=== PATIENT | male | born 1960 | race Caucasian/White ===

== ENCOUNTER → 2016-09-20 | Outpatient (REF) | payer MEDICARE, MEDICAID ==
[~2016-09-20] MED LIST: /AMLO25TA PO; /PANT40TA OR; ACCU40TA PO; AMLO10TA PO; BISA10SU PO; CARA1SUS OR; CIPR500T4 OR; CIPR500T89 PO; FERR325T PO; HCTZ PO; HYDR25TAB PO; INSUDET SC; INSUHUMDS SC; INSULANT SC; INSULIN NPH SC; INSULIN REG SC; INSULIN REG SUBQ; INSUR SC; INSURSD SC; INSURSDRX SC; MAALSUS OR; METO10TA2 OR; MIRA3350 PO; MS CONTIN PO; MS IR PO; Metronidazole PO; NICO14DI20 TD; NICO14PA TOP; NOVOINJ5 SC; NPH INSULIN SC; PEPC1TAB4 PO; PERCOCET PO; PRIL40CA PO; PROM25TA PO; REGL10TA6 PO; REGULAR INSULIN SC; SENN8.6T7 PO; SENO8.6T2 PO; TYLE325T5 PO; ZENP1CAP PO
== END ==
LOC: M SFHCPLAZ 11:47
PROVIDERS: ATTEND Family Medicine
DX: E11.9 Type 2 diabetes mellitus without complications (principal); Z53.8 Procedure and treatment not carried out for other reasons

== ENCOUNTER 2016-09-26 20:49 | Emergency (ER) | payer MEDICARE, MEDICAID ==
[2016-09-26] MEDS ORDERED: NORCO, ANEXSIA 5/325MG TABLET (HYDROcodone/ACETAMINOPHEN) As Ordered ONE (21:09)
[2016-09-26] MEDS ORDERED: NORCO 5/325MG TABLET (BULK) As Ordered ONE (21:27)
--- NOTE | 2016-09-26 21:40 | EDDOCDS ---
Nurse's Notes [facility] Name: Fernando Fernandez Age: 56 yrs Sex: Male : 1960 Arrival Date: 09/26/2016 Time: 20:49 Bed 3 Private MD: Micheal Arreguin Diagnosis: Dislocation of right acromioclavicular joint, 100%-200% displacement Presentation: 09/26 20:53 Presenting complaint: EMS states: pt slipped and fell outside. injured right shoulder. [facility] Adult Sepsis Screening: The patient does not have new or worsening altered mentation. Patient's respiratory rate is less than 22. Systolic blood pressure is greater than 100. Patient has a qSOFA score of 0- Negative Sepsis Screen. Suicide/Homicide risk assessment- the patient denies having any suicidal and/or homicidal ideations and does not present with any other emotional, behavioral or mental health complaints. Status: Patient is not a director of radio services or dependent. Transition of care: patient was not received from another setting of care. 20:53 Acuity: CHITO Level 3 [facility] 20:53 Method Of Arrival: Ambulance [facility] Triage Assessment: 20:54 General: Appears in no apparent distress, comfortable, Behavior is appropriate for age, mlc cooperative, pleasant. Pain: Location: anterior aspect of right shoulder Pain currently is 8 out of 10 on a pain scale. HIV screening NA for this visit Offered previously. The patient is triaged at the bedside. See Assessment in Nurses Notes section of ED record. Neurological: Level of Consciousness is awake, alert, Oriented to person, place, time. Cardiovascular: Capillary refill < 3 seconds Pulses are all present. Respiratory: Airway is patent Respiratory effort is even, unlabored, Respiratory pattern is regular. Derm: Skin is normal. Historical: - Allergies: No known drug Allergies; - Home Meds: 1. Insulin: Regular Sub-Q after meals sliding scale 2. Lantus 100 unit/mL Sub-Q crtg 10 unit every morning - PMHx: Diabetes - IDDM: uncontrolled; Hypertension; Pancreatitis; - PSHx: pancreas removal; left ankle; left wrist; - Social history: Smoking status: Patient uses tobacco products, heavy tobacco smoker. No barriers to communication noted, The patient speaks fluent Georgian. - Family history: Not pertinent. - : The pt / caregiver states he / she is not on anticoagulants. Home medication list is obtained from the patient. - Exposure Risk Screening:: None identified. Screenin:57 Screening information is obtained from the patient. Fall risk: No risks identified. [facility] Assistance ADL's: requires no assistance with activities of daily living. Abuse/DV Screen: The patient / caregiver reports he/she is: not in a situation that causes fear, pain or injury. Nutritional screening: No deficits noted. Advance Directives: Currently, there is a health care proxy, Tova Mcpherson maday . There is no active DNR order. There is an active Power of Control Systems Specialist, maday Marques . home support is adequate. Assessment: 21:16 General: pt given boxed lunch. mlc 21:37 General: Appears in no apparent distress, comfortable, Behavior is cooperative. [facility] Neurological: Level of Consciousness is awake, alert, Oriented to person, place, time. Respiratory: Airway is patent Respiratory effort is even, unlabored, Respiratory pattern is regular. Derm: Skin is pink, warm & dry. Vital Signs: 20:58 BP 180 / 85; Pulse 70; Resp 18; Temp 99.1(TE); Pulse Ox 100% on R/A; Weight 68.04 kg william (R); Height 5 ft. 2 in. (157.48 cm) (R); Pain 7/10; 21:35 BP 160 / 74; Pulse 62; Resp 18; Temp 98.9(TE); Pulse Ox 99% on R/A; Pain 7/10; william 20:58 Body Mass Index 27.44 (68.04 kg, 157.48 cm) william Vitals: 20:54 Log In Time N/A - ambulance arrival. [facility] ED Course: 20:52 Patient visited by Wallace Root, Meter/Relay Craftsman. ml3 20:52 Micheal Arreguin DO is Private Physician. ml3 20:52 Angie Zaman,LETI is Primary Nurse. ml3 20:52 [facility] Ferr[facility] le 20:52 Patient moved to Waiting ml3 20:52 Patient moved to 3 ml3 20:53 Triage Initiated mlc 20:56 Patient moved to Radiology alayna 20:57 Patient visited by Catie Ferraro FNP. le 20:58 Patient visited by Angie Zaman RN. mlc 20:58 Pt greeted and oriented to ED. Patient advised of names of staff involved in care, william location of call jones, wait times and NPO status. Patient has correct armband on for positive identification. Bed in low position. Call light in reach. Side rails up X2. Pulse ox on. NIBP on. 20:59 Patient visited by Neena Chatman PCA. william 21:02 Patient visited by Catie Ferraro FNP. le 21:16 Patient visited by Angie Zaman RN. mlc 21:17 Patient moved to 3 ml3 21:30 [facility] is Referral Physician. le 21:32 [facility] Payment Agreement was scanned into [employer] and attached to record. [email or web address] 21:35 Patient visited by Neena Chatman PCA. william 21:37 The patient / caregiver is instructed regarding the plan of care and ED course. mlc 21:37 No IV's were initiated during this patient's visit. No procedures done that require mlc assistance. Sling applied to right arm. Patient with positive distal sensation and brisk distal capillary refill after application. Administered Medications: 21:16 Drug: HYDROcodone-acetaminophen 1 tabs [hydrocodone 5 mg-acetaminophen 325 mg tablet (1 mlc tabs)] Route: PO; 21:36 Follow up: Response: Pt left department before re-evaluation is appropriate mlc 21:36 Drug: HYDROcodone-acetaminophen 4 pack- 1 packets [hydrocodone 5 mg-acetaminophen 325 mlc mg tablet (1 tabs)] {Co-Signature: ko2 (Marie Ortega RN).} Route: PO; 21:36 Follow up: Response: Med's dispensed home mlc Point of Care Testing: Blood Glucose: 21:16 Blood Glucose: 53 mg/dL; mlc Ranges: Order Results: Lab Order: Fingerstick Blood Sugar; SPEC'M 09/26/16 21:13 Test: BEDSIDE GLUCOSE; Value: 53; Range: 70-105; Abnormal: Below low normal; Units: MG/DL; Status: F Test Note: ; RN Notified Dr Order not to Draw Outcome: 21:30 Discharge ordered by Provider. le 21:37 Discharge Assessment: Patient awake, alert and oriented x 3. No cognitive and/or mlc functional deficits noted. Patient verbalized understanding of disposition instructions. patient administered narcotics - yes. Pt provided with safe discharge. Discharge Assessment: Patient awake, alert and oriented x 3. No cognitive and/or functional deficits noted. Patient verbalized understanding of disposition instructions. The following High Risk Discharge criteria are identified: None. Discharged to home via ambulance. Condition: good Condition: stable. Discharge instructions given to patient, Instructed on discharge instructions, follow up and referral plans. medication usage, no driving heavy equipment, Demonstrated understanding of instructions, medications, Pt was receptive of discharge instructions/ teaching. Prescriptions given X 1. No special radiology studies were completed. Property sent home with patient. 21:38 Patient left the ED. [facility] Signatures: Reji David Mary-Elizabeth, Meter/Relay Craftsman Unit ml3 Catie Ferraro, AIXA CERAMIC MOLD DESIGNERNeena Baig, EXCELLENCE LEADER EXCELLENCE LEADER Angie Moya,LETI RN Kallie Chung, Reg Reg ks16 Marie Ortega RN ko2 LUIZ
--- NOTE | 2016-09-26 21:40 | EDDOCDS ---
Physician Documentation [facility] Name: Fernando Fernandez Age: 56 yrs Sex: Male : 1960 Arrival Date: 09/26/2016 Time: 20:49 Bed 3 Private MD: Micheal Arreguin Disposition: 09/26/16 21:30 Discharged to Home/Self Care. Impression: Dislocation of right acromioclavicular joint, 100%-200% displacement. - Condition is Stable. - Discharge Instructions: Elastic Bandage and RICE, Acromioclavicular Injuries, Arm Sling Use, [id number]. - Prescriptions for [place] 5- 325 mg Oral Tablet - take 1 tablet by ORAL route every 6 hours As needed MDD: 4 tabs; 20 tablet. - Medication Reconciliation, Local Pharmacy [facility], [facility] Followup form. - Follow up: [facility]; When: Call to arrange an appointment; Reason: Recheck today's complaints, Continuance of care. - Problem is new. - Symptoms are unchanged. - Notes: Return to the ED for any further concerns Historical: - Allergies: No known drug Allergies; - Home Meds: 1. Insulin: Regular Sub-Q after meals sliding scale 2. Lantus 100 unit/mL Sub-Q crtg 10 unit every morning - PMHx: Diabetes - IDDM: uncontrolled; Hypertension; Pancreatitis; - PSHx: pancreas removal; left ankle; left wrist; - Social history: Smoking status: Patient uses tobacco products, heavy tobacco smoker. No barriers to communication noted, The patient speaks fluent Tajik. - Family history: Not pertinent. - : The pt / caregiver states he / she is not on anticoagulants. Home medication list is obtained from the patient. - Exposure Risk Screening:: None identified. Vital Signs: 09/26 20:58 BP 180 / 85; Pulse 70; Resp 18; Temp 99.1(TE); Pulse Ox 100% on R/A; Weight 68.04 kg / william 150 lbs (R); Height 5 ft. 2 in. (157.48 cm) (R); Pain 7/10; 21:35 BP 160 / 74; Pulse 62; Resp 18; Temp 98.9(TE); Pulse Ox 99% on R/A; Pain 7/10; william 20:58 Body Mass Index 27.44 (68.04 kg, 157.48 cm) william MDM: 20:54 Shoulder, Complete Ordered. EDMS 21:06 HYDROcodone-acetaminophen 5 mg-325 mg 1 tabs PO once ordered. le 21:08 Sling ordered. le 21:08 Accucheck ordered. le 21:11 HYDROcodone-acetaminophen 4 pack- 5 mg-325 mg 1 packets PO Per package directions; le Dispense with patient. 1 po q4h prn for pain ordered. 21:22 Fingerstick Blood Sugar Ordered. EDMS 21:31 Financial registration complete. [email or web address] 21:32 [facility] Payment Agreement was scanned into [employer] and attached to record. [email or web address] Point of Care Testing: Blood Glucose: 21:16 Blood Glucose: 53 mg/dL; mlc Ranges: Administered Medications: 21:16 Drug: HYDROcodone-acetaminophen 1 tabs [hydrocodone 5 mg-acetaminophen 325 mg tablet (1 mlc tabs)] Route: PO; 21:36 Follow up: Response: Pt left department before re-evaluation is appropriate mlc 21:36 Drug: HYDROcodone-acetaminophen 4 pack- 1 packets [hydrocodone 5 mg-acetaminophen 325 mlc mg tablet (1 tabs)] {Co-Signature: ko2 (Marie Ortega RN).} Route: PO; 21:36 Follow up: Response: Med's dispensed home mlc Signatures: Dispatcher [employer] EDMS Catie Ferraro, WASHING MACHINE REPAIRER WASHING MACHINE REPAIRER Angie Patricia RN RN mlc Kallie Joshi, Reg Reg ks16 Marie Ortega RN ko2 The chart was reviewed and I authenticate all verbal orders and agree with the evaluation and treatment provided.Attachments: :32 [facility] Payment Agreement [email or web address] MTDD
--- NOTE | 2016-09-27 08:32 | REP ---
Right shoulder: Three views. History: Trauma. Findings: There is superior subluxation of the distal clavicle on the right. This is a new finding compared with the chest x-ray from January 14, 2016 and is consistent with an AC separation injury, grade 2. There is widening of the coracoclavicular space. No fracture is seen. There is some diffuse osteopenia. Glenohumeral joint is normally aligned. Impression: AC separation injury. No fracture seen. Signed by Willi Vieira MD 09/27/2016 10:18 A
--- NOTE | 2016-09-28 22:39 | EDDOCDS ---
Physician Documentation [facility] Name: Fernando Fernandez Age: 56 yrs Sex: Male : 1960 Arrival Date: 09/26/2016 Time: 20:49 Bed 3 Private MD: Micheal Arreguin Disposition: 09/26/16 21:30 Discharged to Home/Self Care. Impression: Dislocation of right acromioclavicular joint, 100%-200% displacement. - Condition is Stable. - Discharge Instructions: Elastic Bandage and RICE, Acromioclavicular Injuries, Arm Sling Use, [id number]. - Prescriptions for [place] 5- 325 mg Oral Tablet - take 1 tablet by ORAL route every 6 hours As needed MDD: 4 tabs; 20 tablet. - Medication Reconciliation, Local Pharmacy [facility], [facility] Followup form. - Follow up: [facility]; When: Call to arrange an appointment; Reason: Recheck today's complaints, Continuance of care. - Problem is new. - Symptoms are unchanged. - Notes: Return to the ED for any further concerns Historical: - Allergies: No known drug Allergies; - Home Meds: 1. Insulin: Regular Sub-Q after meals sliding scale 2. Lantus 100 unit/mL Sub-Q crtg 10 unit every morning - PMHx: Diabetes - IDDM: uncontrolled; Hypertension; Pancreatitis; - PSHx: pancreas removal; left ankle; left wrist; - Social history: Smoking status: Patient uses tobacco products, heavy tobacco smoker. No barriers to communication noted, The patient speaks fluent Sami. - Family history: Not pertinent. - : The pt / caregiver states he / she is not on anticoagulants. Home medication list is obtained from the patient. - Exposure Risk Screening:: None identified. Vital Signs: 09/26 20:58 BP 180 / 85; Pulse 70; Resp 18; Temp 99.1(TE); Pulse Ox 100% on R/A; Weight 68.04 kg / william 150 lbs (R); Height 5 ft. 2 in. (157.48 cm) (R); Pain 7/10; 21:35 BP 160 / 74; Pulse 62; Resp 18; Temp 98.9(TE); Pulse Ox 99% on R/A; Pain 7/10; william 20:58 Body Mass Index 27.44 (68.04 kg, 157.48 cm) william MDM: 20:54 Shoulder, Complete Ordered. EDMS 21:06 HYDROcodone-acetaminophen 5 mg-325 mg 1 tabs PO once ordered. le 21:08 Sling ordered. le 21:08 Accucheck ordered. le 21:11 HYDROcodone-acetaminophen 4 pack- 5 mg-325 mg 1 packets PO Per package directions; le Dispense with patient. 1 po q4h prn for pain ordered. 21:22 Fingerstick Blood Sugar Ordered. EDMS 21:31 Financial registration complete. [facility] :32 [facility] Payment Agreement was scanned into [employer] and attached to record. 09/27 11:48 T-Sheet-- Draft Copy was scanned into [employer] and attached to record. gb Point of Care Testing: Blood Glucose: 09/26 21:16 Blood Glucose: 53 mg/dL; mlc Ranges: Administered Medications: 21:16 Drug: HYDROcodone-acetaminophen 1 tabs [hydrocodone 5 mg-acetaminophen 325 mg tablet (1 mlc tabs)] Route: PO; 21:36 Follow up: Response: Pt left department before re-evaluation is appropriate mlc 21:36 Drug: HYDROcodone-acetaminophen 4 pack- 1 packets [hydrocodone 5 mg-acetaminophen 325 mlc mg tablet (1 tabs)] {Co-Signature: ko2 (Marie Ortega RN).} Route: PO; 21:36 Follow up: Response: Med's dispensed home mlc Signatures: Dispatcher [employer] EDMS Chelly Weaver, Reg Reg gb Catie Ferraro, PLANT OPERATOR PLANT OPERATOR Angie Patricia RN RN Kallie Chung, Reg Reg ks16 Marie gibson The chart was reviewed and I authenticate all verbal orders and agree with the evaluation and treatment provided.Attachments: :32 [facility] Payment Agreement 09/27 11:48 T-Sheet-- Draft Copy gb Chart Complete MTDD
--- NOTE | 2016-09-28 22:39 | EDDOCDS ---
Physician Documentation [facility] Name: Fernando Fernandez Age: 56 yrs Sex: Male : 1960 Arrival Date: 09/26/2016 Time: 20:49 Bed 3 Private MD: Micheal Arreguin Disposition: 09/26/16 21:30 Discharged to Home/Self Care. Impression: Dislocation of right acromioclavicular joint, 100%-200% displacement. - Condition is Stable. - Discharge Instructions: Elastic Bandage and RICE, Acromioclavicular Injuries, Arm Sling Use, [facility]. - Prescriptions for [place] 5- 325 mg Oral Tablet - take 1 tablet by ORAL route every 6 hours As needed MDD: 4 tabs; 20 tablet. - Medication Reconciliation, Local Pharmacy [facility], [facility] Followup form. - Follow up: [facility]; When: Call to arrange an appointment; Reason: Recheck today's complaints, Continuance of care. - Problem is new. - Symptoms are unchanged. - Notes: Return to the ED for any further concerns Historical: - Allergies: No known drug Allergies; - Home Meds: 1. Insulin: Regular Sub-Q after meals sliding scale 2. Lantus 100 unit/mL Sub-Q crtg 10 unit every morning - PMHx: Diabetes - IDDM: uncontrolled; Hypertension; Pancreatitis; - PSHx: pancreas removal; left ankle; left wrist; - Social history: Smoking status: Patient uses tobacco products, heavy tobacco smoker. No barriers to communication noted, The patient speaks fluent Portuguese. - Family history: Not pertinent. - : The pt / caregiver states he / she is not on anticoagulants. Home medication list is obtained from the patient. - Exposure Risk Screening:: None identified. Vital Signs: 09/26 20:58 BP 180 / 85; Pulse 70; Resp 18; Temp 99.1(TE); Pulse Ox 100% on R/A; Weight 68.04 kg / william 150 lbs (R); Height 5 ft. 2 in. (157.48 cm) (R); Pain 7/10; 21:35 BP 160 / 74; Pulse 62; Resp 18; Temp 98.9(TE); Pulse Ox 99% on R/A; Pain 7/10; william 20:58 Body Mass Index 27.44 (68.04 kg, 157.48 cm) william MDM: 20:54 Shoulder, Complete Ordered. EDMS 21:06 HYDROcodone-acetaminophen 5 mg-325 mg 1 tabs PO once ordered. le 21:08 Sling ordered. le 21:08 Accucheck ordered. le 21:11 HYDROcodone-acetaminophen 4 pack- 5 mg-325 mg 1 packets PO Per package directions; le Dispense with patient. 1 po q4h prn for pain ordered. 21:22 Fingerstick Blood Sugar Ordered. EDMS 21:31 Financial registration complete. [facility] :32 [facility] Payment Agreement was scanned into [employer] and attached to record. 09/27 11:48 T-Sheet-- Draft Copy was scanned into [employer] and attached to record. gb Point of Care Testing: Blood Glucose: 09/26 21:16 Blood Glucose: 53 mg/dL; mlc Ranges: Administered Medications: 21:16 Drug: HYDROcodone-acetaminophen 1 tabs [hydrocodone 5 mg-acetaminophen 325 mg tablet (1 mlc tabs)] Route: PO; 21:36 Follow up: Response: Pt left department before re-evaluation is appropriate mlc 21:36 Drug: HYDROcodone-acetaminophen 4 pack- 1 packets [hydrocodone 5 mg-acetaminophen 325 mlc mg tablet (1 tabs)] {Co-Signature: ko2 (Marie Ortega RN).} Route: PO; 21:36 Follow up: Response: Med's dispensed home mlc Signatures: Dispatcher [employer] EDMS Chelly Weaver, Reg Reg gb Catie Ferraro, WASH BARREL LEADER WASH BARREL LEADER Angie Patricia RN RN Kallie Chung, Reg Reg ks16 Marie gibson The chart was reviewed and I authenticate all verbal orders and agree with the evaluation and treatment provided.Attachments: :32 [facility] Payment Agreement 09/27 11:48 T-Sheet-- Draft Copy gb Chart Complete MTDD
--- NOTE | 2016-09-28 22:39 | EDDOCDS ---
Nurse's Notes [facility] Name: Fernando Fernandez Age: 56 yrs Sex: Male : 1960 Arrival Date: 09/26/2016 Time: 20:49 Bed 3 Private MD: Micheal Arreguin Diagnosis: Dislocation of right acromioclavicular joint, 100%-200% displacement Presentation: 09/26 20:53 Presenting complaint: EMS states: pt slipped and fell outside. injured right shoulder. [facility] Adult Sepsis Screening: The patient does not have new or worsening altered mentation. Patient's respiratory rate is less than 22. Systolic blood pressure is greater than 100. Patient has a qSOFA score of 0- Negative Sepsis Screen. Suicide/Homicide risk assessment- the patient denies having any suicidal and/or homicidal ideations and does not present with any other emotional, behavioral or mental health complaints. Status: Patient is not a assurance services manager health care or dependent. Transition of care: patient was not received from another setting of care. 20:53 Acuity: CHITO Level 3 [facility] 20:53 Method Of Arrival: Ambulance [facility] Triage Assessment: 20:54 General: Appears in no apparent distress, comfortable, Behavior is appropriate for age, mlc cooperative, pleasant. Pain: Location: anterior aspect of right shoulder Pain currently is 8 out of 10 on a pain scale. HIV screening NA for this visit Offered previously. The patient is triaged at the bedside. See Assessment in Nurses Notes section of ED record. Neurological: Level of Consciousness is awake, alert, Oriented to person, place, time. Cardiovascular: Capillary refill < 3 seconds Pulses are all present. Respiratory: Airway is patent Respiratory effort is even, unlabored, Respiratory pattern is regular. Derm: Skin is normal. Historical: - Allergies: No known drug Allergies; - Home Meds: 1. Insulin: Regular Sub-Q after meals sliding scale 2. Lantus 100 unit/mL Sub-Q crtg 10 unit every morning - PMHx: Diabetes - IDDM: uncontrolled; Hypertension; Pancreatitis; - PSHx: pancreas removal; left ankle; left wrist; - Social history: Smoking status: Patient uses tobacco products, heavy tobacco smoker. No barriers to communication noted, The patient speaks fluent Chinese. - Family history: Not pertinent. - : The pt / caregiver states he / she is not on anticoagulants. Home medication list is obtained from the patient. - Exposure Risk Screening:: None identified. Screenin:57 Screening information is obtained from the patient. Fall risk: No risks identified. [facility] Assistance ADL's: requires no assistance with activities of daily living. Abuse/DV Screen: The patient / caregiver reports he/she is: not in a situation that causes fear, pain or injury. Nutritional screening: No deficits noted. Advance Directives: Currently, there is a health care proxy, Tova Mcpherosn maday . There is no active DNR order. There is an active Power of Legal Service Specialist, maday Marques . home support is adequate. Assessment: 21:16 General: pt given boxed lunch. mlc 21:37 General: Appears in no apparent distress, comfortable, Behavior is cooperative. [facility] Neurological: Level of Consciousness is awake, alert, Oriented to person, place, time. Respiratory: Airway is patent Respiratory effort is even, unlabored, Respiratory pattern is regular. Derm: Skin is pink, warm & dry. Vital Signs: 20:58 BP 180 / 85; Pulse 70; Resp 18; Temp 99.1(TE); Pulse Ox 100% on R/A; Weight 68.04 kg william (R); Height 5 ft. 2 in. (157.48 cm) (R); Pain 7/10; 21:35 BP 160 / 74; Pulse 62; Resp 18; Temp 98.9(TE); Pulse Ox 99% on R/A; Pain 7/10; william 20:58 Body Mass Index 27.44 (68.04 kg, 157.48 cm) william Vitals: 20:54 Log In Time N/A - ambulance arrival. [facility] ED Course: 20:52 Patient visited by Wallace Root, Investment Executive. ml3 20:52 Micheal Arreguin DO is Private Physician. ml3 20:52 Angie Zaman,LETI is Primary Nurse. ml3 20:52 Catie Ferraro FNP is PSYCHIATRICP. le 20:52 Patient moved to Waiting ml3 20:52 Patient moved to 3 ml3 20:53 Triage Initiated mlc 20:56 Patient moved to Radiology alayna 20:57 Patient visited by Catie Ferraro FNP. le 20:58 Patient visited by Angie Zaman RN. mlc 20:58 Pt greeted and oriented to ED. Patient advised of names of staff involved in care, william location of call jones, wait times and NPO status. Patient has correct armband on for positive identification. Bed in low position. Call light in reach. Side rails up X2. Pulse ox on. NIBP on. 20:59 Patient visited by Neena Chatman PCA. william 21:02 Patient visited by Catie Ferraro FNP. le 21:16 Patient visited by Angie Zaman RN. mlc 21:17 Patient moved to 3 ml3 21:30 [facility] is Referral Physician. le 21:32 [facility] Payment Agreement was scanned into [employer] and attached to record. ks16 21:35 Patient visited by Neena Chatman PCA. william 21:37 The patient / caregiver is instructed regarding the plan of care and ED course. mlc 21:37 No IV's were initiated during this patient's visit. No procedures done that require mlc assistance. Sling applied to right arm. Patient with positive distal sensation and brisk distal capillary refill after application. 09/27 08:50 Shoulder, Complete Returned. EDMS 11:48 T-Sheet-- Draft Copy was scanned into [employer] and attached to record. gb Administered Medications: 09/26 21:16 Drug: HYDROcodone-acetaminophen 1 tabs [hydrocodone 5 mg-acetaminophen 325 mg tablet (1 mlc tabs)] Route: PO; 21:36 Follow up: Response: Pt left department before re-evaluation is appropriate mlc 21:36 Drug: HYDROcodone-acetaminophen 4 pack- 1 packets [hydrocodone 5 mg-acetaminophen 325 mlc mg tablet (1 tabs)] {Co-Signature: ko2 (Marie Ortega RN).} Route: PO; 21:36 Follow up: Response: Med's dispensed home mlc Point of Care Testing: Blood Glucose: 21:16 Blood Glucose: 53 mg/dL; mlc Ranges: Order Results: Lab Order: Fingerstick Blood Sugar; SPEC'M 09/26/16 21:13 Test: BEDSIDE GLUCOSE; Value: 53; Range: 70-105; Abnormal: Below low normal; Units: MG/DL; Status: F Test Note: ; RN Notified Dr Order not to Draw Radiology Order: Shoulder, Complete Test: Shoulder, Complete REASON FOR EXAMINATION: Trauma; Right shoulder: Three views.; ; History: Trauma.; ; Findings: There is superior subluxation of the distal clavicle on the right.; This is a new finding compared with the chest x-ray from January 14, 2016 and is; consistent with an AC separation injury, grade 2. There is widening of the; coracoclavicular space. No fracture is seen. There is some diffuse osteopenia.; Glenohumeral joint is normally aligned.; ; Impression:; ; AC separation injury. No fracture seen.; ; ; Signed by; Willi Vieira MD 09/27/2016 10:18 A; Outcome: 21:30 Discharge ordered by Provider. le 21:37 Discharge Assessment: Patient awake, alert and oriented x 3. No cognitive and/or mlc functional deficits noted. Patient verbalized understanding of disposition instructions. patient administered narcotics - yes. Pt provided with safe discharge. Discharge Assessment: Patient awake, alert and oriented x 3. No cognitive and/or functional deficits noted. Patient verbalized understanding of disposition instructions. The following High Risk Discharge criteria are identified: None. Discharged to home via ambulance. Condition: good Condition: stable. Discharge instructions given to patient, Instructed on discharge instructions, follow up and referral plans. medication usage, no driving heavy equipment, Demonstrated understanding of instructions, medications, Pt was receptive of discharge instructions/ teaching. Prescriptions given X 1. No special radiology studies were completed. Property sent home with patient. 21:38 Patient left the ED. mlc Signatures: Dispatcher [employer] EDMS Reji David Gloria, Reg Reg gb Parrish oRotbeth, Investment Executive Unit ml3 Catie Ferraro, COURT ASSISTANT COURT ASSISTANT Neena Granados, CHAIRMAN & CO FOUNDER CHAIRMAN & CO FOUNDER Angie Moya,Kallie Akbar RN, Reg Reg ks16 Marie Ortega RN ko2 Chart Complete MTDD
== END 2016-09-26 21:38 | disposition home or self-care (01) ==
LOC: M ED 20:49
DX: S43.51XA Sprain of right acromioclavicular joint, initial encounter (principal); E10.9 Type 1 diabetes mellitus without complications; I10 Essential (primary) hypertension; F17.210 Nicotine dependence, cigarettes, uncomplicated; Z79.4 Long term (current) use of insulin; W01.198A Fall on same level from slipping, tripping and stumbling with subsequent striking against other object, initial encounter; Y92.410 Unspecified street and highway as the place of occurrence of the external cause; Y93.01 Activity, walking, marching and hiking; Y99.9 Unspecified external cause status

== ENCOUNTER 2016-10-15 17:10 | Emergency (ER) | payer MEDICARE, MEDICAID ==
[2016-10-15] MEDS ORDERED: fentaNYL 100 MCG/2 ML INJECTION (J3010) As Ordered ONE (18:06)
[2016-10-15 18:35] LABS: ANION GAP 5 MEQ/L (8-16); BLOOD UREA NITROGEN 18 MG/DL (7-18); CALCIUM LEVEL 8.4 MG/DL (8.5-10.1); CARBON DIOXIDE LEVEL 30 MEQ/L (21-32); CHLORIDE LEVEL 106 MEQ/L (98-107); GLOMERULAR FILTRATION RATE > 60.0 (>56); GLUCOSE, FASTING 127 MG/DL (70-105); SODIUM LEVEL 141 MEQ/L (136-145)
[2016-10-15 18:39] LABS: POTASSIUM SERUM 5.9 MEQ/L (3.5-5.1)
[2016-10-15] MEDS ORDERED: HYDROmorphone HCL 1 MG/ML SYRINGE (J1170) As Ordered ONE (18:41)
[2016-10-15] MEDS ORDERED: SOD POLYSTYRENE SULFONATE SUSP 15 GM/60 ML UD As Ordered ONE (18:52)
[2016-10-15] MEDS ORDERED: ALBUTEROL SULFATE 2.5 MG/0.5 ML INH NEB SOLN As Ordered ONE (18:54)
--- NOTE | 2016-10-15 20:01 | EDDOCDS ---
Physician Documentation [facility] Name: Fernando Fernandez Age: 56 yrs Sex: Male : 1960 Arrival Date: 10/15/2016 Time: 17:10 Bed 4 Private MD: Duane Espinosa MD Disposition: 10/15/16 19:08 Discharged to Home/Self Care. Impression: Pain in right shoulder. - Condition is Stable. - Discharge Instructions: Hyperkalemia, [id number], Shoulder Pain. - Prescriptions for Percocet 5- 325 mg Oral Tablet - take 1 tablet by ORAL route every 6-8 hours As needed MDD: 4 tabs; 20 tablet. - Medication Reconciliation, Local Pharmacy Hours form. - Follow up: Sachin Sanchez; When: Call to arrange an appointment; Reason: Continuance of care. - Problem is new. - Symptoms have worsened. Historical: - Allergies: no known allergies; - Home Meds: 1. Lantus 100 unit/mL Sub-Q crtg 10 unit every morning (Last dose: 10/15/2016 08:00) 2. Insulin: Regular Sub-Q after meals sliding scale 3. [place] 7.5-325 mg Oral tab 1 tab every 4 hours for Pain (Last dose: 10/11/2016) - PMHx: Pancreatitis; Hypertension; Diabetes - IDDM: uncontrolled; - PSHx: pancreas removal; left ankle; - Social history: Smoking status: Patient uses tobacco products, current every day smoker. Patient/guardian denies using alcohol, street drugs, No barriers to communication noted, The patient speaks fluent Nigerian, Speaks appropriately for age. - Family history: Not pertinent. - : The pt / caregiver states he / she is not on anticoagulants. Home medication list is obtained from the patient. - Exposure Risk Screening:: None identified. Vital Signs: 10/15 17:12 BP 149 / 76; Pulse 70; Resp 16; Temp 96.3(T); Pulse Ox 100% on R/A; Weight 65.77 kg / sew 145 lbs; Height 5 ft. 2 in. (157.48 cm); Pain 9/10; 18:36 BP 160 / 75; Pulse 54; Resp 16; Pulse Ox 97% ; Pain 9/10; cjh 19:57 BP 138 / 66; Pulse 58; Resp 16; Temp 97.4; Pulse Ox 97% ; Pain 7/10; cjh 17:12 Body Mass Index 26.52 (65.77 kg, 157.48 cm) sew MDM: 17:44 IV Saline Lock ordered. fg 17:44 fentaNYL (PF) 50 mcg IVP once ordered. fg 17:45 Shoulder, Complete Ordered. EDMS 17:48 Financial registration complete. gjb 17:48 Undo -Financial registration. gjb 17:51 Basic Metabolic Profile Ordered. EDMS 17:56 Financial registration complete. zo 17:59 [facility] Payment Agreement was scanned into [employer] and attached to record. zo 18:35 Dilaudid - HYDROmorphone 1 mg IVP once ordered. fg 18:45 Polystyrene Suspension 15 grams PO once ordered. fg 18:45 Albuterol 2.5 mg Nebulizer once ordered. fg 18:47 ECG WITH READING ER PHYS+CARDIAG ordered. EDMS Administered Medications: 18:11 Drug: fentaNYL (PF) 50 mcg [fentanyl (PF) 50 mcg/mL injection solution (1 mL)] Route: ld5 IVP; Site: left antecubital; 18:49 Drug: Dilaudid - HYDROmorphone 1 mg [hydromorphone 1 mg/mL injection syringe (1 mL)] [facility] Route: IVP; Site: left antecubital; 18:56 Drug: Polystyrene 15 grams [sodium polystyrene sulfonate 15 gram/60 mL oral suspension [facility] (1200 drps)] Route: PO; 19:00 Drug: Albuterol 2.5 mg [albuterol sulfate 2.5 mg/0.5 mL solution for nebulization (0.5 cs15 mL)] Route: Nebulizer; Signatures: Dispatcher [employer] EDMS Melania Martinez Jane, RN RN [facility] Sofy Moreno RN RN ttb Gill, Frances, MD MD fg Beck, Gabriela gjb Dickerson, Laura RN ld5 Lico Tiwari RT cs15 The chart was reviewed and I authenticate all verbal orders and agree with the evaluation and treatment provided.Attachments: 17:59 [facility] Payment Agreement zo MTDD
--- NOTE | 2016-10-15 20:01 | EDDOCDS ---
Nurse's Notes [facility] Name: Fernando Fernandez Age: 56 yrs Sex: Male : 1960 Arrival Date: 10/15/2016 Time: 17:10 Bed 4 Private MD: Duane Espinosa MD Diagnosis: Pain in right shoulder Presentation: 10/15 17:12 Presenting complaint: Patient states: pt fell 2 nights ago onto right shoulder. ttb Painful. Denies numbness/tingling. Deformed. Adult Sepsis Screening: The patient does not have new or worsening altered mentation. Patient's respiratory rate is less than 22. Systolic blood pressure is greater than 100. Patient has a qSOFA score of 0- Negative Sepsis Screen. Suicide/Homicide risk assessment- the patient denies having any suicidal and/or homicidal ideations and does not present with any other emotional, behavioral or mental health complaints. Status: Patient is not a human resources services specialist or dependent. Transition of care: patient was not received from another setting of care. 17:12 Acuity: CHITO Level 3 ttb 17:12 Method Of Arrival: Walkin/Carried/Asstd ttb Triage Assessment: 17:15 General: Appears in no apparent distress, uncomfortable, well nourished, well groomed, ttb Behavior is appropriate for age, cooperative, pleasant. Pain: Location: right shoulder Pain currently is 9 out of 10 on a pain scale. HIV screening NA for this visit Offered previously. Neurological: Level of Consciousness is awake, alert. Respiratory: No deficits noted. Derm: Skin is normal. Musculoskeletal: Range of motion limited in right shoulder Bony deformity noted of right shoulder. Injury Description: pt fell from standing. Historical: - Allergies: no known allergies; - Home Meds: 1. Lantus 100 unit/mL Sub-Q crtg 10 unit every morning (Last dose: 10/15/2016 08:00) 2. Insulin: Regular Sub-Q after meals sliding scale 3. [place] 7.5-325 mg Oral tab 1 tab every 4 hours for Pain (Last dose: 10/11/2016) - PMHx: Pancreatitis; Hypertension; Diabetes - IDDM: uncontrolled; - PSHx: pancreas removal; left ankle; - Social history: Smoking status: Patient uses tobacco products, current every day smoker. Patient/guardian denies using alcohol, street drugs, No barriers to communication noted, The patient speaks fluent Italian, Speaks appropriately for age. - Family history: Not pertinent. - : The pt / caregiver states he / she is not on anticoagulants. Home medication list is obtained from the patient. - Exposure Risk Screening:: None identified. Screenin:45 Screening information is obtained from the patient. Fall risk: No risks identified. [facility] Assistance ADL's: requires no assistance with activities of daily living. Abuse/DV Screen: The patient / caregiver reports he/she is: not in a situation that causes fear, pain or injury. Nutritional screening: No deficits noted. Advance Directives: There is no active DNR order. home support is adequate. Assessment: 17:45 General: Appears in no apparent distress, comfortable, Behavior is appropriate for age, [facility] cooperative. Pain: Location: right shoulder Pain currently is 10 out of 10 on a pain scale. Neurological: Level of Consciousness is awake, alert, Oriented to person, place, time. Respiratory: Airway is patent Respiratory effort is even, unlabored, Respiratory pattern is regular, symmetrical. Derm: Skin is pink, warm & dry. Musculoskeletal: Range of motion limited in right shoulder. 18:12 General: MD in to speak with pt. Pt then medicated per orders. Will continue to monitor.ld5 19:30 General: Appears in no apparent distress, comfortable, Behavior is appropriate for age, [facility] cooperative, reports pain 7/10 and states 'it feels pretty good right now'. Noted to be moving arm fairly well and dressing self without difficulty or assistance. reviewed discharge instructions, encouraged and answered questions, patient denies further needs and declines offer of additional assistance at this time. Vital Signs: 17:12 BP 149 / 76; Pulse 70; Resp 16; Temp 96.3(T); Pulse Ox 100% on R/A; Weight 65.77 kg; sew Height 5 ft. 2 in. (157.48 cm); Pain 9/10; 18:36 BP 160 / 75; Pulse 54; Resp 16; Pulse Ox 97% ; Pain 9/10; cjh 19:57 BP 138 / 66; Pulse 58; Resp 16; Temp 97.4; Pulse Ox 97% ; Pain 7/10; cjh 17:12 Body Mass Index 26.52 (65.77 kg, 157.48 cm) sew Vitals: 17:12 Log In Time: October 15, 2016 at 17:10. sew ED Course: 17:10 Patient visited by Alondra Mann. sew 17:10 Patient moved to Waiting sew 17:11 Duane Espinosa is Private Physician. sew 17:11 Duane Espinosa is Private Physician. sew 17:12 Patient visited by Alondra Mann. sew 17:12 Patient moved to Pre RCE sew 17:13 Triage Initiated ttb 17:16 Patient moved to 4 ttb 17:40 Muriel Dias MD is Attending Physician. fg 17:40 Patient visited by Muriel Dias MD. fg 17:45 The patient / caregiver is instructed regarding the plan of care and ED course. cjh 17:45 No procedures done that require assistance. [facility] 17:59 [facility] Payment Agreement was scanned into [employer] and attached to record. zo 18:04 Basic Metabolic Profile Sent. ld5 18:04 Inserted saline lock: 22 gauge in left antecubital area and blood collected. The ld5 patient tolerated the procedure well. Labs drawn. (by ED staff). Sent per order to lab. 18:05 Patient visited by Gema Nicole,LETI. ld5 18:12 Patient visited by Gema Nicole,LETI. ld5 18:59 Patient visited by Douglas Santos PCA. jmv 18:59 EKG done. (by ED staff). Reviewed by Muriel Dias MD. jmv 19:08 Sachin Sanchez is Referral Physician. fg 19:57 Discontinued lock intact, bleeding controlled, pressure dressing applied, No cj redness/swelling at site. Administered Medications: 18:11 Drug: fentaNYL (PF) 50 mcg [fentanyl (PF) 50 mcg/mL injection solution (1 mL)] Route: ld5 IVP; Site: left antecubital; 18:49 Drug: Dilaudid - HYDROmorphone 1 mg [hydromorphone 1 mg/mL injection syringe (1 mL)] [facility] Route: IVP; Site: left antecubital; 18:56 Drug: Polystyrene 15 grams [sodium polystyrene sulfonate 15 gram/60 mL oral suspension [facility] (1200 drps)] Route: PO; 19:00 Drug: Albuterol 2.5 mg [albuterol sulfate 2.5 mg/0.5 mL solution for nebulization (0.5 cs15 mL)] Route: Nebulizer; RT: 19:00 Initial Med Neb Given as ordered. Oxygen is room air. Respiratory: Respiratory effort cs15 is unlabored, Respiratory pattern is symmetrical, Breath sounds are diminished bilaterally. Reports that he has smoked for 40 years and never been to a pulmonoligist although he gets short of breath on exertion. 19:08 Respiratory: cs15 Order Results: Lab Order: Basic Metabolic Profile; SPEC'M 10/15/16 18:02 Test: GLUCOSE, FASTING; Value: 127; Range: 70-105; Abnormal: Above high normal; Units: MG/DL; Status: F Test: BLOOD UREA NITROGEN; Value: 18; Range: 7-18; Units: MG/DL; Status: F Test: CREATININE FOR GFR; Value: 1.30; Range: 0.70-1.30; Units: MG/DL; Status: F Test: GLOMERULAR FILTRATION RATE; Value: > 60.0; Range: >56; Status: F Test: SODIUM LEVEL; Value: 141; Range: 136-145; Units: MEQ/L; Status: F Test: POTASSIUM SERUM; Value: 5.9; Range: 3.5-5.1; Abnormal: Above high normal; Units: MEQ/L; Status: F Test: CHLORIDE LEVEL; Value: 106; Range: 98-107; Units: MEQ/L; Status: F Test: CARBON DIOXIDE LEVEL; Value: 30; Range: 21-32; Units: MEQ/L; Status: F Test: ANION GAP; Value: 5; Range: 8-16; Abnormal: Below low normal; Units: MEQ/L; Status: F Test: CALCIUM LEVEL; Value: 8.4; Range: 8.5-10.1; Abnormal: Below low normal; Units: MG/DL; Status: F Test Note: ; Units are mL/min/1.73 m2 Chronic Kidney Disease Staging per NKF: Stage I & II GFR >=60 Normal to Mildly Decreased Stage III GFR 30-59 Moderately Decreased Stage IV GFR 15-29 Severely Decreased Stage V GFR <15 Very Little GFR Left ESRD GFR <15 on PROCEDURES NURSE Outcome: 19:08 Discharge ordered by Provider. fg 19:57 Discharge Assessment: Patient awake, alert and oriented x 3. No cognitive and/or cjh functional deficits noted. Patient verbalized understanding of disposition instructions. patient administered narcotics - yes. Pt provided with safe discharge. The following High Risk Discharge criteria are identified: None. Discharged to home ambulatory. Condition: good Condition: stable Condition: improved. Discharge instructions given to patient, Instructed on discharge instructions, follow up and referral plans. medication usage, no driving heavy equipment, Use of warm compresses to the affected area, no drinking with medication, Demonstrated understanding of Prescriptions given X 1. No special radiology studies were completed. Property :Personal belongings accompany Pt. 20:00 Patient left the ED. [facility] Signatures: Melania Martinez Laura,RN RN ld5 Sveta LangfordRN RN [facility] Johnathan, Sofy Chong RN RN Muriel Rubin MD MD fg Shelton,Lico,RT RT cs15 Douglas Santos, RINKU SECONDS GRADER jmv LUIZ
--- NOTE | 2016-10-15 20:12 | REP ---
RIGHT SHOULDER SERIES, COMPLETE: 10/15/2016. Comparison: 09/26/2016. Clinical history: Right shoulder pain Findings: The grade 3 AC joint separation again seen at the right shoulder are unchanged. There is no visible fracture or resorption of the distal clavicle or acromion. The adjacent ribs, scapula and humerus are without a fracture and no subluxation, dislocation of the humeral head nor abnormal soft tissue calcifications about the shoulder. Impression: 1. Grade 3 AC joint separation again seen without evidence of fracture, resorption of bone at the lateral clavicle or acromion and no change in the extent of the AC separation. No new finding, acute fracture or other significant abnormality. Signed by Bryce Richardson MD 10/16/2016 07:16 P
--- NOTE | 2016-10-15 21:38 | ECGEPIP ---
Stationary ECG Study [facility] - ED Test Date: 2016-10-15 Pat Name: CHRIS CURRIE Department: Room: - Gender: M Heddler Tier: yaw : 1960 Requested By: JEANA Negron Order Number: [id number] Reading MD: Alondra Dill Measurements Intervals [place] Rate: 52 P: 78 IN: 182 QRS: 28 QRSD: 96 T: 54 QT: 430 QTc: 402 Interpretive Statements SINUS BRADYCARDIA DELAYED R PROGRESSION Electronically Signed On 10-15-2016 21:38:06 EST by Alondra Dill
--- NOTE | 2016-10-17 21:01 | EDDOCDS ---
Physician Documentation [facility] Name: Fernando Fernandez Age: 56 yrs Sex: Male : 1960 Arrival Date: 10/15/2016 Time: 17:10 Bed 4 Private MD: Duane Espinosa MD Disposition: 10/15/16 19:08 Discharged to Home/Self Care. Impression: Pain in right shoulder. - Condition is Stable. - Discharge Instructions: Hyperkalemia, [id number], Shoulder Pain. - Prescriptions for Percocet 5- 325 mg Oral Tablet - take 1 tablet by ORAL route every 6-8 hours As needed MDD: 4 tabs; 20 tablet. - Medication Reconciliation, Local Pharmacy Hours form. - Follow up: Sachin Sanchez; When: Call to arrange an appointment; Reason: Continuance of care. - Problem is new. - Symptoms have worsened. Historical: - Allergies: no known allergies; - Home Meds: 1. Lantus 100 unit/mL Sub-Q crtg 10 unit every morning (Last dose: 10/15/2016 08:00) 2. Insulin: Regular Sub-Q after meals sliding scale 3. [place] 7.5-325 mg Oral tab 1 tab every 4 hours for Pain (Last dose: 10/11/2016) - PMHx: Pancreatitis; Hypertension; Diabetes - IDDM: uncontrolled; - PSHx: pancreas removal; left ankle; - Social history: Smoking status: Patient uses tobacco products, current every day smoker. Patient/guardian denies using alcohol, street drugs, No barriers to communication noted, The patient speaks fluent Cymro, Speaks appropriately for age. - Family history: Not pertinent. - : The pt / caregiver states he / she is not on anticoagulants. Home medication list is obtained from the patient. - Exposure Risk Screening:: None identified. Vital Signs: 10/15 17:12 BP 149 / 76; Pulse 70; Resp 16; Temp 96.3(T); Pulse Ox 100% on R/A; Weight 65.77 kg / sew 145 lbs; Height 5 ft. 2 in. (157.48 cm); Pain 9/10; 18:36 BP 160 / 75; Pulse 54; Resp 16; Pulse Ox 97% ; Pain 9/10; cjh 19:57 BP 138 / 66; Pulse 58; Resp 16; Temp 97.4; Pulse Ox 97% ; Pain 7/10; cjh 17:12 Body Mass Index 26.52 (65.77 kg, 157.48 cm) sew MDM: 17:44 IV Saline Lock ordered. fg 17:44 fentaNYL (PF) 50 mcg IVP once ordered. fg 17:45 Shoulder, Complete Ordered. EDMS 17:48 Financial registration complete. gjb 17:48 Undo -Financial registration. gjb 17:51 Basic Metabolic Profile Ordered. EDMS 17:56 Financial registration complete. zo 17:59 [facility] Payment Agreement was scanned into [employer] and attached to record. zo 18:35 Dilaudid - HYDROmorphone 1 mg IVP once ordered. fg 18:45 Polystyrene Suspension 15 grams PO once ordered. fg 18:45 Albuterol 2.5 mg Nebulizer once ordered. fg 18:47 ECG WITH READING ER PHYS+CARDIAG ordered. EDHI 10/16 10:36 T-Sheet-- Draft Copy was scanned into [employer] and attached to record. gb 16:18 ECG/EKG was scanned into [employer] and attached to record. gb Administered Medications: 10/15 18:11 Drug: fentaNYL (PF) 50 mcg [fentanyl (PF) 50 mcg/mL injection solution (1 mL)] Route: ld5 IVP; Site: left antecubital; 18:49 Drug: Dilaudid - HYDROmorphone 1 mg [hydromorphone 1 mg/mL injection syringe (1 mL)] [facility] Route: IVP; Site: left antecubital; 20:00 Follow up: Response: Confirmed pt not driving.; No Adverse Reaction; Pain is decreased [facility] 18:56 Drug: Polystyrene 15 grams [sodium polystyrene sulfonate 15 gram/60 mL oral suspension [facility] (1200 drps)] Route: PO; 19:00 Drug: Albuterol 2.5 mg [albuterol sulfate 2.5 mg/0.5 mL solution for nebulization (0.5 cs15 mL)] Route: Nebulizer; Signatures: Dispatcher [employer] EDHI Chelly Weaver, Reg Reg gb Juan, Sveta Ritchie RN RN cjh Conner, Teresa, RN RN ttMuriel Christensen MD MD fg Beck, Gabriela gjb Dickerson, Gema RN ld5 Lico Tiwari RT cs15 The chart was reviewed and I authenticate all verbal orders and agree with the evaluation and treatment provided.Attachments: 17:59 [facility] Payment Agreement zo 10/16 10:36 T-Sheet-- Draft Copy gb 16:18 ECG/EKG gb Chart Complete MTDD
--- NOTE | 2016-10-17 21:01 | EDDOCDS ---
Physician Documentation [facility] Name: Fernando Fernandez Age: 56 yrs Sex: Male : 1960 Arrival Date: 10/15/2016 Time: 17:10 Bed 4 Private MD: Duane Espinosa MD Disposition: 10/15/16 19:08 Discharged to Home/Self Care. Impression: Pain in right shoulder. - Condition is Stable. - Discharge Instructions: Hyperkalemia, Tfwi-[id number]-Taun, Shoulder Pain. - Prescriptions for Percocet 5- 325 mg Oral Tablet - take 1 tablet by ORAL route every 6-8 hours As needed MDD: 4 tabs; 20 tablet. - Medication Reconciliation, Local Pharmacy Hours form. - Follow up: Sachin Sanchez; When: Call to arrange an appointment; Reason: Continuance of care. - Problem is new. - Symptoms have worsened. Historical: - Allergies: no known allergies; - Home Meds: 1. Lantus 100 unit/mL Sub-Q crtg 10 unit every morning (Last dose: 10/15/2016 08:00) 2. Insulin: Regular Sub-Q after meals sliding scale 3. [place] 7.5-325 mg Oral tab 1 tab every 4 hours for Pain (Last dose: 10/11/2016) - PMHx: Pancreatitis; Hypertension; Diabetes - IDDM: uncontrolled; - PSHx: pancreas removal; left ankle; - Social history: Smoking status: Patient uses tobacco products, current every day smoker. Patient/guardian denies using alcohol, street drugs, No barriers to communication noted, The patient speaks fluent Belgian, Speaks appropriately for age. - Family history: Not pertinent. - : The pt / caregiver states he / she is not on anticoagulants. Home medication list is obtained from the patient. - Exposure Risk Screening:: None identified. Vital Signs: 10/15 17:12 BP 149 / 76; Pulse 70; Resp 16; Temp 96.3(T); Pulse Ox 100% on R/A; Weight 65.77 kg / sew 145 lbs; Height 5 ft. 2 in. (157.48 cm); Pain 9/10; 18:36 BP 160 / 75; Pulse 54; Resp 16; Pulse Ox 97% ; Pain 9/10; cjh 19:57 BP 138 / 66; Pulse 58; Resp 16; Temp 97.4; Pulse Ox 97% ; Pain 7/10; cjh 17:12 Body Mass Index 26.52 (65.77 kg, 157.48 cm) sew MDM: 17:44 IV Saline Lock ordered. fg 17:44 fentaNYL (PF) 50 mcg IVP once ordered. fg 17:45 Shoulder, Complete Ordered. EDMS 17:48 Financial registration complete. gjb 17:48 Undo -Financial registration. gjb 17:51 Basic Metabolic Profile Ordered. EDMS 17:56 Financial registration complete. zo 17:59 [facility] [place] Agreement was scanned into [employer] and attached to record. zo 18:35 Dilaudid - HYDROmorphone 1 mg IVP once ordered. fg 18:45 Polystyrene Suspension 15 grams PO once ordered. fg 18:45 Albuterol 2.5 mg Nebulizer once ordered. fg 18:47 ECG WITH READING ER PHYS+CARDIAG ordered. EDKS 10/16 10:36 T-Sheet-- Draft Copy was scanned into [employer] and attached to record. gb 16:18 ECG/EKG was scanned into [employer] and attached to record. gb Administered Medications: 10/15 18:11 Drug: fentaNYL (PF) 50 mcg [fentanyl (PF) 50 mcg/mL injection solution (1 mL)] Route: ld5 IVP; Site: left antecubital; 18:49 Drug: Dilaudid - HYDROmorphone 1 mg [hydromorphone 1 mg/mL injection syringe (1 mL)] [facility] Route: IVP; Site: left antecubital; 20:00 Follow up: Response: Confirmed pt not driving.; No Adverse Reaction; Pain is decreased [facility] 18:56 Drug: Polystyrene 15 grams [sodium polystyrene sulfonate 15 gram/60 mL oral suspension [facility] (1200 drps)] Route: PO; 19:00 Drug: Albuterol 2.5 mg [albuterol sulfate 2.5 mg/0.5 mL solution for nebulization (0.5 cs15 mL)] Route: Nebulizer; Signatures: Dispatcher [employer] EDKS Chelly Weaver, Reg Reg gb Juan, Sveta Ritchie RN RN cjh Conner, Teresa, RN RN ttMuriel Christensen MD MD fg Beck, Gabriela gjb Dickerson, Gema RN ld5 Lico Tiwari RT cs15 The chart was reviewed and I authenticate all verbal orders and agree with the evaluation and treatment provided.Attachments: 17:59 [facility] Payment Agreement zo 10/16 10:36 T-Sheet-- Draft Copy gb 16:18 ECG/EKG gb Chart Complete MTDD
--- NOTE | 2016-10-17 21:01 | EDDOCDS ---
Nurse's Notes [facility] Name: Chris Currie Age: 56 yrs Sex: Male : 1960 Arrival Date: 10/15/2016 Time: 17:10 Bed 4 Private MD: Duane Espinosa MD Diagnosis: Pain in right shoulder Presentation: 10/15 17:12 Presenting complaint: Patient states: pt fell 2 nights ago onto right shoulder. ttb Painful. Denies numbness/tingling. Deformed. Adult Sepsis Screening: The patient does not have new or worsening altered mentation. Patient's respiratory rate is less than 22. Systolic blood pressure is greater than 100. Patient has a qSOFA score of 0- Negative Sepsis Screen. Suicide/Homicide risk assessment- the patient denies having any suicidal and/or homicidal ideations and does not present with any other emotional, behavioral or mental health complaints. 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 Transition of care: patient was not received from another setting of care. 17:12 Acuity: CHITO Level 3 ttb 17:12 Method Of Arrival: Walkin/Carried/Asstd ttb Triage Assessment: 17:15 General: Appears in no apparent distress, uncomfortable, well nourished, well groomed, ttb Behavior is appropriate for age, cooperative, pleasant. Pain: Location: right shoulder Pain currently is 9 out of 10 on a pain scale. HIV screening NA for this visit Offered previously. Neurological: Level of Consciousness is awake, alert. Respiratory: No deficits noted. Derm: Skin is normal. Musculoskeletal: Range of motion limited in right shoulder Bony deformity noted of right shoulder. Injury Description: pt fell from standing. Historical: - Allergies: no known allergies; - Home Meds: 1. Lantus 100 unit/mL Sub-Q crtg 10 unit every morning (Last dose: 10/15/2016 08:00) 2. Insulin: Regular Sub-Q after meals sliding scale 3. [place] 7.5-325 mg Oral tab 1 tab every 4 hours for Pain (Last dose: 10/11/2016) - PMHx: Pancreatitis; Hypertension; Diabetes - IDDM: uncontrolled; - PSHx: pancreas removal; left ankle; - Social history: Smoking status: Patient uses tobacco products, current every day smoker. Patient/guardian denies using alcohol, street drugs, No barriers to communication noted, The patient speaks fluent Turkmen, Speaks appropriately for age. - Family history: Not pertinent. - : The pt / caregiver states he / she is not on anticoagulants. Home medication list is obtained from the patient. - Exposure Risk Screening:: None identified. Screenin:45 Screening information is obtained from the patient. Fall risk: No risks identified. [facility] Assistance ADL's: requires no assistance with activities of daily living. Abuse/DV Screen: The patient / caregiver reports he/she is: not in a situation that causes fear, pain or injury. Nutritional screening: No deficits noted. Advance Directives: There is no active DNR order. home support is adequate. Assessment: 17:45 General: Appears in no apparent distress, comfortable, Behavior is appropriate for age, [facility] cooperative. Pain: Location: right shoulder Pain currently is 10 out of 10 on a pain scale. Neurological: Level of Consciousness is awake, alert, Oriented to person, place, time. Respiratory: Airway is patent Respiratory effort is even, unlabored, Respiratory pattern is regular, symmetrical. Derm: Skin is pink, warm & dry. Musculoskeletal: Range of motion limited in right shoulder. 18:12 General: MD in to speak with pt. Pt then medicated per orders. Will continue to monitor.ld5 19:30 General: Appears in no apparent distress, comfortable, Behavior is appropriate for age, [facility] cooperative, reports pain 7/10 and states 'it feels pretty good right now'. Noted to be moving arm fairly well and dressing self without difficulty or assistance. reviewed discharge instructions, encouraged and answered questions, patient denies further needs and declines offer of additional assistance at this time. Vital Signs: 17:12 BP 149 / 76; Pulse 70; Resp 16; Temp 96.3(T); Pulse Ox 100% on R/A; Weight 65.77 kg; sew Height 5 ft. 2 in. (157.48 cm); Pain 9/10; 18:36 BP 160 / 75; Pulse 54; Resp 16; Pulse Ox 97% ; Pain 9/10; cjh 19:57 BP 138 / 66; Pulse 58; Resp 16; Temp 97.4; Pulse Ox 97% ; Pain 7/10; cjh 17:12 Body Mass Index 26.52 (65.77 kg, 157.48 cm) sew Vitals: 17:12 Log In Time: October 15, 2016 at 17:10. sew ED Course: 17:10 Patient visited by Alnodra Mann. sew 17:10 Patient moved to Waiting sew 17:11 Duane Espinosa is Private Physician. sew 17:11 Duane Espinosa is Private Physician. sew 17:12 Patient visited by Alondra Mann. sew 17:12 Patient moved to Pre RCE sew 17:13 Triage Initiated ttb 17:16 Patient moved to 4 ttb 17:40 Muriel Dias MD is Attending Physician. fg 17:40 Patient visited by Muriel Dias MD. fg 17:45 The patient / caregiver is instructed regarding the plan of care and ED course. cjh 17:45 No procedures done that require assistance. [facility] 17:59 [facility] Payment Agreement was scanned into [email or web address] and attached to record. zo 18:04 Basic Metabolic Profile Sent. ld5 18:04 Inserted saline lock: 22 gauge in left antecubital area and blood collected. The ld5 patient tolerated the procedure well. Labs drawn. (by ED staff). Sent per order to lab. 18:05 Patient visited by Gema Nicole,LETI. ld5 18:12 Patient visited by Gema Nicole,LETI. ld5 18:59 Patient visited by Douglas Santos PCA. jmv 18:59 EKG done. (by ED staff). Reviewed by Muriel Dias MD. jmv 19:08 Sachin Sanchez is Referral Physician. fg 19:57 Discontinued lock intact, bleeding controlled, pressure dressing applied, No cjh redness/swelling at site. 20:26 Shoulder, Complete Returned. EDMS 22:17 EKG-ADULT Returned. EDMS 10/16 10:36 T-Sheet-- Draft Copy was scanned into [email or web address] and attached to record. gb 16:18 ECG/EKG was scanned into [email or web address] and attached to record. gb Administered Medications: 10/15 18:11 Drug: fentaNYL (PF) 50 mcg [fentanyl (PF) 50 mcg/mL injection solution (1 mL)] Route: ld5 IVP; Site: left antecubital; 18:49 Drug: Dilaudid - HYDROmorphone 1 mg [hydromorphone 1 mg/mL injection syringe (1 mL)] [facility] Route: IVP; Site: left antecubital; 20:00 Follow up: Response: Confirmed pt not driving.; No Adverse Reaction; Pain is decreased [facility] 18:56 Drug: Polystyrene 15 grams [sodium polystyrene sulfonate 15 gram/60 mL oral suspension [facility] (1200 drps)] Route: PO; 19:00 Drug: Albuterol 2.5 mg [albuterol sulfate 2.5 mg/0.5 mL solution for nebulization (0.5 cs15 mL)] Route: Nebulizer; RT: 19:00 Initial Med Neb Given as ordered. Oxygen is room air. Respiratory: Respiratory effort cs15 is unlabored, Respiratory pattern is symmetrical, Breath sounds are diminished bilaterally. Reports that he has smoked for 40 years and never been to a pulmonoligist although he gets short of breath on exertion. 19:08 Respiratory: cs15 Order Results: Lab Order: Basic Metabolic Profile; SPEC'M 10/15/16 18:02 Test: GLUCOSE, FASTING; Value: 127; Range: 70-105; Abnormal: Above high normal; Units: MG/DL; Status: F Test: BLOOD UREA NITROGEN; Value: 18; Range: 7-18; Units: MG/DL; Status: F Test: CREATININE FOR GFR; Value: 1.30; Range: 0.70-1.30; Units: MG/DL; Status: F Test: GLOMERULAR FILTRATION RATE; Value: > 60.0; Range: >56; Status: F Test: SODIUM LEVEL; Value: 141; Range: 136-145; Units: MEQ/L; Status: F Test: POTASSIUM SERUM; Value: 5.9; Range: 3.5-5.1; Abnormal: Above high normal; Units: MEQ/L; Status: F Test: CHLORIDE LEVEL; Value: 106; Range: 98-107; Units: MEQ/L; Status: F Test: CARBON DIOXIDE LEVEL; Value: 30; Range: 21-32; Units: MEQ/L; Status: F Test: ANION GAP; Value: 5; Range: 8-16; Abnormal: Below low normal; Units: MEQ/L; Status: F Test: CALCIUM LEVEL; Value: 8.4; Range: 8.5-10.1; Abnormal: Below low normal; Units: MG/DL; Status: F Test Note: ; Units are mL/min/1.73 m2 Chronic Kidney Disease Staging per NKF: Stage I & II GFR >=60 Normal to Mildly Decreased Stage III GFR 30-59 Moderately Decreased Stage IV GFR 15-29 Severely Decreased Stage V GFR <15 Very Little GFR Left ESRD GFR <15 on CULTURE MANAGER Radiology Order: Shoulder, Complete Test: Shoulder, Complete REASON FOR EXAMINATION: right shoulder pain; RIGHT SHOULDER SERIES, COMPLETE: 10/15/2016.; ; Comparison: 09/26/2016.; ; Clinical history: Right shoulder pain; ; Findings: The grade 3 AC joint separation again seen at the right shoulder are; unchanged. There is no visible fracture or resorption of the distal clavicle or; acromion. The adjacent ribs, scapula and humerus are without a fracture and no; subluxation, dislocation of the humeral head nor abnormal soft tissue; calcifications about the shoulder.; ; Impression:; ; 1. Grade 3 AC joint separation again seen without evidence of fracture,; resorption of bone at the lateral clavicle or acromion and no change in the; extent of the AC separation. 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 fg 19:57 Discharge Assessment: Patient awake, alert and oriented x 3. No cognitive and/or cjh functional deficits noted. Patient verbalized understanding of disposition instructions. patient administered narcotics - yes. Pt provided with safe discharge. The following High Risk Discharge criteria are identified: None. Discharged to home ambulatory. Condition: good Condition: stable Condition: improved. Discharge instructions given to patient, Instructed on discharge instructions, follow up and referral plans. medication usage, no driving heavy equipment, Use of warm compresses to the affected area, no drinking with medication, Demonstrated understanding of Prescriptions given X 1. No special radiology studies were completed. Property :Personal belongings accompany Pt. 20:00 Patient left the ED. [facility] Signatures: Dispatcher [employer] EDMS Chelly Weaver, Reg Reg gb Juan, Gema Burroughs,RN RN ld5 Sveta LangfordRN RN [facility] Alondra Mann Teresa RN RN Muriel Rubin MD MD fg Shelton, Caleb,RT RT cs15 Douglas Santos, RINKU COMPETITIVE INTELLIGENCE ANALYST jmv Chart Complete MTDJuan
== END 2016-10-15 20:00 | disposition home or self-care (01) ==
LOC: M ED 17:10
DX: S43.101A Unspecified dislocation of right acromioclavicular joint, initial encounter (principal); E87.5 Hyperkalemia; E10.9 Type 1 diabetes mellitus without complications; I10 Essential (primary) hypertension; Z72.0 Tobacco use; Z79.4 Long term (current) use of insulin; Z79.891 Long term (current) use of opiate analgesic; W19.XXXA Unspecified fall, initial encounter; Y92.89 Other specified places as the place of occurrence of the external cause; Y93.89 Activity, other specified; Y99.9 Unspecified external cause status
CPT/HCPCS: 36415; 73030; 80048; 93005; 94640; 96374; 96375; 99284; G0463; J1170; J3010

== ENCOUNTER 2016-11-01 05:12 | Emergency (ER) | payer MEDICARE, MEDICAID ==
[2016-11-01] MEDS ORDERED: HumuLIN R (REGULAR) INSULIN (NovoLIN R) **100U/ML** PER UNIT As Ordered ONE ×2 (05:39→06:45)
[2016-11-01 05:53] LABS: BASO # 0.1 K/mm3 (0.0-0.2); BASO % 1.1 % (0.0-1.0); EOS # 0.3 K/mm3 (0.0-0.50); LARGE UNSTAINED CELL # 0.2 K/mm3 (0.0-0.4); LARGE UNSTAINED CELL % 2.1 % (0.0-4.0); LYMPH % 29.7 % (24.0-44.0); MEAN CORPUSCULAR HEMOGLOBIN 21.2 pg (27.0-33.0); MEAN CORPUSCULAR HGB CONC 29.6 g/dl (32.0-36.5); MEAN CORPUSCULAR VOLUME 71.5 fl (80.0-96.0); MONO # 0.6 K/mm3 (0.0-0.8); MONO % 5.5 % (0.0-5.0); NEUTROPHILS # 5.9 K/mm3 (1.8-7.7); NEUTROPHILS % 58.6 % (36.0-66.0); PLATELET COUNT, AUTOMATED 305 k/mm3 (150-450); RED CELL DISTRIBUTION WIDTH 16.5 % (11.5-14.5)
[2016-11-01 06:15] LABS: CALCIUM LEVEL 8.7 MG/DL (8.5-10.1); CREATININE FOR GFR 1.73 MG/DL (0.70-1.30); GLOMERULAR FILTRATION RATE 43.9 (>56)
[2016-11-01 06:27] LABS: POTASSIUM SERUM 6.2 MEQ/L (3.5-5.1)
--- NOTE | 2016-11-01 07:58 | ECGEPIP ---
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
--- NOTE | 2016-11-01 08:46 | EDDOCDS ---
Physician Documentation [facility] Name: Fernando Fernandez Age: 56 yrs Sex: Male : 1960 Arrival Date: 11/01/2016 Time: 05:12 Bed 12 Private MD: Disposition: 11/01/16 08:27 Patient has left against medical advice. Impression: Hyperglycemia, unspecified, Hyperkalemia - Acute Kidney Injury. - Patients states they are going to Home/Self Care. - Condition is Stable. - Discharge Instructions: Hyperglycemia, Hyperkalemia. Medication Reconciliation, Local Pharmacy Hours form. [facility] up: [facility]; When: As soon as possible; Reason: Recheck today's complaints. - Problem is new. - Symptoms are unchanged. - Notes: You were seen in the ED for high blood sugar which has improved with insulin. Bloodwork showed high potassium and worsening kidney function. Although recommended admission at this time, you have elected to leave against our medical advice, stating you will return for further care later today. Return tothe ED at any time if your symptoms worsen or you change your mind. Historical: - Allergies: no known allergies; - Home Meds: 1. Insulin: Regular Sub-Q after meals sliding scale 2. Lantus 100 unit/mL Sub-Q crtg 10 unit every morning - PMHx: Diabetes - IDDM: uncontrolled; Hypertension; Pancreatitis; - PSHx: pancreas removal; left ankle; left wrist; - Social history: Smoking status: Patient uses tobacco products, heavy tobacco smoker. No barriers to communication noted, The patient speaks fluent French, Speaks appropriately for age. - Family history: No immediate family members are acutely ill. - : The pt / caregiver states he / she is not on anticoagulants. Home medication list is obtained from the patient. - Exposure Risk Screening:: None identified. Vital Signs: 11/01 05:19 BP 184 / 94; Pulse 55; Resp 18; Temp 97.4(O); Pulse Ox 97% on R/A; Weight 63.5 kg / kc3 139.99 lbs; Height 5 ft. 3 in. (160.02 cm); Pain 0/10; 07:54 BP 165 / 76; Pulse 65; Resp 20; Temp 96.9(O); Pulse Ox 96% on R/A; Pain 0/10; ja5 08:41 BP 141 / 70; Pulse 69; Resp 20; Temp 96.6(T); Pulse Ox 96% on R/A; Pain 0/10; ja5 05:19 Body Mass Index 24.80 (63.50 kg, 160.02 cm) kc3 MDM: 05:29 IV Saline Lock ordered. cs11 05:29 NS 0.9% 1000 ml IV at bolus once ordered. cs11 05:29 Insulin Regular Human 16 units IVP once ordered. cs11 05:29 Accucheck ordered. cs11 05:31 CBC with Diff Ordered. EDMS 05:31 MED Profile Ordered. EDMS 05:31 Acetone Level Ordered. EDMS 06:11 CBC with Diff Reviewed. cs11 06:38 MED Profile Reviewed. cs11 06:38 Fingerstick Blood Sugar Reviewed. cs11 06:38 Acetone Level Reviewed. cs11 06:39 ECG WITH READING ER PHYS+CARDIAG ordered. EDMS 06:40 Insulin Regular Human 16 units IVP once ordered. cs11 06:40 Accucheck ordered. cs11 07:12 Financial registration complete. mm15 07:13 [facility] Payment Agreement was scanned into [employer] and attached to record. mm15 07:14 Fingerstick Blood Sugar Ordered. EDMS 07:22 Fingerstick Blood Sugar Reviewed. br1 07:38 Accucheck ordered. br1 08:34 Fingerstick Blood Sugar Ordered. EDMS Point of Care Testing: Blood Glucose: 05:23 Blood Glucose: High; kc3 06:10 Blood Glucose: 407 mg/dL; mv5 07:07 Blood Glucose: 106 mg/dL; mv5 Ranges: Administered Medications: 05:53 Drug: Insulin Regular Human 16 units [insulin regular human 100 unit/mL injection mv5 solution (0.16 mL)] {Co-Signature: roly (Anabella Culver RN).} Route: IVP; Site: right forearm; 05:54 Drug: NS 0.9% 1000 ml [sodium chloride 0.9 % intravenous solution] Route: IV; Rate: mv5 bolus; Site: right forearm; 08:42 Follow up: IV Status: Infusion discontinued; IV Intake: 500ml ja5 06:59 Drug: Insulin Regular Human 16 units [insulin regular human 100 unit/mL injection mv5 solution (0.16 mL)] {Co-Signature: roly (Anabella Culver RN).} Route: IVP; Site: right forearm; Signatures: Dispatcher [employer] EDPrateek Keene MD MD br1 Jeremias Blank DO DO cs11 Ermelinda Duke mm15 Anabella Culver,LETI RN kc3 Hollie LeonRN RN ja5 Kathleen Morel RN RN mv5 Anabella Culver RN kc3 The chart was reviewed and I authenticate all verbal orders and agree with the evaluation and treatment provided.Attachments: 07:13 [facility] Payment Agreement mm15 MTDD
--- NOTE | 2016-11-01 08:46 | EDDOCDS ---
Nurse's Notes [facility] Name: Chris Currie Age: 56 yrs Sex: Male : 1960 Arrival Date: 11/01/2016 Time: 05:12 Bed 12 Private MD: Diagnosis: Hyperglycemia, unspecified;Hyperkalemia-Acute Kidney Injury Presentation: 11/01 05:20 Presenting complaint: Patient states: high blood sugar with readings of HI at assisted. Pt kc3 reports feelings of thirst. Pt denies any other symptoms. Adult Sepsis Screening: The patient does not have new or worsening altered mentation. Patient's respiratory rate is less than 22. Systolic blood pressure is greater than 100. Patient has a qSOFA score of 0- Negative Sepsis Screen. Suicide/Homicide risk assessment- the patient denies having any suicidal and/or homicidal ideations and does not present with any other emotional, behavioral or mental health complaints. Status: Patient is not a equipment service associate or dependent. Transition of care: patient was not received from another setting of care. 05:20 Acuity: CHITO Level 3 kc3 05:20 Method Of Arrival: Police Car kc3 05:48 Red Flag criteria, patient assessed and taken directly to a bed. kc3 Triage Assessment: 05:23 General: Appears in no apparent distress, comfortable, Behavior is appropriate for age, kc3 cooperative. General: reports feelings of thirst. Pain: Denies pain. HIV screening NA for this visit Offered previously. Respiratory: Respiratory effort is even, unlabored. Historical: - Allergies: no known allergies; - Home Meds: 1. Insulin: Regular Sub-Q after meals sliding scale 2. Lantus 100 unit/mL Sub-Q crtg 10 unit every morning - PMHx: Diabetes - IDDM: uncontrolled; Hypertension; Pancreatitis; - PSHx: pancreas removal; left ankle; left wrist; - Social history: Smoking status: Patient uses tobacco products, heavy tobacco smoker. No barriers to communication noted, The patient speaks fluent Divehi, Speaks appropriately for age. - Family history: No immediate family members are acutely ill. - : The pt / caregiver states he / she is not on anticoagulants. Home medication list is obtained from the patient. - Exposure Risk Screening:: None identified. Screenin:14 Screening information is obtained from the patient. Fall risk: No risks identified. mv5 Assistance ADL's: requires no assistance with activities of daily living. Abuse/DV Screen: The patient / caregiver reports he/she is: not in a situation that causes fear, pain or injury. Nutritional screening: No deficits noted. Advance Directives: There is no active DNR order. home support is adequate. Assessment: 06:14 General: Appears in no apparent distress, comfortable, well nourished, well groomed, mv5 Behavior is cooperative, pleasant. Pain: Denies pain. Neurological: Level of Consciousness is awake, alert, Oriented to person, place, time. Respiratory: Airway is patent Respiratory effort is even, unlabored, Respiratory pattern is regular, symmetrical. Derm: Skin is pink, warm & dry. 06:57 General: Appears in no apparent distress, comfortable. Neurological: No deficits noted. mv5 Respiratory: Airway is patent Respiratory effort is even, unlabored, Respiratory pattern is regular, symmetrical. Derm: Skin is pink, warm & dry. 07:54 General: Appears in no apparent distress, Behavior is appropriate for age, cooperative. ja5 Pain: Denies pain. Neurological: Level of Consciousness is awake, alert, Oriented to person, place, time. Cardiovascular: Capillary refill < 3 seconds Heart tones S1 S2 present. Respiratory: Airway is patent Respiratory effort is even, unlabored, Respiratory pattern is regular, symmetrical. Derm: Skin is pink, warm & dry. 08:20 General: Pt sitting up on stretcher. No distress noted at this time. Color pink, skin jc4 warm and dry. Respirations easy and full. FSBS - 88 mg/dl. Coffee with 6 sugar packets given per patient request. Pt states would like to go and will be back following his arraignment. Dr. García updated on patient condition. 08:43 General: Appears in no apparent distress, comfortable, Behavior is appropriate for age, ja5 cooperative. Pain: Denies pain. Neurological: Level of Consciousness is awake, alert, Oriented to person, place, time. Cardiovascular: Capillary refill < 3 seconds. Respiratory: Airway is patent Respiratory effort is even, unlabored, Respiratory pattern is regular, symmetrical. Derm: Skin is pink, warm & dry. Vital Signs: 05:19 BP 184 / 94; Pulse 55; Resp 18; Temp 97.4(O); Pulse Ox 97% on R/A; Weight 63.5 kg; kc3 Height 5 ft. 3 in. (160.02 cm); Pain 0/10; 07:54 BP 165 / 76; Pulse 65; Resp 20; Temp 96.9(O); Pulse Ox 96% on R/A; Pain 0/10; ja5 08:41 BP 141 / 70; Pulse 69; Resp 20; Temp 96.6(T); Pulse Ox 96% on R/A; Pain 0/10; ja5 05:19 Body Mass Index 24.80 (63.50 kg, 160.02 cm) [facility] Vitals: 05:19 Log In Time: November 01, 2016 at 05:19. 3 ED Course: 05:13 Patient visited by Mercedes De La Torre Reg. hs2 05:13 Patient moved to Waiting hs2 05:21 Triage Initiated kc3 05:24 Kathleen Morel RN is Primary Nurse. kc3 05:24 Patient moved to 12 kc3 05:28 Jeremias Bob DO is Attending Physician. cs11 05:28 Patient visited by Jeremias Bob DO. cs11 05:48 Inserted saline lock: 22 gauge in right and blood collected. The patient tolerated the kc3 procedure well. placed in right wrist. 06:10 Patient visited by Kathleen Morel RN. mv5 06:14 The patient / caregiver is instructed regarding the plan of care and ED course. mv5 06:25 Notified attending ED physician of Critical lab value. GLUCOSE 598. cz 06:26 Notified attending ED physician of Critical lab value. K+ 6.2. cz 06:51 EKG done. (by ED staff). Reviewed by Jeremias Bob DO. rn1 07:00 Patient visited by Kathleen Morel RN. mv5 07:07 Primary Nurse role handed off by Kathleen Morel RN mv5 07:13 [facility] [place] Payment Agreement was scanned into [employer] and attached to record. mm15 07:36 Attending Physician role handed off by Jeremias Bob DO br1 07:36 Prateek García MD is Attending Physician. br1 07:36 Patient visited by Prateek García MD. br1 07:53 Hollie Leon,RN is Primary Nurse. ja5 08:11 EKG-ADULT Returned. EDMS 08:20 Patient visited by Dalila Jay RN. jc4 08:26 [facility] is Referral Physician. br1 08:44 No procedures done that require assistance. ja5 08:45 Discontinued lock intact, bleeding controlled, pressure dressing applied, No ja5 redness/swelling at site. Administered Medications: 05:53 Drug: Insulin Regular Human 16 units [insulin regular human 100 unit/mL injection mv5 solution (0.16 mL)] {Co-Signature: roly (Anabella Culver RN).} Route: IVP; Site: right forearm; 05:54 Drug: NS 0.9% 1000 ml [sodium chloride 0.9 % intravenous solution] Route: IV; Rate: mv5 bolus; Site: right forearm; 08:42 Follow up: IV Status: Infusion discontinued; IV Intake: 500ml ja5 06:59 Drug: Insulin Regular Human 16 units [insulin regular human 100 unit/mL injection mv5 solution (0.16 mL)] {Co-Signature: roly (Anabella Culver RN).} Route: IVP; Site: right forearm; Point of Care Testing: Blood Glucose: 05:23 Blood Glucose: High; kc3 06:10 Blood Glucose: 407 mg/dL; mv5 07:07 Blood Glucose: 106 mg/dL; mv5 Ranges: Intake: 08:42 IV: 500.00ml; Total: 500.00ml. ja5 Output: 07:55 Urine: 750.00ml (Voided); Total: 750.00ml. ja5 Order Results: Lab Order: CBC with Diff; SPEC'M 11/01/16 05:32 Test: WHITE BLOOD COUNT; Value: 10.0; Range: 4.0-10.0; Units: K/mm3; Status: F Test: RED BLOOD COUNT; Value: 5.58; Range: 4.30-6.10; Units: M/mm3; Status: F Test: HEMOGLOBIN; Value: 11.8; Range: 14.0-18.0; Abnormal: Below low normal; Units: g/dl; Status: F Test: HEMATOCRIT; Value: 39.9; Range: 42.0-52.0; Abnormal: Below low normal; Units: %; Status: F Test: MEAN CORPUSCULAR VOLUME; Value: 71.5; Range: 80.0-96.0; Abnormal: Below low normal; Units: fl; Status: F Test: MEAN CORPUSCULAR HEMOGLOBIN; Value: 21.2; Range: 27.0-33.0; Abnormal: Below low normal; Units: pg; Status: F Test: MEAN CORPUSCULAR HGB CONC; Value: 29.6; Range: 32.0-36.5; Abnormal: Below low normal; Units: g/dl; Status: F Test: RED CELL DISTRIBUTION WIDTH; Value: 16.5; Range: 11.5-14.5; Abnormal: Above high normal; Units: %; Status: F Test: PLATELET COUNT, AUTOMATED; Value: 305; Range: 150-450; Units: k/mm3; Status: F Test: NEUTROPHILS %; Value: 58.6; Range: 36.0-66.0; Units: %; Status: F Test: LYMPH %; Value: 29.7; Range: 24.0-44.0; Units: %; Status: F Test: MONO %; Value: 5.5; Range: 0.0-5.0; Abnormal: Above high normal; Units: %; Status: F Test: EOS %; Value: 3.0; Range: 0.0-3.0; Units: %; Status: F Test: BASO %; Value: 1.1; Range: 0.0-1.0; Abnormal: Above high normal; Units: %; Status: F Test: LARGE UNSTAINED CELL %; Value: 2.1; Range: 0.0-4.0; Units: %; Status: F Test: NEUTROPHILS #; Value: 5.9; Range: 1.8-7.7; Units: K/mm3; Status: F Test: LYMPH #; Value: 3.0; Range: 1.5-4.5; Units: K/mm3; Status: F Test: MONO #; Value: 0.6; Range: 0.0-0.8; Units: K/mm3; Status: F Test: EOS #; Value: 0.3; Range: 0.0-0.50; Units: K/mm3; Status: F Test: BASO #; Value: 0.1; Range: 0.0-0.2; Units: K/mm3; Status: F Test: LARGE UNSTAINED CELL #; Value: 0.2; Range: 0.0-0.4; Units: K/mm3; Status: F Lab Order: MED Profile; SPEC'11/01/16 05:32 Test: GLUCOSE, FASTING; Value: 598; Range: 70-105; Abnormal: Above upper panic limits; Units: MG/DL; Status: F Test: BLOOD UREA NITROGEN; Value: 17; Range: 7-18; Units: MG/DL; Status: F Test: CREATININE FOR GFR; Value: 1.73; Range: 0.70-1.30; Abnormal: Above high normal; Units: MG/DL; Status: F Test: GLOMERULAR FILTRATION RATE; Value: 43.9; Range: >56; Abnormal: Below low normal; Status: F Test: SODIUM LEVEL; Value: 132; Range: 136-145; Abnormal: Below low normal; Units: MEQ/L; Status: F Test: POTASSIUM SERUM; Value: 6.2; Range: 3.5-5.1; Abnormal: Above upper panic limits; Units: MEQ/L; Status: F Test: CHLORIDE LEVEL; Value: 97; Range: 98-107; Abnormal: Below low normal; Units: MEQ/L; Status: F Test: CARBON DIOXIDE LEVEL; Value: 28; Range: 21-32; Units: MEQ/L; Status: F Test: ANION GAP; Value: 7; Range: 8-16; Abnormal: Below low normal; Units: MEQ/L; Status: F Test: CALCIUM LEVEL; Value: 8.7; Range: 8.5-10.1; Units: MG/DL; Status: F Test Note: ; Units are mL/min/1.73 m2 Chronic Kidney Disease Staging per NKF: Stage I & II GFR >=60 Normal to Mildly Decreased Stage III GFR 30-59 Moderately Decreased Stage IV GFR 15-29 Severely Decreased Stage V GFR <15 Very Little GFR Left ESRD GFR <15 on TELEGRAPH OPERATOR Lab Order: Acetone Level; SPEC'11/01/16 05:32 Test: ACETONE/KETONE; Value: 1.30; Range: <2.81; Units: MG/DL; Status: F Lab Order: Fingerstick Blood Sugar; SPEC'11/01/16 06:08 Test: BEDSIDE GLUCOSE; Value: 407; Range: 70-105; Abnormal: Above high normal; Units: MG/DL; Status: F Lab Order: Fingerstick Blood Sugar; SPEC'M 11/01/16 07:06 Test: BEDSIDE GLUCOSE; Value: 106; Range: 70-105; Abnormal: Above high normal; Units: MG/DL; Status: F Lab Order: Fingerstick Blood Sugar; SPEC'M 11/01/16 08:14 Test: BEDSIDE GLUCOSE; Value: 88; Range: 70-105; Units: MG/DL; Status: F Radiology Order: EKG-ADULT Test: EKG-ADULT REASON FOR EXAMINATION: potassium; Stationary ECG Study; [facility] - ED; ; Test Date: 2016-11-01; Pat Name: CHRIS CURRIE Department:; Room: -; 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 br1 08:44 Discharge Assessment: Patient awake and alert. Oriented to person, place and time. ja5 patient administered narcotics - no. The following High Risk Discharge criteria are identified: Yes, due to AMA status. KYLIE Gastelum has been consulted.. The patient is leaving AMA: AMA form signed, Notification of AMA status is made to the charge nurse, the social welfare research worker, the ED attending physician. Condition: stable. Discharge instructions given to patient, Instructed on discharge instructions, follow up and referral plans. Demonstrated understanding of instructions, Pt was receptive of discharge instructions/ teaching. No special radiology studies were completed. Property :Personal belongings accompany Pt. 08:46 Patient left the ED. ja5 Signatures: Dispatcher [employer] EDMatheus Carolina RN RN cz Roggie, Brian, MD MD br1 Dalila Jay RN RN jc4 Jeremias Bob, DO DO cs11 Ermelinda Duke mm15 Chris Saucedo rn1 Anabella Culver,RN RN kc3 Mercedes De La Torre, Brandon Reg hs2 Hollie Leon,RN RN ja5 Kathleen Morel,RN RN mv5 Anabella guerra3 Corrections: (The following items were deleted from the chart) 05:48 05:19 Presenting complaint: roly dunham MTDD
--- NOTE | 2016-11-03 09:46 | EDDOCDS ---
Physician Documentation [facility] Name: Fernando Fernandez Age: 56 yrs Sex: Male : 1960 Arrival Date: 11/01/2016 Time: 05:12 Bed 12 Private MD: Disposition: 11/01/16 08:27 Patient has left against medical advice. Impression: Hyperglycemia, unspecified, Hyperkalemia - Acute Kidney Injury. - Patients states they are going to Home/Self Care. - Condition is Stable. - Discharge Instructions: Hyperglycemia, Hyperkalemia. Medication Reconciliation, Local Pharmacy Hours form. Follow up: [facility]; When: As soon as possible; Reason: Recheck today's complaints. - Problem is new. - Symptoms are unchanged. - Notes: You were seen in the ED for high blood sugar which has improved with insulin. Bloodwork showed high potassium and worsening kidney function. Although recommended admission at this time, you have elected to leave against our medical advice, stating you will return for further care later today. Return tothe ED at any time if your symptoms worsen or you change your mind. Historical: - Allergies: no known allergies; - Home Meds: 1. Insulin: Regular Sub-Q after meals sliding scale 2. Lantus 100 unit/mL Sub-Q crtg 10 unit every morning - PMHx: Diabetes - IDDM: uncontrolled; Hypertension; Pancreatitis; - PSHx: pancreas removal; left ankle; left wrist; - Social history: Smoking status: Patient uses tobacco products, heavy tobacco smoker. No barriers to communication noted, The patient speaks fluent Bulgarian, Speaks appropriately for age. - Family history: No immediate family members are acutely ill. - : The pt / caregiver states he / she is not on anticoagulants. Home medication list is obtained from the patient. - Exposure Risk Screening:: None identified. Vital Signs: 11/01 05:19 BP 184 / 94; Pulse 55; Resp 18; Temp 97.4(O); Pulse Ox 97% on R/A; Weight 63.5 kg / kc3 139.99 lbs; Height 5 ft. 3 in. (160.02 cm); Pain 0/10; 07:54 BP 165 / 76; Pulse 65; Resp 20; Temp 96.9(O); Pulse Ox 96% on R/A; Pain 0/10; ja5 08:41 BP 141 / 70; Pulse 69; Resp 20; Temp 96.6(T); Pulse Ox 96% on R/A; Pain 0/10; ja5 05:19 Body Mass Index 24.80 (63.50 kg, 160.02 cm) kc3 MDM: 05:29 IV Saline Lock ordered. cs11 05:29 NS 0.9% 1000 ml IV at bolus once ordered. cs11 05:29 Insulin Regular Human 16 units IVP once ordered. cs11 05:29 Accucheck ordered. cs11 05:31 CBC with Diff Ordered. EDMS 05:31 MED Profile Ordered. EDMS 05:31 Acetone Level Ordered. EDMS 06:11 CBC with Diff Reviewed. cs11 06:38 MED Profile Reviewed. cs11 06:38 Fingerstick Blood Sugar Reviewed. cs11 06:38 Acetone Level Reviewed. cs11 06:39 ECG WITH READING ER PHYS+CARDIAG ordered. EDMS 06:40 Insulin Regular Human 16 units IVP once ordered. cs11 06:40 Accucheck ordered. cs11 07:12 Financial registration complete. mm15 07:13 [facility] Payment Agreement was scanned into [employer] and attached to record. mm15 07:14 Fingerstick Blood Sugar Ordered. EDMS 07:22 Fingerstick Blood Sugar Reviewed. br1 07:38 Accucheck ordered. br1 08:34 Fingerstick Blood Sugar Ordered. EDMS 15:28 Fingerstick Blood Sugar Ordered. EDMS Point of Care Testing: Blood Glucose: 05:23 Blood Glucose: High; kc3 06:10 Blood Glucose: 407 mg/dL; mv5 07:07 Blood Glucose: 106 mg/dL; mv5 Ranges: Administered Medications: 05:53 Drug: Insulin Regular Human 16 units [insulin regular human 100 unit/mL injection mv5 solution (0.16 mL)] {Co-Signature: kc3 (Anabella Culver RN).} Route: IVP; Site: right forearm; 05:54 Drug: NS 0.9% 1000 ml [sodium chloride 0.9 % intravenous solution] Route: IV; Rate: mv5 bolus; Site: right forearm; 08:42 Follow up: IV Status: Infusion discontinued; IV Intake: 500ml ja5 06:59 Drug: Insulin Regular Human 16 units [insulin regular human 100 unit/mL injection mv5 solution (0.16 mL)] {Co-Signature: kc3 (Anabella Culver RN).} Route: IVP; Site: right forearm; Signatures: Dispatcher [employer] Prateek Paul MD MD br1 Jeremias Blank DO DO cs11 Ermelinda Duke mm15 Anabella Culver RN RN kc3 Hollie Leon RN RN ja5 Kathleen Morel RN RN mv5 Anabella Culver RN kc3 The chart was reviewed and I authenticate all verbal orders and agree with the evaluation and treatment provided.Attachments: 07:13 [facility] Payment Agreement mm15 Chart Complete MTDD
--- NOTE | 2016-11-03 09:46 | EDDOCDS ---
Nurse's Notes [facility] Name: Chris Currie Age: 56 yrs Sex: Male : 1960 Arrival Date: 11/01/2016 Time: 05:12 Bed 12 Private MD: Diagnosis: Hyperglycemia, unspecified;Hyperkalemia-Acute Kidney Injury Presentation: 11/01 05:20 Presenting complaint: Patient states: high blood sugar with readings of HI at intermediate. Pt kc3 reports feelings of thirst. Pt denies any other symptoms. Adult Sepsis Screening: The patient does not have new or worsening altered mentation. Patient's respiratory rate is less than 22. Systolic blood pressure is greater than 100. Patient has a qSOFA score of 0- Negative Sepsis Screen. Suicide/Homicide risk assessment- the patient denies having any suicidal and/or homicidal ideations and does not present with any other emotional, behavioral or mental health complaints. 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 Transition of care: patient was not received from another setting of care. 05:20 Acuity: CHITO Level 3 kc3 05:20 Method Of Arrival: Police Car kc3 05:48 Red Flag criteria, patient assessed and taken directly to a bed. kc3 Triage Assessment: 05:23 General: Appears in no apparent distress, comfortable, Behavior is appropriate for age, kc3 cooperative. General: reports feelings of thirst. Pain: Denies pain. HIV screening NA for this visit Offered previously. Respiratory: Respiratory effort is even, unlabored. Historical: - Allergies: no known allergies; - Home Meds: 1. Insulin: Regular Sub-Q after meals sliding scale 2. Lantus 100 unit/mL Sub-Q crtg 10 unit every morning - PMHx: Diabetes - IDDM: uncontrolled; Hypertension; Pancreatitis; - PSHx: pancreas removal; left ankle; left wrist; - Social history: Smoking status: Patient uses tobacco products, heavy tobacco smoker. No barriers to communication noted, The patient speaks fluent Amharic, Speaks appropriately for age. - Family history: No immediate family members are acutely ill. - : The pt / caregiver states he / she is not on anticoagulants. Home medication list is obtained from the patient. - Exposure Risk Screening:: None identified. Screenin:14 Screening information is obtained from the patient. Fall risk: No risks identified. mv5 Assistance ADL's: requires no assistance with activities of daily living. Abuse/DV Screen: The patient / caregiver reports he/she is: not in a situation that causes fear, pain or injury. Nutritional screening: No deficits noted. Advance Directives: There is no active DNR order. home support is adequate. Assessment: 06:14 General: Appears in no apparent distress, comfortable, well nourished, well groomed, mv5 Behavior is cooperative, pleasant. Pain: Denies pain. Neurological: Level of Consciousness is awake, alert, Oriented to person, place, time. Respiratory: Airway is patent Respiratory effort is even, unlabored, Respiratory pattern is regular, symmetrical. Derm: Skin is pink, warm & dry. 06:57 General: Appears in no apparent distress, comfortable. Neurological: No deficits noted. mv5 Respiratory: Airway is patent Respiratory effort is even, unlabored, Respiratory pattern is regular, symmetrical. Derm: Skin is pink, warm & dry. 07:54 General: Appears in no apparent distress, Behavior is appropriate for age, cooperative. ja5 Pain: Denies pain. Neurological: Level of Consciousness is awake, alert, Oriented to person, place, time. Cardiovascular: Capillary refill < 3 seconds Heart tones S1 S2 present. Respiratory: Airway is patent Respiratory effort is even, unlabored, Respiratory pattern is regular, symmetrical. Derm: Skin is pink, warm & dry. 08:20 General: Pt sitting up on stretcher. No distress noted at this time. Color pink, skin jc4 warm and dry. Respirations easy and full. FSBS - 88 mg/dl. Coffee with 6 sugar packets given per patient request. Pt states would like to go and will be back following his arraignment. Dr. García updated on patient condition. 08:43 General: Appears in no apparent distress, comfortable, Behavior is appropriate for age, ja5 cooperative. Pain: Denies pain. Neurological: Level of Consciousness is awake, alert, Oriented to person, place, time. Cardiovascular: Capillary refill < 3 seconds. Respiratory: Airway is patent Respiratory effort is even, unlabored, Respiratory pattern is regular, symmetrical. Derm: Skin is pink, warm & dry. Social Work Consult: 11:45 LWBS/AMA AMA: Patient is refusing further stabilizing treatment at [facility], although rb offered treatment regardless of method of payment or ability to pay. Patient is aware that this action is being undertaken against the advice of the medical staff at [facility]. Pt. has capacity to understand the potential consequences of this choice. pt did notify ED staff. Patient / guardian did sign Refusal of Services form. Pt left before being seen by PSA. Vital Signs: 05:19 BP 184 / 94; Pulse 55; Resp 18; Temp 97.4(O); Pulse Ox 97% on R/A; Weight 63.5 kg; kc3 Height 5 ft. 3 in. (160.02 cm); Pain 0/10; 07:54 BP 165 / 76; Pulse 65; Resp 20; Temp 96.9(O); Pulse Ox 96% on R/A; Pain 0/10; ja5 08:41 BP 141 / 70; Pulse 69; Resp 20; Temp 96.6(T); Pulse Ox 96% on R/A; Pain 0/10; ja5 05:19 Body Mass Index 24.80 (63.50 kg, 160.02 cm) [facility] Vitals: 05:19 Log In Time: November 01, 2016 at 05:19. 3 ED Course: 05:13 Patient visited by Mercedes De La Torre Reg. hs2 05:13 Patient moved to Waiting hs2 05:21 Triage Initiated 3 05:24 Kathleen Morel RN is Primary Nurse. 3 05:24 Patient moved to 12 [facility] 05:28 Judy Bob DO is Attending Physician. cs11 05:28 Patient visited by Judy Bob DO. cs11 05:48 Inserted saline lock: 22 gauge in right and blood collected. The patient tolerated the kc3 procedure well. placed in right wrist. 06:10 Patient visited by Kathleen Morel RN. mv5 06:14 The patient / caregiver is instructed regarding the plan of care and ED course. mv5 06:25 Notified attending ED physician of Critical lab value. GLUCOSE 598. cz 06:26 Notified attending ED physician of Critical lab value. K+ 6.2. cz 06:51 EKG done. (by ED staff). Reviewed by Judy Bob DO. rn1 07:00 Patient visited by Kathleen Morel RN. mv5 07:07 Primary Nurse role handed off by Kathleen Morel RN mv5 07:13 [facility] Payment Agreement was scanned into [employer] and attached to record. mm15 07:36 Attending Physician role handed off by Judy Bob, br1 07:36 Prateek García MD is Attending Physician. br1 07:36 Patient visited by Prateek García MD. br1 07:53 Hollie Leon,RN is Primary Nurse. ja5 08:11 EKG-ADULT Returned. EDMS 08:20 Patient visited by Dalila Jay, LETI. jc4 08:26 [facility] is Referral Physician. br1 08:44 No procedures done that require assistance. ja5 08:45 Discontinued lock intact, bleeding controlled, pressure dressing applied, No ja5 redness/swelling at site. Administered Medications: 05:53 Drug: Insulin Regular Human 16 units [insulin regular human 100 unit/mL injection mv5 solution (0.16 mL)] {Co-Signature: roly (Anabella Culver RN).} Route: IVP; Site: right forearm; 05:54 Drug: NS 0.9% 1000 ml [sodium chloride 0.9 % intravenous solution] Route: IV; Rate: mv5 bolus; Site: right forearm; 08:42 Follow up: IV Status: Infusion discontinued; IV Intake: 500ml ja5 06:59 Drug: Insulin Regular Human 16 units [insulin regular human 100 unit/mL injection mv5 solution (0.16 mL)] {Co-Signature: roly (Anabella Culver RN).} Route: IVP; Site: right forearm; Point of Care Testing: Blood Glucose: 05:23 Blood Glucose: High; kc3 06:10 Blood Glucose: 407 mg/dL; mv5 07:07 Blood Glucose: 106 mg/dL; mv5 Ranges: Intake: 08:42 IV: 500.00ml; Total: 500.00ml. ja5 Output: 07:55 Urine: 750.00ml (Voided); Total: 750.00ml. ja5 Order Results: Lab Order: CBC with Diff; SPEC'M 11/01/16 05:32 Test: WHITE BLOOD COUNT; Value: 10.0; Range: 4.0-10.0; Units: K/mm3; Status: F Test: RED BLOOD COUNT; Value: 5.58; Range: 4.30-6.10; Units: M/mm3; Status: F Test: HEMOGLOBIN; Value: 11.8; Range: 14.0-18.0; Abnormal: Below low normal; Units: g/dl; Status: F Test: HEMATOCRIT; Value: 39.9; Range: 42.0-52.0; Abnormal: Below low normal; Units: %; Status: F Test: MEAN CORPUSCULAR VOLUME; Value: 71.5; Range: 80.0-96.0; Abnormal: Below low normal; Units: fl; Status: F Test: MEAN CORPUSCULAR HEMOGLOBIN; Value: 21.2; Range: 27.0-33.0; Abnormal: Below low normal; Units: pg; Status: F Test: MEAN CORPUSCULAR HGB CONC; Value: 29.6; Range: 32.0-36.5; Abnormal: Below low normal; Units: g/dl; Status: F Test: RED CELL DISTRIBUTION WIDTH; Value: 16.5; Range: 11.5-14.5; Abnormal: Above high normal; Units: %; Status: F Test: PLATELET COUNT, AUTOMATED; Value: 305; Range: 150-450; Units: k/mm3; Status: F Test: NEUTROPHILS %; Value: 58.6; Range: 36.0-66.0; Units: %; Status: F Test: LYMPH %; Value: 29.7; Range: 24.0-44.0; Units: %; Status: F Test: MONO %; Value: 5.5; Range: 0.0-5.0; Abnormal: Above high normal; Units: %; Status: F Test: EOS %; Value: 3.0; Range: 0.0-3.0; Units: %; Status: F Test: BASO %; Value: 1.1; Range: 0.0-1.0; Abnormal: Above high normal; Units: %; Status: F Test: LARGE UNSTAINED CELL %; Value: 2.1; Range: 0.0-4.0; Units: %; Status: F Test: NEUTROPHILS #; Value: 5.9; Range: 1.8-7.7; Units: K/mm3; Status: F Test: LYMPH #; Value: 3.0; Range: 1.5-4.5; Units: K/mm3; Status: F Test: MONO #; Value: 0.6; Range: 0.0-0.8; Units: K/mm3; Status: F Test: EOS #; Value: 0.3; Range: 0.0-0.50; Units: K/mm3; Status: F Test: BASO #; Value: 0.1; Range: 0.0-0.2; Units: K/mm3; Status: F Test: LARGE UNSTAINED CELL #; Value: 0.2; Range: 0.0-0.4; Units: K/mm3; Status: F Lab Order: MED Profile; SPEC'M 11/01/16 05:32 Test: GLUCOSE, FASTING; Value: 598; Range: 70-105; Abnormal: Above upper panic limits; Units: MG/DL; Status: F Test: BLOOD UREA NITROGEN; Value: 17; Range: 7-18; Units: MG/DL; Status: F Test: CREATININE FOR GFR; Value: 1.73; Range: 0.70-1.30; Abnormal: Above high normal; Units: MG/DL; Status: F Test: GLOMERULAR FILTRATION RATE; Value: 43.9; Range: >56; Abnormal: Below low normal; Status: F Test: SODIUM LEVEL; Value: 132; Range: 136-145; Abnormal: Below low normal; Units: MEQ/L; Status: F Test: POTASSIUM SERUM; Value: 6.2; Range: 3.5-5.1; Abnormal: Above upper panic limits; Units: MEQ/L; Status: F Test: CHLORIDE LEVEL; Value: 97; Range: 98-107; Abnormal: Below low normal; Units: MEQ/L; Status: F Test: CARBON DIOXIDE LEVEL; Value: 28; Range: 21-32; Units: MEQ/L; Status: F Test: ANION GAP; Value: 7; Range: 8-16; Abnormal: Below low normal; Units: MEQ/L; Status: F Test: CALCIUM LEVEL; Value: 8.7; Range: 8.5-10.1; Units: MG/DL; Status: F Test Note: ; Units are mL/min/1.73 m2 Chronic Kidney Disease Staging per NKF: Stage I & II GFR >=60 Normal to Mildly Decreased Stage III GFR 30-59 Moderately Decreased Stage IV GFR 15-29 Severely Decreased Stage V GFR <15 Very Little GFR Left ESRD GFR <15 on TRUCKLOAD OWNER OPERATOR Lab Order: Acetone Level; SPEC'11/01/16 05:32 Test: ACETONE/KETONE; Value: 1.30; Range: <2.81; Units: MG/DL; Status: F Lab Order: Fingerstick Blood Sugar; SPEC'11/01/16 06:08 Test: BEDSIDE GLUCOSE; Value: 407; Range: 70-105; Abnormal: Above high normal; Units: MG/DL; Status: F Lab Order: Fingerstick Blood Sugar; SPEC11/01/16 07:06 Test: BEDSIDE GLUCOSE; Value: 106; Range: 70-105; Abnormal: Above high normal; Units: MG/DL; Status: F Lab Order: Fingerstick Blood Sugar; 11/01/16 08:14 Test: BEDSIDE GLUCOSE; Value: 88; Range: 70-105; Units: MG/DL; Status: F Lab Order: Fingerstick Blood Sugar; SPEC11/01/16 05:17 Test: BEDSIDE GLUCOSE; Value: > 600; Range: 70-105; Abnormal: Above upper panic limits; Units: MG/DL; Status: F Radiology Order: EKG-ADULT Test: EKG-ADULT REASON FOR EXAMINATION: potassium; Stationary ECG Study; [facility] - ED; ; Test Date: 2016-11-01; Pat Name: CHRIS CURRIE Department:; Room: -; Gender: M 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 br1 08:44 Discharge Assessment: Patient awake and alert. Oriented to person, place and time. ja5 patient administered narcotics - no. The following High Risk Discharge criteria are identified: Yes, due to AMA status. KYLIE Gastelum has been consulted.. The patient is leaving AMA: AMA form signed, Notification of AMA status is made to the charge nurse, the child welfare social worker, the ED attending physician. Condition: stable. Discharge instructions given to patient, Instructed on discharge instructions, follow up and referral plans. Demonstrated understanding of instructions, Pt was receptive of discharge instructions/ teaching. No special radiology studies were completed. Property :Personal belongings accompany Pt. 08:46 Patient left the ED. ja5 Signatures: Dispatcher [employer] EDMS Matheus Clancy, LETI RN Kia Tapia PSA PSA rb Prateek García MD MD br1 Dalila Jay RN RN jc4 Judy Bob DO DO cs11 Ermelinda Duke mm15 Chris Saucedo rn1 Anabella Culver RN RN kc3 Mercedes De La Torre, Reg Reg hs2 Hollie LeonRN RN yoli5 Kathleen Morel RN RN mv5 Anabella guerra3 Corrections: (The following items were deleted from the chart) 05:48 05:19 Presenting complaint: kc3 kc3 Chart Complete MTDD
--- NOTE | 2016-11-03 09:46 | EDDOCDS ---
Physician Documentation [facility] Name: Fernando Fernandez Age: 56 yrs Sex: Male : 1960 Arrival Date: 11/01/2016 Time: 05:12 Bed 12 Private MD: Disposition: 11/01/16 08:27 Patient has left against medical advice. Impression: Hyperglycemia, unspecified, Hyperkalemia - Acute Kidney Injury. - Patients states they are going to Home/Self Care. - Condition is Stable. - Discharge Instructions: Hyperglycemia, Hyperkalemia. Medication Reconciliation, Local Pharmacy Hours form. Follow up: [facility]; When: As soon as possible; Reason: Recheck today's complaints. - Problem is new. - Symptoms are unchanged. - Notes: You were seen in the ED for high blood sugar which has improved with insulin. Bloodwork showed high potassium and worsening kidney function. Although recommended admission at this time, you have elected to leave against our medical advice, stating you will return for further care later today. Return tothe ED at any time if your symptoms worsen or you change your mind. Historical: - Allergies: no known allergies; - Home Meds: 1. Insulin: Regular Sub-Q after meals sliding scale 2. Lantus 100 unit/mL Sub-Q crtg 10 unit every morning - PMHx: Diabetes - IDDM: uncontrolled; Hypertension; Pancreatitis; - PSHx: pancreas removal; left ankle; left wrist; - Social history: Smoking status: Patient uses tobacco products, heavy tobacco smoker. No barriers to communication noted, The patient speaks fluent Azeri, Speaks appropriately for age. - Family history: No immediate family members are acutely ill. - : The pt / caregiver states he / she is not on anticoagulants. Home medication list is obtained from the patient. - Exposure Risk Screening:: None identified. Vital Signs: 11/01 05:19 BP 184 / 94; Pulse 55; Resp 18; Temp 97.4(O); Pulse Ox 97% on R/A; Weight 63.5 kg / kc3 139.99 lbs; Height 5 ft. 3 in. (160.02 cm); Pain 0/10; 07:54 BP 165 / 76; Pulse 65; Resp 20; Temp 96.9(O); Pulse Ox 96% on R/A; Pain 0/10; ja5 08:41 BP 141 / 70; Pulse 69; Resp 20; Temp 96.6(T); Pulse Ox 96% on R/A; Pain 0/10; ja5 05:19 Body Mass Index 24.80 (63.50 kg, 160.02 cm) kc3 MDM: 05:29 IV Saline Lock ordered. cs11 05:29 NS 0.9% 1000 ml IV at bolus once ordered. cs11 05:29 Insulin Regular Human 16 units IVP once ordered. cs11 05:29 Accucheck ordered. cs11 05:31 CBC with Diff Ordered. EDMS 05:31 MED Profile Ordered. EDMS 05:31 Acetone Level Ordered. EDMS 06:11 CBC with Diff Reviewed. cs11 06:38 MED Profile Reviewed. cs11 06:38 Fingerstick Blood Sugar Reviewed. cs11 06:38 Acetone Level Reviewed. cs11 06:39 ECG WITH READING ER PHYS+CARDIAG ordered. EDMS 06:40 Insulin Regular Human 16 units IVP once ordered. cs11 06:40 Accucheck ordered. cs11 07:12 Financial registration complete. mm15 07:13 [facility] Payment Agreement was scanned into [employer] and attached to record. mm15 07:14 Fingerstick Blood Sugar Ordered. EDMS 07:22 Fingerstick Blood Sugar Reviewed. br1 07:38 Accucheck ordered. br1 08:34 Fingerstick Blood Sugar Ordered. EDMS 15:28 Fingerstick Blood Sugar Ordered. EDMS Point of Care Testing: Blood Glucose: 05:23 Blood Glucose: High; kc3 06:10 Blood Glucose: 407 mg/dL; mv5 07:07 Blood Glucose: 106 mg/dL; mv5 Ranges: Administered Medications: 05:53 Drug: Insulin Regular Human 16 units [insulin regular human 100 unit/mL injection mv5 solution (0.16 mL)] {Co-Signature: kc3 (Anabella Culver RN).} Route: IVP; Site: right forearm; 05:54 Drug: NS 0.9% 1000 ml [sodium chloride 0.9 % intravenous solution] Route: IV; Rate: mv5 bolus; Site: right forearm; 08:42 Follow up: IV Status: Infusion discontinued; IV Intake: 500ml ja5 06:59 Drug: Insulin Regular Human 16 units [insulin regular human 100 unit/mL injection mv5 solution (0.16 mL)] {Co-Signature: kc3 (Anabella Culver RN).} Route: IVP; Site: right forearm; Signatures: Dispatcher [employer] Prateek Paul MD MD br1 Jeremias Blank DO DO cs11 Ermelinda Duke mm15 Anabella Culver RN RN kc3 Hollie Leon RN RN ja5 Kathleen Morel RN RN mv5 Anabella Culver RN kc3 The chart was reviewed and I authenticate all verbal orders and agree with the evaluation and treatment provided.Attachments: 07:13 [facility] Payment Agreement mm15 Chart Complete MTDD
== END 2016-11-01 07:35 | disposition left against medical advice (07) ==
LOC: M ED 05:12
DX: E10.65 Type 1 diabetes mellitus with hyperglycemia (principal); N17.9 Acute kidney failure, unspecified; E87.5 Hyperkalemia; I10 Essential (primary) hypertension; F17.210 Nicotine dependence, cigarettes, uncomplicated; Z79.4 Long term (current) use of insulin

== ENCOUNTER → 2016-11-19 | Outpatient (REF) | payer MEDICARE, MEDICAID ==
[~2016-11-19] MED LIST changes: +CYCL10TA PO; +HYDR-3716 PO; +NAPR500T PO; +NORCOTAB PO; +VICO7.5T11 PO
[2016-11-28 00:06] LABS: BENZODIAZEPINES, URINE SCREEN Negative ng/mL (Cutoff=200); METHADONE, URINE SCREEN Negative ng/mL (Cutoff=300); pH, URINE 5.9 (4.5-8.9)
== END ==
LOC: M SFHCPLAZ 16:50
PROVIDERS: ATTEND Hospitalist
DX: S43.101D Unspecified dislocation of right acromioclavicular joint, subsequent encounter (principal); Z79.899 Other long term (current) drug therapy; Y92.9 Unspecified place or not applicable; Y93.9 Activity, unspecified; Y99.9 Unspecified external cause status; X58.XXXD Exposure to other specified factors, subsequent encounter
CPT/HCPCS: 80307; G0463

== ENCOUNTER 2016-12-08 18:05 | Emergency (ER) | payer MEDICARE, MEDICAID ==
[~2016-12-08] VITALS: Ht 160 cm; Wt 63.5 kg
[~2016-12-08 18:05] MED LIST changes: -CYCL10TA PO; -HYDR-3716 PO; -NAPR500T PO; -NORCOTAB PO; -VICO7.5T11 PO
[2016-12-08 18:06] VITALS: BP 157/80
[2016-12-08] MEDS: NORCO, ANEXSIA 5/325MG TABLET (HYDROcodone/ACETAMINOPHEN) PO ONE (18:42)
[2016-12-08] MEDS ORDERED: HYDR-3716 PO (19:33)
--- NOTE | 2016-12-08 19:35 | REP ---
RIGHT SHOULDER, THREE VIEWS: HISTORY: Trauma. COMPARISON: 10/15/2016 AC joint separation is present. The degree of separation is slightly increased compared to the previous study. There is no fracture. The glenohumeral joint is normal in appearance. IMPRESSION: AC joint separation, increased compared to the previous study. Signed by Luc Peres MD 12/08/2016 07:43 P
== END 2016-12-08 19:46 | disposition home or self-care (01) ==
LOC: M ED 18:33
DX: S43.111A Subluxation of right acromioclavicular joint, initial encounter (principal); W01.10XA Fall on same level from slipping, tripping and stumbling with subsequent striking against unspecified object, initial encounter; Y92.480 Sidewalk as the place of occurrence of the external cause; Y93.01 Activity, walking, marching and hiking; Y99.8 Other external cause status; Z79.4 Long term (current) use of insulin; Z88.8 Allergy status to other drugs, medicaments and biological substances; F17.210 Nicotine dependence, cigarettes, uncomplicated; I10 Essential (primary) hypertension; K57.32 Diverticulitis of large intestine without perforation or abscess without bleeding; E11.9 Type 2 diabetes mellitus without complications

== ENCOUNTER 2016-12-11 18:03 | Emergency (ER) | payer MEDICARE, MEDICAID ==
[~2016-12-11] VITALS: Ht 160 cm; Wt 63.5 kg
[~2016-12-11 18:03] MED LIST changes: +HYDR-3716 PO
[2016-12-11] MEDS ORDERED: DEXTROSE 50% 50 ML SYRINGE As Ordered ONE (18:09)
[2016-12-11] MEDS ORDERED: DEXTROSE 50% 50 ML SYRINGE IV STA (18:39)
[2016-12-11 19:53] VITALS: BP 134/78
== END 2016-12-11 19:56 | disposition home or self-care (01) ==
LOC: M ED 18:19
DX: E10.649 Type 1 diabetes mellitus with hypoglycemia without coma (principal); F17.210 Nicotine dependence, cigarettes, uncomplicated; Z88.8 Allergy status to other drugs, medicaments and biological substances

== ENCOUNTER 2016-12-13 16:32 | Emergency (ER) | payer MEDICARE, MEDICAID ==
[~2016-12-13] VITALS: Ht 160 cm; Wt 65.8 kg
[~2016-12-13 16:32] MED LIST changes: -VICO7.5T11 PO
[2016-12-13 16:33] VITALS: BP 162/90
[2016-12-13] MEDS ORDERED: VICO7.5T11 PO (17:52)
== END 2016-12-13 18:11 | disposition home or self-care (01) ==
LOC: M ED 18:09
DX: Z76.0 Encounter for issue of repeat prescription (principal); E10.9 Type 1 diabetes mellitus without complications; Z88.8 Allergy status to other drugs, medicaments and biological substances; F17.210 Nicotine dependence, cigarettes, uncomplicated

== ENCOUNTER → 2016-12-13 | Outpatient (REF) | payer MEDICARE, MEDICAID ==
[~2016-12-13] MED LIST changes: +VICO7.5T11 PO
== END ==
LOC: M SFHCPLAZ 15:26
PROVIDERS: ATTEND Family Medicine
DX: E10.9 Type 1 diabetes mellitus without complications (principal); Z53.8 Procedure and treatment not carried out for other reasons

== ENCOUNTER 2016-12-17 17:12 | Emergency (ER) | payer MEDICARE, MEDICAID ==
[~2016-12-17] VITALS: Ht 160 cm; Wt 65.8 kg
[2016-12-17 17:12] VITALS: BP 150/75
[~2016-12-17 17:12] MED LIST changes: +VICO7.5T11 PO
--- NOTE | 2016-12-17 18:14 | REP ---
RIGHT SHOULDER: REASON: Pain. Known AC joint separation. COMPARISON: 12/08/2016 There is no change in the AC joint separation allowing for the differences in technical factors between the exams. There is no glenohumeral joint dislocation. There is no evidence of an acute fracture or acute change when compared to the 12/08/2016 exam. Signed by Heriberto Doe DO 12/17/2016 07:11 P
[2016-12-17] MEDS ORDERED: NORCOTAB PO (18:18)
== END 2016-12-17 18:30 | disposition home or self-care (01) ==
LOC: M ED 18:26
DX: S43.51XA Sprain of right acromioclavicular joint, initial encounter (principal); W19.XXXA Unspecified fall, initial encounter; Y92.099 Unspecified place in other non-institutional residence as the place of occurrence of the external cause; Y93.89 Activity, other specified; Y99.9 Unspecified external cause status

== ENCOUNTER 2016-12-25 14:35 | Emergency (ER) | payer MEDICARE, MEDICAID ==
[~2016-12-25] VITALS: Ht 160 cm; Wt 65.8 kg
[~2016-12-25 14:35] MED LIST changes: +NORCOTAB PO
[2016-12-25 14:36] VITALS: BP 134/76
[2016-12-25] MEDS ORDERED: CYCL10TA PO (15:21)
[2016-12-25] MEDS ORDERED: NAPR500T PO (15:21)
== END 2016-12-25 15:47 | disposition home or self-care (01) ==
LOC: M ED 15:13
DX: S43.91XA Sprain of unspecified parts of right shoulder girdle, initial encounter (principal); X50.9XXA Other and unspecified overexertion or strenuous movements or postures, initial encounter; Y92.019 Unspecified place in single-family (private) house as the place of occurrence of the external cause; Y93.89 Activity, other specified; Y99.8 Other external cause status; Z79.4 Long term (current) use of insulin; I10 Essential (primary) hypertension; F17.210 Nicotine dependence, cigarettes, uncomplicated; K57.32 Diverticulitis of large intestine without perforation or abscess without bleeding; E11.9 Type 2 diabetes mellitus without complications

== ENCOUNTER 2017-01-08 18:20 | Inpatient (IN) | payer MEDICARE, MEDICAID ==
[~2017-01-08] VITALS: Ht 160 cm; Wt 58.4 kg
[~2017-01-08 18:20] MED LIST changes: +CYCL10TA PO; +NAPR500T PO
[2017-01-08] MEDS ORDERED: LORazepam 2 MG TAB PO STA (18:31)
[2017-01-08 19:00] LABS: MEAN CORPUSCULAR HEMOGLOBIN 22.2 pg (27.0-33.0); MEAN CORPUSCULAR HGB CONC 29.1 g/dl (32.0-36.5); MEAN CORPUSCULAR VOLUME 76.4 fl (80.0-96.0); PLATELET COUNT, AUTOMATED 326 k/mm3 (150-450); RED CELL DISTRIBUTION WIDTH 17.2 % (11.5-14.5); WHITE BLOOD COUNT 8.1 K/mm3 (4.0-10.0)
[2017-01-08 19:03] LABS: VENOUS BASE EXCESS -8.4 (-2.0-2.0); VENOUS O2 SATURATION 98.4 % (60.0-80.0); VENOUS PARTIAL PRESSURE CO2 31.2 mmHg (38.0-50.0); VENOUS PARTIAL PRESSURE O2 130.7 mmHg (30.0-50.0); VENOUS STANDARD HCO3 17.8 MEQ/L; VENOUS TOTAL CO2 17.2 MEQ/L (24.0-28.0)
[2017-01-08 19:17] LABS: ALBUMIN 3.7 GM/DL (3.2-5.2); ALBUMIN/GLOBULIN RATIO 1.19 (1.00-1.93); ALKALINE PHOSPHATASE 88 U/L (45-117); ALT/SGPT 52 U/L (12-78); ANION GAP 15 MEQ/L (8-16); AST/SGOT 54 U/L (15-37); BILIRUBIN,DIRECT 0.1 MG/DL (0.0-0.2); BILIRUBIN,TOTAL 0.4 MG/DL (0.2-1.0); BLOOD UREA NITROGEN 29 MG/DL (7-18); CALCIUM LEVEL 8.1 MG/DL (8.5-10.1); CARBON DIOXIDE LEVEL 17 MEQ/L (21-32); CHLORIDE LEVEL 97 MEQ/L (98-107); CREATININE FOR GFR 1.68 MG/DL (0.70-1.30); GLOMERULAR FILTRATION RATE 45.4 (>56); SODIUM LEVEL 129 MEQ/L (136-145); TOTAL PROTEIN 6.8 GM/DL (6.4-8.2)
[2017-01-08 19:37] LABS: GLUCOSE, FASTING 790 MG/DL (70-105)
[2017-01-08 19:38] LABS: POTASSIUM SERUM 6.2 MEQ/L (3.5-5.1)
[2017-01-08] MEDS ORDERED: HumuLIN R (REGULAR) INSULIN (NovoLIN R) **100U/ML** PER UNIT IV STA (19:39)
[2017-01-08] MEDS ORDERED: NS 1,000 ML IV ONE ×3 (19:45→22:30)
[2017-01-08 19:51] LABS: ANISOCYTOSIS 1+; BASOPHILS 1 % (0-4); EOSINOPHILS 1 % (0-5); HYPOCHROMASIA 1+; MICROCYTOSIS 1+
[2017-01-08 19:52] LABS: BURR CELLS 2+
[2017-01-08 19:55] LABS: TARGET CELLS 1+
[2017-01-08 19:56] LABS: SCHISTOCYTES 2+
[2017-01-08 20:37] LABS: VENOUS BASE EXCESS -8.6 (-2.0-2.0); VENOUS O2 SATURATION 97.2 % (60.0-80.0); VENOUS PARTIAL PRESSURE CO2 38.3 mmHg (38.0-50.0); VENOUS STANDARD HCO3 17.6 MEQ/L; VENOUS TOTAL CO2 18.7 MEQ/L (24.0-28.0)
[2017-01-08 21:09] LABS: METHADONE URINE NEGATIVE (NEGATIVE)
[2017-01-08] MEDS ORDERED: INSULIN HUMAN REGULAR 100 UNITS in NS 99 ML IV SCH ×2 (21:15→21:23)
[2017-01-08] MEDS ORDERED: INSULIN IV RATE CHANGE DOCUMENTATION ML/HR XX SCH ×2 (21:15→21:30)
[2017-01-08] MEDS ORDERED: NS 1,000 ML IV SCH (21:23)
[2017-01-08] MEDS ORDERED: D5W/0.45% SODIUM CHLORIDE 1,000 ML IV SCH (21:23)
[2017-01-08] MEDS ORDERED: THIAMINE 100 MG TAB PO ONE (21:45)
[2017-01-08] MEDS ORDERED: OXAZEPAM 10 MG CAP PO PRN (21:45)
[2017-01-08 21:53] LABS: MAGNESIUM LEVEL 1.8 MG/DL (1.8-2.4)
[2017-01-08 22:20] LABS: VENOUS BASE EXCESS -6.8 (-2.0-2.0); VENOUS O2 SATURATION 91.1 % (60.0-80.0); VENOUS PARTIAL PRESSURE O2 65.2 mmHg (30.0-50.0); VENOUS STANDARD HCO3 18.8 MEQ/L; VENOUS TOTAL CO2 19.5 MEQ/L (24.0-28.0)
[2017-01-08] MEDS ORDERED: NAPR500T PO (22:25)
[2017-01-08] MEDS ORDERED: CYCL10TA PO (22:26)
[2017-01-08 22:43] LABS: ALBUMIN 3.4 GM/DL (3.2-5.2); ALBUMIN/GLOBULIN RATIO 1.06 (1.00-1.93); BILIRUBIN,TOTAL 0.3 MG/DL (0.2-1.0); CALCIUM LEVEL 7.8 MG/DL (8.5-10.1); CREATININE FOR GFR 1.47 MG/DL (0.70-1.30); GLOMERULAR FILTRATION RATE 52.9 (>56); POTASSIUM SERUM 4.2 MEQ/L (3.5-5.1); TOTAL PROTEIN 6.6 GM/DL (6.4-8.2)
[2017-01-09] MEDS ORDERED: INSULIN IV RATE CHANGE DOCUMENTATION ML/HR XX SCH (00:15)
[2017-01-09] MEDS ORDERED: INSULIN HUMAN REGULAR 100 UNITS in NS 99 ML IV SCH (00:15)
[2017-01-09 02:05] VITALS: BP 117/70
[2017-01-09] MEDS ORDERED: DEXTROSE 50% 50 ML SYRINGE IV PRN (02:45)
[2017-01-09] MEDS ORDERED: GLUCOSE 4 GM CHEW TABLET PO PRN (02:45)
[2017-01-09] MEDS ORDERED: GLUCAGON FOR INJ 1 MG VIAL (J1610) SC PRN (02:45)
[2017-01-09] MEDS ORDERED: traMADol 50 MG TAB PO ONE (03:15)
[2017-01-09 04:00] VITALS: BP 112/70
[2017-01-09 04:55] LABS: ANION GAP 7 MEQ/L (8-16); BLOOD UREA NITROGEN 23 MG/DL (7-18); CARBON DIOXIDE LEVEL 26 MEQ/L (21-32); CHLORIDE LEVEL 110 MEQ/L (98-107); CREATININE FOR GFR 1.08 MG/DL (0.70-1.30); FERRITIN 90 NG/ML (26-388); GLOMERULAR FILTRATION RATE > 60.0 (>56); GLUCOSE, FASTING 83 MG/DL (70-105); PERCENT SATURATION 37.9 % (19.7-37.4); POTASSIUM SERUM 5.5 MEQ/L (3.5-5.1); SODIUM LEVEL 143 MEQ/L (136-145); TOTAL IRON BINDING CAPACITY 290 UG/DL (250-450)
[2017-01-09 05:07] LABS: MEAN CORPUSCULAR HEMOGLOBIN 22.8 pg (27.0-33.0); MEAN CORPUSCULAR HGB CONC 30.3 g/dl (32.0-36.5); MEAN CORPUSCULAR VOLUME 75.3 fl (80.0-96.0); RED CELL DISTRIBUTION WIDTH 16.8 % (11.5-14.5); WHITE BLOOD COUNT 7.3 K/mm3 (4.0-10.0)
[2017-01-09 08:00] VITALS: BP 118/62
[2017-01-09] MEDS: HumaLOG INSULIN (NovoLOG) PER UNIT SC SCH ×3 (08:31→17:30)
[2017-01-09] MEDS: ENOXAPARIN 40 MG/0.4 ML SYRINGE (J1650) SC SCH (08:32)
[2017-01-09] MEDS: THIAMINE 100 MG TAB PO SCH (08:32)
[2017-01-09] MEDS: LEVEMIR (INSULIN DETEMIR) 1 UNITS/0.01ML SC SCH (08:32)
[2017-01-09] MEDS: FOLIC ACID 1 MG TAB PO SCH (08:32)
[2017-01-09 09:30] VITALS: BP 155/83
--- NOTE | 2017-01-09 09:55 | IPN ---
DATE: 01/09/2017 PRIMARY CARE PROVIDER: Dr. Micheal Arreguin - [facility] [address] ATTENDING PHYSICIAN: Dr. Lopez Mr. Fernandez was seen in the intensive care unit (ICU). His history and physical is not back yet, but by sign out, he was admitted with diabetes out of control and concerns about statements he made to his girlfriend during the midst of an argument that were interpreted as showing suicidal thoughts. The patient adamantly denies this. He says he was mad at his girlfriend and was yelling at her and that he "has never had a thought like that in my life." He is asking to sign out against medical advice but is willing to cooperate to the point where he will wait for a psychiatrist to see him before signing out. He has poorly controlled type 2 diabetes. Hemoglobin A1c is over 11. He has a history of noncompliance. He has been admitted repeatedly for hypoglycemia and did not have a primary care provider until last year. I do note that since he has been established at [facility] [address], he has only had one hospitalization, which was just a brief admission for hypoglycemia. He does miss a lot of appointments, but they have kept him out of the hospital. He is now connected with the resident care provider, Leann Fofana RN, through the [facility], and she did an intake on him on 12/13/2016 and has a planned discussion with him for tomorrow. He also has an appointment with Dr. Arreguin scheduled for tomorrow. His home regimen is 10 units of Lantus daily. Looking through his labs, his hemoglobin A1c typically is between 7.5 and 8.7, 11.5 is the highest he has had in the last 5 years. PHYSICAL EXAMINATION: Vital Signs: Per flow sheet, blood pressure 118/62, pulse 56, respiratory rate 18, 95% oxygen saturation. Alert, conversant, in no distress. Oriented times three. Cooperative. Answers are goal directed and appropriate. HEENT: Unremarkable. Lungs: Clear. Heart: Regular without murmur. Abdomen: Soft, nontender, no masses. No peripheral edema. LABORATORY: Sodium 143, potassium 5.5, BUN 23, creatinine 1.0, creatinine is 1.5 on admission; it is down to 1.0 with hydration. Blood sugar is 83. Anion gap is 26. White count 7.3, hemoglobin 11.3, platelets 284. He had some ketones in his urine on admission, but he had not eaten much that day and actually has a history of some malabsorption problems related to extensive gastrointestinal (GI) surgery in the past. There is no evidence he was in diabetic ketoacidosis. He did not had an arterial blood gas (ABG) done. He had venous blood gases for what they are worth. Frankly, I do not know how to apply them to his case. IMPRESSION: 1. Diabetes out of control. Blood sugar was 472 on admission; it is 83 this morning. He has a history of erratic blood sugars with poor control, and this can be addressed as an outpatient. Does not require ICU care. He is not in diabetic ketoacidosis. I am stopping his IV fluids. Continue his 10 units of basal insulin with coverage, which he has required scant amounts. 2. Consider about suicidal statements. The patient denies any suicidal thoughts or plans. I have discussed the case with Dr. Andujar from psychiatry. He will see the patient in consultation today. The patient is requesting to leave against medical advice but is willing to cooperate and stay for psychiatric assessment before signing out against medical advice. I have no question he has capacity to make his own decisions, and he expresses that he understands his blood sugar is high but states, "it's always up and down and it is no different now than it usually is," which is true and appropriate. Dr. Andujar will see him both to establish capacity, which I feel the patient has capacity to make decisions about leaving advanced maternal age (AMA), as well as assess whether he feels the patient is a risk to himself due to whatever expressed statements were made. Copy To: Dr. Micheal Fofana, Therapeutic Recreation Leader, [facility]
[2017-01-09 14:00] VITALS: BP 145/65
--- NOTE | 2017-01-09 14:45 | ECGEPIP ---
Stationary ECG Study [facility] - ED Test Date: 2017-01-08 Pat Name: CHRIS CURRIE Department: Room: [place] [address] Gender: M Roll Operator: : 1960 Requested By: JUSTIN Martinez Order Number: [id number] Reading MD: Alondra Dill Measurements Intervals [place] Rate: 66 P: 68 NE: 186 QRS: 22 QRSD: 93 T: 56 QT: 379 QTc: 398 Interpretive Statements SINUS RHYTHM EARLY REPOLARIZATION VS ISCHEMIA, CLINICAL CORRELATION SIMILAR 11/01/16 Electronically Signed On 01-09-2017 14:45:25 EDT by Alondra Dill
--- NOTE | 2017-01-09 16:38 | HPE ---
DATE OF ADMISSION: 01/08/2017 PRIMARY CARE PROVIDER: Micheal Arreguin DO at the [facility]. CHIEF COMPLAINT: Patient was brought in by the police department for suicidal ideation. PAST MEDICAL HISTORY: 1. 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 2. 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 3. Hypertension. 4. Chronic right shoulder pain and dislocation. HISTORY OF PRESENT ILLNESS: This is a 56-year-old male who said he was having some problems with his girlfriend, arguing and fighting this afternoon, and after that he had like three vodkas and he said that he wanted to end everything, and he was behaving abnormally, so his house mates called the ambulance. Initially they thought his sugars were abnormal. His sugars came back high, however to the emergency medical services (EMS) he expressed suicidal ideation, so the police were called and the patient was brought to the emergency room. In the emergency department (ED), on arrival, he was very emotional, upset and crying and agitated. He said that he never wanted to commit suicide and never had any plans of committing suicide and he wanted to leave. However, because of the statement about suicidal ideation to the house mates and the EMS, he was initially placed in the psychiatric leo. His labs were drawn which showed that his sugars were over 700, potassium was 6.2, creatinine was elevated at 1.6. His blood osmolality was at 374 so the patient was moved to the main emergency room and started on insulin infusion and IV fluids. The hospitalist service was then consulted for admission for hyperglycemia without coma. Subsequently, his blood alcohol came back positive at 0.229 and also his ketone levels were elevated with a beta-hydroxybutyrate level of 5.2 so the patient was diagnosed with diabetic ketoacidosis (DKA), alcohol intoxication, and suicidal ideation, and was admitted to the hospitalist service. PAST SURGICAL HISTORY: 1. Partial pancreatectomy 36 years ago. 2. Surgery on the left foot and left hand in 2009. 3. Splenectomy. 4. Cholecystectomy. ALLERGIES: No known drug allergies. SOCIAL HISTORY: Patient is a regular smoker, about a pack every day. Patient drank vodka today, however he said that this was his first time drinking after 6 years of not drinking anything. He uses marijuana daily. HOME MEDICATIONS: - Levemir insulin 10 units subcutaneously daily - human regular as per sliding scale - naproxen 500 mg by mouth twice a day - cyclobenzaprine 10 mg by mouth three times a day as needed for spasms REVIEW OF SYSTEMS: All ten point review of systems negative except those mentioned in history of present illness (HPI). FAMILY HISTORY: Patient's mother and sister also have history of recurrent pancreatitis and had undergone pancreatic surgery. PHYSICAL EXAMINATION: VITAL SIGNS: Temperature 98.8, pulse 83, respiratory rate 20, blood pressure 156/92, pulse oximetry 95% in room air. GENERAL: Patient awake, alert, oriented times three, laying down in bed, in no acute distress. HEENT: Normocephalic, atraumatic. Dry mucous membranes. Anicteric eyes. CHEST: Clear to auscultation. CARDIOVASCULAR: S1, S2, regular. No rub, murmur, or gallop. ABDOMEN: Soft, nontender. Bowel sounds normal. EXTREMITIES: No edema. LABORATORY DATA: WBC 8.1, hemoglobin 11.9, platelets 326, sodium 129, potassium 6.2, chloride 97, bicarbonate 17, anion gap 15, BUN 29, creatinine 1.68, glucose 790, A1c 11.5, calcium 8.1, magnesium 1.8. Liver function tests are normal. TSH 3.03. Osmolality 374. Alcohol level 0.229. Beta-hydroxybutyrate 5.2. ASSESSMENT: This is a 56-year-old male admitted for diabetic ketoacidosis (DKA), acute kidney injury (ZEESHAN), and suicidal ideation. PLAN: 1. For diabetic ketoacidosis (DKA), we will admit the patient to intensive care unit (ICU). Will continue the patient on insulin infusion and IV fluids, normal saline, and follow the protocol of IV fluids when sugar drops below 200. Will change the patient to sliding scale insulin and long-acting insulin once the gap closes and his bicarbonate improves. 2. Hyperkalemia due to uncontrolled sugar levels. I expect it to improve with improvement in sugar levels. 3. Acute kidney injury due to osmotic diuresis and dehydration. I expect to improve with IV fluids. 4. Hyponatremia, which is actually in the normal range after correction for his sugars. 5. Alcohol intoxication. Patient says has been dry for 6-7 years and this is his first drinking episode after that many years. Will put the patient on Serax as needed for agitation. 6. Suicidal ideation. To me patient absolutely denied suicidal ideation. He said he was upset with his girlfriend and said he wanted to end everything. However, as per medical records, he had expressed suicidal ideation to the emergency medical service (EMS) and to his house mates so the patient will be placed under one-to-one observation once medically cleared. Psychiatry will be called to evaluate the patient to see if he needs further inpatient mental health care or not. 7. Deep venous thrombosis (DVT) prophylaxis has been ordered. 8. Anemia, chronic. Will check iron profile and vitamin B12 levels tomorrow.
--- NOTE | 2017-01-09 20:38 | CR ---
DATE OF CONSULTATION: 01/09/2017 CHIEF COMPLAINT: Says he wants to go home. SUBJECTIVE: He is 56 years old, he has diabetes mellitus, is seen by primary care over at [facility], attends the resident clinic, has an appointment to see Dr. Arreguin tomorrow. I have been asked by Dr. Espinosa to see the patient, make an assessment regarding his capacity to make the decision to go home, as the patient wants to leave against medical advice. The other concern is that he had come in essentially as he had made statements which alluded to suicide, there were concerns about his ability to maintain his safety, which is the other reason for the consult. The patient is interviewed, the chart is reviewed. Has a long history of diabetes, attends some of his appointments, does not the others, and apparently he has come to the emergency room on frequent occasions because of hypoglycemia, adheres to treatment regimens inconsistently. He says he was at his girlfriend's place, they have known each other for the last several months, and they had an argument. He does not remember what the argument was about, acknowledged he had been drinking, and had taken a couple of shots of vodka. He says during the argument, he told his girlfriend that he did not want to be there, and then went home, he lives with a couple. He says he was home when he found out that the ambulance was there, with the police. His girlfriend apparently called the police, stating he had indicated that he was suicidal. He says he was quite upset they were there, as he did not want to kill himself, Was brought here, seen in the emergency room (ER), was found to have elevated sugars, the initial reading was 790, it has come down, high potassium as well. Dr. Espinosa has asked him to stay, he wishes to leave, as he says his sugars are much better. He acknowledges he had an argument with his girlfriend, but denies that he implied he was going to kill himself, says has no desires to do so, and also suggests has not had any desires in the past either. Denies any attempts either, and suggests at the time he was in long-term (he did not go into details), he had not felt suicidal either. It should be noted the patient was thought to have some infestation by bedbugs. Says has been doing well emotionally, feels okay, and acknowledges at times gets frustrated, but denies feeling pervasively depressed. Sleep and appetite are okay. He adamantly denies any thoughts of hurting himself. Says has been living with the couple, Irene Barnes, and her , for the last 3 years. He has known Irene for the past 40 years. I spoke with Ms. Barnes on the phone, the patient dialed the number, she indicated that she is a nursing program coordinator, knows him well, says there are times when she may get concerned when his sugars fluctuate, and particularly when he becomes hypoglycemic, and the ambulance is called, says his demeanor changes during those times, but that she has never known him to be pervasively depressed, or to express thoughts of killing himself. Says she keeps a close eye, has no major concerns about his ability to maintain his safety. PAST PSYCHIATRIC HISTORY: Denies any formally. Says he used to drink, and stopped drinking more than 7 years ago, says since then has taken alcohol, he claims, only 5-6 times, one of those was yesterday. His blood alcohol level was 0.22 when he came here. MEDICAL HISTORY: Has diabetes mellitus, and irregular adherence to treatment recommendations. MEDICATIONS: Please see the list, these include insulin, folic acid, thiamine. SOCIAL HISTORY: Lives with the couple mentioned above, knows Ms. Barnes for the last 40 years. Has no family of his own, says he is the last of his own family, and that his siblings are all gone. MENTAL STATUS EXAMINATION: He is lying in bed, somewhat unkempt, guarded initially, but more cooperative as the interview proceeded. Initially gave short, dick answers, but more relaxed later. No agitation, no psychomotor retardation. Good eye contact. No fluctuation of consciousness. Affect restricted in range, but shows reactivity. Denies any suicidal thoughts or intents, no homicidal ideas or intents, no evidence of psychosis. Does not appear to be internally preoccupied. Cognition is grossly intact. He is alert, oriented to time, place, and person. Can recall two out of three objects after 5 minutes. Intellect average. Judgment is fair to good, it is adequate for his own welfare, insight is fair at best. ASSESSMENT: Adjustment disorder with disturbance of emotions and conduct. Alcohol intoxication. The picture is probably more in keeping with alcohol intoxication, no signs of his being intoxicated at present. Given this evaluation, does not appear to be persistent, or pervasively so. He wishes to go home, understands the benefits of staying, the risks of leaving, has the capacity to make that decision. It should be noted, Dr. Espinosa has felt that the patient has the capacity to go home as well. He denies being suicidal, he is not homicidal, not psychotic, no confusion. I spoke with Irene Barnes, he stays with her and her , she says she keeps an eye on him, and has no concerns for his ability to maintain his safety. Does say that when his glucose fluctuates, his demeanor changes, especially when hypoglycemic. RECOMMENDATIONS: He does not need to go to inpatient psychiatry from my standpoint. He does have the capacity to make the decision to go home. He intends following up with his primary care tomorrow, and the rehab care assistant. He is advised to do so. He should refrain from alcohol use, and I would suggest a referral to see a counselor. Thank you for the consult. If there are any questions, please call. The assessment took 30 minutes.
[2017-01-09] MEDS ORDERED: HumaLOG INSULIN (NovoLOG) PER UNIT SC SCH (21:00)
[2017-01-09 22:00] VITALS: BP 151/92
[2017-01-09] MEDS ORDERED: KETOROLAC 30 MG/ML VIAL (J1885) IV ONE (22:15)
[2017-01-10 06:00] VITALS: BP 117/72
[2017-01-10 06:26] LABS: MEAN CORPUSCULAR HGB CONC 30.1 g/dl (32.0-36.5); MEAN CORPUSCULAR VOLUME 72.9 fl (80.0-96.0); RED CELL DISTRIBUTION WIDTH 16.5 % (11.5-14.5); WHITE BLOOD COUNT 10.4 K/mm3 (4.0-10.0)
[2017-01-10 06:45] LABS: ANION GAP 6 MEQ/L (8-16); BLOOD UREA NITROGEN 25 MG/DL (7-18); CALCIUM LEVEL 7.4 MG/DL (8.5-10.1); CARBON DIOXIDE LEVEL 24 MEQ/L (21-32); CHLORIDE LEVEL 107 MEQ/L (98-107); CREATININE FOR GFR 1.15 MG/DL (0.70-1.30); GLOMERULAR FILTRATION RATE > 60.0 (>56); GLUCOSE, FASTING 227 MG/DL (70-105); SODIUM LEVEL 137 MEQ/L (136-145)
[2017-01-10 06:52] LABS: POTASSIUM SERUM 5.5 MEQ/L (3.5-5.1)
[2017-01-10] MEDS: HumaLOG INSULIN (NovoLOG) PER UNIT SC SCH ×2 (09:22→12:34)
[2017-01-10] MEDS: ENOXAPARIN 40 MG/0.4 ML SYRINGE (J1650) SC SCH (09:22)
[2017-01-10] MEDS: FOLIC ACID 1 MG TAB PO SCH (09:23)
[2017-01-10] MEDS: LEVEMIR (INSULIN DETEMIR) 1 UNITS/0.01ML SC SCH (09:23)
[2017-01-10] MEDS: THIAMINE 100 MG TAB PO SCH (09:23)
[2017-01-10 10:40] LABS: VITAMIN B12 LEVEL 360 PG/ML (247-911)
--- NOTE | 2017-01-10 11:19 | DSES ---
DATE OF ADMISSION: 01/08/2017 DATE OF DISCHARGE: PRINCIPAL DIAGNOSIS: Diabetes out of control secondary to poor compliance. SECONDARY DIAGNOSIS: No evidence of suicidal ideation. HISTORY: Fernando Fernandez was admitted after showing up to the emergency room with out of control diabetes. The girlfriend thought he had made some statements that were interpreted as suggesting suicidal thoughts so he was admitted for evaluation of that as well. For details, see history and physical from admission. HOSPITAL COURSE: The patient admitted initially to an intensive care unit (ICU) bed on the presumption he was in diabetic ketoacidosis (DKA). He was not in DKA. He had no acidosis or significant ketones beyond starvation ketosis from not eating well. On transfer to the floor, he was on his usual basal insulin with coverage. He had no hypoglycemia and his blood sugars were brought under better control than he typically has at home. He saw Dr. Andujar from psychiatry who agreed he was not suicidal and also that he had capacity to make his own decisions. Today, the patient is ready for discharge. He has an appointment with Dr. Arreguin this afternoon which I would like him to keep. PHYSICAL EXAMINATION: Today is unchanged from yesterday. SIGNIFICANT LABS: Today, white count 10.4, hemoglobin 10.4, and platelets 285. Sodium 137, potassium 5.5, BUN 25, creatinine 1.1, glucose 227. Blood sugars have been between 130 and 400 and 227 this morning. Hemoglobin A1c was 11.5. He had a bunch of venous blood gases done, I am not sure what they contributed. Toxicology screen was negative. ' DISPOSITION: Patient is discharged home in improved and stable condition. He is to followup with Dr. Arreguin at his previously scheduled appointment today. Also reestablish with Leann Fofana, nurse eye care professional, who has been working with him. He is to continue a consistent carbohydrate diet. Activity as tolerated. Abstain from alcohol. Encouraged compliance with his office appointments (as noted above since established at [facility] clinic his frequency of hospitalization has significantly improved). MEDICATIONS ON DISCHARGE (will continue to be): - Levemir 10 units daily - regular insulin on a sliding scale - apparently he uses some Flexeril as needed 10 mg three times a day as needed for back spasms - Naprosyn as needed for back pain, which he can continue There was some thought in the emergency room that he might have bed bugs. Someone thought they might have seen one. There was no evidence of this when he got to the floor.
== END 2017-01-10 12:45 | disposition home or self-care (01) | DRG 638 ==
LOC: M ED 18:29 → M ED INP 21:23 → M ICU 01-09 02:05 → M MSPAV 01-09 09:05
PROVIDERS: ADMIT Internal Medicine Nephrology; ATTEND Family Medicine
DX: E11.65 Type 2 diabetes mellitus with hyperglycemia (principal); N17.9 Acute kidney failure, unspecified; E87.1 Hypo-osmolality and hyponatremia; Z91.19 Patient's noncompliance with other medical treatment and regimen; Z79.899 Other long term (current) drug therapy; Z79.4 Long term (current) use of insulin; I10 Essential (primary) hypertension; F17.200 Nicotine dependence, unspecified, uncomplicated; F12.10 Cannabis abuse, uncomplicated; E87.5 Hyperkalemia; D64.9 Anemia, unspecified; F10.129 Alcohol abuse with intoxication, unspecified

== ENCOUNTER 2017-02-08 07:59 | Emergency (ER) | payer MEDICARE, MEDICAID ==
[~2017-02-08] VITALS: Ht 160 cm; Wt 65.8 kg
[2017-02-08 10:12] VITALS: BP 146/76
== END 2017-02-08 10:16 | disposition home or self-care (01) ==
LOC: M ED 08:23
DX: E11.649 Type 2 diabetes mellitus with hypoglycemia without coma (principal); I51.9 Heart disease, unspecified; I10 Essential (primary) hypertension; F17.200 Nicotine dependence, unspecified, uncomplicated; Z79.4 Long term (current) use of insulin; Z79.899 Other long term (current) drug therapy; Z88.8 Allergy status to other drugs, medicaments and biological substances

== ENCOUNTER 2017-02-23 21:12 | Inpatient (IN) | payer MEDICARE, MEDICAID ==
[~2017-02-23] VITALS: Ht 157.5 cm; Wt 60.5 kg
[~2017-02-23 21:12] MED LIST changes: +LEVEMIR (INSULIN DETEMIR) 1 UNITS/0.01ML SC SCH
[2017-02-23] MEDS ORDERED: NS 500 ML IV ONE ×2 (21:30→22:45)
[2017-02-23] MEDS ORDERED: HumuLIN R (REGULAR) INSULIN (NovoLIN R) **100U/ML** PER UNIT IV ONE ×2 (21:45→22:45)
[2017-02-23 21:51] LABS: ADD MORPHOLOGY? YES; BASO # 0.1 K/mm3 (0.0-0.2); EOS # 0.1 K/mm3 (0.0-0.50); EOS % 1.3 % (0.0-3.0); LARGE UNSTAINED CELL # 0.2 K/mm3 (0.0-0.4); LARGE UNSTAINED CELL % 2.5 % (0.0-4.0); LYMPH # 2.3 K/mm3 (1.5-4.5); LYMPH % 24.5 % (24.0-44.0); MEAN CORPUSCULAR HEMOGLOBIN 21.5 pg (27.0-33.0); MEAN CORPUSCULAR HGB CONC 30.4 g/dl (32.0-36.5); MEAN CORPUSCULAR VOLUME 70.8 fl (80.0-96.0); MONO # 0.4 K/mm3 (0.0-0.8); MONO % 4.8 % (0.0-5.0); NEUTROPHILS # 5.5 K/mm3 (1.8-7.7); NEUTROPHILS % 65.9 % (36.0-66.0); PLATELET COUNT, AUTOMATED 321 k/mm3 (150-450); RED CELL DISTRIBUTION WIDTH 16.3 % (11.5-14.5); WHITE BLOOD COUNT 8.4 K/mm3 (4.0-10.0)
[2017-02-23 21:57] LABS: ALBUMIN 3.5 GM/DL (3.2-5.2); ALBUMIN/GLOBULIN RATIO 0.97 (1.00-1.93); ALKALINE PHOSPHATASE 127 U/L (45-117); ALT/SGPT 68 U/L (12-78); AMYLASE 75 U/L (25-115); ANION GAP 10 MEQ/L (8-16); AST/SGOT 50 U/L (15-37); BILIRUBIN,DIRECT 0.2 MG/DL (0.0-0.2); BILIRUBIN,TOTAL 0.4 MG/DL (0.2-1.0); BLOOD UREA NITROGEN 44 MG/DL (7-18); CARBON DIOXIDE LEVEL 24 MEQ/L (21-32); CHLORIDE LEVEL 88 MEQ/L (98-107); CREATININE FOR GFR 1.95 MG/DL (0.70-1.30); GLOMERULAR FILTRATION RATE 38.2 (>56); SODIUM LEVEL 122 MEQ/L (136-145); TOTAL PROTEIN 7.1 GM/DL (6.4-8.2)
[2017-02-23] MEDS ORDERED: ACETAMINOPHEN TAB 650MG DOSE (2X325MG) PO ONE (22:00)
[2017-02-23 22:17] LABS: GLUCOSE, FASTING 744 MG/DL (70-105)
[2017-02-23 22:18] LABS: POTASSIUM SERUM 6.6 MEQ/L (3.5-5.1)
[2017-02-23 22:44] LABS: ACANTHOCYTES 2+; ANISOCYTOSIS 1+; HYPOCHROMASIA 2+; MICROCYTOSIS 2+; OVALOCYTES 2+; POIKILOCYTOSIS 2+
[2017-02-23 22:45] LABS: SPHEROCYTES 1+; TARGET CELLS 2+
[2017-02-23] MEDS ORDERED: LORazepam 2 MG/ML VIAL (J2060) IV STA (23:07)
[2017-02-24] MEDS ORDERED: NS 1,000 ML IV ONE
[2017-02-24] MEDS ORDERED: ONDANSETRON 4MG/2ML VIAL (J2405) IV PRN (00:15)
[2017-02-24] MEDS ORDERED: INSULANT SC (00:29)
[2017-02-24] MEDS ORDERED: MELO7.5T6 PO (00:29)
[2017-02-24] MEDS ORDERED: TIZA2TA PO (00:29)
[2017-02-24 00:32] LABS: CALCIUM LEVEL 9.3 MG/DL (8.5-10.1); CREATININE FOR GFR 1.58 MG/DL (0.70-1.30); GLOMERULAR FILTRATION RATE 48.7 (>56); POTASSIUM SERUM 4.4 MEQ/L (3.5-5.1)
[2017-02-24] MEDS ORDERED: GLUCAGON FOR INJ 1 MG VIAL (J1610) SC PRN (01:15)
[2017-02-24] MEDS ORDERED: DEXTROSE 50% 50 ML SYRINGE IV PRN (01:15)
[2017-02-24] MEDS ORDERED: GLUCOSE 4 GM CHEW TABLET PO PRN (01:15)
[2017-02-24] MEDS: NS 1,000 ML IV SCH ×3 (01:19→20:34)
[2017-02-24 01:58] VITALS: BP 146/75
[2017-02-24] MEDS ORDERED: **NOTE PATIENT COMMENT** MISC XX PRN ×2 (02:45→03:00)
[2017-02-24] MEDS: HEPARIN SOD (PORCINE) 5000 UNITS/ML VIAL SC SCH ×3 (03:03→20:35)
[2017-02-24] MEDS: traMADol 50 MG TAB PO PRN ×3 (03:03→23:57)
[2017-02-24 05:12] LABS: BASO # 0.1 K/mm3 (0.0-0.2); BASO % 0.6 % (0.0-1.0); EOS # 0.2 K/mm3 (0.0-0.50); EOS % 1.5 % (0.0-3.0); LARGE UNSTAINED CELL # 0.2 K/mm3 (0.0-0.4); LARGE UNSTAINED CELL % 1.9 % (0.0-4.0); LYMPH # 2.5 K/mm3 (1.5-4.5); LYMPH % 22.8 % (24.0-44.0); MEAN CORPUSCULAR HEMOGLOBIN 21.8 pg (27.0-33.0); MEAN CORPUSCULAR HGB CONC 31.3 g/dl (32.0-36.5); MEAN CORPUSCULAR VOLUME 69.6 fl (80.0-96.0); MONO # 0.6 K/mm3 (0.0-0.8); MONO % 5.6 % (0.0-5.0); NEUTROPHILS # 6.8 K/mm3 (1.8-7.7); NEUTROPHILS % 67.5 % (36.0-66.0); PLATELET COUNT, AUTOMATED 298 k/mm3 (150-450); RED CELL DISTRIBUTION WIDTH 16.2 % (11.5-14.5); WHITE BLOOD COUNT 10.1 K/mm3 (4.0-10.0)
[2017-02-24 05:26] LABS: CREATININE FOR GFR 1.52 MG/DL (0.70-1.30); GLOMERULAR FILTRATION RATE 50.9 (>56); POTASSIUM SERUM 4.5 MEQ/L (3.5-5.1)
[2017-02-24 05:42] LABS: CALCIUM LEVEL 7.9 MG/DL (8.5-10.1)
--- NOTE | 2017-02-24 05:42 | ECGEPIP ---
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
[2017-02-24 08:00] VITALS: BP 131/72
[2017-02-24] MEDS: HumaLOG INSULIN (NovoLOG) PER UNIT SC SCH ×3 (08:48→17:30)
[2017-02-24] MEDS: LEVEMIR (INSULIN DETEMIR) 1 UNITS/0.01ML SC SCH ×2 (08:50→20:35)
[2017-02-24] MEDS ORDERED: LIDOCAINE 5% (LIDODERM) PATCH TD SCH (09:00)
[2017-02-24] MEDS ORDERED: LIDOCAINE 5% (LIDODERM) PATCH TD PRN (09:00)
--- NOTE | 2017-02-24 12:05 | REP ---
Fernandez there are right shoulder three views: Comparisons 12/17/2016. There is two shaft width elevation of the distal clavicle relation to the acromion. Previously this is an approximate one shaft width of elevation. Findings consistent with acromioclavicular and coracoclavicular ligament injury. There is no fracture or dislocation. Mineralization is normal. There are no calcifications or foreign bodies. Impression: Two shaft width elevation of the distal clavicle in relation to the acromion, compatible with ligamentous injuries as described. Otherwise, negative right shoulder. Signed by Allen Houston MD 02/24/2017 11:56 A
--- NOTE | 2017-02-24 12:10 | HPE ---
DATE OF ADMISSION: 02/23/2017 PRIMARY CARE PROVIDER: [facility]. CHIEF COMPLAINT: Extreme weakness, tiredness and shortness of breath for the past 3 to 4 days, inability to eat anything for the same duration, persistent high blood sugar for more than 24 hours, abdominal and shoulder pain. PAST MEDICAL HISTORY: 1. Insulin-dependent diabetes after partial pancreatectomy 5 to 6 years ago. 2. 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 3. Hypertension. 4. Chronic right shoulder pain from dislocation. 5. Poor compliance. 6. Tobacco dependency. HISTORY OF PRESENT ILLNESS: This is a 56-year-old male with insulin-dependent diabetes mellitus after a partial pancreatectomy for abnormal anatomy from structure of the pancreas as a child, who presented to the emergency room with complaints of a 3 to 4 day history of extreme weakness, tiredness, inability to eat anything, and shortness of breath, along with high blood sugars for the past 1 to 2 days. The patient was recently admitted in January 2017 and known to have issues with noncompliance, as per him because he has not been feeling well and unable to eat anything so he was not taking his usual doses of insulin. He also complained of abdominal pain and chronic right shoulder pain from a shoulder dislocation. In the emergency department, he had laboratory work done, which showed that he was severely hyperglycemic with blood glucose of 744 with acute kidney injury, creatinine of 1.95, potassium of 6.6, sodium of 122, which with correction is almost within normal range, so the patient was admitted to the hospitalist service for hyperglycemia, acute kidney injury, hyperkalemia and dehydration. PAST SURGICAL HISTORY: 1. Splenectomy. 2. Cholecystectomy. 3. Partial pancreatectomy 36 years ago, surgery of the left foot and left hand in 2009. ALLERGIES: No known drug allergies. SOCIAL HISTORY: The patient is a regular smoker and smokes about one pack per day. Uses marijuana daily. Has been drinking some alcohol after being dry for 6 years or so. HOME MEDICATIONS: - Levemir 10 units daily - Humulin regular insulin as per sliding scale - Naproxen 500 mg by mouth twice a day - cyclobenzaprine 10 mg by mouth three times per day as needed for muscle spasms FAMILY HISTORY: The patient's mother and sister with recurrent pancreatitis and had undergone pancreatic surgery. REVIEW OF SYSTEMS: All 10-point review of systems are negative except for those mentioned in the history of present illness. PHYSICAL EXAMINATION: VITAL SIGNS: Temperature 98.6, pulse 60, respiratory rate 20, blood pressure 155/78, pulse oximetry 99% with 2 liters nasal cannula. GENERAL : The patient is awake, alert, oriented times three. Lying down in bed in no acute distress. HEENT: Normocephalic, atraumatic. Dry mucous membranes. Anicteric eyes. CHEST: Clear to auscultation. Vesicular breath sounds. CARDIOVASCULAR: S1, S2 regular. No rub, murmur or gallop. ABDOMEN: Soft, nontender. Bowel sounds present. EXTREMITIES: No edema. LABORATORY DATA: WBC 8.4, hemoglobin 12.9, platelets 321. Sodium 122, potassium 6.6, chloride 88, bicarbonate 24, anion gap 10, BUN 44, creatinine 1.95, glucose 744. Liver function tests are normal. Lipase 44, amylase 75, CPK 247. ASSESSMENT AND PLAN: This is a 56-year-old male admitted for hyperosmolar hyperglycemia without ketosis, acute kidney injury, hyperkalemia, pseudohyponatremia. PLAN: 1. For hyperglycemia without ketosis in a patient with insulin dependent diabetes, we will hydrate the patient with 1 liter normal saline bolus followed by 100 mL per hour of normal saline. The patient received IV insulin in the emergency room. We will start the patient on his home insulin regimen. 2. Hyperkalemia. This is due to hyperglycemia, which I expect to improve with hydration and improvement in blood sugar. We will recheck potassium level. 3. Acute kidney injury. This is due to osmotic diuresis and dehydration. We will continue with IV fluids. 4. Hyponatremia. This is actually pseudohyponatremia due to high blood sugars, which, after correction is in the normal range. 5. Insulin-dependent diabetes with noncompliance. The patient is a diabetic for many years after he had pancreatic surgery as a child for abnormal anatomy of the pancreas and recurrent pancreatitis. The patient is strongly advised to reframe from drinking any alcohol. 6. Tobacco abuse. The patient was counseled of smoking cessation. 7. Hypotension. Blood pressure at present is controlled. We will not give any antihypertensive medications. 8. Deep vein thrombosis (DVT) prophylaxis. Ordered. MTDD
[2017-02-24 14:30] VITALS: BP 148/77
[2017-02-24] MEDS ORDERED: HumaLOG INSULIN (NovoLOG) PER UNIT SC SCH (21:00)
[2017-02-24 22:00] VITALS: BP 144/82
[2017-02-25] MEDS: NS 1,000 ML IV SCH (05:36)
[2017-02-25 05:53] LABS: ANION GAP 6 MEQ/L (8-16); BLOOD UREA NITROGEN 18 MG/DL (7-18); CALCIUM LEVEL 7.8 MG/DL (8.5-10.1); CARBON DIOXIDE LEVEL 27 MEQ/L (21-32); CHLORIDE LEVEL 104 MEQ/L (98-107); CREATININE FOR GFR 0.93 MG/DL (0.70-1.30); GLOMERULAR FILTRATION RATE > 60.0 (>56); GLUCOSE, FASTING 169 MG/DL (70-105); POTASSIUM SERUM 4.7 MEQ/L (3.5-5.1); SODIUM LEVEL 137 MEQ/L (136-145)
[2017-02-25 05:59] LABS: BASO % 0.5 % (0.0-1.0); EOS # 0.4 K/mm3 (0.0-0.50); EOS % 3.4 % (0.0-3.0); LARGE UNSTAINED CELL # 0.2 K/mm3 (0.0-0.4); LARGE UNSTAINED CELL % 1.9 % (0.0-4.0); LYMPH # 3.5 K/mm3 (1.5-4.5); LYMPH % 30.8 % (24.0-44.0); MEAN CORPUSCULAR HEMOGLOBIN 21.8 pg (27.0-33.0); MEAN CORPUSCULAR HGB CONC 31.1 g/dl (32.0-36.5); MONO # 0.4 K/mm3 (0.0-0.8); MONO % 3.9 % (0.0-5.0); NEUTROPHILS # 6.4 K/mm3 (1.8-7.7); NEUTROPHILS % 59.5 % (36.0-66.0); PLATELET COUNT, AUTOMATED 273 k/mm3 (150-450); RED CELL DISTRIBUTION WIDTH 16.4 % (11.5-14.5); WHITE BLOOD COUNT 10.8 K/mm3 (4.0-10.0)
[2017-02-25 06:00] VITALS: BP 145/80
[2017-02-25] MEDS: traMADol 50 MG TAB PO PRN (08:50)
[2017-02-25] MEDS: HEPARIN SOD (PORCINE) 5000 UNITS/ML VIAL SC SCH (08:51)
[2017-02-25] MEDS: HumaLOG INSULIN (NovoLOG) PER UNIT SC SCH ×2 (08:52→12:06)
[2017-02-25] MEDS: LEVEMIR (INSULIN DETEMIR) 1 UNITS/0.01ML SC SCH (08:53)
--- NOTE | 2017-02-25 13:06 | DSES ---
DATE OF ADMISSION: 02/24/2017 DATE OF DISCHARGE: 02/25/2017 ATTENDING PHYSICIAN: Dr. Erika Zavala PRIMARY CARE PHYSICIAN Unknown. REFERRING PHYSICIAN: None. CONSULTING PHYSICIAN: None. CONDITION ON DISCHARGE: Stable. FINAL DIAGNOSES: 1. Hyperglycemia. 2. Acute kidney injury. 3. Electrolyte abnormalities. PROCEDURES: None. 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 He presented to the emergency room complaining of 3-4 day history of extreme weakness, tiredness, and inability to eat anything as well as some shortness of breath. Patient was found to have elevated blood sugars at home. Upon arrival to the emergency room, he was found to have uncontrolled sugars as well as acute kidney injury and electrolyte abnormalities. He was admitted to hospitalist service at that point. HOSPITAL COURSE: 1. Hyperglycemia, likely secondary to noncompliance. Presented with weakness and dehydration. Patient received IV fluid hydration and was restarted on insulin regimen. 2. Status post hyperkalemia. 3. Acute kidney injury, likely secondary to prerenal etiology secondary to osmotic diuresis and dehydration from hyperglycemia. Has corrected with IV fluid hydration. 4. Status post hyponatremia. 5. Insulin-dependent diabetes mellitus with noncompliance. Patient was restarted on his insulin therapy from home. 6. Tobacco abuse. Patient was consulted on smoking cessation. 7. Hypertension. Patient was held on blood pressure medications given his current blood pressure was well controlled without it. 8. Deep venous thrombosis (DVT) prophylaxis. Patient was put on sleeve compression devices. 9. Right shoulder pain secondary to fall. Patient had an x-ray, which revealed no acute fracture or dislocation. It did reveal that he had some ligamentous injury. Case was discussed with orthopedic surgery, Dr. Grande, who has advised patient to followup with him as an outpatient. I have provided necessary followup for the patient. DISCHARGE MEDICATION: Patient was put on the following medications upon discharge: - glargine 10 units subcutaneous daily - regular insulin subcutaneous before food and nightly - tizanidine 2 mg by mouth three times a day Stopped medications include: - meloxicam DISCHARGE INSTRUCTIONS: Patient has been advised to followup with orthopedic surgery and primary care provider. Patient has been advised to remain compliant with treatment plan and medications and return to the emergency room if he experiences any problems. TIME SPENT ON DISCHARGE: 35 minutes. Edited: riki 02/28/2017 [id number]
== END 2017-02-25 13:04 | disposition home or self-care (01) | DRG 638 ==
LOC: EDBD 21:12 → M ED 22:10 → M ED INP 22:11 → M PCU 02-24 01:35 → M MSPAV 02-24 14:26 → OBSVTOIN 02-24 16:52
PROVIDERS: ADMIT Internal Medicine Nephrology; ATTEND Internal Medicine
DX: E11.65 Type 2 diabetes mellitus with hyperglycemia (principal); N17.9 Acute kidney failure, unspecified; E87.0 Hyperosmolality and hypernatremia; E87.6 Hypokalemia; Z91.19 Patient's noncompliance with other medical treatment and regimen; E87.5 Hyperkalemia; F17.200 Nicotine dependence, unspecified, uncomplicated; I10 Essential (primary) hypertension; E86.0 Dehydration; Z79.4 Long term (current) use of insulin; Z79.899 Other long term (current) drug therapy; Z90.81 Acquired absence of spleen; F12.90 Cannabis use, unspecified, uncomplicated

== ENCOUNTER 2017-04-24 12:05 | Emergency (ER) | payer MEDICARE, MEDICAID ==
[~2017-04-24] VITALS: Ht 160 cm; Wt 64.6 kg
[~2017-04-24 12:05] MED LIST changes: +CIPR-249 PO; -CIPR500T89 PO; +FERR1TAB8 PO; -FERR325T PO; -LEVEMIR (INSULIN DETEMIR) 1 UNITS/0.01ML SC SCH; +MELO7.5T7 PO; -SENO8.6T2 PO; +SENO8.6T5 PO; +TIZA2TA PO
[2017-04-24 12:06] VITALS: BP 139/75
== END 2017-04-24 14:23 | disposition left against medical advice (07) ==
LOC: M ED 12:05
DX: E11.65 Type 2 diabetes mellitus with hyperglycemia (principal); I10 Essential (primary) hypertension; K86.1 Other chronic pancreatitis; F17.210 Nicotine dependence, cigarettes, uncomplicated; Z88.8 Allergy status to other drugs, medicaments and biological substances; Z79.4 Long term (current) use of insulin

== ENCOUNTER 2017-08-28 19:03 | Inpatient (IN) | payer MEDICARE, MEDICAID ==
[2017-08-28] MEDS: NS 500 ML IV (19:30)
[2017-08-28] MEDS: METOCLOPRAMIDE INJ 10MG/2ML VIAL (J2765) IV (19:30)
[2017-08-28] MEDS: MORPHINE 2 MG/ML 1ML SYRINGE IV (19:30)
[2017-08-28] MEDS: ASPIRIN 325 MG TAB PO (20:00)
[2017-08-28] MEDS: HEPARIN SOD (PORCINE) 5000 UNITS/ML VIAL SQ (21:00)
[2017-08-28 21:03] LABS: BASO # 0.1 10^3/uL (0.0-0.2); BASO % 0.9 % (0.0-1.0); EOS % 0.2 % (0.0-3.0); HEMATOCRIT 32.4 % (42.0-52.0); HEMOGLOBIN 10.4 g/dl (14.0-18.0); IMMATURE GRANULOCYTE # 0.1 10^3/uL (0-0); IMMATURE GRANULOCYTE % 0.7 % (0-0); LYMPH # 2.2 10^3/uL (1.5-4.5); MEAN CORPUSCULAR HGB CONC 32.1 g/dl (32.0-36.5); MEAN CORPUSCULAR VOLUME 65.5 fl (80.0-96.0); MONO # 0.6 10^3/uL (0.0-0.8); MONO % 7.2 % (0.0-5.0); NEUTROPHILS # 5.9 10^3/uL (1.8-7.7); PLATELET COUNT, AUTOMATED 300 10^3/uL (150-450); RED BLOOD COUNT 4.95 10^6/uL (4.30-6.10); WHITE BLOOD COUNT 8.9 10^3/uL (4.0-10.0)
[2017-08-28] MEDS: MORPHINE 4 MG/ML 1ML SYRINGE IV (21:12)
[2017-08-28 21:25] LABS: ALBUMIN 3.4 GM/DL (3.2-5.2); ALKALINE PHOSPHATASE 126 U/L (45-117); ALT/SGPT 60 U/L (12-78); AMYLASE 46 U/L (25-115); ANION GAP 16 MEQ/L (8-16); AST/SGOT 70 U/L (7-37); BILIRUBIN,DIRECT 0.2 MG/DL (0.0-0.2); BILIRUBIN,TOTAL 0.5 MG/DL (0.2-1.0); BLOOD UREA NITROGEN 59 MG/DL (7-18); CALCIUM LEVEL 8.3 MG/DL (8.5-10.1); CARBON DIOXIDE LEVEL 22 MEQ/L (21-32); CHLORIDE LEVEL 86 MEQ/L (98-107); CPK CREATINE PHOSPHOKINASE 78 U/L (39-308); CREATININE FOR GFR 2.19 MG/DL (0.70-1.30); GLOMERULAR FILTRATION RATE 33.3 (>56); LIPASE 33 U/L (73-393); MB/CK RELATIVE INDEX 5.12 (< OR =4); SODIUM LEVEL 124 MEQ/L (136-145); TOTAL PROTEIN 6.5 GM/DL (6.4-8.2); TROPONIN I 0.03 NG/ML (< 0.10)
[2017-08-28 21:35] LABS: LACTIC ACID SEPSIS PROTOCOL 9.8 MMOL/L (0.4-2.0)
[2017-08-28 21:36] LABS: GLUCOSE, FASTING 701 MG/DL (70-105)
[2017-08-28 21:37] LABS: POTASSIUM SERUM 5.3 MEQ/L (3.5-5.1)
[2017-08-28] MEDS: HumuLIN R (REGULAR) INSULIN (NovoLIN R) **100U/ML** PER UNIT IV ×2 (21:45→22:45)
[2017-08-28] MEDS: NS 1,000 ML IV ×3 (21:45→22:53)
[2017-08-28] MEDS: INSULIN HUMAN REGULAR 100 UNITS in NS 99 ML IV (22:53)
[2017-08-28] MEDS ORDERED: INSULIN IV RATE CHANGE DOCUMENTATION ML/HR XX (23:00)
[2017-08-28 23:01] LABS: VENOUS BASE EXCESS -1.9 (-2.0-2.0); VENOUS HCO3 21.2 MEQ/L (23.0-27.0); VENOUS PARTIAL PRESSURE CO2 30.9 mmHg (38.0-50.0); VENOUS PARTIAL PRESSURE O2 34.5 mmHg (30.0-50.0); VENOUS PH 7.455 UNITS (7.330-7.430); VENOUS STANDARD HCO3 22.4 MEQ/L; VENOUS TOTAL CO2 22.2 MEQ/L (24.0-28.0)
[2017-08-28 23:06] LABS: APPEARANCE, URINE CLEAR (CLEAR); BACTERIA, URINE AUTO NEGATIVE (NEGATIVE); BILIRUBIN, URINE AUTO NEGATIVE (NEGATIVE); BLOOD, URINE BLOOD NEGATIVE (NEGATIVE); COLOR, URINE STRAW (YELLOW); GLUCOSE, URINE (UA) AUTO 3+ mg/dL (NEGATIVE); KETONE, URINE AUTO NEGATIVE (NEGATIVE); LEUKOCYTE ESTERASE, URINE AUTO NEGATIVE (NEGATIVE); NITRITE, URINE AUTO NEGATIVE (NEGATIVE); PROTEIN, URINE AUTO NEGATIVE (NEGATIVE); RBC, URINE AUTO 1 /HPF (0-3); SPECIFIC GRAVITY URINE AUTO 1.017 (1.002-1.035); SQUAMOUS EPITHELIAL CELL UR AU 0 /HPF (0-6); UROBILINOGEN, URINE AUTO 0.2 mg/dL (0.0-2.0); WBC, URINE AUTO 1 /HPF (0-3)
[2017-08-28] MEDS ORDERED: ALBUTEROL SULFATE 2.5 MG/0.5 ML INH NEB SOLN INH (23:15)
[2017-08-28 23:25] LABS: BEDSIDE GLUCOSE 464 MG/DL (70-105)
[2017-08-28 23:25] LABS: BEDSIDE GLUCOSE 342 MG/DL (70-105)
[2017-08-29 00:54] LABS: BEDSIDE GLUCOSE 144 MG/DL (70-105)
[2017-08-29] MEDS ORDERED: DEXTROSE 50% 50 ML SYRINGE IV (01:00)
[2017-08-29] MEDS ORDERED: GLUCOSE 4 GM CHEW TABLET PO (01:00)
[2017-08-29] MEDS ORDERED: GLUCAGON FOR INJ 1 MG VIAL (J1610) SC (01:00)
[2017-08-29 01:35] LABS: LACTIC ACID SEPSIS PROTOCOL 1.6 MMOL/L (0.4-2.0)
[2017-08-29 01:44] LABS: BEDSIDE GLUCOSE 107 MG/DL (70-105)
[2017-08-29 02:43] LABS: BEDSIDE GLUCOSE 154 MG/DL (70-105)
[2017-08-29] MEDS: MAGNESIUM CITRATE 300 ML BTL PO (03:30)
[2017-08-29] MEDS: NICOTINE 21MG/24HR 1 EA TRANSDERMAL TD ×2 (03:57→08:22)
[2017-08-29 06:42] LABS: BEDSIDE GLUCOSE 339 MG/DL (70-105)
[2017-08-29] MEDS ORDERED: LEVEMIR (INSULIN DETEMIR) 1 UNITS/0.01ML As Ordered (07:00)
[2017-08-29] MEDS: LEVEMIR (INSULIN DETEMIR) 1 UNITS/0.01ML SC (07:06)
[2017-08-29 07:14] LABS: ACETONE/KETONE 1.73 MG/DL (<2.81)
[2017-08-29] MEDS: HumaLOG INSULIN (NovoLOG) PER UNIT SC ×4 (07:49→20:59)
[2017-08-29] MEDS: HEPARIN SOD (PORCINE) 5000 UNITS/ML VIAL SQ ×2 (08:22→20:59)
[2017-08-29] MEDS: NS 1,000 ML IV ×2 (08:55→23:00)
[2017-08-29] MEDS: MORPHINE 2 MG/ML 1ML SYRINGE IV ×3 (08:56→21:00)
[2017-08-29] MEDS ORDERED: ENOXAPARIN 40 MG/0.4 ML SYRINGE (J1650) SC (09:00)
[2017-08-29] MEDS ORDERED: SENOKOT S TAB PO (10:00)
[2017-08-29 10:02] LABS: HEMATOCRIT 29.6 % (42.0-52.0); HEMOGLOBIN 9.4 g/dl (14.0-18.0); MEAN CORPUSCULAR HEMOGLOBIN 20.8 pg (27.0-33.0); MEAN CORPUSCULAR HGB CONC 31.8 g/dl (32.0-36.5); MEAN CORPUSCULAR VOLUME 65.5 fl (80.0-96.0); PLATELET COUNT, AUTOMATED 272 10^3/uL (150-450); RED BLOOD COUNT 4.52 10^6/uL (4.30-6.10); RED CELL DISTRIBUTION WIDTH 17.1 % (11.5-14.5); WHITE BLOOD COUNT 9.9 10^3/uL (4.0-10.0)
[2017-08-29 10:28] LABS: ALBUMIN/GLOBULIN RATIO 1.03 (1.00-1.93); ALKALINE PHOSPHATASE 97 U/L (45-117); ALT/SGPT 49 U/L (12-78); ANION GAP 7 MEQ/L (8-16); AST/SGOT 63 U/L (7-37); BILIRUBIN,TOTAL 0.4 MG/DL (0.2-1.0); BLOOD UREA NITROGEN 39 MG/DL (7-18); CALCIUM LEVEL 7.1 MG/DL (8.5-10.1); CARBON DIOXIDE LEVEL 30 MEQ/L (21-32); CHLORIDE LEVEL 97 MEQ/L (98-107); CK-MB VALUE MASS 4.9 NG/ML (0.0-3.6); CPK CREATINE PHOSPHOKINASE 132 U/L (39-308); CREATININE FOR GFR 1.51 MG/DL (0.70-1.30); GLOMERULAR FILTRATION RATE 51.1 (>56); GLUCOSE, FASTING 386 MG/DL (70-105); MAGNESIUM LEVEL 2.5 MG/DL (1.8-2.4); MB/CK RELATIVE INDEX 3.71 (< OR =4); POTASSIUM SERUM 4.6 MEQ/L (3.5-5.1); SODIUM LEVEL 134 MEQ/L (136-145); TOTAL PROTEIN 5.9 GM/DL (6.4-8.2); TROPONIN I 0.05 NG/ML (< 0.10)
[2017-08-29 11:14] LABS: BEDSIDE GLUCOSE > 600 MG/DL (70-105)
[2017-08-29 11:33] LABS: ESTIMATED AVERAGE GLUCOSE 404 MG/DL (60-110); HEMOGLOBIN A1c 15.7 %
[2017-08-29 12:27] LABS: BEDSIDE GLUCOSE 342 MG/DL (70-105)
[2017-08-29] MEDS: SODIUM CHLORIDE 0.9% INJ 10 ML SYR IV ×2 (12:58→21:00)
[2017-08-29 17:07] LABS: BEDSIDE GLUCOSE 288 MG/DL (70-105)
[2017-08-29 21:04] LABS: BEDSIDE GLUCOSE 219 MG/DL (70-105)
[2017-08-30] MEDS: MORPHINE 2 MG/ML 1ML SYRINGE IV ×6 (03:06→21:29)
[2017-08-30 03:19] LABS: BEDSIDE GLUCOSE 218 MG/DL (70-105)
[2017-08-30] MEDS: SODIUM CHLORIDE 0.9% INJ 10 ML SYR IV ×3 (05:26→21:30)
[2017-08-30 05:45] LABS: HEMATOCRIT 27.8 % (42.0-52.0); HEMOGLOBIN 8.7 g/dl (14.0-18.0); MEAN CORPUSCULAR HEMOGLOBIN 20.8 pg (27.0-33.0); MEAN CORPUSCULAR HGB CONC 31.3 g/dl (32.0-36.5); MEAN CORPUSCULAR VOLUME 66.5 fl (80.0-96.0); PLATELET COUNT, AUTOMATED 291 10^3/uL (150-450); RED BLOOD COUNT 4.18 10^6/uL (4.30-6.10); RED CELL DISTRIBUTION WIDTH 17.2 % (11.5-14.5); WHITE BLOOD COUNT 8.4 10^3/uL (4.0-10.0)
[2017-08-30 06:00] LABS: ALBUMIN 2.8 GM/DL (3.2-5.2); ALBUMIN/GLOBULIN RATIO 1.08 (1.00-1.93); ALKALINE PHOSPHATASE 84 U/L (45-117); ALT/SGPT 39 U/L (12-78); ANION GAP 5 MEQ/L (8-16); AST/SGOT 34 U/L (7-37); BILIRUBIN,TOTAL 0.3 MG/DL (0.2-1.0); BLOOD UREA NITROGEN 22 MG/DL (7-18); CALCIUM LEVEL 7.2 MG/DL (8.5-10.1); CARBON DIOXIDE LEVEL 30 MEQ/L (21-32); CHLORIDE LEVEL 104 MEQ/L (98-107); CREATININE FOR GFR 1.05 MG/DL (0.70-1.30); GLOMERULAR FILTRATION RATE > 60.0 (>56); GLUCOSE, FASTING 230 MG/DL (70-105); POTASSIUM SERUM 4.9 MEQ/L (3.5-5.1); SODIUM LEVEL 139 MEQ/L (136-145); TOTAL PROTEIN 5.4 GM/DL (6.4-8.2)
[2017-08-30 07:24] LABS: REASON FOR REVIEW COMPREHENSIVE REVIEW; RETICULOCYTE # 87.8 10^9/L (17-77); RETICULOCYTE % 2.1 % (0.5-1.5); SLIDE REVIEW Report; SOURCE PERIPHERAL SMEAR
[2017-08-30 07:25] LABS: IRON (FE) 94 UG/DL (65-175); PERCENT SATURATION 44.3 % (19.7-50.0); TOTAL IRON BINDING CAPACITY 212 UG/DL (250-450)
[2017-08-30] MEDS: HumaLOG INSULIN (NovoLOG) PER UNIT SC ×4 (08:28→21:00)
[2017-08-30] MEDS: LEVEMIR (INSULIN DETEMIR) 1 UNITS/0.01ML SC (08:28)
[2017-08-30] MEDS: NICOTINE 21MG/24HR 1 EA TRANSDERMAL TD (08:29)
[2017-08-30] MEDS: HEPARIN SOD (PORCINE) 5000 UNITS/ML VIAL SQ ×2 (08:29→21:00)
[2017-08-30] MEDS: LACTULOSE 20 GM/30 ML SYRUP UD PO ×2 (10:30→11:34)
[2017-08-30] MEDS: SENOKOT S TAB PO ×2 (10:30→21:00)
[2017-08-30] MEDS: ONDANSETRON 4 MG TAB (S0181) PO (13:43)
[2017-08-30] MEDS: NORCO, ANEXSIA 5/325MG TABLET (HYDROcodone/ACETAMINOPHEN) PO (13:44)
[2017-08-30 19:46] LABS: AMYLASE 79 U/L (25-115)
[2017-08-30 19:46] LABS: LIPASE 26 U/L (73-393)
[2017-08-31] MEDS: MORPHINE 2 MG/ML 1ML SYRINGE IV (01:30)
[2017-08-31] MEDS: SODIUM CHLORIDE 0.9% INJ 10 ML SYR IV ×4 (05:16→21:46)
[2017-08-31 05:23] LABS: HEMATOCRIT 28.1 % (42.0-52.0); HEMOGLOBIN 8.9 g/dl (14.0-18.0); MEAN CORPUSCULAR HEMOGLOBIN 21.3 pg (27.0-33.0); MEAN CORPUSCULAR HGB CONC 31.7 g/dl (32.0-36.5); MEAN CORPUSCULAR VOLUME 67.2 fl (80.0-96.0); PLATELET COUNT, AUTOMATED 281 10^3/uL (150-450); RED BLOOD COUNT 4.18 10^6/uL (4.30-6.10); RED CELL DISTRIBUTION WIDTH 17.6 % (11.5-14.5); WHITE BLOOD COUNT 10.2 10^3/uL (4.0-10.0)
[2017-08-31 05:56] LABS: ALBUMIN 2.9 GM/DL (3.2-5.2); ALBUMIN/GLOBULIN RATIO 1.12 (1.00-1.93); ALKALINE PHOSPHATASE 86 U/L (45-117); ALT/SGPT 38 U/L (12-78); ANION GAP 3 MEQ/L (8-16); AST/SGOT 39 U/L (7-37); BILIRUBIN,TOTAL 0.2 MG/DL (0.2-1.0); BLOOD UREA NITROGEN 16 MG/DL (7-18); CALCIUM LEVEL 7.4 MG/DL (8.5-10.1); CARBON DIOXIDE LEVEL 31 MEQ/L (21-32); CHLORIDE LEVEL 102 MEQ/L (98-107); CREATININE FOR GFR 1.14 MG/DL (0.70-1.30); GLOMERULAR FILTRATION RATE > 60.0 (>56); GLUCOSE, FASTING 252 MG/DL (70-105); MAGNESIUM LEVEL 1.6 MG/DL (1.8-2.4); SODIUM LEVEL 136 MEQ/L (136-145); TOTAL PROTEIN 5.5 GM/DL (6.4-8.2)
[2017-08-31 06:00] LABS: POTASSIUM SERUM 5.7 MEQ/L (3.5-5.1)
[2017-08-31] MEDS ORDERED: ONDANSETRON 4MG/2ML VIAL (J2405) IV (06:30)
[2017-08-31] MEDS: SOD POLYSTYRENE SULFONATE SUSP 15 GM/60 ML UD PO (06:58)
[2017-08-31] MEDS: MAG SULF 1GM/100ML (MAG RUN) 1 GM in APPROPRIATE DILUENT 1 EA IV (06:58)
[2017-08-31] MEDS: NORCO, ANEXSIA 5/325MG TABLET (HYDROcodone/ACETAMINOPHEN) PO ×3 (06:58→21:46)
[2017-08-31] MEDS: HumaLOG INSULIN (NovoLOG) PER UNIT SC ×5 (07:30→21:00)
[2017-08-31] MEDS: ALBUTEROL SULFATE 2.5 MG/0.5 ML INH NEB SOLN NEB (08:32)
[2017-08-31] MEDS: MOM 30ML SUSPENSION UDC PO ×2 (09:20→21:45)
[2017-08-31] MEDS: SENOKOT S TAB PO ×2 (09:20→21:46)
[2017-08-31] MEDS: CALCIUM GLUCONATE 1,000 MG in D5W MINI-BAG PLUS 100 ML IV (09:20)
[2017-08-31] MEDS: NICOTINE 21MG/24HR 1 EA TRANSDERMAL TD (09:21)
[2017-08-31] MEDS: HEPARIN SOD (PORCINE) 5000 UNITS/ML VIAL SQ ×2 (09:21→21:00)
[2017-08-31] MEDS: LEVEMIR (INSULIN DETEMIR) 1 UNITS/0.01ML SC ×2 (09:22→11:00)
[2017-08-31 11:59] LABS: BEDSIDE GLUCOSE 333 MG/DL (70-105)
[2017-08-31 12:00] LABS: BEDSIDE GLUCOSE 76 MG/DL (70-105)
[2017-08-31 12:00] LABS: BEDSIDE GLUCOSE 52 MG/DL (70-105)
[2017-08-31 12:00] LABS: BEDSIDE GLUCOSE 339 MG/DL (70-105)
[2017-08-31 12:00] LABS: BEDSIDE GLUCOSE 136 MG/DL (70-105)
[2017-08-31 12:00] LABS: BEDSIDE GLUCOSE 180 MG/DL (70-105)
[2017-08-31 12:00] LABS: BEDSIDE GLUCOSE 61 MG/DL (70-105)
[2017-08-31 12:00] LABS: BEDSIDE GLUCOSE 393 MG/DL (70-105)
[2017-08-31 12:00] LABS: BEDSIDE GLUCOSE 328 MG/DL (70-105)
[2017-08-31 16:45] LABS: BEDSIDE GLUCOSE 244 MG/DL (70-105)
[2017-08-31 18:37] LABS: POTASSIUM SERUM 4.3 MEQ/L (3.5-5.1)
[2017-08-31 21:05] LABS: BEDSIDE GLUCOSE 98 MG/DL (70-105)
[2017-09-01] MEDS: SODIUM CHLORIDE 0.9% INJ 10 ML SYR IV ×3 (05:16→20:22)
[2017-09-01] MEDS: NORCO, ANEXSIA 5/325MG TABLET (HYDROcodone/ACETAMINOPHEN) PO ×2 (05:17→12:37)
[2017-09-01 05:28] LABS: HEMATOCRIT 29.1 % (42.0-52.0); HEMOGLOBIN 9.1 g/dl (14.0-18.0); MEAN CORPUSCULAR HEMOGLOBIN 21.1 pg (27.0-33.0); MEAN CORPUSCULAR HGB CONC 31.3 g/dl (32.0-36.5); MEAN CORPUSCULAR VOLUME 67.4 fl (80.0-96.0); PLATELET COUNT, AUTOMATED 271 10^3/uL (150-450); RED BLOOD COUNT 4.32 10^6/uL (4.30-6.10); RED CELL DISTRIBUTION WIDTH 17.6 % (11.5-14.5); WHITE BLOOD COUNT 9.1 10^3/uL (4.0-10.0)
[2017-09-01 05:48] LABS: ALBUMIN 2.8 GM/DL (3.2-5.2); ALBUMIN/GLOBULIN RATIO 0.97 (1.00-1.93); ALKALINE PHOSPHATASE 82 U/L (45-117); ALT/SGPT 41 U/L (12-78); ANION GAP 3 MEQ/L (8-16); AST/SGOT 41 U/L (7-37); BILIRUBIN,TOTAL 0.3 MG/DL (0.2-1.0); BLOOD UREA NITROGEN 13 MG/DL (7-18); CALCIUM LEVEL 7.8 MG/DL (8.5-10.1); CARBON DIOXIDE LEVEL 30 MEQ/L (21-32); CHLORIDE LEVEL 102 MEQ/L (98-107); CREATININE FOR GFR 1.14 MG/DL (0.70-1.30); GLOMERULAR FILTRATION RATE > 60.0 (>56); GLUCOSE, FASTING 263 MG/DL (70-105); MAGNESIUM LEVEL 1.8 MG/DL (1.8-2.4); SODIUM LEVEL 135 MEQ/L (136-145); TOTAL PROTEIN 5.7 GM/DL (6.4-8.2)
[2017-09-01 05:52] LABS: POTASSIUM SERUM 6.1 MEQ/L (3.5-5.1)
[2017-09-01] MEDS: SOD POLYSTYRENE SULFONATE SUSP 15 GM/60 ML UD PO ×2 (06:01→08:37)
[2017-09-01] MEDS: CALCIUM GLUCONATE 1,000 MG in D5W MINI-BAG PLUS 100 ML IV (07:11)
[2017-09-01] MEDS: HumuLIN R (REGULAR) INSULIN (NovoLIN R) **100U/ML** PER UNIT SQ (07:11)
[2017-09-01 07:23] LABS: POTASSIUM SERUM 5.7 MEQ/L (3.5-5.1)
[2017-09-01] MEDS: ALBUTEROL SULFATE 2.5 MG/0.5 ML INH NEB SOLN NEB (07:27)
[2017-09-01] MEDS: SENOKOT S TAB PO ×2 (08:37→20:21)
[2017-09-01] MEDS: NICOTINE 21MG/24HR 1 EA TRANSDERMAL TD (08:37)
[2017-09-01] MEDS: MORPHINE 2 MG/ML 1ML SYRINGE IV ×3 (08:41→20:22)
[2017-09-01] MEDS: MOM 30ML SUSPENSION UDC PO ×2 (08:44→20:21)
[2017-09-01] MEDS: LEVEMIR (INSULIN DETEMIR) 1 UNITS/0.01ML SC (08:45)
[2017-09-01] MEDS: HEPARIN SOD (PORCINE) 5000 UNITS/ML VIAL SQ ×2 (08:49→20:23)
[2017-09-01] MEDS: HumaLOG INSULIN (NovoLOG) PER UNIT SC ×4 (08:57→20:16)
[2017-09-01 12:04] LABS: BEDSIDE GLUCOSE 245 MG/DL (70-105)
[2017-09-01 13:33] LABS: APPEARANCE, URINE CLEAR (CLEAR); BACTERIA, URINE AUTO NEGATIVE (NEGATIVE); BILIRUBIN, URINE AUTO NEGATIVE (NEGATIVE); BLOOD, URINE BLOOD NEGATIVE (NEGATIVE); COLOR, URINE YELLOW (YELLOW); GLUCOSE, URINE (UA) AUTO 3+ mg/dL (NEGATIVE); KETONE, URINE AUTO NEGATIVE (NEGATIVE); LEUKOCYTE ESTERASE, URINE AUTO NEGATIVE (NEGATIVE); NITRITE, URINE AUTO NEGATIVE (NEGATIVE); PROTEIN, URINE AUTO NEGATIVE (NEGATIVE); RBC, URINE AUTO 1 /HPF (0-3); SQUAMOUS EPITHELIAL CELL UR AU 1 /HPF (0-6); UROBILINOGEN, URINE AUTO 0.2 mg/dL (0.0-2.0); WBC, URINE AUTO 1 /HPF (0-3)
[2017-09-01 14:00] LABS: SODIUM,RANDOM URINE 103 MEQ/L
[2017-09-02] MEDS: MORPHINE 2 MG/ML 1ML SYRINGE IV ×6 (00:26→21:34)
[2017-09-02] MEDS: NORCO, ANEXSIA 5/325MG TABLET (HYDROcodone/ACETAMINOPHEN) PO ×2 (01:36→10:54)
[2017-09-02] MEDS: SODIUM CHLORIDE 0.9% INJ 10 ML SYR IV ×3 (04:56→21:34)
[2017-09-02 05:13] LABS: HEMATOCRIT 27.9 % (42.0-52.0); HEMOGLOBIN 8.7 g/dl (14.0-18.0); MEAN CORPUSCULAR HEMOGLOBIN 21.2 pg (27.0-33.0); MEAN CORPUSCULAR HGB CONC 31.2 g/dl (32.0-36.5); PLATELET COUNT, AUTOMATED 336 10^3/uL (150-450); RED CELL DISTRIBUTION WIDTH 18.2 % (11.5-14.5)
[2017-09-02 05:37] LABS: ALBUMIN 2.8 GM/DL (3.2-5.2); ALBUMIN/GLOBULIN RATIO 1.08 (1.00-1.93); ALKALINE PHOSPHATASE 82 U/L (45-117); ALT/SGPT 51 U/L (12-78); ANION GAP 2 MEQ/L (8-16); AST/SGOT 50 U/L (7-37); BILIRUBIN,TOTAL 0.3 MG/DL (0.2-1.0); BLOOD UREA NITROGEN 14 MG/DL (7-18); CALCIUM LEVEL 7.2 MG/DL (8.5-10.1); CARBON DIOXIDE LEVEL 32 MEQ/L (21-32); CHLORIDE LEVEL 101 MEQ/L (98-107); CREATININE FOR GFR 1.21 MG/DL (0.70-1.30); GLOMERULAR FILTRATION RATE > 60.0 (>56); GLUCOSE, FASTING 256 MG/DL (70-105); MAGNESIUM LEVEL 1.9 MG/DL (1.8-2.4); SODIUM LEVEL 135 MEQ/L (136-145); TOTAL PROTEIN 5.4 GM/DL (6.4-8.2)
[2017-09-02 05:41] LABS: POTASSIUM SERUM 6.3 MEQ/L (3.5-5.1)
[2017-09-02] MEDS: SOD POLYSTYRENE SULFONATE SUSP 15 GM/60 ML UD PO ×3 (05:58→21:33)
[2017-09-02] MEDS: CALCIUM GLUCONATE 1,000 MG in D5W MINI-BAG PLUS 100 ML IV (06:15)
[2017-09-02] MEDS: LEVEMIR (INSULIN DETEMIR) 1 UNITS/0.01ML SC (06:16)
[2017-09-02 06:59] LABS: BEDSIDE GLUCOSE 335 MG/DL (70-105)
[2017-09-02 06:59] LABS: BEDSIDE GLUCOSE 172 MG/DL (70-105)
[2017-09-02 06:59] LABS: BEDSIDE GLUCOSE 413 MG/DL (70-105)
[2017-09-02 06:59] LABS: BEDSIDE GLUCOSE 207 MG/DL (70-105)
[2017-09-02] MEDS: MOM 30ML SUSPENSION UDC PO ×2 (08:32→21:33)
[2017-09-02] MEDS: HumaLOG INSULIN (NovoLOG) PER UNIT SC ×4 (08:34→21:00)
[2017-09-02] MEDS: HEPARIN SOD (PORCINE) 5000 UNITS/ML VIAL SQ ×3 (08:34→21:00)
[2017-09-02] MEDS: SENOKOT S TAB PO ×2 (08:35→21:33)
[2017-09-02] MEDS: NICOTINE 21MG/24HR 1 EA TRANSDERMAL TD (08:35)
[2017-09-02] MEDS: ALBUTEROL SULFATE 2.5 MG/0.5 ML INH NEB SOLN NEB (08:38)
[2017-09-02] MEDS: ASPIRIN 81 MG ENTERIC TAB PO (10:54)
[2017-09-02] MEDS: GASTROGRAFIN SOLUTION 30ML PO (11:10)
[2017-09-02] MEDS: GASTROGRAFIN SOLUTION 30ML (Q9963) PO (11:10)
[2017-09-02] MEDS ORDERED: ISOVUE-370 76% 100ML VIAL (Q9967) As Ordered (13:07)
[2017-09-02 14:05] LABS: POTASSIUM SERUM 4.2 MEQ/L (3.5-5.1)
[2017-09-02 16:03] LABS: BEDSIDE GLUCOSE 207 MG/DL (70-105)
[2017-09-02 21:32] LABS: BEDSIDE GLUCOSE 186 MG/DL (70-105)
[2017-09-03] MEDS: SODIUM CHLORIDE 0.9% INJ 10 ML SYR IV ×3 (05:10→21:08)
[2017-09-03] MEDS: MORPHINE 2 MG/ML 1ML SYRINGE IV ×4 (05:11→20:52)
[2017-09-03 05:33] LABS: HEMATOCRIT 28.7 % (42.0-52.0); HEMOGLOBIN 8.9 g/dl (14.0-18.0); MEAN CORPUSCULAR HEMOGLOBIN 21.1 pg (27.0-33.0); PLATELET COUNT, AUTOMATED 354 10^3/uL (150-450); RED BLOOD COUNT 4.22 10^6/uL (4.30-6.10); RED CELL DISTRIBUTION WIDTH 18.7 % (11.5-14.5); WHITE BLOOD COUNT 11.6 10^3/uL (4.0-10.0)
[2017-09-03 06:28] LABS: ALBUMIN 2.9 GM/DL (3.2-5.2); ALBUMIN/GLOBULIN RATIO 1.04 (1.00-1.93); ALKALINE PHOSPHATASE 85 U/L (45-117); ALT/SGPT 54 U/L (12-78); ANION GAP 4 MEQ/L (8-16); AST/SGOT 59 U/L (7-37); BILIRUBIN,TOTAL 0.3 MG/DL (0.2-1.0); BLOOD UREA NITROGEN 14 MG/DL (7-18); CALCIUM LEVEL 7.5 MG/DL (8.5-10.1); CARBON DIOXIDE LEVEL 32 MEQ/L (21-32); CHLORIDE LEVEL 102 MEQ/L (98-107); CREATININE FOR GFR 1.02 MG/DL (0.70-1.30); GLOMERULAR FILTRATION RATE > 60.0 (>56); GLUCOSE, FASTING 220 MG/DL (70-105); SODIUM LEVEL 138 MEQ/L (136-145); TOTAL PROTEIN 5.7 GM/DL (6.4-8.2)
[2017-09-03 06:30] LABS: POTASSIUM SERUM 5.4 MEQ/L (3.5-5.1)
[2017-09-03] MEDS: HumaLOG INSULIN (NovoLOG) PER UNIT SC ×5 (07:30→21:00)
[2017-09-03] MEDS: LEVEMIR (INSULIN DETEMIR) 1 UNITS/0.01ML SC (08:12)
[2017-09-03] MEDS: MOM 30ML SUSPENSION UDC PO ×2 (08:12→20:51)
[2017-09-03] MEDS: SOD POLYSTYRENE SULFONATE SUSP 15 GM/60 ML UD PO ×2 (08:12)
[2017-09-03] MEDS: SENOKOT S TAB PO ×2 (08:13→20:52)
[2017-09-03] MEDS: CALCIUM GLUCONATE 1,000 MG in D5W MINI-BAG PLUS 100 ML IV (08:13)
[2017-09-03] MEDS: HEPARIN SOD (PORCINE) 5000 UNITS/ML VIAL SQ ×3 (08:13→20:52)
[2017-09-03] MEDS: NICOTINE 21MG/24HR 1 EA TRANSDERMAL TD (08:13)
[2017-09-03] MEDS: ASPIRIN 81 MG ENTERIC TAB PO (08:13)
[2017-09-03] MEDS: NORCO, ANEXSIA 5/325MG TABLET (HYDROcodone/ACETAMINOPHEN) PO ×2 (09:03→14:25)
[2017-09-03 11:32] LABS: FREE T4 0.91 NG/DL (0.76-1.46)
[2017-09-03 12:10] LABS: BEDSIDE GLUCOSE 139 MG/DL (70-105)
[2017-09-03] MEDS: CREON-12 CAPSULE PO ×2 (14:24→17:36)
[2017-09-03 15:21] LABS: POTASSIUM SERUM 5.7 MEQ/L (3.5-5.1)
[2017-09-03 19:22] LABS: POTASSIUM SERUM 5.4 MEQ/L (3.5-5.1)
[2017-09-03 20:54] LABS: BEDSIDE GLUCOSE 70 MG/DL (70-105)
[2017-09-03 20:54] LABS: BEDSIDE GLUCOSE 113 MG/DL (70-105)
[2017-09-03 21:15] LABS: BEDSIDE GLUCOSE 179 MG/DL (70-105)
[2017-09-04] MEDS: MORPHINE 2 MG/ML 1ML SYRINGE IV (05:06)
[2017-09-04] MEDS: SODIUM CHLORIDE 0.9% INJ 10 ML SYR IV (05:07)
[2017-09-04 05:34] LABS: HEMATOCRIT 28.9 % (42.0-52.0); HEMOGLOBIN 8.9 g/dl (14.0-18.0); MEAN CORPUSCULAR HEMOGLOBIN 20.9 pg (27.0-33.0); MEAN CORPUSCULAR HGB CONC 30.8 g/dl (32.0-36.5); MEAN CORPUSCULAR VOLUME 67.8 fl (80.0-96.0); PLATELET COUNT, AUTOMATED 386 10^3/uL (150-450); RED BLOOD COUNT 4.26 10^6/uL (4.30-6.10); RED CELL DISTRIBUTION WIDTH 18.9 % (11.5-14.5)
[2017-09-04 05:56] LABS: ALBUMIN 2.9 GM/DL (3.2-5.2); ALKALINE PHOSPHATASE 90 U/L (45-117); ALT/SGPT 50 U/L (12-78); ANION GAP 4 MEQ/L (8-16); AST/SGOT 46 U/L (7-37); BILIRUBIN,TOTAL 0.2 MG/DL (0.2-1.0); BLOOD UREA NITROGEN 20 MG/DL (7-18); CALCIUM LEVEL 8.1 MG/DL (8.5-10.1); CARBON DIOXIDE LEVEL 31 MEQ/L (21-32); CHLORIDE LEVEL 102 MEQ/L (98-107); CREATININE FOR GFR 1.05 MG/DL (0.70-1.30); GLOMERULAR FILTRATION RATE > 60.0 (>56); GLUCOSE, FASTING 235 MG/DL (70-105); MAGNESIUM LEVEL 2.2 MG/DL (1.8-2.4); SODIUM LEVEL 137 MEQ/L (136-145); TOTAL PROTEIN 5.8 GM/DL (6.4-8.2)
[2017-09-04] MEDS: SOD POLYSTYRENE SULFONATE SUSP 15 GM/60 ML UD PO ×4 (06:05→08:23)
[2017-09-04 06:19] LABS: POTASSIUM SERUM 5.7 MEQ/L (3.5-5.1)
[2017-09-04] MEDS: MOM 30ML SUSPENSION UDC PO (08:20)
[2017-09-04] MEDS: ASPIRIN 81 MG ENTERIC TAB PO (08:20)
[2017-09-04] MEDS: SENOKOT S TAB PO (08:21)
[2017-09-04] MEDS: LEVEMIR (INSULIN DETEMIR) 1 UNITS/0.01ML SC (08:21)
[2017-09-04] MEDS: CREON-12 CAPSULE PO ×2 (08:21→12:15)
[2017-09-04] MEDS: HumaLOG INSULIN (NovoLOG) PER UNIT SC ×2 (08:22→12:15)
[2017-09-04] MEDS: NICOTINE 21MG/24HR 1 EA TRANSDERMAL TD (08:23)
[2017-09-04] MEDS: HEPARIN SOD (PORCINE) 5000 UNITS/ML VIAL SQ (08:27)
[2017-09-04] MEDS: NORCO, ANEXSIA 5/325MG TABLET (HYDROcodone/ACETAMINOPHEN) PO (08:34)
[2017-09-04 11:33] LABS: CREATININE,RANDOM URINE 25.6 MG/DL
[2017-09-04 11:33] LABS: POTASSIUM RANDOM URINE 15.6 MEQ/L; SODIUM,RANDOM URINE 89 MEQ/L
[2017-09-04 12:14] LABS: BEDSIDE GLUCOSE 424 MG/DL (70-105)
[2017-09-09 00:07] LABS: ALDOS/RENIN RATIO 8.9 (0.0-30.0); ALDOSTERONE 1.7 ng/dL (0.0-30.0)
== END 2017-09-04 14:54 | disposition home or self-care (01) | DRG 638 ==
LOC: M MSPAV 08-29 02:50 → M ED 19:03 → M ED INP 22:53
PROVIDERS: Internal Medicine
DX: E11.65 Type 2 diabetes mellitus with hyperglycemia (principal); E87.2 Acidosis; N17.9 Acute kidney failure, unspecified; R10.32 Left lower quadrant pain; E87.5 Hyperkalemia; K63.89 Other specified diseases of intestine; F17.200 Nicotine dependence, unspecified, uncomplicated; I10 Essential (primary) hypertension; Z91.19 Patient's noncompliance with other medical treatment and regimen; Z90.49 Acquired absence of other specified parts of digestive tract; Z90.81 Acquired absence of spleen; Z88.8 Allergy status to other drugs, medicaments and biological substances; Z90.411 Acquired partial absence of pancreas; Z79.4 Long term (current) use of insulin; Z79.82 Long term (current) use of aspirin; Z79.899 Other long term (current) drug therapy

== ENCOUNTER → 2017-09-20 | Outpatient (REF) | payer MEDICARE, MEDICAID ==
[2017-09-20 16:46] LABS: CREATININE, URINE 74.3 MG/DL; MALB URINE SIEMENS 49.7 MG/L; MAU/CREAT RATIO 66.8 MCG/MG (0.0-30.0)
== END ==
LOC: M SFHCPLAZ 15:40
DX: E10.65 Type 1 diabetes mellitus with hyperglycemia (principal); F17.210 Nicotine dependence, cigarettes, uncomplicated; Z13.220 Encounter for screening for lipoid disorders; Z86.39 Personal history of other endocrine, nutritional and metabolic disease; I10 Essential (primary) hypertension
CPT/HCPCS: 82043

== ENCOUNTER 2017-11-15 09:51 | Inpatient (IN) | payer MEDICARE, MEDICAID ==
[2017-11-15] MEDS: NS 1,000 ML IV ×4 (10:30→15:49)
[2017-11-15] MEDS: KETOROLAC 30 MG/ML VIAL (J1885) IV (10:30)
[2017-11-15] MEDS: METOCLOPRAMIDE INJ 10MG/2ML VIAL (J2765) IV (10:30)
[2017-11-15] MEDS: GASTROGRAFIN SOLUTION 30ML PO ×2 (11:00→11:30)
[2017-11-15 11:04] LABS: BASO # 0.1 10^3/uL (0.0-0.2); EOS # 0.1 10^3/uL (0.0-0.50); EOS % 0.7 % (0.0-3.0); HEMATOCRIT 40.6 % (42.0-52.0); HEMOGLOBIN 12.9 g/dl (14.0-18.0); IMMATURE GRANULOCYTE % 0.4 % (0-3.0); LYMPH # 2.9 10^3/uL (1.5-4.5); LYMPH % 39.5 % (24.0-44.0); MEAN CORPUSCULAR HEMOGLOBIN 21.8 pg (27.0-33.0); MEAN CORPUSCULAR HGB CONC 31.8 g/dl (32.0-36.5); MEAN CORPUSCULAR VOLUME 68.5 fl (80.0-96.0); MONO # 0.6 10^3/uL (0.0-0.8); MONO % 8.1 % (0.0-5.0); NEUTROPHILS # 3.7 10^3/uL (1.8-7.7); NEUTROPHILS % 50.3 % (36.0-66.0); PLATELET COUNT, AUTOMATED 249 10^3/uL (150-450); RED BLOOD COUNT 5.93 10^6/uL (4.30-6.10); RED CELL DISTRIBUTION WIDTH 16.8 % (11.5-14.5); WHITE BLOOD COUNT 7.3 10^3/uL (4.0-10.0)
[2017-11-15 11:10] LABS: ABG BASE EXCESS 4.4 (-2.0-2.0); ABG HCO3 28.3 MEQ/L (22.0-26.0); ABG PARTIAL PRESSURE CO2 39.5 mmHg (35.0-45.0); ABG PARTIAL PRESSURE O2 62.2 mmHg (75.0-100.0); ABG STANDARD HCO3 28.3 MEQ/L (22.0-26.0); ABG TOTAL CO2 29.5 MEQ/L (22.0-29.0); ABG pH (ARTERIAL) 7.473 UNITS (7.350-7.450)
[2017-11-15 11:29] LABS: ALBUMIN 3.7 GM/DL (3.2-5.2); ALBUMIN/GLOBULIN RATIO 1.12 (1.00-1.93); ALKALINE PHOSPHATASE 120 U/L (45-117); ALT/SGPT 48 U/L (12-78); ANION GAP 12 MEQ/L (8-16); AST/SGOT 41 U/L (7-37); BILIRUBIN,DIRECT 0.1 MG/DL (0.0-0.2); BILIRUBIN,TOTAL 0.4 MG/DL (0.2-1.0); BLOOD UREA NITROGEN 22 MG/DL (7-18); C REACTIVE PROTEIN QUANTITATIV < 0.30 MG/DL (0.00-0.30); CALCIUM LEVEL 9.2 MG/DL (8.5-10.1); CARBON DIOXIDE LEVEL 28 MEQ/L (21-32); CHLORIDE LEVEL 84 MEQ/L (98-107); CPK CREATINE PHOSPHOKINASE 108 U/L (39-308); CREATININE FOR GFR 1.75 MG/DL (0.70-1.30); GLOMERULAR FILTRATION RATE 43.1 (>56); LIPASE 34 U/L (73-393); MB/CK RELATIVE INDEX 5.55 (< OR =4); SODIUM LEVEL 124 MEQ/L (136-145); TROPONIN I 0.06 NG/ML (< 0.10)
[2017-11-15 11:32] LABS: GLUCOSE, FASTING 813 MG/DL (70-100)
[2017-11-15 11:33] LABS: POTASSIUM SERUM 5.4 MEQ/L (3.5-5.1)
[2017-11-15] MEDS: HumuLIN R (REGULAR) INSULIN (NovoLIN R) **100U/ML** PER UNIT IV (11:37)
[2017-11-15] MEDS ORDERED: ISOVUE-370 76% 100ML VIAL (Q9967) As Ordered (11:39)
[2017-11-15 11:41] LABS: LACTIC ACID SEPSIS PROTOCOL 7.4 MMOL/L (0.4-2.0)
[2017-11-15 11:51] LABS: APPEARANCE, URINE CLEAR (CLEAR); BACTERIA, URINE AUTO NEGATIVE (NEGATIVE); BILIRUBIN, URINE AUTO NEGATIVE (NEGATIVE); BLOOD, URINE BLOOD NEGATIVE (NEGATIVE); COLOR, URINE STRAW (YELLOW); GLUCOSE, URINE (UA) AUTO 3+ mg/dL (NEGATIVE); KETONE, URINE AUTO NEGATIVE (NEGATIVE); LEUKOCYTE ESTERASE, URINE AUTO NEGATIVE (NEGATIVE); NITRITE, URINE AUTO NEGATIVE (NEGATIVE); PROTEIN, URINE AUTO NEGATIVE (NEGATIVE); RBC, URINE AUTO 0 /HPF (0-3); SPECIFIC GRAVITY URINE AUTO 1.018 (1.002-1.035); SQUAMOUS EPITHELIAL CELL UR AU 0 /HPF (0-6); UROBILINOGEN, URINE AUTO 0.2 mg/dL (0.0-2.0); WBC, URINE AUTO 0 /HPF (0-3)
[2017-11-15 12:31] LABS: TROPONIN I 0.06 NG/ML (< 0.10)
[2017-11-15] MEDS: MORPHINE 4 MG/ML 1ML VIAL (J2270) IV (12:47)
[2017-11-15 13:21] LABS: BEDSIDE GLUCOSE 406 MG/DL (70-105)
[2017-11-15 14:20] LABS: BEDSIDE GLUCOSE 407 MG/DL (70-105)
[2017-11-15 14:32] LABS: ANION GAP 8 MEQ/L (8-16); BLOOD UREA NITROGEN 21 MG/DL (7-18); CALCIUM LEVEL 7.9 MG/DL (8.5-10.1); CARBON DIOXIDE LEVEL 26 MEQ/L (21-32); CHLORIDE LEVEL 99 MEQ/L (98-107); CPK CREATINE PHOSPHOKINASE 83 U/L (39-308); CREATININE FOR GFR 1.16 MG/DL (0.70-1.30); GLOMERULAR FILTRATION RATE > 60.0 (>56); GLUCOSE, FASTING 379 MG/DL (70-100); POTASSIUM SERUM 4.4 MEQ/L (3.5-5.1); SODIUM LEVEL 133 MEQ/L (136-145); TROPONIN I 0.07 NG/ML (< 0.10)
[2017-11-15 14:33] LABS: CK-MB VALUE MASS 5.3 NG/ML (0.0-3.6); MB/CK RELATIVE INDEX 6.38 (< OR =4)
[2017-11-15 14:54] LABS: OSMOLALITY SERUM 301 MOSM/KG (275-295)
[2017-11-15] MEDS: MAGNESIUM CITRATE 300 ML BTL PO (15:57)
[2017-11-15] MEDS: ACETAMINOPHEN TAB 650MG DOSE (2X325MG) PO ×2 (15:57→22:44)
[2017-11-15 15:58] LABS: BEDSIDE GLUCOSE 444 MG/DL (70-105)
[2017-11-15] MEDS ORDERED: DEXTROSE 50% 50 ML SYRINGE IV (16:00)
[2017-11-15] MEDS: NICOTINE 21MG/24HR 1 EA TRANSDERMAL TD (16:00)
[2017-11-15] MEDS ORDERED: GLUCOSE 4 GM CHEW TABLET PO (16:00)
[2017-11-15] MEDS ORDERED: ONDANSETRON 4MG/2ML VIAL (J2405) IV (16:00)
[2017-11-15] MEDS ORDERED: GLUCAGON FOR INJ 1 MG VIAL (J1610) SC (16:00)
[2017-11-15] MEDS: HumaLOG INSULIN (NovoLOG) PER UNIT SC ×2 (17:30→22:51)
[2017-11-15 17:43] LABS: BEDSIDE GLUCOSE 403 MG/DL (70-105)
[2017-11-15] MEDS: SENOKOT S TAB PO (22:42)
[2017-11-15] MEDS: HEPARIN SOD (PORCINE) 5000 UNITS/ML VIAL SC (22:43)
[2017-11-15 23:03] LABS: BEDSIDE GLUCOSE 249 MG/DL (70-105)
[2017-11-16] MEDS: MORPHINE 4 MG/ML 1ML VIAL (J2270) IV (04:25)
[2017-11-16 06:02] LABS: HEMATOCRIT 32.6 % (42.0-52.0); HEMOGLOBIN 10.5 g/dl (14.0-18.0); MEAN CORPUSCULAR HEMOGLOBIN 21.3 pg (27.0-33.0); MEAN CORPUSCULAR HGB CONC 32.2 g/dl (32.0-36.5); MEAN CORPUSCULAR VOLUME 66.3 fl (80.0-96.0); PLATELET COUNT, AUTOMATED 220 10^3/uL (150-450); RED BLOOD COUNT 4.92 10^6/uL (4.30-6.10); RED CELL DISTRIBUTION WIDTH 15.8 % (11.5-14.5); WHITE BLOOD COUNT 8.4 10^3/uL (4.0-10.0)
[2017-11-16 06:22] LABS: ALBUMIN 2.7 GM/DL (3.2-5.2); ALBUMIN/GLOBULIN RATIO 0.93 (1.00-1.93); ALKALINE PHOSPHATASE 65 U/L (45-117); ALT/SGPT 37 U/L (12-78); ANION GAP 6 MEQ/L (8-16); AST/SGOT 39 U/L (7-37); BILIRUBIN,TOTAL 0.4 MG/DL (0.2-1.0); BLOOD UREA NITROGEN 16 MG/DL (7-18); CARBON DIOXIDE LEVEL 25 MEQ/L (21-32); CHLORIDE LEVEL 100 MEQ/L (98-107); CREATININE FOR GFR 0.99 MG/DL (0.70-1.30); GLOMERULAR FILTRATION RATE > 60.0 (>56); GLUCOSE, FASTING 276 MG/DL (70-100); MAGNESIUM LEVEL 2.4 MG/DL (1.8-2.4); SODIUM LEVEL 131 MEQ/L (136-145); TOTAL PROTEIN 5.6 GM/DL (6.4-8.2)
[2017-11-16] MEDS: traMADol 50 MG TAB PO ×4 (06:49→21:55)
[2017-11-16] MEDS: NS 1,000 ML IV (06:49)
[2017-11-16 08:00] LABS: HEMOGLOBIN A1c > 16.0 %
[2017-11-16] MEDS: ASPIRIN 81 MG ENTERIC TAB PO (08:41)
[2017-11-16] MEDS: MIRALAX *UNIT DOSE* 17GM PACKET PO (08:41)
[2017-11-16] MEDS: HEPARIN SOD (PORCINE) 5000 UNITS/ML VIAL SC ×3 (08:41→20:50)
[2017-11-16] MEDS: LEVEMIR (INSULIN DETEMIR) 1 UNITS/0.01ML SC (08:41)
[2017-11-16] MEDS: HumaLOG INSULIN (NovoLOG) PER UNIT SC ×4 (08:42→20:46)
[2017-11-16] MEDS: SENOKOT S TAB PO ×2 (08:42→20:46)
[2017-11-16 10:02] LABS: CPK CREATINE PHOSPHOKINASE 118 U/L (39-308); MB/CK RELATIVE INDEX 5.93 (< OR =4)
[2017-11-16 11:58] LABS: BEDSIDE GLUCOSE 310 MG/DL (70-105)
[2017-11-16 12:27] LABS: BEDSIDE GLUCOSE > 600 MG/DL (70-105)
[2017-11-16 12:27] LABS: BEDSIDE GLUCOSE > 600 MG/DL (70-105)
[2017-11-16 12:30] LABS: TROPONIN I 0.06 NG/ML (< 0.10)
[2017-11-16] MEDS: SLF 3 ML SYR IV ×2 (14:00→20:48)
[2017-11-16 16:54] LABS: BEDSIDE GLUCOSE 354 MG/DL (70-105)
[2017-11-16] MEDS: ACETAMINOPHEN TAB 650MG DOSE (2X325MG) PO (20:46)
[2017-11-16 20:58] LABS: BEDSIDE GLUCOSE 210 MG/DL (70-105)
[2017-11-17] MEDS: traMADol 50 MG TAB PO ×5 (02:06→20:28)
[2017-11-17] MEDS: SLF 3 ML SYR IV ×3 (05:03→20:29)
[2017-11-17 06:14] LABS: HEMOGLOBIN 10.5 g/dl (14.0-18.0); MEAN CORPUSCULAR HEMOGLOBIN 21.4 pg (27.0-33.0); MEAN CORPUSCULAR HGB CONC 31.8 g/dl (32.0-36.5); MEAN CORPUSCULAR VOLUME 67.3 fl (80.0-96.0); PLATELET COUNT, AUTOMATED 221 10^3/uL (150-450); WHITE BLOOD COUNT 7.7 10^3/uL (4.0-10.0)
[2017-11-17 06:38] LABS: ALBUMIN 2.9 GM/DL (3.2-5.2); ALBUMIN/GLOBULIN RATIO 1.07 (1.00-1.93); ALKALINE PHOSPHATASE 67 U/L (45-117); ALT/SGPT 33 U/L (12-78); ANION GAP 5 MEQ/L (8-16); AST/SGOT 30 U/L (7-37); BILIRUBIN,TOTAL 0.3 MG/DL (0.2-1.0); BLOOD UREA NITROGEN 14 MG/DL (7-18); CALCIUM LEVEL 7.9 MG/DL (8.5-10.1); CARBON DIOXIDE LEVEL 28 MEQ/L (21-32); CHLORIDE LEVEL 99 MEQ/L (98-107); CREATININE FOR GFR 0.94 MG/DL (0.70-1.30); GLOMERULAR FILTRATION RATE > 60.0 (>56); GLUCOSE, FASTING 280 MG/DL (70-100); SODIUM LEVEL 132 MEQ/L (136-145); TOTAL PROTEIN 5.6 GM/DL (6.4-8.2)
[2017-11-17] MEDS: SOD POLYSTYRENE SULFONATE SUSP 15 GM/60 ML UD PO ×2 (06:59→15:25)
[2017-11-17] MEDS: SENOKOT S TAB PO ×2 (08:00→20:28)
[2017-11-17] MEDS: MIRALAX *UNIT DOSE* 17GM PACKET PO (08:00)
[2017-11-17] MEDS: ASPIRIN 81 MG ENTERIC TAB PO (08:00)
[2017-11-17] MEDS: HEPARIN SOD (PORCINE) 5000 UNITS/ML VIAL SC ×2 (08:01→20:29)
[2017-11-17] MEDS: LEVEMIR (INSULIN DETEMIR) 1 UNITS/0.01ML SC (08:02)
[2017-11-17] MEDS: HumaLOG INSULIN (NovoLOG) PER UNIT SC ×4 (08:02→20:29)
[2017-11-17 13:05] LABS: ALBUMIN 3.3 GM/DL (3.2-5.2); ANION GAP 7 MEQ/L (8-16); BLOOD UREA NITROGEN 14 MG/DL (7-18); CALCIUM LEVEL 8.4 MG/DL (8.5-10.1); CARBON DIOXIDE LEVEL 29 MEQ/L (21-32); CHLORIDE LEVEL 100 MEQ/L (98-107); CREATININE FOR GFR 1.23 MG/DL (0.70-1.30); GLOMERULAR FILTRATION RATE > 60.0 (>56); GLUCOSE, FASTING 246 MG/DL (70-100); PHOSPHORUS LEVEL 3.9 MG/DL (2.5-4.9); SODIUM LEVEL 136 MEQ/L (136-145)
[2017-11-17 13:07] LABS: POTASSIUM SERUM 5.5 MEQ/L (3.5-5.1)
[2017-11-17 23:26] LABS: BEDSIDE GLUCOSE 261 MG/DL (70-105)
[2017-11-17 23:26] LABS: BEDSIDE GLUCOSE 262 MG/DL (70-105)
[2017-11-17 23:26] LABS: BEDSIDE GLUCOSE 246 MG/DL (70-105)
[2017-11-18] MEDS: traMADol 50 MG TAB PO ×4 (04:46→23:47)
[2017-11-18] MEDS: SLF 3 ML SYR IV ×3 (04:46→21:09)
[2017-11-18 06:55] LABS: HEMATOCRIT 34.5 % (42.0-52.0); HEMOGLOBIN 10.8 g/dl (14.0-18.0); MEAN CORPUSCULAR HEMOGLOBIN 21.4 pg (27.0-33.0); MEAN CORPUSCULAR HGB CONC 31.3 g/dl (32.0-36.5); MEAN CORPUSCULAR VOLUME 68.3 fl (80.0-96.0); PLATELET COUNT, AUTOMATED 222 10^3/uL (150-450); RED BLOOD COUNT 5.05 10^6/uL (4.30-6.10); RED CELL DISTRIBUTION WIDTH 16.4 % (11.5-14.5)
[2017-11-18 07:23] LABS: ALBUMIN 2.9 GM/DL (3.2-5.2); ALKALINE PHOSPHATASE 70 U/L (45-117); ALT/SGPT 31 U/L (12-78); ANION GAP 5 MEQ/L (8-16); AST/SGOT 28 U/L (7-37); BILIRUBIN,TOTAL 0.3 MG/DL (0.2-1.0); BLOOD UREA NITROGEN 15 MG/DL (7-18); CARBON DIOXIDE LEVEL 29 MEQ/L (21-32); CHLORIDE LEVEL 99 MEQ/L (98-107); CREATININE FOR GFR 1.04 MG/DL (0.70-1.30); GLOMERULAR FILTRATION RATE > 60.0 (>56); GLUCOSE, FASTING 331 MG/DL (70-100); MAGNESIUM LEVEL 1.5 MG/DL (1.8-2.4); SODIUM LEVEL 133 MEQ/L (136-145); TOTAL PROTEIN 5.8 GM/DL (6.4-8.2)
[2017-11-18 07:25] LABS: POTASSIUM SERUM 5.6 MEQ/L (3.5-5.1)
[2017-11-18] MEDS: HEPARIN SOD (PORCINE) 5000 UNITS/ML VIAL SC ×3 (08:16→20:55)
[2017-11-18] MEDS: HumaLOG INSULIN (NovoLOG) PER UNIT SC ×4 (08:17→20:53)
[2017-11-18] MEDS: NICOTINE 14 MG/24 HR TRANSDERMAL TD (08:17)
[2017-11-18] MEDS: SENOKOT S TAB PO ×2 (08:17→20:59)
[2017-11-18] MEDS: ASPIRIN 81 MG ENTERIC TAB PO (08:17)
[2017-11-18] MEDS: LEVEMIR (INSULIN DETEMIR) 1 UNITS/0.01ML SC (08:18)
[2017-11-18] MEDS: MIRALAX *UNIT DOSE* 17GM PACKET PO (08:18)
[2017-11-18 11:59] LABS: BEDSIDE GLUCOSE 376 MG/DL (70-105)
[2017-11-18] MEDS: MAGNESIUM CITRATE 300 ML BTL PO (12:18)
[2017-11-18] MEDS: amLODIPine 10 MG TAB PO (12:19)
[2017-11-18 15:36] LABS: ALBUMIN 3.2 GM/DL (3.2-5.2); ANION GAP 3 MEQ/L (8-16); BLOOD UREA NITROGEN 17 MG/DL (7-18); CALCIUM LEVEL 8.7 MG/DL (8.5-10.1); CARBON DIOXIDE LEVEL 33 MEQ/L (21-32); CHLORIDE LEVEL 99 MEQ/L (98-107); CREATININE FOR GFR 1.08 MG/DL (0.70-1.30); GLOMERULAR FILTRATION RATE > 60.0 (>56); GLUCOSE, FASTING 93 MG/DL (70-100); MAGNESIUM LEVEL 1.6 MG/DL (1.8-2.4); PHOSPHORUS LEVEL 4.6 MG/DL (2.5-4.9); SODIUM LEVEL 135 MEQ/L (136-145)
[2017-11-18 15:40] LABS: POTASSIUM SERUM 5.5 MEQ/L (3.5-5.1)
[2017-11-18] MEDS: SOD POLYSTYRENE SULFONATE SUSP 15 GM/60 ML UD PO (17:20)
[2017-11-18 17:30] LABS: BEDSIDE GLUCOSE 98 MG/DL (70-105)
[2017-11-18] MEDS ORDERED: PERCOCET 5MG/325MG TAB PO (18:45)
[2017-11-18] MEDS: GOLYTELY SOLN 4000 ML BTL PO (18:59)
[2017-11-18] MEDS: PERCOCET 5MG/325MG TAB PO (18:59)
[2017-11-18 20:51] LABS: BEDSIDE GLUCOSE 223 MG/DL (70-105)
[2017-11-18] MEDS: MAGNESIUM OXIDE 400 MG TAB (MAG-OX) PO (20:58)
[2017-11-19] MEDS: PERCOCET 5MG/325MG TAB PO ×4 (01:12→20:43)
[2017-11-19] MEDS: SLF 3 ML SYR IV ×3 (05:10→20:43)
[2017-11-19] MEDS: traMADol 50 MG TAB PO ×3 (05:15→17:52)
[2017-11-19 06:28] LABS: HEMATOCRIT 36.2 % (42.0-52.0); HEMOGLOBIN 11.1 g/dl (14.0-18.0); MEAN CORPUSCULAR HEMOGLOBIN 20.9 pg (27.0-33.0); MEAN CORPUSCULAR HGB CONC 30.7 g/dl (32.0-36.5); PLATELET COUNT, AUTOMATED 204 10^3/uL (150-450); RED BLOOD COUNT 5.32 10^6/uL (4.30-6.10); WHITE BLOOD COUNT 10.6 10^3/uL (4.0-10.0)
[2017-11-19 06:43] LABS: ALBUMIN 3.1 GM/DL (3.2-5.2); ALBUMIN/GLOBULIN RATIO 1.03 (1.00-1.93); ALKALINE PHOSPHATASE 67 U/L (45-117); ALT/SGPT 30 U/L (12-78); ANION GAP 6 MEQ/L (8-16); AST/SGOT 33 U/L (7-37); BILIRUBIN,TOTAL 0.3 MG/DL (0.2-1.0); BLOOD UREA NITROGEN 17 MG/DL (7-18); CARBON DIOXIDE LEVEL 28 MEQ/L (21-32); CHLORIDE LEVEL 98 MEQ/L (98-107); CREATININE FOR GFR 1.01 MG/DL (0.70-1.30); GLOMERULAR FILTRATION RATE > 60.0 (>56); GLUCOSE, FASTING 284 MG/DL (70-100); MAGNESIUM LEVEL 1.6 MG/DL (1.8-2.4); SODIUM LEVEL 132 MEQ/L (136-145); TOTAL PROTEIN 6.1 GM/DL (6.4-8.2)
[2017-11-19 06:44] LABS: POTASSIUM SERUM 5.7 MEQ/L (3.5-5.1)
[2017-11-19 07:09] LABS: POSITIVE MORPH POS FLAG
[2017-11-19] MEDS: HumaLOG INSULIN (NovoLOG) PER UNIT SC ×4 (07:37→19:54)
[2017-11-19] MEDS: MIRALAX *UNIT DOSE* 17GM PACKET PO ×4 (07:37→20:41)
[2017-11-19] MEDS: SENOKOT S TAB PO (07:38)
[2017-11-19] MEDS: ASPIRIN 81 MG ENTERIC TAB PO (07:38)
[2017-11-19] MEDS: HEPARIN SOD (PORCINE) 5000 UNITS/ML VIAL SC ×3 (07:38→20:41)
[2017-11-19] MEDS: MAGNESIUM OXIDE 400 MG TAB (MAG-OX) PO ×2 (07:39→20:41)
[2017-11-19] MEDS: amLODIPine 10 MG TAB PO (07:40)
[2017-11-19] MEDS: LEVEMIR (INSULIN DETEMIR) 1 UNITS/0.01ML SC (07:41)
[2017-11-19] MEDS: NICOTINE 14 MG/24 HR TRANSDERMAL TD (07:41)
[2017-11-19] MEDS: SOD POLYSTYRENE SULFONATE SUSP 15 GM/60 ML UD PO (09:28)
[2017-11-19] MEDS: MAG SULF 1GM/100ML (MAG RUN) 1 GM in APPROPRIATE DILUENT 1 EA IV (09:29)
[2017-11-19 12:33] LABS: BEDSIDE GLUCOSE 220 MG/DL (70-105)
[2017-11-19 14:01] LABS: ALBUMIN 3.4 GM/DL (3.2-5.2); ANION GAP 7 MEQ/L (8-16); BLOOD UREA NITROGEN 19 MG/DL (7-18); CALCIUM LEVEL 8.2 MG/DL (8.5-10.1); CARBON DIOXIDE LEVEL 31 MEQ/L (21-32); CHLORIDE LEVEL 99 MEQ/L (98-107); CREATININE FOR GFR 1.22 MG/DL (0.70-1.30); GLOMERULAR FILTRATION RATE > 60.0 (>56); GLUCOSE, FASTING 211 MG/DL (70-100); PHOSPHORUS LEVEL 4.9 MG/DL (2.5-4.9); POTASSIUM SERUM 4.7 MEQ/L (3.5-5.1); SODIUM LEVEL 137 MEQ/L (136-145)
[2017-11-19 17:37] LABS: BEDSIDE GLUCOSE 46 MG/DL (70-105)
[2017-11-19 18:26] LABS: BEDSIDE GLUCOSE 84 MG/DL (70-105)
[2017-11-19 19:58] LABS: BEDSIDE GLUCOSE 177 MG/DL (70-105)
[2017-11-19] MEDS: SENNA 8.6 MG TAB (SENOKOT) PO (20:41)
[2017-11-19] MEDS: DOCUSATE SODIUM 100 MG CAP PO (20:41)
[2017-11-20] MEDS: traMADol 50 MG TAB PO ×3 (00:42→17:38)
[2017-11-20] MEDS: SLF 3 ML SYR IV ×3 (05:49→21:08)
[2017-11-20] MEDS: PERCOCET 5MG/325MG TAB PO ×3 (05:49→20:14)
[2017-11-20 06:02] LABS: HEMATOCRIT 32.9 % (42.0-52.0); HEMOGLOBIN 10.4 g/dl (14.0-18.0); MEAN CORPUSCULAR HEMOGLOBIN 21.1 pg (27.0-33.0); MEAN CORPUSCULAR HGB CONC 31.6 g/dl (32.0-36.5); MEAN CORPUSCULAR VOLUME 66.9 fl (80.0-96.0); PLATELET COUNT, AUTOMATED 244 10^3/uL (150-450); RED BLOOD COUNT 4.92 10^6/uL (4.30-6.10); RED CELL DISTRIBUTION WIDTH 16.3 % (11.5-14.5); WHITE BLOOD COUNT 9.7 10^3/uL (4.0-10.0)
[2017-11-20 06:35] LABS: ALBUMIN 3.1 GM/DL (3.2-5.2); ALBUMIN/GLOBULIN RATIO 1.03 (1.00-1.93); ALKALINE PHOSPHATASE 62 U/L (45-117); ALT/SGPT 29 U/L (12-78); ANION GAP 7 MEQ/L (8-16); AST/SGOT 25 U/L (7-37); BILIRUBIN,TOTAL 0.3 MG/DL (0.2-1.0); BLOOD UREA NITROGEN 18 MG/DL (7-18); CALCIUM LEVEL 8.5 MG/DL (8.5-10.1); CARBON DIOXIDE LEVEL 30 MEQ/L (21-32); CHLORIDE LEVEL 103 MEQ/L (98-107); CREATININE FOR GFR 1.02 MG/DL (0.70-1.30); GLOMERULAR FILTRATION RATE > 60.0 (>56); GLUCOSE, FASTING 165 MG/DL (70-100); MAGNESIUM LEVEL 1.9 MG/DL (1.8-2.4); SODIUM LEVEL 140 MEQ/L (136-145); TOTAL PROTEIN 6.1 GM/DL (6.4-8.2)
[2017-11-20 06:36] LABS: POTASSIUM SERUM 5.3 MEQ/L (3.5-5.1)
[2017-11-20] MEDS: HEPARIN SOD (PORCINE) 5000 UNITS/ML VIAL SC ×2 (07:38→20:16)
[2017-11-20] MEDS: HumaLOG INSULIN (NovoLOG) PER UNIT SC ×4 (08:03→20:15)
[2017-11-20] MEDS: NICOTINE 14 MG/24 HR TRANSDERMAL TD (08:03)
[2017-11-20] MEDS: MIRALAX *UNIT DOSE* 17GM PACKET PO ×4 (08:03→20:13)
[2017-11-20] MEDS: DOCUSATE SODIUM 100 MG CAP PO ×2 (08:06→20:13)
[2017-11-20] MEDS: ASPIRIN 81 MG ENTERIC TAB PO (08:06)
[2017-11-20] MEDS: LEVEMIR (INSULIN DETEMIR) 1 UNITS/0.01ML SC (08:06)
[2017-11-20] MEDS: SENNA 8.6 MG TAB (SENOKOT) PO ×2 (08:06→20:13)
[2017-11-20] MEDS: SOD POLYSTYRENE SULFONATE SUSP 15 GM/60 ML UD PO (08:06)
[2017-11-20] MEDS: amLODIPine 10 MG TAB PO (08:07)
[2017-11-20] MEDS: MAGNESIUM OXIDE 400 MG TAB (MAG-OX) PO ×2 (08:07→20:13)
[2017-11-20 09:57] LABS: FERRITIN 36 NG/ML (26-388); IRON (FE) 46 UG/DL (65-175); PERCENT SATURATION 17.4 % (19.7-50.0); TOTAL IRON BINDING CAPACITY 265 UG/DL (250-450)
[2017-11-20 11:48] LABS: BEDSIDE GLUCOSE 99 MG/DL (70-105)
[2017-11-20 12:43] LABS: RETIC HEMOGLOBIN EQUIVALENT 26.1 pg (24-36); RETICULOCYTE % 2.2 % (0.5-1.5)
[2017-11-20 17:31] LABS: BEDSIDE GLUCOSE 246 MG/DL (70-105)
[2017-11-20 19:50] LABS: BEDSIDE GLUCOSE 346 MG/DL (70-105)
[2017-11-21] MEDS: traMADol 50 MG TAB PO ×4 (01:00→20:06)
[2017-11-21] MEDS: PERCOCET 5MG/325MG TAB PO ×3 (05:45→17:31)
[2017-11-21] MEDS: SLF 3 ML SYR IV ×3 (05:45→20:04)
[2017-11-21 06:16] LABS: HEMATOCRIT 32.3 % (42.0-52.0); HEMOGLOBIN 10.1 g/dl (14.0-18.0); MEAN CORPUSCULAR HEMOGLOBIN 21.5 pg (27.0-33.0); MEAN CORPUSCULAR HGB CONC 31.3 g/dl (32.0-36.5); MEAN CORPUSCULAR VOLUME 68.9 fl (80.0-96.0); PLATELET COUNT, AUTOMATED 260 10^3/uL (150-450); RED BLOOD COUNT 4.69 10^6/uL (4.30-6.10); RED CELL DISTRIBUTION WIDTH 16.9 % (11.5-14.5); WHITE BLOOD COUNT 8.9 10^3/uL (4.0-10.0)
[2017-11-21 06:32] LABS: ALBUMIN 3.2 GM/DL (3.2-5.2); ALBUMIN/GLOBULIN RATIO 1.07 (1.00-1.93); ALKALINE PHOSPHATASE 69 U/L (45-117); ALT/SGPT 26 U/L (12-78); ANION GAP 3 MEQ/L (8-16); AST/SGOT 22 U/L (7-37); BILIRUBIN,TOTAL 0.3 MG/DL (0.2-1.0); BLOOD UREA NITROGEN 18 MG/DL (7-18); CALCIUM LEVEL 8.6 MG/DL (8.5-10.1); CARBON DIOXIDE LEVEL 30 MEQ/L (21-32); CHLORIDE LEVEL 104 MEQ/L (98-107); CREATININE FOR GFR 1.04 MG/DL (0.70-1.30); GLOMERULAR FILTRATION RATE > 60.0 (>56); GLUCOSE, FASTING 206 MG/DL (70-100); SODIUM LEVEL 137 MEQ/L (136-145); TOTAL PROTEIN 6.2 GM/DL (6.4-8.2)
[2017-11-21 06:34] LABS: POTASSIUM SERUM 5.9 MEQ/L (3.5-5.1)
[2017-11-21 07:48] LABS: BEDSIDE GLUCOSE 47 MG/DL (70-105)
[2017-11-21 07:48] LABS: BEDSIDE GLUCOSE 43 MG/DL (70-105)
[2017-11-21] MEDS: SOD POLYSTYRENE SULFONATE SUSP 15 GM/60 ML UD PO (08:23)
[2017-11-21] MEDS: NICOTINE 14 MG/24 HR TRANSDERMAL TD (08:23)
[2017-11-21] MEDS: MIRALAX *UNIT DOSE* 17GM PACKET PO ×4 (08:23→20:02)
[2017-11-21] MEDS: HumaLOG INSULIN (NovoLOG) PER UNIT SC ×4 (08:24→19:54)
[2017-11-21] MEDS: LEVEMIR (INSULIN DETEMIR) 1 UNITS/0.01ML SC (08:24)
[2017-11-21] MEDS: DOCUSATE SODIUM 100 MG CAP PO ×2 (08:24→20:02)
[2017-11-21] MEDS: amLODIPine 10 MG TAB PO (08:25)
[2017-11-21] MEDS: ASPIRIN 81 MG ENTERIC TAB PO (08:25)
[2017-11-21] MEDS: SENNA 8.6 MG TAB (SENOKOT) PO ×2 (08:25→20:02)
[2017-11-21] MEDS: MAGNESIUM OXIDE 400 MG TAB (MAG-OX) PO ×2 (08:25→20:02)
[2017-11-21] MEDS: HEPARIN SOD (PORCINE) 5000 UNITS/ML VIAL SC ×2 (08:25→19:50)
[2017-11-21 11:32] LABS: BEDSIDE GLUCOSE 355 MG/DL (70-105)
[2017-11-21 17:07] LABS: BEDSIDE GLUCOSE 154 MG/DL (70-105)
[2017-11-21 19:58] LABS: BEDSIDE GLUCOSE 183 MG/DL (70-105)
[2017-11-22] MEDS: PERCOCET 5MG/325MG TAB PO ×4 (00:55→20:00)
[2017-11-22] MEDS: traMADol 50 MG TAB PO (04:34)
[2017-11-22] MEDS: SLF 3 ML SYR IV ×3 (06:08→22:00)
[2017-11-22 07:24] LABS: HEMATOCRIT 35.1 % (42.0-52.0); HEMOGLOBIN 10.9 g/dl (14.0-18.0); MEAN CORPUSCULAR HEMOGLOBIN 21.1 pg (27.0-33.0); MEAN CORPUSCULAR HGB CONC 31.1 g/dl (32.0-36.5); PLATELET COUNT, AUTOMATED 313 10^3/uL (150-450); RED BLOOD COUNT 5.16 10^6/uL (4.30-6.10); RED CELL DISTRIBUTION WIDTH 16.8 % (11.5-14.5); WHITE BLOOD COUNT 9.3 10^3/uL (4.0-10.0)
[2017-11-22 07:43] LABS: ALBUMIN 3.5 GM/DL (3.2-5.2); ALBUMIN/GLOBULIN RATIO 1.09 (1.00-1.93); ALKALINE PHOSPHATASE 93 U/L (45-117); ALT/SGPT 29 U/L (12-78); ANION GAP 6 MEQ/L (8-16); AST/SGOT 29 U/L (7-37); BILIRUBIN,TOTAL 0.4 MG/DL (0.2-1.0); BLOOD UREA NITROGEN 20 MG/DL (7-18); CALCIUM LEVEL 8.8 MG/DL (8.5-10.1); CARBON DIOXIDE LEVEL 28 MEQ/L (21-32); CHLORIDE LEVEL 97 MEQ/L (98-107); CREATININE FOR GFR 1.23 MG/DL (0.70-1.30); GLOMERULAR FILTRATION RATE > 60.0 (>56); MAGNESIUM LEVEL 1.9 MG/DL (1.8-2.4); SODIUM LEVEL 131 MEQ/L (136-145); TOTAL PROTEIN 6.7 GM/DL (6.4-8.2)
[2017-11-22 08:03] LABS: GLUCOSE, FASTING 450 MG/DL (70-100); POTASSIUM SERUM 6.2 MEQ/L (3.5-5.1)
[2017-11-22] MEDS: LEVEMIR (INSULIN DETEMIR) 1 UNITS/0.01ML SC (08:16)
[2017-11-22] MEDS: HumaLOG INSULIN (NovoLOG) PER UNIT SC ×4 (08:16→20:01)
[2017-11-22] MEDS: MIRALAX *UNIT DOSE* 17GM PACKET PO ×4 (08:17→20:00)
[2017-11-22] MEDS: SENNA 8.6 MG TAB (SENOKOT) PO ×2 (08:17→20:00)
[2017-11-22] MEDS: ASPIRIN 81 MG ENTERIC TAB PO (08:17)
[2017-11-22] MEDS: DOCUSATE SODIUM 100 MG CAP PO ×2 (08:17→20:00)
[2017-11-22] MEDS: amLODIPine 10 MG TAB PO (08:19)
[2017-11-22] MEDS: MAGNESIUM OXIDE 400 MG TAB (MAG-OX) PO ×2 (08:19→20:01)
[2017-11-22] MEDS: HEPARIN SOD (PORCINE) 5000 UNITS/ML VIAL SC ×3 (08:19→20:05)
[2017-11-22 08:28] LABS: TRANSFERRIN 208 mg/dL (200-370)
[2017-11-22] MEDS: NICOTINE 14 MG/24 HR TRANSDERMAL TD (09:40)
[2017-11-22] MEDS: SOD POLYSTYRENE SULFONATE SUSP 15 GM/60 ML UD PO (09:40)
[2017-11-22 10:23] LABS: BEDSIDE GLUCOSE 318 MG/DL (70-105)
[2017-11-22] MEDS: NS 250 ML IV (11:31)
[2017-11-22 12:09] LABS: BEDSIDE GLUCOSE 146 MG/DL (70-105)
[2017-11-22] MEDS: NS 1,000 ML IV (12:18)
[2017-11-22] MEDS: FUROSEMIDE 40 MG/4 ML VIAL (J1940) IV (12:18)
[2017-11-22 15:49] LABS: ANION GAP 8 MEQ/L (8-16); BLOOD UREA NITROGEN 25 MG/DL (7-18); CALCIUM LEVEL 8.7 MG/DL (8.5-10.1); CARBON DIOXIDE LEVEL 29 MEQ/L (21-32); CHLORIDE LEVEL 104 MEQ/L (98-107); CREATININE FOR GFR 1.22 MG/DL (0.70-1.30); GLOMERULAR FILTRATION RATE > 60.0 (>56); GLUCOSE, FASTING 71 MG/DL (70-100); SODIUM LEVEL 141 MEQ/L (136-145)
[2017-11-22 17:21] LABS: BEDSIDE GLUCOSE 108 MG/DL (70-105)
[2017-11-22 19:34] LABS: BEDSIDE GLUCOSE 258 MG/DL (70-105)
[2017-11-23] MEDS: SLF 3 ML SYR IV ×3 (05:38→20:19)
[2017-11-23] MEDS: PERCOCET 5MG/325MG TAB PO ×3 (06:35→18:53)
[2017-11-23 07:06] LABS: BASO # 0.1 10^3/uL (0.0-0.2); BASO % 0.7 % (0.0-1.0); EOS # 0.2 10^3/uL (0.0-0.50); EOS % 1.5 % (0.0-3.0); HEMATOCRIT 33.8 % (42.0-52.0); HEMOGLOBIN 10.7 g/dl (14.0-18.0); IMMATURE GRANULOCYTE % 0.8 % (0-3.0); LYMPH # 3.4 10^3/uL (1.5-4.5); LYMPH % 34.6 % (24.0-44.0); MEAN CORPUSCULAR HEMOGLOBIN 21.3 pg (27.0-33.0); MEAN CORPUSCULAR HGB CONC 31.7 g/dl (32.0-36.5); MEAN CORPUSCULAR VOLUME 67.3 fl (80.0-96.0); MONO # 1.3 10^3/uL (0.0-0.8); MONO % 13.3 % (0.0-5.0); NEUTROPHILS # 4.9 10^3/uL (1.8-7.7); NEUTROPHILS % 49.1 % (36.0-66.0); PLATELET COUNT, AUTOMATED 391 10^3/uL (150-450); RED BLOOD COUNT 5.02 10^6/uL (4.30-6.10); RED CELL DISTRIBUTION WIDTH 16.9 % (11.5-14.5); WHITE BLOOD COUNT 9.9 10^3/uL (4.0-10.0)
[2017-11-23 07:35] LABS: ALBUMIN 3.1 GM/DL (3.2-5.2); ALBUMIN/GLOBULIN RATIO 0.91 (1.00-1.93); ALKALINE PHOSPHATASE 80 U/L (45-117); ALT/SGPT 27 U/L (12-78); ANION GAP 5 MEQ/L (8-16); AST/SGOT 27 U/L (7-37); BILIRUBIN,TOTAL 0.3 MG/DL (0.2-1.0); BLOOD UREA NITROGEN 21 MG/DL (7-18); CALCIUM LEVEL 8.6 MG/DL (8.5-10.1); CARBON DIOXIDE LEVEL 26 MEQ/L (21-32); CHLORIDE LEVEL 102 MEQ/L (98-107); GLOMERULAR FILTRATION RATE > 60.0 (>56); GLUCOSE, FASTING 300 MG/DL (70-100); SODIUM LEVEL 133 MEQ/L (136-145); TOTAL PROTEIN 6.5 GM/DL (6.4-8.2)
[2017-11-23 07:40] LABS: POTASSIUM SERUM 5.8 MEQ/L (3.5-5.1)
[2017-11-23] MEDS: LEVEMIR (INSULIN DETEMIR) 1 UNITS/0.01ML SC ×2 (08:30→20:19)
[2017-11-23] MEDS: amLODIPine 10 MG TAB PO (08:30)
[2017-11-23] MEDS: HumaLOG INSULIN (NovoLOG) PER UNIT SC ×4 (08:30→20:06)
[2017-11-23] MEDS: SENNA 8.6 MG TAB (SENOKOT) PO ×2 (08:30→20:19)
[2017-11-23] MEDS: ASPIRIN 81 MG ENTERIC TAB PO (08:30)
[2017-11-23] MEDS: DOCUSATE SODIUM 100 MG CAP PO ×2 (08:30→20:18)
[2017-11-23] MEDS: SOD POLYSTYRENE SULFONATE SUSP 15 GM/60 ML UD PO (08:31)
[2017-11-23] MEDS: MAGNESIUM OXIDE 400 MG TAB (MAG-OX) PO ×2 (08:31→20:19)
[2017-11-23] MEDS: MIRALAX *UNIT DOSE* 17GM PACKET PO ×4 (08:31→20:18)
[2017-11-23] MEDS: HEPARIN SOD (PORCINE) 5000 UNITS/ML VIAL SC ×3 (08:31→20:53)
[2017-11-23] MEDS: NICOTINE 14 MG/24 HR TRANSDERMAL TD (08:31)
[2017-11-23] MEDS: NS 1,000 ML IV (09:32)
[2017-11-23 09:54] LABS: OSMOLALITY URINE 529 MOSM/KG (500-800)
[2017-11-23 09:58] LABS: OSMOLALITY SERUM 310 MOSM/KG (275-295)
[2017-11-23] MEDS: FUROSEMIDE 40 MG/4 ML VIAL (J1940) IV (11:36)
[2017-11-23 11:48] LABS: BEDSIDE GLUCOSE 284 MG/DL (70-105)
[2017-11-23 16:57] LABS: BEDSIDE GLUCOSE 132 MG/DL (70-105)
[2017-11-23 20:12] LABS: BEDSIDE GLUCOSE 238 MG/DL (70-105)
[2017-11-24] MEDS: PERCOCET 5MG/325MG TAB PO ×4 (01:35→21:16)
[2017-11-24] MEDS: SLF 3 ML SYR IV ×3 (06:00→21:16)
[2017-11-24 07:41] LABS: BASO % 0.5 % (0.0-1.0); EOS # 0.2 10^3/uL (0.0-0.50); EOS % 1.8 % (0.0-3.0); HEMATOCRIT 32.8 % (42.0-52.0); HEMOGLOBIN 10.3 g/dl (14.0-18.0); LYMPH # 2.8 10^3/uL (1.5-4.5); LYMPH % 33.8 % (24.0-44.0); MEAN CORPUSCULAR HEMOGLOBIN 21.1 pg (27.0-33.0); MEAN CORPUSCULAR HGB CONC 31.4 g/dl (32.0-36.5); MEAN CORPUSCULAR VOLUME 67.1 fl (80.0-96.0); MONO # 1.3 10^3/uL (0.0-0.8); NEUTROPHILS # 3.9 10^3/uL (1.8-7.7); NEUTROPHILS % 46.9 % (36.0-66.0); PLATELET COUNT, AUTOMATED 454 10^3/uL (150-450); RED BLOOD COUNT 4.89 10^6/uL (4.30-6.10); RED CELL DISTRIBUTION WIDTH 16.7 % (11.5-14.5); WHITE BLOOD COUNT 8.3 10^3/uL (4.0-10.0)
[2017-11-24 08:09] LABS: ALBUMIN 3.1 GM/DL (3.2-5.2); ALBUMIN/GLOBULIN RATIO 0.91 (1.00-1.93); ALKALINE PHOSPHATASE 80 U/L (45-117); ALT/SGPT 24 U/L (12-78); ANION GAP 6 MEQ/L (8-16); AST/SGOT 22 U/L (7-37); BILIRUBIN,TOTAL 0.3 MG/DL (0.2-1.0); BLOOD UREA NITROGEN 23 MG/DL (7-18); CALCIUM LEVEL 8.6 MG/DL (8.5-10.1); CARBON DIOXIDE LEVEL 27 MEQ/L (21-32); CHLORIDE LEVEL 101 MEQ/L (98-107); CREATININE FOR GFR 1.16 MG/DL (0.70-1.30); GLOMERULAR FILTRATION RATE > 60.0 (>56); GLUCOSE, FASTING 305 MG/DL (70-100); MAGNESIUM LEVEL 1.6 MG/DL (1.8-2.4); SODIUM LEVEL 134 MEQ/L (136-145); TOTAL PROTEIN 6.5 GM/DL (6.4-8.2)
[2017-11-24 08:12] LABS: POTASSIUM SERUM 5.4 MEQ/L (3.5-5.1)
[2017-11-24] MEDS: MIRALAX *UNIT DOSE* 17GM PACKET PO ×4 (08:31→21:13)
[2017-11-24] MEDS: SENNA 8.6 MG TAB (SENOKOT) PO ×2 (08:31→21:14)
[2017-11-24] MEDS: ASPIRIN 81 MG ENTERIC TAB PO (08:31)
[2017-11-24] MEDS: DOCUSATE SODIUM 100 MG CAP PO ×2 (08:31→21:43)
[2017-11-24] MEDS: hydroCHLOROthiazide 25 MG TAB PO (08:31)
[2017-11-24] MEDS: FUROSEMIDE 10MG PER 1/2 TABLET PO (08:32)
[2017-11-24] MEDS: MAGNESIUM OXIDE 400 MG TAB (MAG-OX) PO ×2 (08:32→21:14)
[2017-11-24] MEDS: SOD POLYSTYRENE SULFONATE SUSP 15 GM/60 ML UD PO (08:32)
[2017-11-24] MEDS: LEVEMIR (INSULIN DETEMIR) 1 UNITS/0.01ML SC ×2 (08:33→21:44)
[2017-11-24] MEDS: NICOTINE 14 MG/24 HR TRANSDERMAL TD (08:34)
[2017-11-24] MEDS: HumaLOG INSULIN (NovoLOG) PER UNIT SC ×4 (08:34→21:00)
[2017-11-24] MEDS: HEPARIN SOD (PORCINE) 5000 UNITS/ML VIAL SC ×2 (08:35→21:00)
[2017-11-24] MEDS: MAG SULF 1GM/100ML (MAG RUN) 1 GM in APPROPRIATE DILUENT 1 EA IV ×2 (11:05→11:53)
[2017-11-24] MEDS ORDERED: FUROSEMIDE 10MG PER 1/2 TABLET PO (11:15)
[2017-11-24 12:02] LABS: BEDSIDE GLUCOSE 227 MG/DL (70-105)
[2017-11-24] MEDS: FUROSEMIDE 20 MG TAB PO (13:08)
[2017-11-24 17:31] LABS: BEDSIDE GLUCOSE 78 MG/DL (70-105)
[2017-11-24 20:27] LABS: ANION GAP 6 MEQ/L (8-16); BLOOD UREA NITROGEN 25 MG/DL (7-18); CALCIUM LEVEL 8.4 MG/DL (8.5-10.1); CARBON DIOXIDE LEVEL 31 MEQ/L (21-32); CHLORIDE LEVEL 101 MEQ/L (98-107); GLOMERULAR FILTRATION RATE > 60.0 (>56); GLUCOSE, FASTING 129 MG/DL (70-100); SODIUM LEVEL 138 MEQ/L (136-145)
[2017-11-24 20:28] LABS: POTASSIUM SERUM 5.4 MEQ/L (3.5-5.1)
[2017-11-24 21:29] LABS: BEDSIDE GLUCOSE 198 MG/DL (70-105)
[2017-11-25 03:30] LABS: MAGNESIUM LEVEL 2.1 MG/DL (1.8-2.4)
[2017-11-25] MEDS: SLF 3 ML SYR IV ×5 (04:09→22:12)
[2017-11-25] MEDS: PERCOCET 5MG/325MG TAB PO ×4 (04:09→22:31)
[2017-11-25] MEDS: HumaLOG INSULIN (NovoLOG) PER UNIT SC ×4 (07:30→21:00)
[2017-11-25 07:33] LABS: BASO # 0.1 10^3/uL (0.0-0.2); BASO % 0.8 % (0.0-1.0); EOS # 0.1 10^3/uL (0.0-0.50); EOS % 1.3 % (0.0-3.0); HEMATOCRIT 33.7 % (42.0-52.0); HEMOGLOBIN 10.7 g/dl (14.0-18.0); IMMATURE GRANULOCYTE % 0.7 % (0-3.0); LYMPH # 3.3 10^3/uL (1.5-4.5); LYMPH % 36.5 % (24.0-44.0); MEAN CORPUSCULAR HEMOGLOBIN 21.4 pg (27.0-33.0); MEAN CORPUSCULAR HGB CONC 31.8 g/dl (32.0-36.5); MEAN CORPUSCULAR VOLUME 67.5 fl (80.0-96.0); MONO # 1.4 10^3/uL (0.0-0.8); MONO % 15.3 % (0.0-5.0); NEUTROPHILS # 4.2 10^3/uL (1.8-7.7); NEUTROPHILS % 45.4 % (36.0-66.0); PLATELET COUNT, AUTOMATED 430 10^3/uL (150-450); RED BLOOD COUNT 4.99 10^6/uL (4.30-6.10); RED CELL DISTRIBUTION WIDTH 16.7 % (11.5-14.5); WHITE BLOOD COUNT 9.2 10^3/uL (4.0-10.0)
[2017-11-25 07:51] LABS: ALBUMIN 3.2 GM/DL (3.2-5.2); ALBUMIN/GLOBULIN RATIO 0.94 (1.00-1.93); ALKALINE PHOSPHATASE 74 U/L (45-117); ALT/SGPT 28 U/L (12-78); ANION GAP 5 MEQ/L (8-16); AST/SGOT 31 U/L (7-37); BILIRUBIN,TOTAL 0.2 MG/DL (0.2-1.0); BLOOD UREA NITROGEN 23 MG/DL (7-18); CALCIUM LEVEL 9.2 MG/DL (8.5-10.1); CARBON DIOXIDE LEVEL 29 MEQ/L (21-32); CHLORIDE LEVEL 104 MEQ/L (98-107); CREATININE FOR GFR 0.95 MG/DL (0.70-1.30); GLOMERULAR FILTRATION RATE > 60.0 (>56); GLUCOSE, FASTING 46 MG/DL (70-100); MAGNESIUM LEVEL 2.1 MG/DL (1.8-2.4); SODIUM LEVEL 138 MEQ/L (136-145); TOTAL PROTEIN 6.6 GM/DL (6.4-8.2)
[2017-11-25 08:25] LABS: BEDSIDE GLUCOSE 115 MG/DL (70-105)
[2017-11-25] MEDS: HEPARIN SOD (PORCINE) 5000 UNITS/ML VIAL SC (08:26)
[2017-11-25] MEDS: NICOTINE 14 MG/24 HR TRANSDERMAL TD (08:26)
[2017-11-25] MEDS: DOCUSATE SODIUM 100 MG CAP PO ×2 (08:27→21:29)
[2017-11-25] MEDS: LEVEMIR (INSULIN DETEMIR) 1 UNITS/0.01ML SC ×2 (08:27→22:30)
[2017-11-25] MEDS: SOD POLYSTYRENE SULFONATE SUSP 15 GM/60 ML UD PO (08:27)
[2017-11-25] MEDS: MAGNESIUM OXIDE 400 MG TAB (MAG-OX) PO ×2 (08:28→21:30)
[2017-11-25] MEDS: FUROSEMIDE 20 MG TAB PO (08:28)
[2017-11-25] MEDS: SENNA 8.6 MG TAB (SENOKOT) PO ×2 (08:28→21:29)
[2017-11-25] MEDS: hydroCHLOROthiazide 25 MG TAB PO (08:28)
[2017-11-25] MEDS: ASPIRIN 81 MG ENTERIC TAB PO (08:29)
[2017-11-25] MEDS: traMADol 50 MG TAB PO ×2 (08:40→21:30)
[2017-11-25] MEDS ORDERED: FUROSEMIDE 20 MG TAB PO (09:00)
[2017-11-25 12:05] LABS: BEDSIDE GLUCOSE 278 MG/DL (70-105)
[2017-11-25 16:53] LABS: BEDSIDE GLUCOSE 111 MG/DL (70-105)
[2017-11-25] MEDS ORDERED: MIRALAX *UNIT DOSE* 17GM PACKET PO (21:00)
[2017-11-25 21:33] LABS: BEDSIDE GLUCOSE 213 MG/DL (70-105)
[2017-11-25] MEDS ORDERED: PERCOCET 5MG/325MG TAB PO (22:30)
[2017-11-26] MEDS: PERCOCET 5MG/325MG TAB PO ×4 (04:02→22:22)
[2017-11-26 06:27] LABS: BASO # 0.1 10^3/uL (0.0-0.2); BASO % 0.6 % (0.0-1.0); EOS # 0.1 10^3/uL (0.0-0.50); EOS % 1.4 % (0.0-3.0); HEMATOCRIT 32.8 % (42.0-52.0); HEMOGLOBIN 10.2 g/dl (14.0-18.0); IMMATURE GRANULOCYTE % 0.7 % (0-3.0); LYMPH # 2.7 10^3/uL (1.5-4.5); MEAN CORPUSCULAR HEMOGLOBIN 21.3 pg (27.0-33.0); MEAN CORPUSCULAR HGB CONC 31.1 g/dl (32.0-36.5); MEAN CORPUSCULAR VOLUME 68.6 fl (80.0-96.0); MONO # 1.1 10^3/uL (0.0-0.8); MONO % 13.9 % (0.0-5.0); NEUTROPHILS # 4.1 10^3/uL (1.8-7.7); NEUTROPHILS % 50.4 % (36.0-66.0); PLATELET COUNT, AUTOMATED 433 10^3/uL (150-450); RED BLOOD COUNT 4.78 10^6/uL (4.30-6.10); RED CELL DISTRIBUTION WIDTH 16.6 % (11.5-14.5); WHITE BLOOD COUNT 8.1 10^3/uL (4.0-10.0)
[2017-11-26 06:51] LABS: ALBUMIN 3.1 GM/DL (3.2-5.2); ALBUMIN/GLOBULIN RATIO 0.97 (1.00-1.93); ALKALINE PHOSPHATASE 95 U/L (45-117); ALT/SGPT 37 U/L (12-78); ANION GAP 6 MEQ/L (8-16); AST/SGOT 56 U/L (7-37); BILIRUBIN,TOTAL 0.3 MG/DL (0.2-1.0); BLOOD UREA NITROGEN 25 MG/DL (7-18); CALCIUM LEVEL 8.8 MG/DL (8.5-10.1); CARBON DIOXIDE LEVEL 28 MEQ/L (21-32); CHLORIDE LEVEL 99 MEQ/L (98-107); CREATININE FOR GFR 1.13 MG/DL (0.70-1.30); GLOMERULAR FILTRATION RATE > 60.0 (>56); GLUCOSE, FASTING 326 MG/DL (70-100); MAGNESIUM LEVEL 1.8 MG/DL (1.8-2.4); SODIUM LEVEL 133 MEQ/L (136-145); TOTAL PROTEIN 6.3 GM/DL (6.4-8.2)
[2017-11-26 07:05] LABS: POTASSIUM SERUM 5.7 MEQ/L (3.5-5.1)
[2017-11-26] MEDS: HumaLOG INSULIN (NovoLOG) PER UNIT SC ×4 (08:17→21:00)
[2017-11-26] MEDS: LEVEMIR (INSULIN DETEMIR) 1 UNITS/0.01ML SC ×2 (09:02→22:21)
[2017-11-26] MEDS: MAGNESIUM OXIDE 400 MG TAB (MAG-OX) PO ×2 (09:03→22:23)
[2017-11-26] MEDS: SENNA 8.6 MG TAB (SENOKOT) PO ×2 (09:04→22:23)
[2017-11-26] MEDS: ASPIRIN 81 MG ENTERIC TAB PO (09:04)
[2017-11-26] MEDS: DOCUSATE SODIUM 100 MG CAP PO ×2 (09:04→22:22)
[2017-11-26] MEDS: hydroCHLOROthiazide 25 MG TAB PO (09:05)
[2017-11-26] MEDS: FUROSEMIDE 20 MG TAB PO (09:05)
[2017-11-26] MEDS: NICOTINE 14 MG/24 HR TRANSDERMAL TD (09:06)
[2017-11-26] MEDS: SOD POLYSTYRENE SULFONATE SUSP 15 GM/60 ML UD PO (09:06)
[2017-11-26 11:44] LABS: BEDSIDE GLUCOSE 180 MG/DL (70-105)
[2017-11-26] MEDS: FLUDROCORTISONE ACETATE 0.1 MG TAB PO (12:37)
[2017-11-26] MEDS: traMADol 50 MG TAB PO (12:38)
[2017-11-26] MEDS: SLF 3 ML SYR IV ×2 (14:00→22:00)
[2017-11-26 16:44] LABS: BEDSIDE GLUCOSE 122 MG/DL (70-105)
[2017-11-26] MEDS: HEPARIN SOD (PORCINE) 5000 UNITS/ML VIAL SQ (20:08)
[2017-11-26 21:58] LABS: BEDSIDE GLUCOSE 101 MG/DL (70-105)
[2017-11-27 02:24] LABS: BEDSIDE GLUCOSE 167 MG/DL (70-105)
[2017-11-27] MEDS: SLF 3 ML SYR IV (06:00)
[2017-11-27 06:24] LABS: BASO # 0.1 10^3/uL (0.0-0.2); BASO % 1.1 % (0.0-1.0); EOS # 0.2 10^3/uL (0.0-0.50); EOS % 2.5 % (0.0-3.0); HEMATOCRIT 32.5 % (42.0-52.0); HEMOGLOBIN 10.1 g/dl (14.0-18.0); IMMATURE GRANULOCYTE % 1.1 % (0-3.0); LYMPH # 2.9 10^3/uL (1.5-4.5); LYMPH % 40.3 % (24.0-44.0); MEAN CORPUSCULAR HEMOGLOBIN 21.2 pg (27.0-33.0); MEAN CORPUSCULAR HGB CONC 31.1 g/dl (32.0-36.5); MEAN CORPUSCULAR VOLUME 68.1 fl (80.0-96.0); MONO % 13.2 % (0.0-5.0); NEUTROPHILS # 3.1 10^3/uL (1.8-7.7); NEUTROPHILS % 41.8 % (36.0-66.0); PLATELET COUNT, AUTOMATED 453 10^3/uL (150-450); RED BLOOD COUNT 4.77 10^6/uL (4.30-6.10); RED CELL DISTRIBUTION WIDTH 16.4 % (11.5-14.5); WHITE BLOOD COUNT 7.3 10^3/uL (4.0-10.0)
[2017-11-27 06:45] LABS: ALBUMIN 3.2 GM/DL (3.2-5.2); ALBUMIN/GLOBULIN RATIO 1.03 (1.00-1.93); ALKALINE PHOSPHATASE 80 U/L (45-117); ALT/SGPT 32 U/L (12-78); ANION GAP 5 MEQ/L (8-16); AST/SGOT 31 U/L (7-37); BILIRUBIN,TOTAL 0.2 MG/DL (0.2-1.0); BLOOD UREA NITROGEN 25 MG/DL (7-18); CALCIUM LEVEL 8.7 MG/DL (8.5-10.1); CARBON DIOXIDE LEVEL 31 MEQ/L (21-32); CHLORIDE LEVEL 103 MEQ/L (98-107); CREATININE FOR GFR 0.95 MG/DL (0.70-1.30); GLOMERULAR FILTRATION RATE > 60.0 (>56); GLUCOSE, FASTING 81 MG/DL (70-100); MAGNESIUM LEVEL 1.8 MG/DL (1.8-2.4); POTASSIUM SERUM 4.6 MEQ/L (3.5-5.1); SODIUM LEVEL 139 MEQ/L (136-145); TOTAL PROTEIN 6.3 GM/DL (6.4-8.2)
[2017-11-27] MEDS: PERCOCET 5MG/325MG TAB PO (07:19)
[2017-11-27] MEDS: HumaLOG INSULIN (NovoLOG) PER UNIT SC ×2 (07:30→12:54)
[2017-11-27] MEDS: HEPARIN SOD (PORCINE) 5000 UNITS/ML VIAL SQ (09:00)
[2017-11-27] MEDS: LEVEMIR (INSULIN DETEMIR) 1 UNITS/0.01ML SC (09:14)
[2017-11-27] MEDS: NICOTINE 14 MG/24 HR TRANSDERMAL TD (09:15)
[2017-11-27] MEDS: SOD POLYSTYRENE SULFONATE SUSP 15 GM/60 ML UD PO (09:16)
[2017-11-27] MEDS: FLUDROCORTISONE ACETATE 0.1 MG TAB PO (09:16)
[2017-11-27] MEDS: ASPIRIN 81 MG ENTERIC TAB PO (09:16)
[2017-11-27] MEDS: SENNA 8.6 MG TAB (SENOKOT) PO (09:17)
[2017-11-27] MEDS: FUROSEMIDE 20 MG TAB PO (09:17)
[2017-11-27] MEDS: MAGNESIUM OXIDE 400 MG TAB (MAG-OX) PO (09:18)
[2017-11-27] MEDS: DOCUSATE SODIUM 100 MG CAP PO (09:18)
[2017-11-27 12:09] LABS: BEDSIDE GLUCOSE 351 MG/DL (70-105)
[2017-11-27] MEDS ORDERED: LEVEMIR (INSULIN DETEMIR) 1 UNITS/0.01ML SC (21:00)
== END 2017-11-27 14:30 | disposition home or self-care (01) | DRG 638 ==
LOC: M MSPAV 11-17 02:48 → M MS4PR 11-21 21:51 → M MSPAV 11-16 13:10 → M PED 11-23 21:00 → M ED 09:51 → M ED INP 15:49 → M PCU 20:43
PROVIDERS: Internal Medicine
DX: E11.65 Type 2 diabetes mellitus with hyperglycemia (principal); E87.2 Acidosis; E87.1 Hypo-osmolality and hyponatremia; N17.9 Acute kidney failure, unspecified; E46 Unspecified protein-calorie malnutrition; K59.03 Drug induced constipation; E87.5 Hyperkalemia; F17.210 Nicotine dependence, cigarettes, uncomplicated; I12.9 Hypertensive chronic kidney disease with stage 1 through stage 4 chronic kidney disease, or unspecified chronic kidney disease; N18.2 Chronic kidney disease, stage 2 (mild); R00.1 Bradycardia, unspecified; Z90.49 Acquired absence of other specified parts of digestive tract; Z90.81 Acquired absence of spleen; Z79.4 Long term (current) use of insulin; Z79.899 Other long term (current) drug therapy; Z88.8 Allergy status to other drugs, medicaments and biological substances; Z79.82 Long term (current) use of aspirin

== ENCOUNTER 2018-04-20 15:54 | Inpatient (IN) | payer MEDICARE, MEDICAID ==
[2018-04-20 17:10] LABS: BASO # 0.1 10^3/uL (0.0-0.2); BASO % 0.6 % (0.0-1.0); EOS # 0.1 10^3/uL (0.0-0.50); EOS % 0.6 % (0.0-3.0); HEMATOCRIT 37.8 % (42.0-52.0); HEMOGLOBIN 12.5 g/dl (13.5-17.5); IMMATURE GRANULOCYTE % 0.8 % (0-3.0); LYMPH # 2.9 10^3/uL (1.5-4.5); LYMPH % 24.5 % (24.0-44.0); MEAN CORPUSCULAR HEMOGLOBIN 21.6 pg (27.0-33.0); MEAN CORPUSCULAR HGB CONC 33.1 g/dl (32.0-36.5); MEAN CORPUSCULAR VOLUME 65.3 fl (80.0-96.0); MONO # 0.7 10^3/uL (0.0-0.8); MONO % 6.3 % (0.0-5.0); NEUTROPHILS # 7.9 10^3/uL (1.8-7.7); NEUTROPHILS % 67.2 % (36.0-66.0); PLATELET COUNT, AUTOMATED 282 10^3/uL (150-450); RED BLOOD COUNT 5.79 10^6/uL (4.30-6.10); RED CELL DISTRIBUTION WIDTH 18.3 % (11.5-14.5); WHITE BLOOD COUNT 11.8 10^3/uL (4.0-10.0)
[2018-04-20 17:14] LABS: INR 0.98; PROTHROMBIN TIME 13.1 SECONDS (12.1-14.4)
[2018-04-20 17:15] LABS: PARTIAL THROMBOPLASTIN TIME 31.3 SECONDS (25.4-37.6)
[2018-04-20 17:16] LABS: ALBUMIN 3.4 GM/DL (3.2-5.2); ALKALINE PHOSPHATASE 114 U/L (45-117); ALT/SGPT 71 U/L (12-78); AMYLASE 82 U/L (25-115); ANION GAP 14 MEQ/L (8-16); AST/SGOT 38 U/L (7-37); BILIRUBIN,DIRECT 0.2 MG/DL (0.0-0.2); BILIRUBIN,TOTAL 0.6 MG/DL (0.2-1.0); BLOOD UREA NITROGEN 18 MG/DL (7-18); CALCIUM LEVEL 9.1 MG/DL (8.5-10.1); CARBON DIOXIDE LEVEL 25 MEQ/L (21-32); CHLORIDE LEVEL 93 MEQ/L (98-107); CK-MB VALUE MASS 2.5 NG/ML (<3.6); CPK CREATINE PHOSPHOKINASE 94 U/L (39-308); CREATININE FOR GFR 2.73 MG/DL (0.70-1.30); GLOMERULAR FILTRATION RATE 25.8 (>56); LIPASE 26 U/L (73-393); MB/CK RELATIVE INDEX 2.65 (< OR =4); POTASSIUM SERUM 4.3 MEQ/L (3.5-5.1); SODIUM LEVEL 132 MEQ/L (136-145); TOTAL PROTEIN 6.8 GM/DL (6.4-8.2); TROPONIN I < 0.02 NG/ML (< 0.10)
[2018-04-20 17:22] LABS: GLUCOSE, FASTING 432 MG/DL (70-100)
[2018-04-20 17:22] LABS: LACTIC ACID SEPSIS PROTOCOL 8.2 MMOL/L (0.4-2.0)
[2018-04-20] MEDS: NS 1,000 ML IV ×3 (17:30→21:50)
[2018-04-20 18:00] LABS: MAGNESIUM LEVEL 1.9 MG/DL (1.8-2.4)
[2018-04-20] MEDS: HumuLIN R (REGULAR) INSULIN (NovoLIN R) **100U/ML** PER UNIT IV (18:10)
[2018-04-20] MEDS: ONDANSETRON 4MG/2ML VIAL (J2405) IV (18:10)
[2018-04-20] MEDS: MORPHINE 4 MG/ML 1ML VIAL/SYRINGE (J2270) IV ×2 (18:28→19:51)
[2018-04-20 19:27] LABS: BEDSIDE GLUCOSE 144 MG/DL (70-105)
[2018-04-20] MEDS ORDERED: MORPHINE 4 MG/ML 1ML VIAL/SYRINGE (J2270) IV (19:30)
[2018-04-20 19:46] LABS: KETONE, URINE AUTO RFX TRACE mg/dL (NEGATIVE); MUCUS, URINE RFX SMALL (NEGATIVE); NITRITE, URINE AUTO RFX NEGATIVE (NEGATIVE); RBC, URINE AUTO RFX 58 /HPF (0-3); SPECIFIC GRAVITY UR AUTO RFX 1.023 (1.002-1.035); SQUAM EPITHELIAL CELL UR AURFX 14 /HPF (0-6); YEAST LIKE CELL URINE AUTO RFX SMALL
[2018-04-20 19:49] LABS: LEUKOCYTE ESTERASE UR AUTO RFX 3+ (NEGATIVE); WBC, URINE AUTO RFX 38 /HPF (0-3)
[2018-04-20] MEDS: CIPROFLOXACIN 400 MG in APPROPRIATE DILUENT 1 EA IV (19:51)
[2018-04-20] MEDS: metroNIDAZOLE 500 MG in APPROPRIATE DILUENT 1 EA IV (19:51)
[2018-04-20 20:44] LABS: BEDSIDE GLUCOSE 79 MG/DL (70-105)
[2018-04-20] MEDS ORDERED: GLUCOSE 4 GM CHEW TABLET PO (20:45)
[2018-04-20] MEDS ORDERED: DEXTROSE 50% 50 ML SYRINGE IV (20:45)
[2018-04-20] MEDS ORDERED: ACETAMINOPHEN TAB 650MG DOSE (2X325MG) PO (20:45)
[2018-04-20] MEDS ORDERED: GLUCAGON FOR INJ 1 MG VIAL (J1610) SC (20:45)
[2018-04-20] MEDS: HumaLOG INSULIN (NovoLOG) PER UNIT SC (21:00)
[2018-04-20 21:14] LABS: PHOSPHORUS LEVEL 3.7 MG/DL (2.5-4.9)
[2018-04-20 21:48] LABS: BEDSIDE GLUCOSE 66 MG/DL (70-105)
[2018-04-20] MEDS: PERCOCET 5MG/325MG TAB PO (21:51)
[2018-04-21 00:08] LABS: BEDSIDE GLUCOSE 179 MG/DL (70-105)
[2018-04-21] MEDS: LEVEMIR (INSULIN DETEMIR) 1 UNITS/0.01ML SC ×2 (01:17→20:58)
[2018-04-21] MEDS: NICOTINE 21MG/24HR 1 EA TRANSDERMAL TD ×2 (01:18→20:57)
[2018-04-21] MEDS: PERCOCET 5MG/325MG TAB PO ×2 (02:36→22:03)
[2018-04-21] MEDS: metroNIDAZOLE 500 MG in APPROPRIATE DILUENT 1 EA IV ×3 (04:00→20:58)
[2018-04-21] MEDS: MORPHINE 4 MG/ML 1ML VIAL/SYRINGE (J2270) IV ×4 (04:15→20:56)
[2018-04-21] MEDS: HEPARIN SOD (PORCINE) 5000 UNITS/ML VIAL SC ×4 (05:47→21:58)
[2018-04-21 06:32] LABS: MEAN CORPUSCULAR HEMOGLOBIN 21.2 pg (27.0-33.0); MEAN CORPUSCULAR HGB CONC 31.6 g/dl (32.0-36.5); MEAN CORPUSCULAR VOLUME 67.3 fl (80.0-96.0); PLATELET COUNT, AUTOMATED 297 10^3/uL (150-450); RED BLOOD COUNT 5.65 10^6/uL (4.30-6.10); RED CELL DISTRIBUTION WIDTH 18.6 % (11.5-14.5); WHITE BLOOD COUNT 11.3 10^3/uL (4.0-10.0)
[2018-04-21 06:41] LABS: POSITIVE MORPH POS FLAG
[2018-04-21 07:01] LABS: ANION GAP 6 MEQ/L (8-16); BLOOD UREA NITROGEN 16 MG/DL (7-18); CALCIUM LEVEL 8.5 MG/DL (8.5-10.1); CARBON DIOXIDE LEVEL 33 MEQ/L (21-32); CHLORIDE LEVEL 99 MEQ/L (98-107); GLOMERULAR FILTRATION RATE 51.5 (>56); GLUCOSE, FASTING 150 MG/DL (70-100); POTASSIUM SERUM 4.4 MEQ/L (3.5-5.1); SODIUM LEVEL 138 MEQ/L (136-145)
[2018-04-21 08:16] LABS: C REACTIVE PROTEIN QUANTITATIV < 0.30 MG/DL (0.00-0.30)
[2018-04-21] MEDS: ASPIRIN 81 MG ENTERIC TAB PO (08:48)
[2018-04-21] MEDS: GABAPENTIN 300 MG CAP PO ×4 (08:49→20:56)
[2018-04-21] MEDS: CIPROFLOXACIN 200 MG in APPROPRIATE DILUENT 1 EA IV ×2 (08:49→22:03)
[2018-04-21] MEDS: HumaLOG INSULIN (NovoLOG) PER UNIT SC ×4 (08:50→20:57)
[2018-04-21 09:31] LABS: ERYTHROCYTE SEDIMENTATION RATE 1 mm/hr (0-20)
[2018-04-21 11:39] LABS: BEDSIDE GLUCOSE 459 MG/DL (70-105)
[2018-04-21 12:04] LABS: BEDSIDE GLUCOSE 130 MG/DL (70-105)
[2018-04-21] MEDS: ACYCLOVIR 200 MG CAPSULE PO ×3 (12:59→20:56)
[2018-04-21] MEDS: NS 1,000 ML IV ×2 (13:02→16:45)
[2018-04-21] MEDS: ONDANSETRON 4MG/2ML VIAL (J2405) IV (13:13)
[2018-04-21 16:40] LABS: BEDSIDE GLUCOSE 58 MG/DL (70-105)
[2018-04-21 17:49] LABS: BEDSIDE GLUCOSE 82 MG/DL (70-105)
[2018-04-21 20:51] LABS: BEDSIDE GLUCOSE 304 MG/DL (70-105)
[2018-04-22] MEDS: NS 1,000 ML IV ×2 (00:37→14:00)
[2018-04-22] MEDS: MORPHINE 4 MG/ML 1ML VIAL/SYRINGE (J2270) IV ×3 (03:13→20:13)
[2018-04-22] MEDS: metroNIDAZOLE 500 MG in APPROPRIATE DILUENT 1 EA IV ×3 (05:13→19:56)
[2018-04-22] MEDS: HEPARIN SOD (PORCINE) 5000 UNITS/ML VIAL SC ×3 (05:20→21:35)
[2018-04-22 07:29] LABS: HEMATOCRIT 35.7 % (42.0-52.0); HEMOGLOBIN 11.1 g/dl (13.5-17.5); MEAN CORPUSCULAR HEMOGLOBIN 21.3 pg (27.0-33.0); MEAN CORPUSCULAR HGB CONC 31.1 g/dl (32.0-36.5); MEAN CORPUSCULAR VOLUME 68.7 fl (80.0-96.0); PLATELET COUNT, AUTOMATED 240 10^3/uL (150-450); RED CELL DISTRIBUTION WIDTH 18.2 % (11.5-14.5); WHITE BLOOD COUNT 8.8 10^3/uL (4.0-10.0)
[2018-04-22] MEDS: HumaLOG INSULIN (NovoLOG) PER UNIT SC ×4 (07:30→21:00)
[2018-04-22 07:50] LABS: ANION GAP 7 MEQ/L (8-16); BLOOD UREA NITROGEN 14 MG/DL (7-18); CALCIUM LEVEL 8.2 MG/DL (8.5-10.1); CARBON DIOXIDE LEVEL 29 MEQ/L (21-32); CHLORIDE LEVEL 106 MEQ/L (98-107); CREATININE FOR GFR 0.97 MG/DL (0.70-1.30); GLOMERULAR FILTRATION RATE > 60.0 (>56); GLUCOSE, FASTING 94 MG/DL (70-100); POTASSIUM SERUM 4.2 MEQ/L (3.5-5.1); SODIUM LEVEL 142 MEQ/L (136-145)
[2018-04-22] MEDS: ACYCLOVIR 200 MG CAPSULE PO (10:34)
[2018-04-22] MEDS: CIPROFLOXACIN 200 MG in APPROPRIATE DILUENT 1 EA IV ×2 (10:34→21:17)
[2018-04-22] MEDS: GABAPENTIN 300 MG CAP PO ×4 (10:35→21:40)
[2018-04-22] MEDS: ASPIRIN 81 MG ENTERIC TAB PO (10:35)
[2018-04-22] MEDS ORDERED: PROHANCE 279.3MG/ML 5ML VIAL (A9576) As Ordered (12:14)
[2018-04-22 13:50] LABS: BEDSIDE GLUCOSE 316 MG/DL (70-105)
[2018-04-22 16:34] LABS: BEDSIDE GLUCOSE 368 MG/DL (70-105)
[2018-04-22 17:15] LABS: RETIC HEMOGLOBIN EQUIVALENT 24.9 pg (24-36); RETICULOCYTE # 131.7 10^9/L (17-77)
[2018-04-22 17:49] LABS: FERRITIN 70 NG/ML (26-388); IRON (FE) 155 UG/DL (65-175); PERCENT SATURATION 55.4 % (19.7-50.0); TOTAL IRON BINDING CAPACITY 280 UG/DL (250-450)
[2018-04-22] MEDS: amLODIPine 5 MG TAB PO (18:50)
[2018-04-22 20:38] LABS: APPEARANCE, URINE CLEAR (CLEAR); BACTERIA, URINE AUTO NEGATIVE (NEGATIVE); BILIRUBIN, URINE AUTO NEGATIVE (NEGATIVE); BLOOD, URINE BLOOD NEGATIVE (NEGATIVE); COLOR, URINE STRAW (YELLOW); GLUCOSE, URINE (UA) AUTO 3+ mg/dL (NEGATIVE); KETONE, URINE AUTO NEGATIVE (NEGATIVE); LEUKOCYTE ESTERASE, URINE AUTO NEGATIVE (NEGATIVE); NITRITE, URINE AUTO NEGATIVE (NEGATIVE); PROTEIN, URINE AUTO NEGATIVE (NEGATIVE); RBC, URINE AUTO 2 /HPF (0-3); SPECIFIC GRAVITY URINE AUTO 1.013 (1.002-1.035); SQUAMOUS EPITHELIAL CELL UR AU 0 /HPF (0-6); UROBILINOGEN, URINE AUTO 0.2 mg/dL (0.0-2.0); WBC, URINE AUTO 0 /HPF (0-3); YEAST LIKE CELL URINE AUTO SMALL
[2018-04-22 21:01] LABS: BEDSIDE GLUCOSE 187 MG/DL (70-105)
[2018-04-22] MEDS: LEVEMIR (INSULIN DETEMIR) 1 UNITS/0.01ML SC (21:40)
[2018-04-22] MEDS: PERCOCET 5MG/325MG TAB PO (21:41)
[2018-04-22] MEDS: NICOTINE 21MG/24HR 1 EA TRANSDERMAL TD (21:41)
[2018-04-22 23:31] LABS: CHLAMYDIA DNA AMPLIFICATION NEGATIVE (NEGATIVE); GC DNA AMPLIFICATION NEGATIVE (NEGATIVE)
[2018-04-23 00:06] LABS: HERPES ZOSTER, VARICELLA IgM <0.91 index (0.00-0.90)
[2018-04-23 00:06] LABS: HERPES ZOSTER, VARICELLA IgG 1227 index (Immune >165)
[2018-04-23] MEDS: PERCOCET 5MG/325MG TAB PO ×3 (03:22→18:30)
[2018-04-23] MEDS: metroNIDAZOLE 500 MG in APPROPRIATE DILUENT 1 EA IV ×3 (03:57→19:57)
[2018-04-23] MEDS: HEPARIN SOD (PORCINE) 5000 UNITS/ML VIAL SC ×3 (05:24→21:45)
[2018-04-23 07:00] LABS: HEMATOCRIT 35.3 % (42.0-52.0); HEMOGLOBIN 11.1 g/dl (13.5-17.5); MEAN CORPUSCULAR HEMOGLOBIN 21.4 pg (27.0-33.0); MEAN CORPUSCULAR HGB CONC 31.4 g/dl (32.0-36.5); MEAN CORPUSCULAR VOLUME 68.1 fl (80.0-96.0); PLATELET COUNT, AUTOMATED 203 10^3/uL (150-450); RED BLOOD COUNT 5.18 10^6/uL (4.30-6.10); WHITE BLOOD COUNT 8.7 10^3/uL (4.0-10.0)
[2018-04-23 07:12] LABS: ANION GAP 5 MEQ/L (8-16); BLOOD UREA NITROGEN 13 MG/DL (7-18); CALCIUM LEVEL 8.2 MG/DL (8.5-10.1); CARBON DIOXIDE LEVEL 30 MEQ/L (21-32); CHLORIDE LEVEL 104 MEQ/L (98-107); CREATININE FOR GFR 0.93 MG/DL (0.70-1.30); GLOMERULAR FILTRATION RATE > 60.0 (>56); GLUCOSE, FASTING 124 MG/DL (70-100); SODIUM LEVEL 139 MEQ/L (136-145)
[2018-04-23 07:14] LABS: POTASSIUM SERUM 5.8 MEQ/L (3.5-5.1)
[2018-04-23 07:46] LABS: POS COUNT POS FLAG
[2018-04-23] MEDS: SOD POLYSTYRENE SULFONATE SUSP 15 GM/60 ML UD PO (09:45)
[2018-04-23] MEDS: amLODIPine 5 MG TAB PO (09:47)
[2018-04-23] MEDS: GABAPENTIN 300 MG CAP PO ×4 (09:47→21:44)
[2018-04-23] MEDS: ASPIRIN 81 MG ENTERIC TAB PO (09:47)
[2018-04-23] MEDS: HumaLOG INSULIN (NovoLOG) PER UNIT SC ×4 (09:47→21:00)
[2018-04-23] MEDS: CIPROFLOXACIN 200 MG in APPROPRIATE DILUENT 1 EA IV ×2 (09:48→21:44)
[2018-04-23] MEDS: ONDANSETRON 4MG/2ML VIAL (J2405) IV ×2 (09:49→21:28)
[2018-04-23] MEDS: MORPHINE 4 MG/ML 1ML VIAL/SYRINGE (J2270) IV ×3 (09:49→21:29)
[2018-04-23 11:46] LABS: BEDSIDE GLUCOSE 257 MG/DL (70-105)
[2018-04-23 15:20] LABS: ANION GAP 8 MEQ/L (8-16); BLOOD UREA NITROGEN 11 MG/DL (7-18); CARBON DIOXIDE LEVEL 27 MEQ/L (21-32); CHLORIDE LEVEL 103 MEQ/L (98-107); GLOMERULAR FILTRATION RATE > 60.0 (>56); GLUCOSE, FASTING 205 MG/DL (70-100); SODIUM LEVEL 138 MEQ/L (136-145)
[2018-04-23 15:21] LABS: POTASSIUM SERUM 5.5 MEQ/L (3.5-5.1)
[2018-04-23 17:10] LABS: BEDSIDE GLUCOSE 108 MG/DL (70-105)
[2018-04-23 21:23] LABS: BEDSIDE GLUCOSE 123 MG/DL (70-105)
[2018-04-23] MEDS: NICOTINE 21MG/24HR 1 EA TRANSDERMAL TD (21:45)
[2018-04-23] MEDS: LEVEMIR (INSULIN DETEMIR) 1 UNITS/0.01ML SC (21:45)
[2018-04-24] MEDS: PERCOCET 5MG/325MG TAB PO ×3 (02:49→17:54)
[2018-04-24] MEDS: metroNIDAZOLE 500 MG in APPROPRIATE DILUENT 1 EA IV ×2 (03:00→12:59)
[2018-04-24] MEDS: ONDANSETRON 4MG/2ML VIAL (J2405) IV ×4 (04:21→23:56)
[2018-04-24] MEDS: MORPHINE 4 MG/ML 1ML VIAL/SYRINGE (J2270) IV ×5 (04:21→23:52)
[2018-04-24] MEDS: HEPARIN SOD (PORCINE) 5000 UNITS/ML VIAL SC ×4 (05:31→22:36)
[2018-04-24 07:39] LABS: HEMATOCRIT 33.8 % (42.0-52.0); HEMOGLOBIN 10.8 g/dl (13.5-17.5); MEAN CORPUSCULAR HEMOGLOBIN 21.5 pg (27.0-33.0); MEAN CORPUSCULAR VOLUME 67.3 fl (80.0-96.0); PLATELET COUNT, AUTOMATED 242 10^3/uL (150-450); RED BLOOD COUNT 5.02 10^6/uL (4.30-6.10); RED CELL DISTRIBUTION WIDTH 18.4 % (11.5-14.5); WHITE BLOOD COUNT 9.5 10^3/uL (4.0-10.0)
[2018-04-24 07:41] LABS: ANION GAP 8 MEQ/L (8-16); BLOOD UREA NITROGEN 15 MG/DL (7-18); CALCIUM LEVEL 8.3 MG/DL (8.5-10.1); CARBON DIOXIDE LEVEL 29 MEQ/L (21-32); CHLORIDE LEVEL 101 MEQ/L (98-107); CREATININE FOR GFR 1.21 MG/DL (0.70-1.30); GLOMERULAR FILTRATION RATE > 60.0 (>56); GLUCOSE, FASTING 182 MG/DL (70-100); SODIUM LEVEL 138 MEQ/L (136-145)
[2018-04-24 07:55] LABS: POTASSIUM SERUM 6.2 MEQ/L (3.5-5.1)
[2018-04-24 09:28] LABS: VITAMIN B12 LEVEL 630 PG/ML (247-911)
[2018-04-24 09:29] LABS: FOLATE 7.1 NG/ML (>5.4)
[2018-04-24] MEDS: ASPIRIN 81 MG ENTERIC TAB PO (10:21)
[2018-04-24] MEDS: GABAPENTIN 300 MG CAP PO ×4 (10:21→22:36)
[2018-04-24] MEDS: amLODIPine 5 MG TAB PO (10:21)
[2018-04-24] MEDS: SOD POLYSTYRENE SULFONATE SUSP 15 GM/60 ML UD PO ×2 (10:21→16:23)
[2018-04-24] MEDS: CIPROFLOXACIN 200 MG in APPROPRIATE DILUENT 1 EA IV (10:23)
[2018-04-24] MEDS: HumaLOG INSULIN (NovoLOG) PER UNIT SC ×4 (10:24→21:00)
[2018-04-24] MEDS: NS 1,000 ML IV (10:25)
[2018-04-24 15:52] LABS: ANION GAP 6 MEQ/L (8-16); BLOOD UREA NITROGEN 13 MG/DL (7-18); CALCIUM LEVEL 7.9 MG/DL (8.5-10.1); CARBON DIOXIDE LEVEL 28 MEQ/L (21-32); CHLORIDE LEVEL 102 MEQ/L (98-107); CREATININE FOR GFR 1.22 MG/DL (0.70-1.30); GLOMERULAR FILTRATION RATE > 60.0 (>56); GLUCOSE, FASTING 115 MG/DL (70-100); SODIUM LEVEL 136 MEQ/L (136-145)
[2018-04-24 16:01] LABS: POTASSIUM SERUM 5.5 MEQ/L (3.5-5.1)
[2018-04-24] MEDS: CIPROFLOXACIN 250 MG TAB PO (17:55)
[2018-04-24 21:26] LABS: BEDSIDE GLUCOSE 237 MG/DL (70-105)
[2018-04-24] MEDS: metroNIDAZOLE (FLAGYL) 500 MG TAB PO (22:36)
[2018-04-24] MEDS: LEVEMIR (INSULIN DETEMIR) 1 UNITS/0.01ML SC (22:37)
[2018-04-24] MEDS: NICOTINE 21MG/24HR 1 EA TRANSDERMAL TD (22:38)
[2018-04-25] MEDS: metroNIDAZOLE (FLAGYL) 500 MG TAB PO ×3 (05:24→21:51)
[2018-04-25] MEDS: CIPROFLOXACIN 250 MG TAB PO ×2 (05:24→17:41)
[2018-04-25] MEDS: HEPARIN SOD (PORCINE) 5000 UNITS/ML VIAL SC ×3 (05:24→21:56)
[2018-04-25] MEDS: MORPHINE 4 MG/ML 1ML VIAL/SYRINGE (J2270) IV (06:33)
[2018-04-25] MEDS: ONDANSETRON 4MG/2ML VIAL (J2405) IV ×2 (06:33→22:20)
[2018-04-25 07:58] LABS: HEMOGLOBIN 10.4 g/dl (13.5-17.5); MEAN CORPUSCULAR HEMOGLOBIN 21.2 pg (27.0-33.0); MEAN CORPUSCULAR HGB CONC 31.5 g/dl (32.0-36.5); MEAN CORPUSCULAR VOLUME 67.3 fl (80.0-96.0); PLATELET COUNT, AUTOMATED 223 10^3/uL (150-450); RED CELL DISTRIBUTION WIDTH 18.5 % (11.5-14.5); WHITE BLOOD COUNT 10.4 10^3/uL (4.0-10.0)
[2018-04-25 08:22] LABS: ANION GAP 8 MEQ/L (8-16); BLOOD UREA NITROGEN 14 MG/DL (7-18); CALCIUM LEVEL 8.3 MG/DL (8.5-10.1); CARBON DIOXIDE LEVEL 26 MEQ/L (21-32); CHLORIDE LEVEL 103 MEQ/L (98-107); CREATININE FOR GFR 1.14 MG/DL (0.70-1.30); GLOMERULAR FILTRATION RATE > 60.0 (>56); GLUCOSE, FASTING 233 MG/DL (70-100); SODIUM LEVEL 137 MEQ/L (136-145)
[2018-04-25 08:23] LABS: POTASSIUM SERUM 6.2 MEQ/L (3.5-5.1)
[2018-04-25] MEDS: HumaLOG INSULIN (NovoLOG) PER UNIT SC ×4 (08:31→21:54)
[2018-04-25] MEDS: ASPIRIN 81 MG ENTERIC TAB PO (08:32)
[2018-04-25] MEDS: amLODIPine 5 MG TAB PO (08:32)
[2018-04-25] MEDS: GABAPENTIN 300 MG CAP PO ×4 (08:32→21:51)
[2018-04-25 08:50] LABS: POS COUNT POS FLAG
[2018-04-25] MEDS ORDERED: SOD POLYSTYRENE SULFONATE SUSP 15 GM/60 ML UD PO (09:00)
[2018-04-25] MEDS: PERCOCET 5MG/325MG TAB PO ×3 (09:59→21:52)
[2018-04-25] MEDS: hydroCHLOROthiazide 12.5 MG CAPSULE PO (10:52)
[2018-04-25] MEDS: PATIROMER SORBITEX CALCIUM 8.4 GM POWDER PACKET (VELTASSA) PO (12:16)
[2018-04-25 15:20] LABS: ANION GAP 4 MEQ/L (8-16); BLOOD UREA NITROGEN 14 MG/DL (7-18); CALCIUM LEVEL 8.4 MG/DL (8.5-10.1); CARBON DIOXIDE LEVEL 31 MEQ/L (21-32); CHLORIDE LEVEL 103 MEQ/L (98-107); CREATININE FOR GFR 1.27 MG/DL (0.70-1.30); GLOMERULAR FILTRATION RATE > 60.0 (>56); GLUCOSE, FASTING 152 MG/DL (70-100); MAGNESIUM LEVEL 1.6 MG/DL (1.8-2.4); SODIUM LEVEL 138 MEQ/L (136-145)
[2018-04-25 15:27] LABS: POTASSIUM SERUM 6.1 MEQ/L (3.5-5.1)
[2018-04-25] MEDS: SOD POLYSTYRENE SULFONATE SUSP 30 GM/120 ML ENEMA PR (15:31)
[2018-04-25] MEDS: FUROSEMIDE 20 MG TAB PO (17:41)
[2018-04-25] MEDS: NS 1,000 ML IV (17:42)
[2018-04-25] MEDS: MAG SULF 1GM/100ML (MAG RUN) 1 GM in APPROPRIATE DILUENT 1 EA IV (17:42)
[2018-04-25 20:21] LABS: BEDSIDE GLUCOSE 116 MG/DL (70-105)
[2018-04-25 20:21] LABS: BEDSIDE GLUCOSE 294 MG/DL (70-105)
[2018-04-25 20:21] LABS: BEDSIDE GLUCOSE 143 MG/DL (70-105)
[2018-04-25 20:21] LABS: BEDSIDE GLUCOSE 90 MG/DL (70-105)
[2018-04-25 20:23] LABS: MAGNESIUM LEVEL 1.6 MG/DL (1.8-2.4); OSMOLALITY SERUM 305 MOSM/KG (275-295)
[2018-04-25 20:28] LABS: ANION GAP 9 MEQ/L (8-16); BLOOD UREA NITROGEN 15 MG/DL (7-18); CALCIUM LEVEL 7.4 MG/DL (8.5-10.1); CARBON DIOXIDE LEVEL 27 MEQ/L (21-32); CHLORIDE LEVEL 101 MEQ/L (98-107); CREATININE FOR GFR 1.51 MG/DL (0.70-1.30); GLOMERULAR FILTRATION RATE 51.1 (>56); GLUCOSE, FASTING 392 MG/DL (70-100); SODIUM LEVEL 137 MEQ/L (136-145)
[2018-04-25 20:30] LABS: POTASSIUM SERUM 5.6 MEQ/L (3.5-5.1)
[2018-04-25 21:43] LABS: BEDSIDE GLUCOSE 361 MG/DL (70-105)
[2018-04-25] MEDS: NICOTINE 21MG/24HR 1 EA TRANSDERMAL TD (21:51)
[2018-04-25] MEDS: LEVEMIR (INSULIN DETEMIR) 1 UNITS/0.01ML SC (21:53)
[2018-04-26] MEDS: PERCOCET 5MG/325MG TAB PO ×3 (05:03→20:35)
[2018-04-26] MEDS: ONDANSETRON 4MG/2ML VIAL (J2405) IV (05:05)
[2018-04-26] MEDS: HEPARIN SOD (PORCINE) 5000 UNITS/ML VIAL SC ×3 (06:00→20:36)
[2018-04-26] MEDS: metroNIDAZOLE (FLAGYL) 500 MG TAB PO ×3 (06:17→22:24)
[2018-04-26] MEDS: CIPROFLOXACIN 250 MG TAB PO ×2 (06:17→16:52)
[2018-04-26] MEDS: HumaLOG INSULIN (NovoLOG) PER UNIT SC ×4 (08:01→20:35)
[2018-04-26] MEDS: hydroCHLOROthiazide 12.5 MG CAPSULE PO ×2 (08:02→10:45)
[2018-04-26] MEDS: GABAPENTIN 300 MG CAP PO ×4 (08:02→20:35)
[2018-04-26] MEDS: ASPIRIN 81 MG ENTERIC TAB PO (08:02)
[2018-04-26 08:22] LABS: HEMATOCRIT 33.6 % (42.0-52.0); HEMOGLOBIN 10.6 g/dl (13.5-17.5); MEAN CORPUSCULAR HEMOGLOBIN 21.3 pg (27.0-33.0); MEAN CORPUSCULAR HGB CONC 31.5 g/dl (32.0-36.5); MEAN CORPUSCULAR VOLUME 67.5 fl (80.0-96.0); PLATELET COUNT, AUTOMATED 259 10^3/uL (150-450); RED BLOOD COUNT 4.98 10^6/uL (4.30-6.10); RED CELL DISTRIBUTION WIDTH 18.2 % (11.5-14.5)
[2018-04-26 08:33] LABS: ANION GAP 7 MEQ/L (8-16); BLOOD UREA NITROGEN 14 MG/DL (7-18); CALCIUM LEVEL 8.4 MG/DL (8.5-10.1); CARBON DIOXIDE LEVEL 29 MEQ/L (21-32); CHLORIDE LEVEL 106 MEQ/L (98-107); CREATININE FOR GFR 1.18 MG/DL (0.70-1.30); GLOMERULAR FILTRATION RATE > 60.0 (>56); GLUCOSE, FASTING 67 MG/DL (70-100); MAGNESIUM LEVEL 1.8 MG/DL (1.8-2.4); PHOSPHORUS LEVEL 4.6 MG/DL (2.5-4.9); POTASSIUM SERUM 4.9 MEQ/L (3.5-5.1); SODIUM LEVEL 142 MEQ/L (136-145)
[2018-04-26 10:11] LABS: C REACTIVE PROTEIN QUANTITATIV < 0.30 MG/DL (0.00-0.30)
[2018-04-26 11:59] LABS: BEDSIDE GLUCOSE 132 MG/DL (70-105)
[2018-04-26] MEDS ORDERED: LACTULOSE 20 GM/30 ML SYRUP UD PO (12:00)
[2018-04-26] MEDS: ONDANSETRON 4 MG TAB (S0181) PO ×2 (12:06→20:34)
[2018-04-26] MEDS: NS 1,000 ML IV ×3 (12:06→22:25)
[2018-04-26] MEDS: PATIROMER SORBITEX CALCIUM 8.4 GM POWDER PACKET (VELTASSA) PO (12:06)
[2018-04-26 13:08] LABS: ANION GAP 8 MEQ/L (8-16); BLOOD UREA NITROGEN 14 MG/DL (7-18); CALCIUM LEVEL 7.9 MG/DL (8.5-10.1); CARBON DIOXIDE LEVEL 28 MEQ/L (21-32); CHLORIDE LEVEL 107 MEQ/L (98-107); GLOMERULAR FILTRATION RATE 44.6 (>56); GLUCOSE, FASTING 111 MG/DL (70-100); MAGNESIUM LEVEL 1.7 MG/DL (1.8-2.4); SODIUM LEVEL 143 MEQ/L (136-145)
[2018-04-26 13:12] LABS: POTASSIUM SERUM 5.6 MEQ/L (3.5-5.1)
[2018-04-26] MEDS: FLUDROCORTISONE ACETATE 0.1 MG TAB PO (14:14)
[2018-04-26 14:25] LABS: HEMOGLOBIN A 96.4 % (96.4-98.8); HEMOGLOBIN A2 3.6 % (1.8-3.2); HGB SOLUBILITY Negative (Negative)
[2018-04-26 16:39] LABS: BEDSIDE GLUCOSE 270 MG/DL (70-105)
[2018-04-26 18:59] LABS: ANION GAP 5 MEQ/L (8-16); BLOOD UREA NITROGEN 16 MG/DL (7-18); CALCIUM LEVEL 8.1 MG/DL (8.5-10.1); CARBON DIOXIDE LEVEL 28 MEQ/L (21-32); CHLORIDE LEVEL 105 MEQ/L (98-107); CREATININE FOR GFR 1.53 MG/DL (0.70-1.30); GLOMERULAR FILTRATION RATE 50.4 (>56); GLUCOSE, FASTING 197 MG/DL (70-100); MAGNESIUM LEVEL 1.5 MG/DL (1.8-2.4); SODIUM LEVEL 138 MEQ/L (136-145)
[2018-04-26 19:13] LABS: POTASSIUM SERUM 6.1 MEQ/L (3.5-5.1)
[2018-04-26 20:19] LABS: BEDSIDE GLUCOSE 256 MG/DL (70-105)
[2018-04-26] MEDS: CALCIUM CHLORIDE 10% 1 GM/10 ML SYR IV (20:30)
[2018-04-26] MEDS: LEVEMIR (INSULIN DETEMIR) 1 UNITS/0.01ML SC (20:35)
[2018-04-26] MEDS: NICOTINE 21MG/24HR 1 EA TRANSDERMAL TD (20:35)
[2018-04-27] MEDS: HEPARIN SOD (PORCINE) 5000 UNITS/ML VIAL SC ×4 (05:34→22:12)
[2018-04-27] MEDS: CIPROFLOXACIN 250 MG TAB PO ×2 (05:37→17:04)
[2018-04-27] MEDS: metroNIDAZOLE (FLAGYL) 500 MG TAB PO ×3 (05:37→22:10)
[2018-04-27] MEDS: PERCOCET 5MG/325MG TAB PO ×3 (05:38→18:05)
[2018-04-27] MEDS: NS 1,000 ML IV (05:38)
[2018-04-27 06:57] LABS: HEMATOCRIT 28.9 % (42.0-52.0); HEMOGLOBIN 9.3 g/dl (13.5-17.5); MEAN CORPUSCULAR HEMOGLOBIN 21.8 pg (27.0-33.0); MEAN CORPUSCULAR HGB CONC 32.2 g/dl (32.0-36.5); MEAN CORPUSCULAR VOLUME 67.7 fl (80.0-96.0); PLATELET COUNT, AUTOMATED 312 10^3/uL (150-450); RED BLOOD COUNT 4.27 10^6/uL (4.30-6.10); WHITE BLOOD COUNT 10.2 10^3/uL (4.0-10.0)
[2018-04-27 07:13] LABS: ANION GAP 6 MEQ/L (8-16); BLOOD UREA NITROGEN 14 MG/DL (7-18); CARBON DIOXIDE LEVEL 27 MEQ/L (21-32); CHLORIDE LEVEL 106 MEQ/L (98-107); CREATININE FOR GFR 1.11 MG/DL (0.70-1.30); GLOMERULAR FILTRATION RATE > 60.0 (>56); GLUCOSE, FASTING 189 MG/DL (70-100); MAGNESIUM LEVEL 1.5 MG/DL (1.8-2.4); SODIUM LEVEL 139 MEQ/L (136-145)
[2018-04-27] MEDS: HumaLOG INSULIN (NovoLOG) PER UNIT SC ×4 (08:16→21:00)
[2018-04-27] MEDS: FLUDROCORTISONE ACETATE 0.1 MG TAB PO (08:17)
[2018-04-27] MEDS: hydroCHLOROthiazide 25 MG TAB PO (08:17)
[2018-04-27] MEDS: GABAPENTIN 300 MG CAP PO ×4 (08:18→22:10)
[2018-04-27 11:36] LABS: BEDSIDE GLUCOSE 159 MG/DL (70-105)
[2018-04-27 16:32] LABS: BEDSIDE GLUCOSE 322 MG/DL (70-105)
[2018-04-27] MEDS: MAG SULF 1GM/100ML (MAG RUN) 1 GM in APPROPRIATE DILUENT 1 EA IV ×2 (17:01→18:01)
[2018-04-27] MEDS: ONDANSETRON 4 MG TAB (S0181) PO (18:04)
[2018-04-27 20:33] LABS: BEDSIDE GLUCOSE 231 MG/DL (70-105)
[2018-04-27] MEDS: NICOTINE 21MG/24HR 1 EA TRANSDERMAL TD (22:10)
[2018-04-27] MEDS: LEVEMIR (INSULIN DETEMIR) 1 UNITS/0.01ML SC (22:11)
[2018-04-28] MEDS: PERCOCET 5MG/325MG TAB PO ×3 (02:33→22:15)
[2018-04-28] MEDS: HEPARIN SOD (PORCINE) 5000 UNITS/ML VIAL SC ×3 (05:25→21:40)
[2018-04-28] MEDS: metroNIDAZOLE (FLAGYL) 500 MG TAB PO ×3 (05:27→21:40)
[2018-04-28] MEDS: CIPROFLOXACIN 250 MG TAB PO ×2 (05:27→17:24)
[2018-04-28 05:44] LABS: IONIZED CALCIUM 4.6 MG/DL (4.5-5.3)
[2018-04-28 05:45] LABS: HEMATOCRIT 29.5 % (42.0-52.0); HEMOGLOBIN 9.3 g/dl (13.5-17.5); MEAN CORPUSCULAR HEMOGLOBIN 21.4 pg (27.0-33.0); MEAN CORPUSCULAR HGB CONC 31.5 g/dl (32.0-36.5); MEAN CORPUSCULAR VOLUME 67.8 fl (80.0-96.0); PLATELET COUNT, AUTOMATED 342 10^3/uL (150-450); RED BLOOD COUNT 4.35 10^6/uL (4.30-6.10); RED CELL DISTRIBUTION WIDTH 17.8 % (11.5-14.5); WHITE BLOOD COUNT 10.2 10^3/uL (4.0-10.0)
[2018-04-28 06:07] LABS: ANION GAP 5 MEQ/L (8-16); BLOOD UREA NITROGEN 16 MG/DL (7-18); CALCIUM LEVEL 8.1 MG/DL (8.5-10.1); CARBON DIOXIDE LEVEL 26 MEQ/L (21-32); CHLORIDE LEVEL 106 MEQ/L (98-107); CREATININE FOR GFR 1.09 MG/DL (0.70-1.30); GLOMERULAR FILTRATION RATE > 60.0 (>56); GLUCOSE, FASTING 219 MG/DL (70-100); MAGNESIUM LEVEL 1.8 MG/DL (1.8-2.4); SODIUM LEVEL 137 MEQ/L (136-145)
[2018-04-28 06:08] LABS: POTASSIUM SERUM 5.7 MEQ/L (3.5-5.1)
[2018-04-28] MEDS: HumaLOG INSULIN (NovoLOG) PER UNIT SC ×4 (08:17→21:38)
[2018-04-28] MEDS: GABAPENTIN 300 MG CAP PO ×4 (08:18→21:40)
[2018-04-28] MEDS: FUROSEMIDE 20 MG TAB PO (08:18)
[2018-04-28] MEDS: FLUDROCORTISONE ACETATE 0.1 MG TAB PO (08:18)
[2018-04-28 11:28] LABS: BEDSIDE GLUCOSE 88 MG/DL (70-105)
[2018-04-28] MEDS: PATIROMER SORBITEX CALCIUM 8.4 GM POWDER PACKET (VELTASSA) PO (12:00)
[2018-04-28 16:59] LABS: BEDSIDE GLUCOSE 250 MG/DL (70-105)
[2018-04-28 20:58] LABS: BEDSIDE GLUCOSE 289 MG/DL (70-105)
[2018-04-28] MEDS: NICOTINE 21MG/24HR 1 EA TRANSDERMAL TD (21:39)
[2018-04-28] MEDS: LEVEMIR (INSULIN DETEMIR) 1 UNITS/0.01ML SC (21:39)
[2018-04-29] MEDS: CIPROFLOXACIN 250 MG TAB PO (05:31)
[2018-04-29] MEDS: metroNIDAZOLE (FLAGYL) 500 MG TAB PO ×2 (05:31→12:15)
[2018-04-29] MEDS: HEPARIN SOD (PORCINE) 5000 UNITS/ML VIAL SC (05:32)
[2018-04-29 06:06] LABS: HEMOGLOBIN 9.1 g/dl (13.5-17.5); MEAN CORPUSCULAR HEMOGLOBIN 21.5 pg (27.0-33.0); MEAN CORPUSCULAR HGB CONC 32.5 g/dl (32.0-36.5); PLATELET COUNT, AUTOMATED 377 10^3/uL (150-450); RED BLOOD COUNT 4.24 10^6/uL (4.30-6.10); RED CELL DISTRIBUTION WIDTH 17.8 % (11.5-14.5); WHITE BLOOD COUNT 9.2 10^3/uL (4.0-10.0)
[2018-04-29 06:20] LABS: ANION GAP 8 MEQ/L (8-16); BLOOD UREA NITROGEN 15 MG/DL (7-18); CALCIUM LEVEL 8.3 MG/DL (8.5-10.1); CARBON DIOXIDE LEVEL 27 MEQ/L (21-32); CHLORIDE LEVEL 104 MEQ/L (98-107); CREATININE FOR GFR 1.08 MG/DL (0.70-1.30); GLOMERULAR FILTRATION RATE > 60.0 (>56); GLUCOSE, FASTING 271 MG/DL (70-100); MAGNESIUM LEVEL 1.6 MG/DL (1.8-2.4); POTASSIUM SERUM 4.9 MEQ/L (3.5-5.1); SODIUM LEVEL 139 MEQ/L (136-145)
[2018-04-29] MEDS: GABAPENTIN 300 MG CAP PO ×2 (08:01→12:15)
[2018-04-29] MEDS: FLUDROCORTISONE ACETATE 0.1 MG TAB PO (08:02)
[2018-04-29] MEDS: PERCOCET 5MG/325MG TAB PO (08:02)
[2018-04-29] MEDS: FUROSEMIDE 20 MG TAB PO (08:03)
[2018-04-29] MEDS: HumaLOG INSULIN (NovoLOG) PER UNIT SC ×2 (08:04→12:15)
[2018-04-29] MEDS: MAG SULF 1GM/100ML (MAG RUN) 1 GM in APPROPRIATE DILUENT 1 EA IV ×2 (08:04→08:05)
[2018-04-29 12:01] LABS: BEDSIDE GLUCOSE 211 MG/DL (70-105)
[2018-05-03 10:17] LABS: ALDOS/RENIN RATIO <3.3 (0.0-30.0); ALDOSTERONE <1.0 ng/dL (0.0-30.0)
== END 2018-04-29 13:12 | disposition home or self-care (01) | DRG 641 ==
LOC: M MS5PR 04-21 01:00 → M ED 15:54 → M ED INP 21:52
PROVIDERS: Hospitalist
DX: E87.5 Hyperkalemia (principal); N17.9 Acute kidney failure, unspecified; E27.40 Unspecified adrenocortical insufficiency; E87.2 Acidosis; R82.71 Bacteriuria; D63.1 Anemia in chronic kidney disease; K52.9 Noninfective gastroenteritis and colitis, unspecified; D56.3 Thalassemia minor; E83.51 Hypocalcemia; E83.42 Hypomagnesemia; N50.89 Other specified disorders of the male genital organs; K21.9 Gastro-esophageal reflux disease without esophagitis; E11.22 Type 2 diabetes mellitus with diabetic chronic kidney disease; D50.9 Iron deficiency anemia, unspecified; F17.210 Nicotine dependence, cigarettes, uncomplicated; I12.9 Hypertensive chronic kidney disease with stage 1 through stage 4 chronic kidney disease, or unspecified chronic kidney disease; N18.2 Chronic kidney disease, stage 2 (mild); Z79.82 Long term (current) use of aspirin; Z90.49 Acquired absence of other specified parts of digestive tract; Z90.411 Acquired partial absence of pancreas; Z90.81 Acquired absence of spleen; Z88.8 Allergy status to other drugs, medicaments and biological substances; Z86.74 Personal history of sudden cardiac arrest; Z91.14 Patient's other noncompliance with medication regimen; Z79.4 Long term (current) use of insulin; Z79.899 Other long term (current) drug therapy

== ENCOUNTER 2018-05-06 22:09 | Emergency (ER) | payer MEDICARE, MEDICAID ==
[2018-05-06 23:59] LABS: KETONE, URINE AUTO RFX NEGATIVE (NEGATIVE); LEUKOCYTE ESTERASE UR AUTO RFX NEGATIVE (NEGATIVE); NITRITE, URINE AUTO RFX NEGATIVE (NEGATIVE); RBC, URINE AUTO RFX 2 /HPF (0-3); SPECIFIC GRAVITY UR AUTO RFX 1.017 (1.002-1.035); SQUAM EPITHELIAL CELL UR AURFX 0 /HPF (0-6); WBC, URINE AUTO RFX 0 /HPF (0-3)
[2018-05-07] MEDS: NS 1,000 ML IV ×2 (00:22→02:27)
[2018-05-07] MEDS: MORPHINE 4 MG/ML 1ML VIAL/SYRINGE (J2270) IV ×2 (00:23→01:41)
[2018-05-07 00:34] LABS: BASO # 0.1 10^3/uL (0.0-0.2); BASO % 1.1 % (0.0-1.0); EOS # 0.1 10^3/uL (0.0-0.50); EOS % 1.1 % (0.0-3.0); HEMATOCRIT 30.8 % (42.0-52.0); IMMATURE GRANULOCYTE % 0.7 % (0-3.0); LYMPH # 1.9 10^3/uL (1.5-4.5); LYMPH % 23.6 % (24.0-44.0); MEAN CORPUSCULAR HEMOGLOBIN 21.5 pg (27.0-33.0); MEAN CORPUSCULAR HGB CONC 32.5 g/dl (32.0-36.5); MEAN CORPUSCULAR VOLUME 66.2 fl (80.0-96.0); MONO # 0.6 10^3/uL (0.0-0.8); MONO % 7.2 % (0.0-5.0); NEUTROPHILS # 5.5 10^3/uL (1.8-7.7); NEUTROPHILS % 66.3 % (36.0-66.0); PLATELET COUNT, AUTOMATED 335 10^3/uL (150-450); RED BLOOD COUNT 4.65 10^6/uL (4.30-6.10); RED CELL DISTRIBUTION WIDTH 17.8 % (11.5-14.5); WHITE BLOOD COUNT 8.2 10^3/uL (4.0-10.0)
[2018-05-07 00:55] LABS: LACTIC ACID SEPSIS PROTOCOL 1.1 MMOL/L (0.4-2.0)
[2018-05-07] MEDS: HumuLIN R (REGULAR) INSULIN (NovoLIN R) **100U/ML** PER UNIT IV ×3 (01:30→04:25)
[2018-05-07 02:27] LABS: ALBUMIN 3.1 GM/DL (3.2-5.2); ALBUMIN/GLOBULIN RATIO 0.89 (1.00-1.93); ALKALINE PHOSPHATASE 184 U/L (45-117); ALT/SGPT 67 U/L (12-78); AMYLASE 54 U/L (25-115); ANION GAP 8 MEQ/L (8-16); AST/SGOT 32 U/L (7-37); BILIRUBIN,DIRECT 0.1 MG/DL (0.0-0.2); BILIRUBIN,TOTAL 0.5 MG/DL (0.2-1.0); BLOOD UREA NITROGEN 29 MG/DL (7-18); CALCIUM LEVEL 8.2 MG/DL (8.5-10.1); CARBON DIOXIDE LEVEL 24 MEQ/L (21-32); CHLORIDE LEVEL 97 MEQ/L (98-107); CPK CREATINE PHOSPHOKINASE 80 U/L (39-308); CREATININE FOR GFR 1.67 MG/DL (0.70-1.30); GLOMERULAR FILTRATION RATE 45.5 (>56); LIPASE 23 U/L (73-393); SODIUM LEVEL 129 MEQ/L (136-145); TOTAL PROTEIN 6.6 GM/DL (6.4-8.2)
[2018-05-07 02:28] LABS: GLUCOSE, FASTING 735 MG/DL (70-100); POTASSIUM SERUM 6.4 MEQ/L (3.5-5.1)
[2018-05-07 02:32] LABS: VENOUS BASE EXCESS -0.4 (-2.0-2.0); VENOUS HCO3 25.1 MEQ/L (23.0-27.0); VENOUS O2 SATURATION 96.9 % (60.0-80.0); VENOUS PARTIAL PRESSURE CO2 44.8 mmHg (38.0-50.0); VENOUS PARTIAL PRESSURE O2 97.5 mmHg (30.0-50.0); VENOUS PH 7.367 UNITS (7.330-7.430); VENOUS STANDARD HCO3 24.2 MEQ/L; VENOUS TOTAL CO2 26.5 MEQ/L (24.0-28.0)
[2018-05-07 03:00] LABS: OSMOLALITY SERUM 323 MOSM/KG (275-295)
[2018-05-07] MEDS: ONDANSETRON 4MG/2ML VIAL (J2405) IV (03:00)
[2018-05-07 03:42] LABS: BEDSIDE GLUCOSE 515 MG/DL (70-105)
[2018-05-07] MEDS: PERCOCET 5MG/325MG TAB PO (04:24)
[2018-05-07 05:58] LABS: ANION GAP 9 MEQ/L (8-16); BLOOD UREA NITROGEN 26 MG/DL (7-18); CALCIUM LEVEL 8.4 MG/DL (8.5-10.1); CARBON DIOXIDE LEVEL 26 MEQ/L (21-32); CHLORIDE LEVEL 107 MEQ/L (98-107); CREATININE FOR GFR 1.41 MG/DL (0.70-1.30); GLOMERULAR FILTRATION RATE 55.4 (>56); GLUCOSE, FASTING 301 MG/DL (70-100); POTASSIUM SERUM 4.4 MEQ/L (3.5-5.1); SODIUM LEVEL 142 MEQ/L (136-145)
[2018-05-07] MEDS: OXYCODONE/APAP 5MG/325MG(BULK FOR ED) 1 TABLET PO (06:40)
[2018-05-07 11:34] LABS: BEDSIDE GLUCOSE > 600 MG/DL (70-105)
== END 2018-05-07 06:49 | disposition home or self-care (01) ==
LOC: M ED 22:09
DX: I88.9 Nonspecific lymphadenitis, unspecified (principal); E87.5 Hyperkalemia; E11.65 Type 2 diabetes mellitus with hyperglycemia; R00.1 Bradycardia, unspecified; I44.0 Atrioventricular block, first degree; I10 Essential (primary) hypertension; K57.92 Diverticulitis of intestine, part unspecified, without perforation or abscess without bleeding; Z72.0 Tobacco use; Z79.82 Long term (current) use of aspirin; Z79.4 Long term (current) use of insulin; Z79.899 Other long term (current) drug therapy; Z88.8 Allergy status to other drugs, medicaments and biological substances
CPT/HCPCS: J2270

== ENCOUNTER 2018-05-10 11:38 | Inpatient (IN) | payer MEDICARE, MEDICAID ==
[2018-05-10] MEDS: NS 1,000 ML IV ×3 (01:30→17:58)
[2018-05-10] MEDS: NS 500 ML IV ×2 (12:03→14:15)
[2018-05-10 12:07] LABS: VENOUS BASE EXCESS 1.9 (-2.0-2.0); VENOUS HCO3 23.4 MEQ/L (23.0-27.0); VENOUS O2 SATURATION 93.1 % (60.0-80.0); VENOUS PARTIAL PRESSURE CO2 27.4 mmHg (38.0-50.0); VENOUS PARTIAL PRESSURE O2 57.3 mmHg (30.0-50.0); VENOUS PH 7.549 UNITS (7.330-7.430); VENOUS STANDARD HCO3 26.1 MEQ/L; VENOUS TOTAL CO2 24.2 MEQ/L (24.0-28.0)
[2018-05-10] MEDS: ONDANSETRON 4MG/2ML VIAL (J2405) IV (12:12)
[2018-05-10] MEDS: MORPHINE 4 MG/ML 1ML VIAL/SYRINGE (J2270) IV ×4 (12:12→22:17)
[2018-05-10 12:16] LABS: BASO # 0.1 10^3/uL (0.0-0.2); EOS # 0.1 10^3/uL (0.0-0.50); EOS % 1.1 % (0.0-3.0); HEMATOCRIT 32.5 % (42.0-52.0); HEMOGLOBIN 10.7 g/dl (13.5-17.5); IMMATURE GRANULOCYTE % 0.5 % (0-3.0); LYMPH # 2.8 10^3/uL (1.5-4.5); LYMPH % 27.5 % (24.0-44.0); MEAN CORPUSCULAR HEMOGLOBIN 21.4 pg (27.0-33.0); MEAN CORPUSCULAR HGB CONC 32.9 g/dl (32.0-36.5); MEAN CORPUSCULAR VOLUME 65.1 fl (80.0-96.0); MONO % 10.3 % (0.0-5.0); NEUTROPHILS % 59.6 % (36.0-66.0); PLATELET COUNT, AUTOMATED 330 10^3/uL (150-450); RED BLOOD COUNT 4.99 10^6/uL (4.30-6.10); RED CELL DISTRIBUTION WIDTH 18.3 % (11.5-14.5); WHITE BLOOD COUNT 10.1 10^3/uL (4.0-10.0)
[2018-05-10 12:32] LABS: OSMOLALITY SERUM 318 MOSM/KG (275-295)
[2018-05-10 12:34] LABS: AMMONIA 25 uMOL/L (<32)
[2018-05-10 12:42] LABS: ALBUMIN 3.8 GM/DL (3.2-5.2); ALBUMIN/GLOBULIN RATIO 1.31 (1.00-1.93); ALKALINE PHOSPHATASE 156 U/L (45-117); ALT/SGPT 56 U/L (12-78); ANION GAP 15 MEQ/L (8-16); AST/SGOT 37 U/L (7-37); BILIRUBIN,DIRECT 0.2 MG/DL (0.0-0.2); BILIRUBIN,TOTAL 0.6 MG/DL (0.2-1.0); BLOOD UREA NITROGEN 24 MG/DL (7-18); CALCIUM LEVEL 9.3 MG/DL (8.5-10.1); CARBON DIOXIDE LEVEL 22 MEQ/L (21-32); CHLORIDE LEVEL 98 MEQ/L (98-107); CPK CREATINE PHOSPHOKINASE 77 U/L (39-308); CREATININE FOR GFR 1.55 MG/DL (0.70-1.30); ETHYL ALCOHOL (ETHANOL) 0.003 % (0.000-0.010); GLOMERULAR FILTRATION RATE 49.6 (>56); SALICYLATE LEVEL < 1.7 MG/DL (5.0-30.0); SODIUM LEVEL 135 MEQ/L (136-145); TOTAL PROTEIN 6.7 GM/DL (6.4-8.2); TROPONIN I < 0.02 NG/ML (< 0.10)
[2018-05-10 12:46] LABS: CK-MB VALUE MASS 1.3 NG/ML (<3.6); MB/CK RELATIVE INDEX 1.68 (< OR =4)
[2018-05-10 13:01] LABS: LACTIC ACID SEPSIS PROTOCOL 3.7 MMOL/L (0.4-2.0)
[2018-05-10 13:04] LABS: ACETAMINOPHEN LEVEL < 2.0 UG/ML (10.0-30.0); GLUCOSE, FASTING 559 MG/DL (70-100); POTASSIUM SERUM 6.1 MEQ/L (3.5-5.1)
[2018-05-10] MEDS: HumuLIN R (REGULAR) INSULIN (NovoLIN R) **100U/ML** PER UNIT IV (14:15)
[2018-05-10] MEDS: SOD POLYSTYRENE SULFONATE SUSP 15 GM/60 ML UD PO (15:21)
[2018-05-10] MEDS ORDERED: INSULIN HUMAN REGULAR 100 UNITS in NS 99 ML IV (15:26)
[2018-05-10] MEDS ORDERED: INSULIN IV RATE CHANGE DOCUMENTATION ML/HR XX (15:30)
[2018-05-10] MEDS: CALCIUM CHLORIDE 10% 1 GM in D5W 100 ML IV ×2 (15:30→20:21)
[2018-05-10] MEDS ORDERED: ACETAMINOPHEN TAB 650MG DOSE (2X325MG) PO (15:30)
[2018-05-10 15:36] LABS: BEDSIDE GLUCOSE > 600 MG/DL (70-105)
[2018-05-10] MEDS ORDERED: SOD POLYSTYRENE SULFONATE SUSP 15 GM/60 ML UD PO (16:00)
[2018-05-10 16:43] LABS: BEDSIDE GLUCOSE 420 MG/DL (70-105)
[2018-05-10] MEDS ORDERED: HEPARIN SOD (PORCINE) 5000 UNITS/ML VIAL SC (16:45)
[2018-05-10] MEDS: GABAPENTIN 300 MG CAP PO ×2 (17:51→20:22)
[2018-05-10] MEDS: ASPIRIN 81 MG ENTERIC TAB PO (17:51)
[2018-05-10] MEDS: NICOTINE 21MG/24HR 1 EA TRANSDERMAL TOP (17:51)
[2018-05-10] MEDS: BISACODYL 5 MG TAB PO (17:51)
[2018-05-10] MEDS: INSULIN HUMAN REGULAR 100 UNITS in NS 99 ML IV ×2 (17:58→18:00)
[2018-05-10] MEDS: MOM 30ML SUSPENSION UDC PO (18:02)
[2018-05-10 18:06] LABS: ANION GAP 11 MEQ/L (8-16); BLOOD UREA NITROGEN 21 MG/DL (7-18); CALCIUM LEVEL 8.1 MG/DL (8.5-10.1); CARBON DIOXIDE LEVEL 15 MEQ/L (21-32); CHLORIDE LEVEL 106 MEQ/L (98-107); CREATININE FOR GFR 1.45 MG/DL (0.70-1.30); GLOMERULAR FILTRATION RATE 53.6 (>56); GLUCOSE, FASTING 388 MG/DL (70-100); SODIUM LEVEL 132 MEQ/L (136-145)
[2018-05-10] MEDS: INSULIN IV RATE CHANGE DOCUMENTATION ML/HR XX ×3 (19:02→21:48)
[2018-05-10 19:28] LABS: ANION GAP 8 MEQ/L (8-16); BLOOD UREA NITROGEN 19 MG/DL (7-18); CALCIUM LEVEL 8.6 MG/DL (8.5-10.1); CARBON DIOXIDE LEVEL 27 MEQ/L (21-32); CHLORIDE LEVEL 106 MEQ/L (98-107); CREATININE FOR GFR 1.27 MG/DL (0.70-1.30); GLOMERULAR FILTRATION RATE > 60.0 (>56); GLUCOSE, FASTING 178 MG/DL (70-100); POTASSIUM SERUM 4.5 MEQ/L (3.5-5.1); SODIUM LEVEL 141 MEQ/L (136-145)
[2018-05-10] MEDS: FLUDROCORTISONE ACETATE 0.1 MG TAB PO (20:21)
[2018-05-10] MEDS: HEPARIN SOD (PORCINE) 5000 UNITS/ML VIAL SC (20:22)
[2018-05-10 21:16] LABS: ANION GAP 7 MEQ/L (8-16); BLOOD UREA NITROGEN 18 MG/DL (7-18); CALCIUM LEVEL 8.6 MG/DL (8.5-10.1); CARBON DIOXIDE LEVEL 30 MEQ/L (21-32); CHLORIDE LEVEL 105 MEQ/L (98-107); CREATININE FOR GFR 0.98 MG/DL (0.70-1.30); GLOMERULAR FILTRATION RATE > 60.0 (>56); GLUCOSE, FASTING 41 MG/DL (70-100); POTASSIUM SERUM 4.5 MEQ/L (3.5-5.1); SODIUM LEVEL 142 MEQ/L (136-145)
[2018-05-10] MEDS ORDERED: GLUCOSE 4 GM CHEW TABLET PO (21:30)
[2018-05-10] MEDS ORDERED: GLUCAGON FOR INJ 1 MG VIAL (J1610) SC (21:30)
[2018-05-10] MEDS: DEXTROSE 50% 50 ML SYRINGE IV (21:44)
[2018-05-10 22:36] LABS: BEDSIDE GLUCOSE 118 MG/DL (70-105)
[2018-05-10 22:36] LABS: BEDSIDE GLUCOSE 56 MG/DL (70-105)
[2018-05-10 22:36] LABS: BEDSIDE GLUCOSE 370 MG/DL (70-105)
[2018-05-10 22:36] LABS: BEDSIDE GLUCOSE 82 MG/DL (70-105)
[2018-05-10 22:36] LABS: BEDSIDE GLUCOSE 258 MG/DL (70-105)
[2018-05-10 23:01] LABS: ANION GAP 9 MEQ/L (8-16); BLOOD UREA NITROGEN 17 MG/DL (7-18); CALCIUM LEVEL 9.1 MG/DL (8.5-10.1); CARBON DIOXIDE LEVEL 27 MEQ/L (21-32); CHLORIDE LEVEL 106 MEQ/L (98-107); GLOMERULAR FILTRATION RATE > 60.0 (>56); GLUCOSE, FASTING 90 MG/DL (70-100); POTASSIUM SERUM 5.1 MEQ/L (3.5-5.1); SODIUM LEVEL 142 MEQ/L (136-145)
[2018-05-11] MEDS: MORPHINE 4 MG/ML 1ML VIAL/SYRINGE (J2270) IV ×6 (02:07→23:03)
[2018-05-11 02:34] LABS: ANION GAP 10 MEQ/L (8-16); BLOOD UREA NITROGEN 15 MG/DL (7-18); CALCIUM LEVEL 8.5 MG/DL (8.5-10.1); CARBON DIOXIDE LEVEL 28 MEQ/L (21-32); CHLORIDE LEVEL 103 MEQ/L (98-107); CREATININE FOR GFR 0.95 MG/DL (0.70-1.30); GLOMERULAR FILTRATION RATE > 60.0 (>56); GLUCOSE, FASTING 166 MG/DL (70-100); POTASSIUM SERUM 4.7 MEQ/L (3.5-5.1); SODIUM LEVEL 141 MEQ/L (136-145)
[2018-05-11] MEDS: NS 1,000 ML IV ×2 (04:46→06:26)
[2018-05-11 05:34] LABS: ALBUMIN 2.8 GM/DL (3.2-5.2); ALBUMIN/GLOBULIN RATIO 1.17 (1.00-1.93); ALKALINE PHOSPHATASE 100 U/L (45-117); ALT/SGPT 43 U/L (12-78); ANION GAP 9 MEQ/L (8-16); AST/SGOT 45 U/L (7-37); BILIRUBIN,TOTAL 0.5 MG/DL (0.2-1.0); BLOOD UREA NITROGEN 14 MG/DL (7-18); CARBON DIOXIDE LEVEL 27 MEQ/L (21-32); CHLORIDE LEVEL 104 MEQ/L (98-107); CREATININE FOR GFR 0.93 MG/DL (0.70-1.30); GLOMERULAR FILTRATION RATE > 60.0 (>56); GLUCOSE, FASTING 227 MG/DL (70-100); POTASSIUM SERUM 5.1 MEQ/L (3.5-5.1); SODIUM LEVEL 140 MEQ/L (136-145); TOTAL PROTEIN 5.2 GM/DL (6.4-8.2)
[2018-05-11] MEDS ORDERED: GLUCOSE 4 GM CHEW TABLET PO (06:00)
[2018-05-11] MEDS ORDERED: DEXTROSE 50% 50 ML SYRINGE IV (06:00)
[2018-05-11] MEDS: HEPARIN SOD (PORCINE) 5000 UNITS/ML VIAL SC ×3 (06:00→20:30)
[2018-05-11] MEDS ORDERED: GLUCAGON FOR INJ 1 MG VIAL (J1610) SC (06:00)
[2018-05-11 08:17] LABS: LACTIC ACID SEPSIS PROTOCOL 1.1 MMOL/L (0.4-2.0)
[2018-05-11] MEDS: FLUDROCORTISONE ACETATE 0.1 MG TAB PO (08:30)
[2018-05-11] MEDS: GABAPENTIN 300 MG CAP PO ×4 (08:30→20:30)
[2018-05-11] MEDS: ASPIRIN 81 MG ENTERIC TAB PO (08:30)
[2018-05-11] MEDS: HumaLOG INSULIN (NovoLOG) PER UNIT SC ×4 (08:30→21:12)
[2018-05-11] MEDS: NICOTINE 21MG/24HR 1 EA TRANSDERMAL TOP (08:30)
[2018-05-11] MEDS: MOM 30ML SUSPENSION UDC PO (08:32)
[2018-05-11] MEDS: BISACODYL 5 MG TAB PO (08:32)
[2018-05-11 09:37] LABS: LIPASE 35 U/L (73-393)
[2018-05-11 09:37] LABS: TROPONIN I 0.02 NG/ML (< 0.10)
[2018-05-11 10:53] LABS: HEMATOCRIT 27.7 % (42.0-52.0); MEAN CORPUSCULAR HEMOGLOBIN 21.3 pg (27.0-33.0); MEAN CORPUSCULAR VOLUME 68.6 fl (80.0-96.0); PLATELET COUNT, AUTOMATED 274 10^3/uL (150-450); RED BLOOD COUNT 4.04 10^6/uL (4.30-6.10); RED CELL DISTRIBUTION WIDTH 18.2 % (11.5-14.5); WHITE BLOOD COUNT 12.9 10^3/uL (4.0-10.0)
[2018-05-11 10:56] LABS: HEMOGLOBIN 8.6 g/dl (13.5-17.5)
[2018-05-11 11:19] LABS: ESTIMATED AVERAGE GLUCOSE 372 MG/DL (60-110); HEMOGLOBIN A1c 14.6 %
[2018-05-11 17:57] LABS: BEDSIDE GLUCOSE 345 MG/DL (70-105)
[2018-05-11 17:57] LABS: BEDSIDE GLUCOSE 309 MG/DL (70-105)
[2018-05-11 21:11] LABS: BEDSIDE GLUCOSE 263 MG/DL (70-105)
[2018-05-12] MEDS: MORPHINE 4 MG/ML 1ML VIAL/SYRINGE (J2270) IV ×5 (03:41→20:35)
[2018-05-12] MEDS: ONDANSETRON 4MG/2ML VIAL (J2405) IV ×4 (03:41→20:15)
[2018-05-12 04:16] LABS: ALKALINE PHOSPHATASE 128 U/L (45-117); ALT/SGPT 44 U/L (12-78); ANION GAP 8 MEQ/L (8-16); AST/SGOT 30 U/L (7-37); BILIRUBIN,TOTAL 0.4 MG/DL (0.2-1.0); BLOOD UREA NITROGEN 15 MG/DL (7-18); CALCIUM LEVEL 8.1 MG/DL (8.5-10.1); CARBON DIOXIDE LEVEL 30 MEQ/L (21-32); CHLORIDE LEVEL 99 MEQ/L (98-107); CREATININE FOR GFR 1.03 MG/DL (0.70-1.30); GLOMERULAR FILTRATION RATE > 60.0 (>56); GLUCOSE, FASTING 290 MG/DL (70-100); SODIUM LEVEL 137 MEQ/L (136-145)
[2018-05-12 04:22] LABS: POTASSIUM SERUM 5.7 MEQ/L (3.5-5.1)
[2018-05-12] MEDS: HEPARIN SOD (PORCINE) 5000 UNITS/ML VIAL SC ×3 (05:23→20:15)
[2018-05-12] MEDS: HumaLOG INSULIN (NovoLOG) PER UNIT SC ×4 (07:54→21:42)
[2018-05-12] MEDS: GABAPENTIN 300 MG CAP PO ×4 (08:57→20:15)
[2018-05-12] MEDS: ASPIRIN 81 MG ENTERIC TAB PO (08:57)
[2018-05-12] MEDS: FLUDROCORTISONE ACETATE 0.1 MG TAB PO (08:57)
[2018-05-12] MEDS: NICOTINE 21MG/24HR 1 EA TRANSDERMAL TOP (08:58)
[2018-05-12] MEDS ORDERED: FUROSEMIDE 20 MG TAB PO (09:00)
[2018-05-12] MEDS: FUROSEMIDE 20 MG TAB PO (11:42)
[2018-05-12 12:06] LABS: BEDSIDE GLUCOSE 296 MG/DL (70-105)
[2018-05-12] MEDS ORDERED: SODIUM CHLORIDE 0.9% INJ 10 ML SYR IV ×2 (16:00→22:00)
[2018-05-12] MEDS: SODIUM CHLORIDE 0.9% INJ 10 ML SYR IV ×2 (16:20→20:16)
[2018-05-12 16:36] LABS: BEDSIDE GLUCOSE 222 MG/DL (70-105)
[2018-05-12 16:56] LABS: ANION GAP 7 MEQ/L (8-16); BLOOD UREA NITROGEN 14 MG/DL (7-18); CALCIUM LEVEL 8.3 MG/DL (8.5-10.1); CARBON DIOXIDE LEVEL 29 MEQ/L (21-32); CHLORIDE LEVEL 103 MEQ/L (98-107); CREATININE FOR GFR 1.24 MG/DL (0.70-1.30); GLOMERULAR FILTRATION RATE > 60.0 (>56); GLUCOSE, FASTING 172 MG/DL (70-100); SODIUM LEVEL 139 MEQ/L (136-145)
[2018-05-12 17:00] LABS: POTASSIUM SERUM 5.4 MEQ/L (3.5-5.1)
[2018-05-12 21:16] LABS: BEDSIDE GLUCOSE 270 MG/DL (70-105)
[2018-05-12] MEDS: LEVEMIR (INSULIN DETEMIR) 1 UNITS/0.01ML SC (21:42)
[2018-05-13] MEDS: MORPHINE 4 MG/ML 1ML VIAL/SYRINGE (J2270) IV ×2 (00:41→05:35)
[2018-05-13] MEDS: SODIUM CHLORIDE 0.9% INJ 10 ML SYR IV ×3 (00:42→11:14)
[2018-05-13] MEDS: HEPARIN SOD (PORCINE) 5000 UNITS/ML VIAL SC (05:33)
[2018-05-13] MEDS: ONDANSETRON 4MG/2ML VIAL (J2405) IV ×2 (05:34→11:37)
[2018-05-13 06:40] LABS: ALBUMIN/GLOBULIN RATIO 1.07 (1.00-1.93); ALKALINE PHOSPHATASE 108 U/L (45-117); ALT/SGPT 35 U/L (12-78); ANION GAP 6 MEQ/L (8-16); AST/SGOT 20 U/L (7-37); BILIRUBIN,TOTAL 0.3 MG/DL (0.2-1.0); BLOOD UREA NITROGEN 16 MG/DL (7-18); CALCIUM LEVEL 8.8 MG/DL (8.5-10.1); CARBON DIOXIDE LEVEL 31 MEQ/L (21-32); CHLORIDE LEVEL 101 MEQ/L (98-107); CREATININE FOR GFR 1.03 MG/DL (0.70-1.30); GLOMERULAR FILTRATION RATE > 60.0 (>56); GLUCOSE, FASTING 82 MG/DL (70-100); SODIUM LEVEL 138 MEQ/L (136-145); TOTAL PROTEIN 5.8 GM/DL (6.4-8.2)
[2018-05-13] MEDS: HumaLOG INSULIN (NovoLOG) PER UNIT SC ×2 (07:30→12:22)
[2018-05-13] MEDS: FLUDROCORTISONE ACETATE 0.1 MG TAB PO (11:13)
[2018-05-13] MEDS: ASPIRIN 81 MG ENTERIC TAB PO (11:13)
[2018-05-13] MEDS: GABAPENTIN 300 MG CAP PO ×2 (11:13→12:23)
[2018-05-13] MEDS: NICOTINE 21MG/24HR 1 EA TRANSDERMAL TOP (11:13)
[2018-05-13] MEDS: FUROSEMIDE 20 MG TAB PO (11:14)
[2018-05-13 11:32] LABS: HEMATOCRIT 28.4 % (42.0-52.0); HEMOGLOBIN 9.2 g/dl (13.5-17.5); MEAN CORPUSCULAR HEMOGLOBIN 21.9 pg (27.0-33.0); MEAN CORPUSCULAR HGB CONC 32.4 g/dl (32.0-36.5); MEAN CORPUSCULAR VOLUME 67.5 fl (80.0-96.0); PLATELET COUNT, AUTOMATED 341 10^3/uL (150-450); RED BLOOD COUNT 4.21 10^6/uL (4.30-6.10); RED CELL DISTRIBUTION WIDTH 18.4 % (11.5-14.5); WHITE BLOOD COUNT 11.3 10^3/uL (4.0-10.0)
[2018-05-14 07:34] LABS: BEDSIDE GLUCOSE 197 MG/DL (70-105)
== END 2018-05-13 13:50 | disposition home or self-care (01) | DRG 638 ==
LOC: M PCU 05-12 15:15 → M MSPAV 05-12 21:54 → M ED 11:38 → M ED INP 15:26 → M ICU 17:08
PROVIDERS: Hospitalist
PROC: 02HV33Z Insertion of Infusion Device into Superior Vena Cava, Percutaneous Approach (ICD-10-PCS; principal; 2018-05-10)
DX: E11.00 Type 2 diabetes mellitus with hyperosmolarity without nonketotic hyperglycemic-hyperosmolar coma (NKHHC) (principal); N17.9 Acute kidney failure, unspecified; E87.2 Acidosis; I12.9 Hypertensive chronic kidney disease with stage 1 through stage 4 chronic kidney disease, or unspecified chronic kidney disease; E11.65 Type 2 diabetes mellitus with hyperglycemia; F17.210 Nicotine dependence, cigarettes, uncomplicated; N18.2 Chronic kidney disease, stage 2 (mild); E87.5 Hyperkalemia; Z90.81 Acquired absence of spleen; Z90.411 Acquired partial absence of pancreas; Z90.49 Acquired absence of other specified parts of digestive tract; Z79.82 Long term (current) use of aspirin; Z79.4 Long term (current) use of insulin; Z88.8 Allergy status to other drugs, medicaments and biological substances

== ENCOUNTER 2018-05-18 13:54 | Inpatient (IN) | payer MEDICARE, MEDICAID ==
[2018-05-18] MEDS: NS 1,000 ML IV ×3 (14:22→19:40)
[2018-05-18 14:31] LABS: VENOUS BASE EXCESS 6.9 (-2.0-2.0); VENOUS HCO3 29.7 MEQ/L (23.0-27.0); VENOUS O2 SATURATION 56.8 % (60.0-80.0); VENOUS PARTIAL PRESSURE CO2 36.4 mmHg (38.0-50.0); VENOUS PARTIAL PRESSURE O2 26.7 mmHg (30.0-50.0); VENOUS STANDARD HCO3 29.7 MEQ/L; VENOUS TOTAL CO2 30.9 MEQ/L (24.0-28.0)
[2018-05-18 14:34] LABS: BASO # 0.1 10^3/uL (0.0-0.2); EOS % 0.1 % (0.0-3.0); HEMATOCRIT 40.1 % (42.0-52.0); HEMOGLOBIN 12.8 g/dl (13.5-17.5); IMMATURE GRANULOCYTE % 0.5 % (0-3.0); LYMPH % 22.9 % (24.0-44.0); MEAN CORPUSCULAR HEMOGLOBIN 21.1 pg (27.0-33.0); MEAN CORPUSCULAR HGB CONC 31.9 g/dl (32.0-36.5); MEAN CORPUSCULAR VOLUME 66.2 fl (80.0-96.0); MONO # 0.5 10^3/uL (0.0-0.8); MONO % 6.3 % (0.0-5.0); NEUTROPHILS # 5.9 10^3/uL (1.8-7.7); NEUTROPHILS % 69.2 % (36.0-66.0); PLATELET COUNT, AUTOMATED 445 10^3/uL (150-450); RED BLOOD COUNT 6.06 10^6/uL (4.30-6.10); RED CELL DISTRIBUTION WIDTH 18.5 % (11.5-14.5); WHITE BLOOD COUNT 8.6 10^3/uL (4.0-10.0)
[2018-05-18] MEDS: DICYCLOMINE INJ 20MG/2ML (J0500) IM (14:50)
[2018-05-18 15:01] LABS: ANION GAP 13 MEQ/L (8-16); BLOOD UREA NITROGEN 32 MG/DL (7-18); CARBON DIOXIDE LEVEL 30 MEQ/L (21-32); CHLORIDE LEVEL 83 MEQ/L (98-107); CREATININE FOR GFR 1.83 MG/DL (0.70-1.30); MAGNESIUM LEVEL 2.2 MG/DL (1.8-2.4); SODIUM LEVEL 126 MEQ/L (136-145)
[2018-05-18 15:03] LABS: GLUCOSE, FASTING 862 MG/DL (70-100)
[2018-05-18] MEDS: SOD POLYSTYRENE SULFONATE SUSP 15 GM/60 ML UD PO (15:19)
[2018-05-18] MEDS: HumuLIN R (REGULAR) INSULIN (NovoLIN R) **100U/ML** PER UNIT IV (15:31)
[2018-05-18 15:42] LABS: ESTIMATED AVERAGE GLUCOSE 352 MG/DL (60-110); HEMOGLOBIN A1c 13.9 %
[2018-05-18] MEDS ORDERED: GLUCAGON FOR INJ 1 MG VIAL (J1610) SC (18:15)
[2018-05-18 18:49] LABS: BEDSIDE GLUCOSE 562 MG/DL (70-105)
[2018-05-18] MEDS: NICOTINE 21MG/24HR 1 EA TRANSDERMAL TD (19:35)
[2018-05-18] MEDS: LEVEMIR (INSULIN DETEMIR) 1 UNITS/0.01ML SC (19:35)
[2018-05-18] MEDS: HumaLOG INSULIN (NovoLOG) PER UNIT SC ×2 (21:00→22:17)
[2018-05-18] MEDS ORDERED: LEVEMIR (INSULIN DETEMIR) 1 UNITS/0.01ML SC (21:00)
[2018-05-18] MEDS: SENOKOT S TAB PO (21:39)
[2018-05-18] MEDS: GABAPENTIN 300 MG CAP PO (21:39)
[2018-05-18] MEDS: ACETAMINOPHEN TAB 650MG DOSE (2X325MG) PO (21:39)
[2018-05-18 21:51] LABS: LACTIC ACID SEPSIS PROTOCOL 5.1 MMOL/L (0.4-2.0)
[2018-05-18 21:51] LABS: ANION GAP 11 MEQ/L (8-16); BLOOD UREA NITROGEN 23 MG/DL (7-18); CARBON DIOXIDE LEVEL 25 MEQ/L (21-32); CHLORIDE LEVEL 95 MEQ/L (98-107); CPK CREATINE PHOSPHOKINASE 165 U/L (39-308); CREATININE FOR GFR 1.53 MG/DL (0.70-1.30); GLOMERULAR FILTRATION RATE 50.4 (>56); MAGNESIUM LEVEL 1.9 MG/DL (1.8-2.4); MB/CK RELATIVE INDEX 1.15 (< OR =4); POTASSIUM SERUM 4.9 MEQ/L (3.5-5.1); SODIUM LEVEL 131 MEQ/L (136-145); TROPONIN I < 0.02 NG/ML (< 0.10)
[2018-05-18 21:53] LABS: BEDSIDE GLUCOSE CONFIRMATION 581 MG/DL (LESS THAN 200); GLUCOSE, FASTING 581 MG/DL (70-100)
[2018-05-18 22:15] LABS: OSMOLALITY SERUM 314 MOSM/KG (275-295)
[2018-05-18] MEDS: MORPHINE 4 MG/ML 1ML VIAL/SYRINGE (J2270) IV (22:19)
[2018-05-18 23:04] LABS: BEDSIDE GLUCOSE 376 MG/DL (70-105)
[2018-05-18] MEDS ORDERED: PILL CRUSHER/CUTTER 1 EACH XX (23:30)
[2018-05-18] MEDS: SIMETHICONE 80 MG CHEW TAB PO (23:33)
[2018-05-19 00:54] LABS: CHLORIDE,RANDOM URINE 48 MEQ/L; CREATININE,RANDOM URINE 42.2 MG/DL; SODIUM,RANDOM URINE 69 MEQ/L; TOTAL PROTEIN,RANDOM URINE 11.4 MG/DL (0.0-12.0)
[2018-05-19 00:58] LABS: BEDSIDE GLUCOSE 182 MG/DL (70-105)
[2018-05-19 01:06] LABS: OSMOLALITY URINE 565 MOSM/KG (500-800)
[2018-05-19 01:30] LABS: ANION GAP 9 MEQ/L (8-16); BLOOD UREA NITROGEN 21 MG/DL (7-18); CALCIUM LEVEL 8.4 MG/DL (8.5-10.1); CARBON DIOXIDE LEVEL 30 MEQ/L (21-32); CHLORIDE LEVEL 100 MEQ/L (98-107); CREATININE FOR GFR 1.12 MG/DL (0.70-1.30); GLOMERULAR FILTRATION RATE > 60.0 (>56); GLUCOSE, FASTING 170 MG/DL (70-100); MAGNESIUM LEVEL 1.7 MG/DL (1.8-2.4); POTASSIUM SERUM 3.9 MEQ/L (3.5-5.1); SODIUM LEVEL 139 MEQ/L (136-145)
[2018-05-19 03:12] LABS: BEDSIDE GLUCOSE 60 MG/DL (70-105)
[2018-05-19] MEDS: DEXTROSE 50% 50 ML SYRINGE IV ×2 (03:16→04:28)
[2018-05-19 03:39] LABS: BEDSIDE GLUCOSE 105 MG/DL (70-105)
[2018-05-19] MEDS: MORPHINE 4 MG/ML 1ML VIAL/SYRINGE (J2270) IV ×2 (04:20→22:06)
[2018-05-19 04:24] LABS: BEDSIDE GLUCOSE 58 MG/DL (70-105)
[2018-05-19] MEDS: NS 1,000 ML IV ×3 (04:29→21:58)
[2018-05-19] MEDS: SIMETHICONE 80 MG CHEW TAB PO (04:41)
[2018-05-19 04:55] LABS: BEDSIDE GLUCOSE 113 MG/DL (70-105)
[2018-05-19 05:06] LABS: HEMATOCRIT 33.5 % (42.0-52.0); MEAN CORPUSCULAR HEMOGLOBIN 21.4 pg (27.0-33.0); MEAN CORPUSCULAR HGB CONC 31.9 g/dl (32.0-36.5); MEAN CORPUSCULAR VOLUME 66.9 fl (80.0-96.0); PLATELET COUNT, AUTOMATED 399 10^3/uL (150-450); RED BLOOD COUNT 5.01 10^6/uL (4.30-6.10); RED CELL DISTRIBUTION WIDTH 17.2 % (11.5-14.5)
[2018-05-19 05:17] LABS: HEMOGLOBIN 10.7 g/dl (13.5-17.5)
[2018-05-19 05:26] LABS: BEDSIDE GLUCOSE 90 MG/DL (70-105)
[2018-05-19] MEDS: MAG SULF 1GM/100ML (MAG RUN) 1 GM in APPROPRIATE DILUENT 1 EA IV (05:33)
[2018-05-19 05:34] LABS: ALBUMIN 3.3 GM/DL (3.2-5.2); ALBUMIN/GLOBULIN RATIO 1.03 (1.00-1.93); ALKALINE PHOSPHATASE 124 U/L (45-117); ALT/SGPT 53 U/L (12-78); ANION GAP 8 MEQ/L (8-16); AST/SGOT 47 U/L (7-37); BILIRUBIN,TOTAL 0.7 MG/DL (0.2-1.0); BLOOD UREA NITROGEN 19 MG/DL (7-18); CALCIUM LEVEL 8.4 MG/DL (8.5-10.1); CARBON DIOXIDE LEVEL 29 MEQ/L (21-32); CHLORIDE LEVEL 100 MEQ/L (98-107); CPK CREATINE PHOSPHOKINASE 130 U/L (39-308); GLOMERULAR FILTRATION RATE > 60.0 (>56); GLUCOSE, FASTING 105 MG/DL (70-100); MAGNESIUM LEVEL 1.8 MG/DL (1.8-2.4); POTASSIUM SERUM 3.4 MEQ/L (3.5-5.1); SODIUM LEVEL 137 MEQ/L (136-145); TOTAL PROTEIN 6.5 GM/DL (6.4-8.2); TROPONIN I < 0.02 NG/ML (< 0.10)
[2018-05-19] MEDS: POTASSIUM CHLORIDE 10 MEQ SR TABLET PO (06:00)
[2018-05-19] MEDS: HumaLOG INSULIN (NovoLOG) PER UNIT SC ×4 (07:30→21:58)
[2018-05-19 07:40] LABS: BEDSIDE GLUCOSE 48 MG/DL (70-105)
[2018-05-19 08:08] LABS: BEDSIDE GLUCOSE 71 MG/DL (70-105)
[2018-05-19 08:50] LABS: BEDSIDE GLUCOSE 181 MG/DL (70-105)
[2018-05-19] MEDS: FLUDROCORTISONE ACETATE 0.1 MG TAB PO (08:51)
[2018-05-19] MEDS: ASPIRIN 81 MG ENTERIC TAB PO (08:51)
[2018-05-19] MEDS: GABAPENTIN 300 MG CAP PO ×4 (08:51→21:57)
[2018-05-19] MEDS: PANTOPRAZOLE 40MG TAB (PROTONIX) PO (08:51)
[2018-05-19] MEDS: SENOKOT S TAB PO ×2 (08:51→21:56)
[2018-05-19] MEDS ORDERED: FUROSEMIDE 20 MG TAB PO (09:00)
[2018-05-19 09:51] LABS: ANION GAP 9 MEQ/L (8-16); BLOOD UREA NITROGEN 17 MG/DL (7-18); CALCIUM LEVEL 8.1 MG/DL (8.5-10.1); CARBON DIOXIDE LEVEL 27 MEQ/L (21-32); CHLORIDE LEVEL 98 MEQ/L (98-107); CREATININE FOR GFR 1.04 MG/DL (0.70-1.30); GLOMERULAR FILTRATION RATE > 60.0 (>56); GLUCOSE, FASTING 163 MG/DL (70-100); POTASSIUM SERUM 3.9 MEQ/L (3.5-5.1); SODIUM LEVEL 134 MEQ/L (136-145)
[2018-05-19 11:04] LABS: BEDSIDE GLUCOSE 292 MG/DL (70-105)
[2018-05-19 11:34] LABS: BEDSIDE GLUCOSE > 600 MG/DL (70-105)
[2018-05-19 11:34] LABS: BEDSIDE GLUCOSE > 600 MG/DL (70-105)
[2018-05-19 11:34] LABS: BEDSIDE GLUCOSE > 600 MG/DL (70-105)
[2018-05-19] MEDS: traMADol 50 MG TAB PO ×2 (11:42→19:33)
[2018-05-19] MEDS ORDERED: LIDOCAINE 1% MDV 20ML VIAL As Ordered (12:11)
[2018-05-19] MEDS ORDERED: SODIUM CHLORIDE 0.9% INJ 10 ML SYR IV (14:00)
[2018-05-19 14:02] LABS: ANION GAP 8 MEQ/L (8-16); BLOOD UREA NITROGEN 17 MG/DL (7-18); CALCIUM LEVEL 8.1 MG/DL (8.5-10.1); CARBON DIOXIDE LEVEL 28 MEQ/L (21-32); CHLORIDE LEVEL 100 MEQ/L (98-107); CREATININE FOR GFR 1.24 MG/DL (0.70-1.30); GLOMERULAR FILTRATION RATE > 60.0 (>56); GLUCOSE, FASTING 215 MG/DL (70-100); MAGNESIUM LEVEL 2.1 MG/DL (1.8-2.4); POTASSIUM SERUM 4.3 MEQ/L (3.5-5.1); SODIUM LEVEL 136 MEQ/L (136-145)
[2018-05-19 16:42] LABS: BEDSIDE GLUCOSE 375 MG/DL (70-105)
[2018-05-19] MEDS: SODIUM CHLORIDE 0.9% INJ 10 ML SYR IV (17:53)
[2018-05-19 21:18] LABS: BEDSIDE GLUCOSE 266 MG/DL (70-105)
[2018-05-19] MEDS: LEVEMIR (INSULIN DETEMIR) 1 UNITS/0.01ML SC (21:58)
[2018-05-20 00:41] LABS: BEDSIDE GLUCOSE 146 MG/DL (70-105)
[2018-05-20] MEDS: NS 1,000 ML IV ×3 (04:54→22:44)
[2018-05-20] MEDS: SODIUM CHLORIDE 0.9% INJ 10 ML SYR IV ×2 (04:54→18:00)
[2018-05-20] MEDS: MORPHINE 4 MG/ML 1ML VIAL/SYRINGE (J2270) IV ×3 (04:54→17:44)
[2018-05-20 05:17] LABS: HEMATOCRIT 27.8 % (42.0-52.0); HEMOGLOBIN 8.9 g/dl (13.5-17.5); MEAN CORPUSCULAR HEMOGLOBIN 21.3 pg (27.0-33.0); MEAN CORPUSCULAR VOLUME 66.7 fl (80.0-96.0); PLATELET COUNT, AUTOMATED 339 10^3/uL (150-450); RED BLOOD COUNT 4.17 10^6/uL (4.30-6.10); RED CELL DISTRIBUTION WIDTH 17.3 % (11.5-14.5); WHITE BLOOD COUNT 10.8 10^3/uL (4.0-10.0)
[2018-05-20 05:40] LABS: ALBUMIN 2.9 GM/DL (3.2-5.2); ALBUMIN/GLOBULIN RATIO 1.12 (1.00-1.93); ALKALINE PHOSPHATASE 104 U/L (45-117); ALT/SGPT 38 U/L (12-78); ANION GAP 7 MEQ/L (8-16); AST/SGOT 26 U/L (7-37); BILIRUBIN,TOTAL 0.4 MG/DL (0.2-1.0); BLOOD UREA NITROGEN 9 MG/DL (7-18); CALCIUM LEVEL 7.7 MG/DL (8.5-10.1); CARBON DIOXIDE LEVEL 27 MEQ/L (21-32); CHLORIDE LEVEL 105 MEQ/L (98-107); CREATININE FOR GFR 0.79 MG/DL (0.70-1.30); GLOMERULAR FILTRATION RATE > 60.0 (>56); GLUCOSE, FASTING 40 MG/DL (70-100); POTASSIUM SERUM 4.1 MEQ/L (3.5-5.1); SODIUM LEVEL 139 MEQ/L (136-145); TOTAL PROTEIN 5.5 GM/DL (6.4-8.2)
[2018-05-20] MEDS: HumaLOG INSULIN (NovoLOG) PER UNIT SC ×4 (07:30→21:00)
[2018-05-20 08:22] LABS: BEDSIDE GLUCOSE 75 MG/DL (70-105)
[2018-05-20] MEDS: SENOKOT S TAB PO ×2 (09:15→22:26)
[2018-05-20] MEDS: ASPIRIN 81 MG ENTERIC TAB PO (09:15)
[2018-05-20] MEDS: PANTOPRAZOLE 40MG TAB (PROTONIX) PO (09:15)
[2018-05-20] MEDS: FLUDROCORTISONE ACETATE 0.1 MG TAB PO (09:15)
[2018-05-20] MEDS: GABAPENTIN 300 MG CAP PO ×4 (09:15→22:26)
[2018-05-20 11:29] LABS: BEDSIDE GLUCOSE 120 MG/DL (70-105)
[2018-05-20] MEDS: NICOTINE 21MG/24HR 1 EA TRANSDERMAL TD (18:34)
[2018-05-20 20:05] LABS: BEDSIDE GLUCOSE 130 MG/DL (70-105)
[2018-05-20 22:03] LABS: BEDSIDE GLUCOSE 194 MG/DL (70-105)
[2018-05-20] MEDS: LEVEMIR (INSULIN DETEMIR) 1 UNITS/0.01ML SC (22:27)
[2018-05-21] MEDS: MORPHINE 4 MG/ML 1ML VIAL/SYRINGE (J2270) IV ×4 (00:26→18:48)
[2018-05-21] MEDS: NS 1,000 ML IV ×3 (06:44→23:00)
[2018-05-21] MEDS: SODIUM CHLORIDE 0.9% INJ 10 ML SYR IV ×2 (06:44→18:00)
[2018-05-21 06:59] LABS: HEMOGLOBIN 9.3 g/dl (13.5-17.5); MEAN CORPUSCULAR HEMOGLOBIN 21.4 pg (27.0-33.0); MEAN CORPUSCULAR HGB CONC 32.1 g/dl (32.0-36.5); MEAN CORPUSCULAR VOLUME 66.7 fl (80.0-96.0); PLATELET COUNT, AUTOMATED 353 10^3/uL (150-450); RED BLOOD COUNT 4.35 10^6/uL (4.30-6.10); RED CELL DISTRIBUTION WIDTH 17.7 % (11.5-14.5); WHITE BLOOD COUNT 11.4 10^3/uL (4.0-10.0)
[2018-05-21 07:25] LABS: ALBUMIN 3.1 GM/DL (3.2-5.2); ALBUMIN/GLOBULIN RATIO 1.19 (1.00-1.93); ALKALINE PHOSPHATASE 99 U/L (45-117); ALT/SGPT 34 U/L (12-78); ANION GAP 6 MEQ/L (8-16); AST/SGOT 30 U/L (7-37); BILIRUBIN,TOTAL 0.3 MG/DL (0.2-1.0); BLOOD UREA NITROGEN 9 MG/DL (7-18); CALCIUM LEVEL 8.1 MG/DL (8.5-10.1); CARBON DIOXIDE LEVEL 28 MEQ/L (21-32); CHLORIDE LEVEL 107 MEQ/L (98-107); GLOMERULAR FILTRATION RATE > 60.0 (>56); GLUCOSE, FASTING 39 MG/DL (70-100); SODIUM LEVEL 141 MEQ/L (136-145); TOTAL PROTEIN 5.7 GM/DL (6.4-8.2)
[2018-05-21] MEDS: HumaLOG INSULIN (NovoLOG) PER UNIT SC ×4 (07:30→21:00)
[2018-05-21] MEDS: GLUCOSE 4 GM CHEW TABLET PO (07:41)
[2018-05-21] MEDS: SENOKOT S TAB PO ×2 (09:40→22:02)
[2018-05-21] MEDS: GABAPENTIN 300 MG CAP PO ×4 (09:40→22:02)
[2018-05-21] MEDS: ASPIRIN 81 MG ENTERIC TAB PO (09:40)
[2018-05-21] MEDS: FLUDROCORTISONE ACETATE 0.1 MG TAB PO (09:41)
[2018-05-21] MEDS: PANTOPRAZOLE 40MG TAB (PROTONIX) PO (09:41)
[2018-05-21] MEDS: NICOTINE 21MG/24HR 1 EA TRANSDERMAL TD (09:41)
[2018-05-21 17:02] LABS: BEDSIDE GLUCOSE 30 MG/DL (70-105)
[2018-05-21 17:02] LABS: BEDSIDE GLUCOSE 72 MG/DL (70-105)
[2018-05-21 17:02] LABS: BEDSIDE GLUCOSE 190 MG/DL (70-105)
[2018-05-21 17:02] LABS: BEDSIDE GLUCOSE 110 MG/DL (70-105)
[2018-05-21] MEDS: ONDANSETRON 4 MG TAB (S0181) PO (17:29)
[2018-05-21] MEDS: traMADol 50 MG TAB PO (17:29)
[2018-05-21 21:19] LABS: BEDSIDE GLUCOSE 152 MG/DL (70-105)
[2018-05-22] MEDS: MORPHINE 4 MG/ML 1ML VIAL/SYRINGE (J2270) IV ×4 (01:20→21:15)
[2018-05-22 01:27] LABS: BEDSIDE GLUCOSE 391 MG/DL (70-105)
[2018-05-22] MEDS: SODIUM CHLORIDE 0.9% INJ 10 ML SYR IV ×2 (05:42→18:14)
[2018-05-22] MEDS: traMADol 50 MG TAB PO (05:43)
[2018-05-22 06:15] LABS: HEMATOCRIT 28.2 % (42.0-52.0); HEMOGLOBIN 8.9 g/dl (13.5-17.5); MEAN CORPUSCULAR HEMOGLOBIN 21.5 pg (27.0-33.0); MEAN CORPUSCULAR HGB CONC 31.6 g/dl (32.0-36.5); MEAN CORPUSCULAR VOLUME 68.3 fl (80.0-96.0); PLATELET COUNT, AUTOMATED 270 10^3/uL (150-450); RED BLOOD COUNT 4.13 10^6/uL (4.30-6.10); RED CELL DISTRIBUTION WIDTH 18.4 % (11.5-14.5)
[2018-05-22 06:40] LABS: ALBUMIN 2.8 GM/DL (3.2-5.2); ALBUMIN/GLOBULIN RATIO 1.04 (1.00-1.93); ALKALINE PHOSPHATASE 106 U/L (45-117); ALT/SGPT 32 U/L (12-78); ANION GAP 9 MEQ/L (8-16); AST/SGOT 31 U/L (7-37); BILIRUBIN,TOTAL 0.3 MG/DL (0.2-1.0); BLOOD UREA NITROGEN 12 MG/DL (7-18); CALCIUM LEVEL 7.8 MG/DL (8.5-10.1); CARBON DIOXIDE LEVEL 26 MEQ/L (21-32); CHLORIDE LEVEL 102 MEQ/L (98-107); CREATININE FOR GFR 1.15 MG/DL (0.70-1.30); GLOMERULAR FILTRATION RATE > 60.0 (>56); GLUCOSE, FASTING 342 MG/DL (70-100); POTASSIUM SERUM 5.5 MEQ/L (3.5-5.1); SODIUM LEVEL 137 MEQ/L (136-145); TOTAL PROTEIN 5.5 GM/DL (6.4-8.2)
[2018-05-22] MEDS: NS 1,000 ML IV (07:13)
[2018-05-22] MEDS: NICOTINE 21MG/24HR 1 EA TRANSDERMAL TD (08:03)
[2018-05-22] MEDS: SENOKOT S TAB PO ×2 (08:03→21:13)
[2018-05-22] MEDS: HumaLOG INSULIN (NovoLOG) PER UNIT SC ×4 (08:03→21:13)
[2018-05-22] MEDS: LEVEMIR (INSULIN DETEMIR) 1 UNITS/0.01ML SC (08:03)
[2018-05-22] MEDS: GABAPENTIN 300 MG CAP PO ×4 (08:04→21:13)
[2018-05-22] MEDS: FUROSEMIDE 20 MG TAB PO (08:04)
[2018-05-22] MEDS: PANTOPRAZOLE 40MG TAB (PROTONIX) PO (08:04)
[2018-05-22] MEDS: FLUDROCORTISONE ACETATE 0.1 MG TAB PO (08:04)
[2018-05-22] MEDS: ASPIRIN 81 MG ENTERIC TAB PO (08:04)
[2018-05-22 11:44] LABS: BEDSIDE GLUCOSE 164 MG/DL (70-105)
[2018-05-22] MEDS: HEPARIN SOD (PORCINE) 5000 UNITS/ML VIAL SC ×2 (14:30→21:12)
[2018-05-22 17:53] LABS: BEDSIDE GLUCOSE 85 MG/DL (70-105)
[2018-05-22 20:20] LABS: BEDSIDE GLUCOSE 265 MG/DL (70-105)
[2018-05-22] MEDS: ONDANSETRON 4 MG TAB (S0181) PO (21:13)
[2018-05-23] MEDS: traMADol 50 MG TAB PO ×4 (00:19→18:27)
[2018-05-23] MEDS: SODIUM CHLORIDE 0.9% INJ 10 ML SYR IV ×2 (05:23→17:36)
[2018-05-23] MEDS: HEPARIN SOD (PORCINE) 5000 UNITS/ML VIAL SC ×3 (05:24→21:36)
[2018-05-23] MEDS: MORPHINE 4 MG/ML 1ML VIAL/SYRINGE (J2270) IV (05:24)
[2018-05-23 05:48] LABS: HEMATOCRIT 27.6 % (42.0-52.0); HEMOGLOBIN 8.6 g/dl (13.5-17.5); MEAN CORPUSCULAR HEMOGLOBIN 21.1 pg (27.0-33.0); MEAN CORPUSCULAR HGB CONC 31.2 g/dl (32.0-36.5); MEAN CORPUSCULAR VOLUME 67.8 fl (80.0-96.0); PLATELET COUNT, AUTOMATED 263 10^3/uL (150-450); RED BLOOD COUNT 4.07 10^6/uL (4.30-6.10); RED CELL DISTRIBUTION WIDTH 17.4 % (11.5-14.5)
[2018-05-23 06:14] LABS: ALBUMIN 2.8 GM/DL (3.2-5.2); ALBUMIN/GLOBULIN RATIO 1.04 (1.00-1.93); ALKALINE PHOSPHATASE 101 U/L (45-117); ALT/SGPT 28 U/L (12-78); ANION GAP 5 MEQ/L (8-16); AST/SGOT 30 U/L (7-37); BILIRUBIN,TOTAL 0.3 MG/DL (0.2-1.0); BLOOD UREA NITROGEN 13 MG/DL (7-18); CALCIUM LEVEL 7.6 MG/DL (8.5-10.1); CARBON DIOXIDE LEVEL 30 MEQ/L (21-32); CHLORIDE LEVEL 101 MEQ/L (98-107); CREATININE FOR GFR 1.06 MG/DL (0.70-1.30); GLOMERULAR FILTRATION RATE > 60.0 (>56); GLUCOSE, FASTING 315 MG/DL (70-100); POTASSIUM SERUM 5.1 MEQ/L (3.5-5.1); SODIUM LEVEL 136 MEQ/L (136-145); TOTAL PROTEIN 5.5 GM/DL (6.4-8.2)
[2018-05-23] MEDS: HumaLOG INSULIN (NovoLOG) PER UNIT SC ×5 (08:07→20:23)
[2018-05-23] MEDS ORDERED: LEVEMIR (INSULIN DETEMIR) 1 UNITS/0.01ML SC (08:15)
[2018-05-23] MEDS: ASPIRIN 81 MG ENTERIC TAB PO (08:57)
[2018-05-23] MEDS: PANTOPRAZOLE 40MG TAB (PROTONIX) PO (08:57)
[2018-05-23] MEDS: SENOKOT S TAB PO ×2 (08:58→21:35)
[2018-05-23] MEDS: FUROSEMIDE 20 MG TAB PO (08:58)
[2018-05-23] MEDS: GABAPENTIN 300 MG CAP PO ×4 (08:58→21:35)
[2018-05-23] MEDS: FLUDROCORTISONE ACETATE 0.1 MG TAB PO (08:59)
[2018-05-23] MEDS: NICOTINE 21MG/24HR 1 EA TRANSDERMAL TD (08:59)
[2018-05-23] MEDS: LEVEMIR (INSULIN DETEMIR) 1 UNITS/0.01ML SC (09:00)
[2018-05-23 17:37] LABS: BEDSIDE GLUCOSE 125 MG/DL (70-105)
[2018-05-24] MEDS: traMADol 50 MG TAB PO ×3 (05:31→23:04)
[2018-05-24] MEDS: SODIUM CHLORIDE 0.9% INJ 10 ML SYR IV ×2 (05:31→17:48)
[2018-05-24] MEDS: HEPARIN SOD (PORCINE) 5000 UNITS/ML VIAL SC ×3 (05:32→20:46)
[2018-05-24 05:48] LABS: HEMATOCRIT 27.1 % (42.0-52.0); HEMOGLOBIN 8.7 g/dl (13.5-17.5); MEAN CORPUSCULAR HEMOGLOBIN 21.6 pg (27.0-33.0); MEAN CORPUSCULAR HGB CONC 32.1 g/dl (32.0-36.5); MEAN CORPUSCULAR VOLUME 67.4 fl (80.0-96.0); PLATELET COUNT, AUTOMATED 325 10^3/uL (150-450); RED BLOOD COUNT 4.02 10^6/uL (4.30-6.10); RED CELL DISTRIBUTION WIDTH 18.1 % (11.5-14.5); WHITE BLOOD COUNT 10.6 10^3/uL (4.0-10.0)
[2018-05-24 06:21] LABS: ALBUMIN 2.9 GM/DL (3.2-5.2); ALBUMIN/GLOBULIN RATIO 1.04 (1.00-1.93); ALKALINE PHOSPHATASE 102 U/L (45-117); ALT/SGPT 30 U/L (12-78); ANION GAP 8 MEQ/L (8-16); AST/SGOT 30 U/L (7-37); BILIRUBIN,TOTAL 0.3 MG/DL (0.2-1.0); BLOOD UREA NITROGEN 13 MG/DL (7-18); CALCIUM LEVEL 8.1 MG/DL (8.5-10.1); CARBON DIOXIDE LEVEL 29 MEQ/L (21-32); CHLORIDE LEVEL 100 MEQ/L (98-107); CREATININE FOR GFR 1.11 MG/DL (0.70-1.30); GLOMERULAR FILTRATION RATE > 60.0 (>56); GLUCOSE, FASTING 350 MG/DL (70-100); POTASSIUM SERUM 5.4 MEQ/L (3.5-5.1); SODIUM LEVEL 137 MEQ/L (136-145); TOTAL PROTEIN 5.7 GM/DL (6.4-8.2)
[2018-05-24] MEDS: HumaLOG INSULIN (NovoLOG) PER UNIT SC ×4 (07:54→20:45)
[2018-05-24] MEDS: LEVEMIR (INSULIN DETEMIR) 1 UNITS/0.01ML SC ×2 (08:53→20:46)
[2018-05-24] MEDS: SENOKOT S TAB PO ×2 (09:08→20:45)
[2018-05-24] MEDS: ASPIRIN 81 MG ENTERIC TAB PO (09:09)
[2018-05-24] MEDS: PANTOPRAZOLE 40MG TAB (PROTONIX) PO (09:09)
[2018-05-24] MEDS: GABAPENTIN 300 MG CAP PO ×4 (09:09→20:45)
[2018-05-24] MEDS: FUROSEMIDE 20 MG TAB PO (09:09)
[2018-05-24] MEDS: NICOTINE 21MG/24HR 1 EA TRANSDERMAL TD (09:10)
[2018-05-24] MEDS: FLUDROCORTISONE ACETATE 0.1 MG TAB PO (09:10)
[2018-05-24] MEDS: ACETAMINOPHEN TAB 650MG DOSE (2X325MG) PO (23:03)
[2018-05-25] MEDS: SODIUM CHLORIDE 0.9% INJ 10 ML SYR IV ×2 (05:31→17:14)
[2018-05-25] MEDS: HEPARIN SOD (PORCINE) 5000 UNITS/ML VIAL SC ×3 (05:31→21:27)
[2018-05-25 05:36] LABS: HEMATOCRIT 25.8 % (42.0-52.0); HEMOGLOBIN 8.1 g/dl (13.5-17.5); MEAN CORPUSCULAR HEMOGLOBIN 21.4 pg (27.0-33.0); MEAN CORPUSCULAR HGB CONC 31.4 g/dl (32.0-36.5); MEAN CORPUSCULAR VOLUME 68.1 fl (80.0-96.0); PLATELET COUNT, AUTOMATED 320 10^3/uL (150-450); RED BLOOD COUNT 3.79 10^6/uL (4.30-6.10); RED CELL DISTRIBUTION WIDTH 18.2 % (11.5-14.5); WHITE BLOOD COUNT 10.3 10^3/uL (4.0-10.0)
[2018-05-25 06:13] LABS: ALBUMIN 2.9 GM/DL (3.2-5.2); ALBUMIN/GLOBULIN RATIO 1.07 (1.00-1.93); ALKALINE PHOSPHATASE 77 U/L (45-117); ALT/SGPT 27 U/L (12-78); ANION GAP 6 MEQ/L (8-16); AST/SGOT 19 U/L (7-37); BILIRUBIN,TOTAL 0.3 MG/DL (0.2-1.0); BLOOD UREA NITROGEN 12 MG/DL (7-18); CALCIUM LEVEL 8.1 MG/DL (8.5-10.1); CARBON DIOXIDE LEVEL 31 MEQ/L (21-32); CHLORIDE LEVEL 106 MEQ/L (98-107); CREATININE FOR GFR 0.84 MG/DL (0.70-1.30); GLOMERULAR FILTRATION RATE > 60.0 (>56); GLUCOSE, FASTING 81 MG/DL (70-100); POTASSIUM SERUM 4.4 MEQ/L (3.5-5.1); SODIUM LEVEL 143 MEQ/L (136-145); TOTAL PROTEIN 5.6 GM/DL (6.4-8.2)
[2018-05-25] MEDS: traMADol 50 MG TAB PO ×3 (07:03→21:26)
[2018-05-25] MEDS: ACETAMINOPHEN TAB 650MG DOSE (2X325MG) PO ×3 (07:03→21:26)
[2018-05-25] MEDS: HumaLOG INSULIN (NovoLOG) PER UNIT SC ×4 (07:30→21:25)
[2018-05-25] MEDS: FLUDROCORTISONE ACETATE 0.1 MG TAB PO (08:23)
[2018-05-25] MEDS: ASPIRIN 81 MG ENTERIC TAB PO (08:23)
[2018-05-25] MEDS: NICOTINE 21MG/24HR 1 EA TRANSDERMAL TD (08:23)
[2018-05-25] MEDS: FUROSEMIDE 20 MG TAB PO (08:23)
[2018-05-25] MEDS: PANTOPRAZOLE 40MG TAB (PROTONIX) PO (08:24)
[2018-05-25] MEDS: LEVEMIR (INSULIN DETEMIR) 1 UNITS/0.01ML SC ×2 (08:24→21:26)
[2018-05-25] MEDS: SENOKOT S TAB PO ×2 (08:24→21:25)
[2018-05-25] MEDS: GABAPENTIN 300 MG CAP PO ×4 (08:24→21:25)
[2018-05-25 11:58] LABS: BEDSIDE GLUCOSE 212 MG/DL (70-105)
[2018-05-25 11:58] LABS: BEDSIDE GLUCOSE 128 MG/DL (70-105)
[2018-05-25 11:58] LABS: BEDSIDE GLUCOSE 134 MG/DL (70-105)
[2018-05-25 11:59] LABS: BEDSIDE GLUCOSE 93 MG/DL (70-105)
[2018-05-25 11:59] LABS: BEDSIDE GLUCOSE 330 MG/DL (70-105)
[2018-05-25 12:04] LABS: BEDSIDE GLUCOSE 183 MG/DL (70-105)
[2018-05-25 16:41] LABS: BEDSIDE GLUCOSE 99 MG/DL (70-105)
[2018-05-26] MEDS: SODIUM CHLORIDE 0.9% INJ 10 ML SYR IV ×2 (05:15→17:26)
[2018-05-26] MEDS: HEPARIN SOD (PORCINE) 5000 UNITS/ML VIAL SC ×4 (05:16→22:00)
[2018-05-26] MEDS: traMADol 50 MG TAB PO ×3 (05:24→21:25)
[2018-05-26] MEDS: ACETAMINOPHEN TAB 650MG DOSE (2X325MG) PO ×3 (05:24→21:25)
[2018-05-26] MEDS: HumaLOG INSULIN (NovoLOG) PER UNIT SC ×4 (07:30→21:00)
[2018-05-26] MEDS: GABAPENTIN 300 MG CAP PO ×4 (08:26→21:25)
[2018-05-26] MEDS: PANTOPRAZOLE 40MG TAB (PROTONIX) PO (08:26)
[2018-05-26] MEDS: NICOTINE 21MG/24HR 1 EA TRANSDERMAL TD (08:26)
[2018-05-26] MEDS: SENOKOT S TAB PO ×2 (08:26→21:25)
[2018-05-26] MEDS: FLUDROCORTISONE ACETATE 0.1 MG TAB PO (08:27)
[2018-05-26] MEDS: ASPIRIN 81 MG ENTERIC TAB PO (08:27)
[2018-05-26] MEDS: LEVEMIR (INSULIN DETEMIR) 1 UNITS/0.01ML SC ×2 (08:27→21:26)
[2018-05-26] MEDS: FUROSEMIDE 20 MG TAB PO (08:27)
[2018-05-26 18:06] LABS: BEDSIDE GLUCOSE 64 MG/DL (70-105)
[2018-05-26 18:06] LABS: BEDSIDE GLUCOSE 152 MG/DL (70-105)
[2018-05-26 18:06] LABS: BEDSIDE GLUCOSE 142 MG/DL (70-105)
[2018-05-26 18:06] LABS: BEDSIDE GLUCOSE 347 MG/DL (70-105)
[2018-05-26 18:06] LABS: BEDSIDE GLUCOSE 124 MG/DL (70-105)
[2018-05-26 21:02] LABS: BEDSIDE GLUCOSE 218 MG/DL (70-105)
[2018-05-27] MEDS: SODIUM CHLORIDE 0.9% INJ 10 ML SYR IV ×2 (05:39→17:27)
[2018-05-27] MEDS: HEPARIN SOD (PORCINE) 5000 UNITS/ML VIAL SC ×3 (05:39→21:28)
[2018-05-27] MEDS: ACETAMINOPHEN TAB 650MG DOSE (2X325MG) PO ×2 (05:45→22:50)
[2018-05-27] MEDS: traMADol 50 MG TAB PO ×3 (05:45→22:50)
[2018-05-27 06:27] LABS: BEDSIDE GLUCOSE 222 MG/DL (70-105)
[2018-05-27 07:16] LABS: HEMATOCRIT 26.6 % (42.0-52.0); HEMOGLOBIN 8.3 g/dl (13.5-17.5); MEAN CORPUSCULAR HEMOGLOBIN 21.5 pg (27.0-33.0); MEAN CORPUSCULAR HGB CONC 31.2 g/dl (32.0-36.5); MEAN CORPUSCULAR VOLUME 68.9 fl (80.0-96.0); PLATELET COUNT, AUTOMATED 355 10^3/uL (150-450); RED BLOOD COUNT 3.86 10^6/uL (4.30-6.10); RED CELL DISTRIBUTION WIDTH 18.6 % (11.5-14.5); WHITE BLOOD COUNT 8.6 10^3/uL (4.0-10.0)
[2018-05-27 07:34] LABS: ANION GAP 6 MEQ/L (8-16); BLOOD UREA NITROGEN 14 MG/DL (7-18); CALCIUM LEVEL 8.1 MG/DL (8.5-10.1); CARBON DIOXIDE LEVEL 28 MEQ/L (21-32); CHLORIDE LEVEL 104 MEQ/L (98-107); CREATININE FOR GFR 0.89 MG/DL (0.70-1.30); GLOMERULAR FILTRATION RATE > 60.0 (>56); GLUCOSE, FASTING 243 MG/DL (70-100); POTASSIUM SERUM 4.7 MEQ/L (3.5-5.1); SODIUM LEVEL 138 MEQ/L (136-145)
[2018-05-27] MEDS: HumaLOG INSULIN (NovoLOG) PER UNIT SC ×4 (08:57→21:28)
[2018-05-27] MEDS: FUROSEMIDE 20 MG TAB PO (08:58)
[2018-05-27] MEDS: FLUDROCORTISONE ACETATE 0.1 MG TAB PO (08:58)
[2018-05-27] MEDS: PANTOPRAZOLE 40MG TAB (PROTONIX) PO (08:58)
[2018-05-27] MEDS: SENOKOT S TAB PO ×2 (08:58→21:28)
[2018-05-27] MEDS: ASPIRIN 81 MG ENTERIC TAB PO (08:58)
[2018-05-27] MEDS: GABAPENTIN 300 MG CAP PO ×4 (08:58→21:28)
[2018-05-27] MEDS: NICOTINE 21MG/24HR 1 EA TRANSDERMAL TD (08:58)
[2018-05-27] MEDS: LEVEMIR (INSULIN DETEMIR) 1 UNITS/0.01ML SC ×2 (08:58→21:28)
[2018-05-27 11:29] LABS: BEDSIDE GLUCOSE 78 MG/DL (70-105)
[2018-05-27 16:37] LABS: BEDSIDE GLUCOSE 106 MG/DL (70-105)
[2018-05-27 20:59] LABS: BEDSIDE GLUCOSE 541 MG/DL (70-105)
[2018-05-27 21:00] LABS: BEDSIDE GLUCOSE 513 MG/DL (70-105)
[2018-05-27 22:34] LABS: BEDSIDE GLUCOSE 452 MG/DL (70-105)
[2018-05-28] MEDS: HEPARIN SOD (PORCINE) 5000 UNITS/ML VIAL SC ×3 (05:44→21:44)
[2018-05-28] MEDS: SODIUM CHLORIDE 0.9% INJ 10 ML SYR IV ×2 (05:44→17:52)
[2018-05-28 06:15] LABS: BEDSIDE GLUCOSE 40 MG/DL (70-105)
[2018-05-28 06:48] LABS: BEDSIDE GLUCOSE 61 MG/DL (70-105)
[2018-05-28] MEDS: ACETAMINOPHEN TAB 650MG DOSE (2X325MG) PO (06:50)
[2018-05-28] MEDS: traMADol 50 MG TAB PO ×2 (06:51→15:30)
[2018-05-28] MEDS: HumaLOG INSULIN (NovoLOG) PER UNIT SC ×4 (07:30→21:00)
[2018-05-28 07:45] LABS: HEMOGLOBIN 8.4 g/dl (13.5-17.5); MEAN CORPUSCULAR HEMOGLOBIN 21.2 pg (27.0-33.0); MEAN CORPUSCULAR HGB CONC 31.1 g/dl (32.0-36.5); PLATELET COUNT, AUTOMATED 313 10^3/uL (150-450); RED BLOOD COUNT 3.97 10^6/uL (4.30-6.10); RED CELL DISTRIBUTION WIDTH 18.4 % (11.5-14.5); WHITE BLOOD COUNT 8.6 10^3/uL (4.0-10.0)
[2018-05-28 07:58] LABS: ANION GAP 7 MEQ/L (8-16); BLOOD UREA NITROGEN 13 MG/DL (7-18); CALCIUM LEVEL 7.9 MG/DL (8.5-10.1); CARBON DIOXIDE LEVEL 30 MEQ/L (21-32); CHLORIDE LEVEL 106 MEQ/L (98-107); CREATININE FOR GFR 0.83 MG/DL (0.70-1.30); GLOMERULAR FILTRATION RATE > 60.0 (>56); GLUCOSE, FASTING 52 MG/DL (70-100); POTASSIUM SERUM 3.9 MEQ/L (3.5-5.1); SODIUM LEVEL 143 MEQ/L (136-145)
[2018-05-28] MEDS: NICOTINE 21MG/24HR 1 EA TRANSDERMAL TD (08:23)
[2018-05-28] MEDS: LEVEMIR (INSULIN DETEMIR) 1 UNITS/0.01ML SC ×2 (08:24→21:44)
[2018-05-28] MEDS: FLUDROCORTISONE ACETATE 0.1 MG TAB PO (08:24)
[2018-05-28] MEDS: ASPIRIN 81 MG ENTERIC TAB PO (08:24)
[2018-05-28] MEDS: FUROSEMIDE 20 MG TAB PO (08:24)
[2018-05-28] MEDS: GABAPENTIN 300 MG CAP PO ×4 (08:24→21:44)
[2018-05-28] MEDS: SENOKOT S TAB PO ×2 (08:24→21:44)
[2018-05-28] MEDS: PANTOPRAZOLE 40MG TAB (PROTONIX) PO (08:24)
[2018-05-28 12:13] LABS: BEDSIDE GLUCOSE 94 MG/DL (70-105)
[2018-05-28 17:03] LABS: BEDSIDE GLUCOSE 345 MG/DL (70-105)
[2018-05-28 21:33] LABS: BEDSIDE GLUCOSE 143 MG/DL (70-105)
[2018-05-29] MEDS: SODIUM CHLORIDE 0.9% INJ 10 ML SYR IV (05:18)
[2018-05-29] MEDS: HEPARIN SOD (PORCINE) 5000 UNITS/ML VIAL SC (05:18)
[2018-05-29 05:26] LABS: HEMATOCRIT 27.1 % (42.0-52.0); HEMOGLOBIN 8.5 g/dl (13.5-17.5); MEAN CORPUSCULAR HEMOGLOBIN 21.1 pg (27.0-33.0); MEAN CORPUSCULAR HGB CONC 31.4 g/dl (32.0-36.5); MEAN CORPUSCULAR VOLUME 67.4 fl (80.0-96.0); PLATELET COUNT, AUTOMATED 381 10^3/uL (150-450); RED BLOOD COUNT 4.02 10^6/uL (4.30-6.10); RED CELL DISTRIBUTION WIDTH 18.6 % (11.5-14.5); WHITE BLOOD COUNT 8.6 10^3/uL (4.0-10.0)
[2018-05-29 05:57] LABS: ANION GAP 8 MEQ/L (8-16); BLOOD UREA NITROGEN 11 MG/DL (7-18); CARBON DIOXIDE LEVEL 28 MEQ/L (21-32); CHLORIDE LEVEL 109 MEQ/L (98-107); CREATININE FOR GFR 0.75 MG/DL (0.70-1.30); GLOMERULAR FILTRATION RATE > 60.0 (>56); GLUCOSE, FASTING 73 MG/DL (70-100); SODIUM LEVEL 145 MEQ/L (136-145)
[2018-05-29] MEDS: HumaLOG INSULIN (NovoLOG) PER UNIT SC (07:30)
[2018-05-29] MEDS: PANTOPRAZOLE 40MG TAB (PROTONIX) PO (08:34)
[2018-05-29] MEDS: NICOTINE 21MG/24HR 1 EA TRANSDERMAL TD (08:34)
[2018-05-29] MEDS: FUROSEMIDE 20 MG TAB PO (08:34)
[2018-05-29] MEDS: GABAPENTIN 300 MG CAP PO (08:35)
[2018-05-29] MEDS: LEVEMIR (INSULIN DETEMIR) 1 UNITS/0.01ML SC (08:35)
[2018-05-29] MEDS: SENOKOT S TAB PO (08:35)
[2018-05-29] MEDS: FLUDROCORTISONE ACETATE 0.1 MG TAB PO (08:35)
[2018-05-29] MEDS: ASPIRIN 81 MG ENTERIC TAB PO (08:35)
== END 2018-05-29 10:00 | disposition home health service (06) | DRG 638 ==
LOC: M MS5PR 05-20 00:27 → M ED 13:54 → M ED INP 19:10 → M ICU 20:30
PROC: 02HV33Z Insertion of Infusion Device into Superior Vena Cava, Percutaneous Approach (ICD-10-PCS; principal; 2018-05-19)
DX: E11.65 Type 2 diabetes mellitus with hyperglycemia (principal); N17.9 Acute kidney failure, unspecified; K86.1 Other chronic pancreatitis; E27.40 Unspecified adrenocortical insufficiency; K56.7 Ileus, unspecified; I12.9 Hypertensive chronic kidney disease with stage 1 through stage 4 chronic kidney disease, or unspecified chronic kidney disease; E11.40 Type 2 diabetes mellitus with diabetic neuropathy, unspecified; D56.3 Thalassemia minor; E87.5 Hyperkalemia; F17.210 Nicotine dependence, cigarettes, uncomplicated; E11.22 Type 2 diabetes mellitus with diabetic chronic kidney disease; N18.2 Chronic kidney disease, stage 2 (mild); Z90.49 Acquired absence of other specified parts of digestive tract; Z90.411 Acquired partial absence of pancreas; Z90.81 Acquired absence of spleen; Z79.82 Long term (current) use of aspirin; Z79.4 Long term (current) use of insulin; Z88.8 Allergy status to other drugs, medicaments and biological substances; Z91.19 Patient's noncompliance with other medical treatment and regimen

== ENCOUNTER → 2018-06-23 | Outpatient (CLI) | payer MEDICARE, MEDICAID ==
[2018-06-23 17:59] LABS: PSA SCREENING 1.24 NG/ML (< 4.0)
== END ==
LOC: M SMT 14:28
DX: Z12.5 Encounter for screening for malignant neoplasm of prostate (principal)
CPT/HCPCS: G0103

== ENCOUNTER 2018-11-13 12:42 | Inpatient (IN) | payer MEDICARE, MEDICAID ==
[~2018-11-13] VITALS: Ht 157.5 cm; Wt 63.7 kg
[~2018-11-13 12:42] MED LIST changes: -/AMLO25TA PO; -/PANT40TA OR; +ASPI1TAB15 PO; +ASPI81TA85 PO; +CIPR-250 PO; +COLA100C5 PO; +CREO12CA PO; +DULC10SU2 PR; +FLAG500T PO; +FLUD0.1T PO; +FURO20TA2 PO; +GABA-843 PO; +HUMA100I3 SC; +HYDR-2541 PO; +HYDR-3715 PO; -HYDR25TAB PO; +KALEPOW PO; +LASI20TA3 PO; +LIPA1CAP PO; +MAG400TA PO; +NAPR-837 PO; -NAPR500T PO; +NICO14DI20 TOP; -NICO14PA TOP; +NICO21DI31 TOP; +NICO21PAT TD; -NORCOTAB PO; +NORV2TAB PO; +PEG1POW PO; -PEPC1TAB4 PO; +PEPC1TAB5 PO; +PERC5TAB12 PO; +PROM-190 PO; -PROM25TA PO; +PROT1TAB2 OR; +SENN18TA PO; +SENO17.2 PO; +SENO8.6T10 PO; +SODI15SS PO; +VELT1POW PO; -ZENP1CAP PO
[2018-11-13] MEDS ORDERED: HumuLIN R (REGULAR) INSULIN (NovoLIN R) **100U/ML** PER UNIT IV ONE ×3 (13:15→18:00)
[2018-11-13] MEDS ORDERED: NS 1,000 ML IV ONE ×2 (13:15→15:45)
--- NOTE | 2018-11-13 14:13 | REP ---
Chest one-view HISTORY: Diabetic ketoacidosis Comparison: 05/10/2018 The lungs are clear. The heart is normal in size. The pulmonary vasculature is normal in appearance. Impression: No acute disease. Electronically Signed by Luc Peres MD 11/13/2018 02:04 P
[2018-11-13] MEDS ORDERED: METOCLOPRAMIDE INJ 10MG/2ML VIAL (J2765) IV ONE (14:30)
[2018-11-13] MEDS ORDERED: KETOROLAC 30 MG/ML VIAL (J1885) IV ONE (14:30)
[2018-11-13 14:56] LABS: BASO # 0.1 10^3/uL (0.0-0.2); BASO % 1.2 % (0.0-1.0); EOS % 0.4 % (0.0-3.0); HEMATOCRIT 44.3 % (42.0-52.0); HEMOGLOBIN 14.3 g/dl (13.5-17.5); LYMPH % 26.7 % (24.0-44.0); MEAN CORPUSCULAR HEMOGLOBIN 21.2 pg (27.0-33.0); MEAN CORPUSCULAR HGB CONC 32.3 g/dl (32.0-36.5); MEAN CORPUSCULAR VOLUME 65.5 fl (80.0-96.0); MONO # 0.5 10^3/uL (0.0-0.8); MONO % 6.8 % (0.0-5.0); NEUTROPHILS # 4.9 10^3/uL (1.8-7.7); NEUTROPHILS % 64.2 % (36.0-66.0); PLATELET COUNT, AUTOMATED 269 10^3/uL (150-450); RED BLOOD COUNT 6.76 10^6/uL (4.30-6.10); WHITE BLOOD COUNT 7.6 10^3/uL (4.0-10.0)
[2018-11-13 14:59] LABS: VENOUS HCO3 25.6 MEQ/L (23.0-27.0); VENOUS O2 SATURATION 87.2 % (60.0-80.0); VENOUS PARTIAL PRESSURE CO2 40.5 mmHg (38.0-50.0); VENOUS PARTIAL PRESSURE O2 53.2 mmHg (30.0-50.0); VENOUS PH 7.418 UNITS (7.330-7.430); VENOUS STANDARD HCO3 25.1 MEQ/L; VENOUS TOTAL CO2 26.8 MEQ/L (24.0-28.0)
[2018-11-13 15:22] LABS: ACETONE/KETONE 19.59 MG/DL (<2.81); ALBUMIN 3.8 GM/DL (3.2-5.2); BILIRUBIN,DIRECT 0.2 MG/DL (0.0-0.2); BILIRUBIN,TOTAL 0.7 MG/DL (0.2-1.0); CALCIUM LEVEL 9.1 MG/DL (8.5-10.1); CREATININE FOR GFR 1.51 MG/DL (0.70-1.30); POTASSIUM SERUM 6.8 MEQ/L (3.5-5.1); TOTAL PROTEIN 7.2 GM/DL (6.4-8.2)
[2018-11-13 15:27] LABS: HEMOGLOBIN A1c 13.9 %
--- NOTE | 2018-11-13 16:08 | REP ---
CT ABDOMEN PELVIS WITHOUT IV CONTRAST: 11/13/2018. Comparison : 05/18/2018, 04/26/2018. Clinical history: Lower abdominal pain, right inguinal pain. History of prior splenectomy and cholecystectomy. Pancreatic resection. Findings: Noncontrast examination is performed with coronal and sagittal reconstructions. CT abdomen: The lung bases were without acute finding. Curvilinear fibrotic change in the right middle lobe is stable. Heart not enlarged. No definite hiatal hernia. Liver without hepatomegaly or focal lesion. Trace pneumobilia. There is no biliary dilatation. Gallbladder surgically absent. Surgical clips, pancreatic bed region prior splenectomy changes are stable. Stomach collapsed. Small amount of fluid within the wall thickness, therefore difficult to car driver. Stool and gas in the colon. Small bowel loops with mild distension proximally that may reflect mild ileus. I do not see perforation or free air in the abdomen or pelvis on lung window review of all CT slices. Atherosclerotic calcifications of the aorta without aneurysm. Adrenal glands symmetric and slightly thickened but unchanged. Kidneys without stone, hydronephrosis or mass. No cyst. No perinephric fluid. Stool and gas in the colon without sign of colitis or diverticulitis. No generalized ascites. The bones show lumbar and lower thoracic spine without compression deformity of destructive lesion. There is facet arthropathy lower lumbar spine. There is slight disc space narrowing at L4-5. No aortic aneurysm. No periaortic or pathologic sized retroperitoneal/mesenteric lymphadenopathy. CT pelvis: The sacrum, SI joints, iliac bones, acetabuli, hips and ischia are without fracture or destructive lesion. Minor degenerative changes are seen. Vascular calcifications in the iliac and femoral arteries are noted. I see no ventral hernia, nor any definite inguinal adenopathy or hernia. The bladder shows no mass, wall thickening or stone. No renal mass, cyst, hydronephrosis, hydroureter or ureteral stone. Impression: 1. Some mild fullness and distension of the small bowel loops upper abdomen reflect a mild ileus but no definite obstruction with stool and gas scattered throughout the colon. There is no perforation, free air or generalized ascites. 2. Prior cholecystectomy of some mild pneumobilia prior partial pancreatectomy, splenectomy and no evidence of abdominal pelvic or adenopathy, ascites or free air. 3. Degenerative changes spine and hips without destructive lesions. 4. No renal, ureteral or bladder stone. No hydronephrosis. 5. No ventral or inguinal hernia. Electronically Signed by Bryce Richardsno MD 11/13/2018 07:58 P
[2018-11-13] MEDS ORDERED: MORPHINE 2 MG/ML 1ML SYRINGE (J2270) IV ONE (17:00)
[2018-11-13 17:19] LABS: VENOUS BASE EXCESS 0.4 (-2.0-2.0); VENOUS HCO3 26.5 MEQ/L (23.0-27.0); VENOUS O2 SATURATION 88.7 % (60.0-80.0); VENOUS PARTIAL PRESSURE CO2 47.9 mmHg (38.0-50.0); VENOUS PARTIAL PRESSURE O2 60.9 mmHg (30.0-50.0); VENOUS STANDARD HCO3 24.7 MEQ/L; VENOUS TOTAL CO2 27.9 MEQ/L (24.0-28.0)
[2018-11-13 17:48] LABS: AMPHETAMINES LEVEL URINE NEGATIVE (NEGATIVE); BARBITURATES URINE NEGATIVE (NEGATIVE); BENZODIAZEPINES URINE NEGATIVE (NEGATIVE); CANNABINOIDS URINE POSITIVE (NEGATIVE); COCAINE METABOLITE URINE NEGATIVE (NEGATIVE); METHADONE URINE NEGATIVE (NEGATIVE); OPIATES URINE NEGATIVE (NEGATIVE); PHENCYCLIDINE URINE NEGATIVE (NEGATIVE)
[2018-11-13] MEDS ORDERED: NS 1,000 ML IV SCH (18:00)
[2018-11-13] MEDS ORDERED: HUMA100I5 SC ×2 (18:48→20:44)
[2018-11-13] MEDS ORDERED: INSUDET SC (18:48)
[2018-11-13] MEDS ORDERED: LEVEMIR (INSULIN DETEMIR) 1 UNITS/0.01ML SC ONE (19:00)
[2018-11-13] MEDS ORDERED: INSULIN HUMAN REGULAR 100 UNITS in NS 99 ML IV SCH (20:13)
[2018-11-13] MEDS ORDERED: INSULIN IV RATE CHANGE DOCUMENTATION ML/HR XX SCH (20:15)
[2018-11-13] MEDS ORDERED: NEUR300C PO (20:44)
[2018-11-13] MEDS ORDERED: FURO20TA2 PO (20:44)
[2018-11-13] MEDS ORDERED: ASPI81TA26 PO (20:44)
[2018-11-13] MEDS ORDERED: LEVE1INJ5 SC (20:44)
[2018-11-13] MEDS ORDERED: FLUD0.1T PO (20:44)
[2018-11-13] MEDS ORDERED: SODI15SS PO (20:45)
[2018-11-13] MEDS ORDERED: PHARMACY COMMENT (20:47)
[2018-11-13] MEDS: NS 1,000 ML IV SCH (21:58)
[2018-11-13 22:01] LABS: MB/CK RELATIVE INDEX 6.05 (< OR =4); TROPONIN I 0.06 NG/ML (< 0.10)
[2018-11-13] MEDS: MORPHINE 4 MG/ML 1ML VIAL/SYRINGE (J2270) IV PRN (22:01)
--- NOTE | 2018-11-13 22:16 | ECGEPIP ---
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: [facility] : 1960 Requested By: JUDY BOB Order Number: [id number] Reading MD: Zoltan Ohara Measurements Intervals [place] Rate: 54 P: 72 RI: 210 QRS: -50 QRSD: 97 T: -80 QT: 476 QTc: 453 Interpretive Statements SINUS BRADYCARDIA WITH FIRST DEGREE AV BLOCK LEFT ANTERIOR FASCICULAR BLOCK SEPTAL MYOCARDIAL INFARCTION, OF INDETERMINATE AGE MODERATE T-WAVE ABNORMALITY, CONSIDER LATERAL ISCHEMIA MODERATE T-WAVE ABNORMALITY, CONSIDER INFERIOR ISCHEMIA T wave abnormality notably new from tracing done 05-18-18 Electronically Signed On 11-13-2018 22:16:41 EDT by Zoltan Ohara
[2018-11-14] MEDS ORDERED: GLUCOSE 4 GM CHEW TABLET PO PRN (00:45)
[2018-11-14] MEDS ORDERED: DEXTROSE 50% 50 ML SYRINGE IV PRN (00:45)
[2018-11-14] MEDS ORDERED: GLUCAGON FOR INJ 1 MG VIAL (J1610) SC PRN (00:45)
[2018-11-14 01:00] VITALS: BP 135/81
[2018-11-14] MEDS: LEVEMIR (INSULIN DETEMIR) 1 UNITS/0.01ML SC SCH ×3 (01:44→21:00)
[2018-11-14 02:30] VITALS: BP 115/67
[2018-11-14 02:30] LABS: BLOOD UREA NITROGEN 33 MG/DL (7-18); CALCIUM LEVEL 7.7 MG/DL (8.5-10.1); CARBON DIOXIDE LEVEL 24 MEQ/L (21-32); CHLORIDE LEVEL 101 MEQ/L (98-107); CREATININE FOR GFR 1.27 MG/DL (0.70-1.30); GLOMERULAR FILTRATION RATE > 60.0 (>56); GLUCOSE, FASTING 106 MG/DL (70-100); POTASSIUM SERUM 4.3 MEQ/L (3.5-5.1); SODIUM LEVEL 133 MEQ/L (136-145)
[2018-11-14 04:00] VITALS: BP 117/71
[2018-11-14] MEDS: MORPHINE 4 MG/ML 1ML VIAL/SYRINGE (J2270) IV PRN (04:11)
[2018-11-14 06:15] LABS: BASO # 0.1 10^3/uL (0.0-0.2); BASO % 0.9 % (0.0-1.0); EOS # 0.1 10^3/uL (0.0-0.50); EOS % 1.1 % (0.0-3.0); HEMATOCRIT 32.6 % (42.0-52.0); LYMPH # 3.1 10^3/uL (1.5-4.5); LYMPH % 38.3 % (24.0-44.0); MEAN CORPUSCULAR HEMOGLOBIN 21.5 pg (27.0-33.0); MEAN CORPUSCULAR HGB CONC 32.8 g/dl (32.0-36.5); MEAN CORPUSCULAR VOLUME 65.5 fl (80.0-96.0); MONO # 0.6 10^3/uL (0.0-0.8); MONO % 7.8 % (0.0-5.0); NEUTROPHILS # 4.2 10^3/uL (1.8-7.7); NEUTROPHILS % 51.4 % (36.0-66.0); PLATELET COUNT, AUTOMATED 224 10^3/uL (150-450); RED BLOOD COUNT 4.98 10^6/uL (4.30-6.10); WHITE BLOOD COUNT 8.1 10^3/uL (4.0-10.0)
[2018-11-14 06:16] LABS: HEMOGLOBIN 10.7 g/dl (13.5-17.5)
[2018-11-14 06:35] LABS: BLOOD UREA NITROGEN 34 MG/DL (7-18); CALCIUM LEVEL 7.7 MG/DL (8.5-10.1); CARBON DIOXIDE LEVEL 24 MEQ/L (21-32); CHLORIDE LEVEL 100 MEQ/L (98-107); CREATININE FOR GFR 1.18 MG/DL (0.70-1.30); GLOMERULAR FILTRATION RATE > 60.0 (>56); GLUCOSE, FASTING 143 MG/DL (70-100); POTASSIUM SERUM 4.5 MEQ/L (3.5-5.1); SODIUM LEVEL 133 MEQ/L (136-145)
--- NOTE | 2018-11-14 07:38 | HPE ---
DATE OF ADMISSION: 11/13/2018 58-year-old male with past medical history of recurrent pancreatitis status post pancreatectomy, history of uncontrolled diabetes due to noncompliance with recurrent visits to the emergency room, tobacco dependence, hypertension, chronic kidney disease II, presents to the emergency room due to elevated blood sugar levels. Patient says he ran out of his insulin approximately 4 days ago and says that he has been eating less on purpose because of his blood sugar being so high. When I asked him if he called his primary medical doctor, he said yes and he does not know what happened with that, so his history was unclear. He also has this right lower quadrant pain. A CT scan was done of the abdomen and pelvis which showed no perforation or any type of obstruction. 2 mg of morphine was given IV. Patient does have hyperglycemia refractory to 30 units total of regular insulin and 7 units of Levemir which he normally takes 12. Patient was started on insulin drip and will be admitted for further management of his hyperglycemia. PAST MEDICAL HISTORY: Diabetes type 2. Recurrent pancreatitis status post pancreatectomy and splenectomy. History of prior tobacco abuse. Hypertension. Chronic kidney disease II. PAST SURGICAL HISTORY: Left wrist and foot fracture repair in 2009. Partial pancreatectomy and splenectomy 36 years ago. Cholecystectomy. DRUG ALLERGIES: QUINAPRIL. FAMILY HISTORY: Noncontributory. SOCIAL HISTORY: Patient smokes approximately a pack a day for the last 40 years. Denies any alcohol or elicit drugs. HOME MEDICATIONS: - aspirin 81 mg orally daily - fludrocortisone 0.1 mg orally daily - Lasix 20 mg orally daily - gabapentin 300 mg orally four times a day - insulin Detemir 12 units subcu twice daily - insulin Lispro 100 units subcu before meals and at bedtime per sliding scale - sodium polystyrene sulfate as needed for hyperkalemia REVIEW OF SYSTEMS: Negative all ten major systems except as mentioned in history of present illness. VITALS: Blood pressure is 131/77, heart rate 51 and regular, respiratory rate is 18, temperature is 97.3, oxygen saturation 99% on room air. Head is atraumatic, normocephalic. Neck is supple, no jugular venous distention. Lungs are clear to auscultation. S1, S2 audible. No murmurs appreciated. Abdomen is positive tenderness in right lower quadrant on deep palpation. No rebound. Positive bowel sounds. No pedal edema. Skin intact. Neurological examination: Patient alert and oriented times three. LABS: WBC 7.6, hemoglobin 14.3, hematocrit 44.3, platelets are 269,000. Sodium is 121, potassium is 6.8, chloride is 84, CO2 is 27, anion gap 10, BUN 39, creatinine 1.51, glucose fasting was 702. Anion gap was 10. Albumin 3.8, troponin is pending. AST 189, ALT 107. Alkaline phosphatase 171. Calcium 9.1. Urinalysis is negative for urinary tract infection (UTI). Chest x-ray showed no consolidation. IMPRESSION: 1. Hyperglycemia. 2. Acute kidney injury. PLAN: Patient will be admitted to the intensive care unit (ICU). Will continue insulin drip at 7 units an hour until the patient's blood sugar is below 250, hence we will stop the regular insulin and give him the rest of his Levemir and put him on sliding scale and we will attempt to optimize his blood sugar levels in the next 24 hours. His acute kidney injury is secondary to dehydration. We will give him fluids and normal saline at 150 mL/hr. The patient had hemolyzed potassium specimen. Will follow. Repeat potassium levels were sent stat. They are pending. Will also follow his troponin to make sure he is not having a myocardial infarction (IN). Will hold his Lasix until his acute kidney injury is resolved and obviously we are going to hold his insulin regimen until his blood sugar is less than 250. Will continue following his care in the intensive care unit (ICU).
[2018-11-14] MEDS: NS 1,000 ML IV SCH ×2 (07:42→17:18)
[2018-11-14 08:00] VITALS: BP 122/72
[2018-11-14] MEDS: HumaLOG INSULIN (NovoLOG) PER UNIT SC SCH ×4 (08:53→21:33)
[2018-11-14] MEDS: ASPIRIN 81 MG ENTERIC TAB PO SCH (08:53)
[2018-11-14] MEDS: GABAPENTIN 300 MG CAP PO SCH ×4 (08:53→21:33)
--- NOTE | 2018-11-14 13:23 | IPNPDOC ---
Subjective Date Seen The patient was seen on 11/14/18. Subjective Chief Complaint/HPI Patient seen and examined at the bedside. Reports feeling much better today. Verbalized understanding of the need to remain adherent to his medication regimen. No acute overnight events noted. Objective Physical Examination General Exam: Positive: Alert, Cooperative, No Acute Distress ENT Exam: Positive: Atraumatic, Mucous membr. moist/pink Neck Exam: Negative: JVD Chest Exam: Positive: Clear to auscultation, Normal air movement Heart Exam: Positive: Rate Normal, Normal S1, Normal S2 Abdomen Exam: Positive: Soft; Negative: Tenderness Extremity Exam: Negative: Tenderness, Swelling Psych Exam: Positive: Oriented x 3 Assessment /Plan Plan/VTE VTE Prophylaxis Ordered?: Yes Plan Hyperglycemia 2/2 Non-Adherence to Medications Patient restarted on Levemir, ISS ordered for additional coverage Carb consistent diet ordered Diabetic Education We will cont to monitor the patient's blood sugar levels Abd Pain likely 2/[address] Scan of the abd/pel noted from admission Notes that this is improved after having a BM last night Bowel care ordered Ambulation encouraged Chronic kidney disease stage II/III Serum Cr at baseline Peripheral neuropathy Continue gabapentin DVT Prophylaxis SCDs/TEDs VS, [facility]&O[facility] Vital Signs/I&O Vital Signs Date Time Temp Pulse Resp B/P (MAP) Pulse Ox O2 Delivery O2 Flow Rate FiO2 11/14/18 08:00 97.8 52 18 122/72 (89) 97 11/14/18 00:30 Room Air I&O- Last 24 Hours up to 6 AM 11/14/18 06:00 Intake Total 3553 ml Output Total 750 ml Balance 2803 ml Laboratory Data 24H LABS Laboratory Tests 2 11/13/18 14:40: Immature Granulocyte % (Auto) 0.7, White Blood Count 7.6, Red Blood Count 6.76H, Hemoglobin 14.3, Hematocrit 44.3, Mean Corpuscular Volume 65.5L, Mean Co rpuscular Hemoglobin 21.2L, Mean Corpuscular Hemoglobin Concent 32.3, Red Cell Distribution Width 18.3H, Platelet Count 269, Neutrophils (%) (Auto) 64.2, Lymphocytes (%) (Auto) 26.7, Monocytes (%) (Auto) 6.8H, Eosinophils (%) (Auto) 0.4, Basophils (%) (Auto) 1.2H, Neutrophils # (Auto) 4.9, Lymphocytes # (Auto) 2.0, Monocytes # (Auto) 0.5, Eosinophils # (Auto) 0.0, Basophils # (Auto) 0.1, Nucleated Red Blood Cells % (auto) 1.4H, Blood Gas Bicarbonate Standard 25.1, Venous Blood pH 7.418, Venous Blood Partial Pressure CO2 40.5, Venous Blood Partial Pressure O2 53.2H, Venous Blood Total Carbon Dioxide 26.8, Venous Blood HCO3 25.6, Venous Blood Oxygen Saturation 87.2H, Venous Blood Base Excess 1.0, Anion Gap 10, Glomerular Filtration Rate 51.0L, Estimated Mean Plasma Glucose 352H, Hemoglobin A1c 13.9, Lactic Acid Level 1.0, Calcium Level 9.1, Aspartate Amino Transf (AST/SGOT) 189H, Alanine Aminotransferase (ALT/SGPT) 107H, Alkaline Phosphatase 171H, Total Bilirubin 0.7, Direct Bilirubin 0.2, Total Protein 7.2, Albumin 3.8, Albumin/Globulin Ratio 1.12, B-Hydroxybutyrate 19.59H 11/13/18 15:56: Bedside Glucose (Misc Panel) 580*H 11/13/18 17:03: Urine Color YELLOW, Urine Appearance CLEAR, Urine pH 6.0, Urine Specific [place] 1.022, Urine Protein NEGATIVE, Urine Glucose (UA) 3+H, Urine Ketones TRACEH, Urine Blood NEGATIVE, Urine Nitrite NEGATIVE, Urine Bilirubin NEGATIVE, Urine Urobilinogen 0.2, Urine Leukocyte Esterase NEGATIVE, Urine WBC (Auto) 0, Urine RBC (Auto) 2, Urine Hyaline Casts (Auto) 0, Urine Bacteria (Auto) NEGATIVE, Urine Squamous Epithelial Cells 0, Urine Sperm (Auto) , Urine Amphetamines Screen NEGATIVE, Urine Benzodiazepines Screen NEGATIVE, Urine Opiates Screen NEGATIVE, Urine Methadone Screen NEGATIVE, Urine Barbiturates Screen NEGATIVE, Urine Phencyclidine Screen NEGATIVE, Urine Cocaine Metabolite Screen NEGATIVE, Urine Cannabinoids Screen POSITIVEH 11/13/18 17:07: Blood Gas Bicarbonate Standard 24.7, Venous Blood pH 7.360, Venous Blood Partial Pressure CO2 47.9, Venous Blood Partial Pressure O2 60.9H, Venous Blood Total Carbon Dioxide 27.9, Venous Blood HCO3 26.5, Venous Blood Oxygen Saturation 88.7H, Venous Blood Base Excess 0.4 11/13/18 17:09: Bedside Glucose (Misc Panel) 552*H 11/13/18 21:25: Bedside Glucose (Misc Panel) 476H 11/13/18 21:29: Total Creatine Kinase 81, Creatine Kinase MB 5.0H, Creatine Kinase MB Relative I ndex 6.05H, Troponin I 0.06 11/13/18 22:21: Bedside Glucose (Misc Panel) 385H 11/13/18 23:21: Bedside Glucose (Misc Panel) 306H 11/14/18 00:31: Bedside Glucose (Misc Panel) 184H 11/14/18 01:02: Bedside Glucose (Misc Panel) 133H 11/14/18 01:38: Anion Gap 8, Glomerular Filtration Rate > 60.0, Blood Urea Nitrogen 33H, Creatinine 1.27, Sodium Level 133#L, Potassium Level 4.3, Chloride Level 101, Carbon Dioxide Level 24, Calcium Level 7.7#L 11/14/18 02:44: Bedside Glucose (Misc Panel) 117H 11/14/18 05:06: Immature Granulocyte % (Auto) 0.5, White Blood Count 8.1, Red Blood Count 4.98, Hemoglobin 10.7#L, Hematocrit 32.6L, Mean Corpuscular Volume 65.5L, Mean Corpuscular Hemoglobin 21.5L, Mean Corpuscular Hemoglobin Concent 32.8, Red Cell Distribution Width 15.9H, Platelet Count 224, Neutrophils (%) (Auto) 51.4, Lymphocytes (%) (Auto) 38.3, Monocytes (%) (Auto) 7.8H, Eosinophils (%) (Auto) 1.1, Basophils (%) (Auto) 0.9, Neutrophils # (Auto) 4.2, Lymphocytes # (Auto) 3.1, Monocytes # (Auto) 0.6, Eosinophils # (Auto) 0.1, Basophils # (Auto) 0.1, Nucleated Red Blood Cells % (auto) 1.7H, Anion Gap 9, Glomerular Filtration Rate > 60.0, Blood Urea Nitrogen 34H, Creatinine 1.18, Sodium Level 133L, Potassium Level 4.5, Chloride Level 100, Carbon Dioxide Level 24, Calcium Level 7.7L 11/14/18 11:34: Bedside Glucose (Misc Panel) 239H CBC/BMP Laboratory Tests 11/13/18 14:40 Red Blood Count 6.76 H, Mean Corpuscular Volume 65.5 L, Mean Corpuscular Hemoglobin 21.2 L, Mean Corpuscular Hemoglobin Concent 32.3, Red Cell Distribution Width 18.3 H, Neutrophils (%) (Auto) 64.2, Lymphocytes (%) (Auto) 26.7, Monocytes (%) (Auto) 6.8 H, Eosinophils (%) (Auto) 0.4, Basophils (%) (Auto) 1.2 H, Neutrophils # (Auto) 4.9, Lymphocytes # (Auto) 2.0, Monocytes # (Auto) 0.5, Eosinophils # (Auto) 0.0, Basophils # (Auto) 0.1 11/13/18 21:29 11/14/18 01:38 Calcium Level 7.7 #L 11/14/18 05:06 Red Blood Count 4.98, Mean Corpuscular Volume 65.5 L, Mean Corpuscular Hemoglobin 21.5 L, Mean Corpuscular Hemoglobin Concent 32.8, Red Cell Distribution Width 15.9 H, Neutrophils (%) (Auto) 51.4, Lymphocytes (%) (Auto) 38.3, Monocytes (%) (Auto) 7.8 H, Eosinophils (%) (Auto) 1.1, Basophils (%) (Auto) 0.9, Neutrophils # (Auto) 4.2, Lymphocytes # (Auto) 3.1, Monocytes # (Auto) 0.6, Eosinophils # (Auto) 0.1, Basophils # (Auto) 0.1, Calcium Level 7.7 L Microbiology Microbiology 11/13/18 Blood Culture, Received Pending 11/13/18 Blood Culture, Received Pending WAN VEGA MD Nov 14, 2018 13:23
[2018-11-14] MEDS ORDERED: BISACODYL 10 MG SUPP PR PRN (13:30)
[2018-11-14] MEDS: SENOKOT S TAB PO SCH ×2 (13:50→21:33)
[2018-11-14 16:00] VITALS: BP 132/74
[2018-11-14] MEDS ORDERED: ACETAMINOPHEN TAB 650MG DOSE (2X325MG) PO PRN (18:00)
[2018-11-14] MEDS: traMADol 50 MG TAB PO PRN (18:10)
[2018-11-14 20:00] VITALS: BP 139/72
[2018-11-14] MEDS ORDERED: MORPHINE 4 MG/ML 1ML VIAL/SYRINGE (J2270) IV ONE (21:30)
[2018-11-15 04:45] VITALS: BP 122/75
[2018-11-15] MEDS: traMADol 50 MG TAB PO PRN ×2 (05:48→19:04)
[2018-11-15 07:30] VITALS: BP 155/88
[2018-11-15] MEDS: GABAPENTIN 300 MG CAP PO SCH ×4 (08:30→20:23)
[2018-11-15] MEDS: ASPIRIN 81 MG ENTERIC TAB PO SCH (08:30)
[2018-11-15] MEDS: LEVEMIR (INSULIN DETEMIR) 1 UNITS/0.01ML SC SCH ×2 (08:31→20:23)
[2018-11-15] MEDS: SENOKOT S TAB PO SCH ×2 (08:31→20:23)
[2018-11-15] MEDS: HumaLOG INSULIN (NovoLOG) PER UNIT SC SCH ×4 (08:32→21:00)
[2018-11-15 09:36] LABS: HEMATOCRIT 34.7 % (42.0-52.0); MEAN CORPUSCULAR HEMOGLOBIN 21.3 pg (27.0-33.0); MEAN CORPUSCULAR HGB CONC 31.7 g/dl (32.0-36.5); MEAN CORPUSCULAR VOLUME 67.1 fl (80.0-96.0); PLATELET COUNT, AUTOMATED 221 10^3/uL (150-450); RED BLOOD COUNT 5.17 10^6/uL (4.30-6.10); WHITE BLOOD COUNT 7.5 10^3/uL (4.0-10.0)
[2018-11-15 09:50] LABS: BLOOD UREA NITROGEN 23 MG/DL (7-18); CALCIUM LEVEL 8.3 MG/DL (8.5-10.1); CARBON DIOXIDE LEVEL 25 MEQ/L (21-32); CHLORIDE LEVEL 98 MEQ/L (98-107); CREATININE FOR GFR 1.21 MG/DL (0.70-1.30); GLOMERULAR FILTRATION RATE > 60.0 (>56); GLUCOSE, FASTING 327 MG/DL (70-100); POTASSIUM SERUM 4.8 MEQ/L (3.5-5.1); SODIUM LEVEL 131 MEQ/L (136-145)
[2018-11-15] MEDS: MORPHINE 4 MG/ML 1ML VIAL/SYRINGE (J2270) IV PRN ×2 (11:16→17:15)
[2018-11-15] MEDS: NICOTINE 14 MG/24 HR TRANSDERMAL TD SCH (12:15)
--- NOTE | 2018-11-15 12:34 | REP ---
PELVIS, ONE VIEW: HISTORY: Right groin pain. There is no acute fracture or dislocation. There is mild narrowing of the joint spaces with associated sclerosis. IMPRESSION: Degenerative change as described above. Electronically Signed by Luc Peres MD 11/15/2018 12:35 P
[2018-11-15] MEDS ORDERED: SLF 3 ML SYR IV PRN (14:30)
--- NOTE | 2018-11-15 14:53 | IPNPDOC ---
Subjective Date Seen The patient was seen on 11/15/18. Subjective Chief Complaint/HPI Patient seen and examined at the bedside. Reports that he is feeling better today, however notes that he has been having right groin pain for the last few days. Notes that he has had this pain before the past but workup has been unrevealing. Objective Physical Examination General Exam: Positive: Alert, Cooperative, No Acute Distress ENT Exam: Positive: Atraumatic, Mucous membr. moist/pink Neck Exam: Negative: JVD Chest Exam: Positive: Clear to auscultation, Normal air movement Heart Exam: Positive: Rate Normal, Normal S1, Normal S2 Abdomen Exam: Positive: Soft; Negative: Tenderness Extremity Exam: Negative: Tenderness, Swelling Psych Exam: Positive: Oriented x 3 Assessment /Plan Plan/VTE VTE Prophylaxis Ordered?: Yes Plan Hyperglycemia 2/2 Non-Adherence to Medications Patient restarted on Levemir, ISS ordered for additional coverage Carb consistent diet ordered Diabetic Education We will cont to monitor the patient's blood sugar levels Right Groin Pain of Unclear Etiology CT Abd/Pel with no acute findings Patient states that he has had this pain on and off for several months and workup has been unrevealing in the past X-ray imaging ordered We will follow-up Abd Pain likely 2/2 Ileus, resolved CT Scan of the abd/pel noted from admission Notes that this is improved after having multiple BMs and ambulating Bowel care ordered Ambulation encouraged Chronic kidney disease stage II/III Serum Cr at baseline Peripheral neuropathy Continue gabapentin DVT Prophylaxis SCDs/TEDs Disposition--anticipate discharge in 24-48 hours pending clinical improvement. [facility]O Vital Signs Date Time Temp Pulse Resp B/P (MAP) Pulse Ox O2 Delivery O2 Flow Rate FiO2 11/15/18 11:26 20 11/15/18 07:30 97.8 64 155/88 (110) 96 11/14/18 00:30 Room Air I&O- Last 24 Hours up to 6 AM 11/15/18 06:00 Intake Total 2380 ml Output Total 675 ml Balance 1705 ml Laboratory Data 24H LABS Laboratory Tests 2 11/14/18 17:20: Bedside Glucose (Misc Panel) 143H 11/14/18 21:23: Bedside Glucose (Misc Panel) 205H 11/14/18 22:00: Lactic Acid Level 2.4*H 11/15/18 02:37: Lactic Acid Followup at 4 Hours 2.2*H 11/15/18 06:46: Bedside Glucose (Misc Panel) 267H 11/15/18 09:05: Nucleated Red Blood Cells % (auto) 2.4H, Anion Gap 8, Glomerular Filtration Rate > 60.0, Blood Urea Nitrogen 23H, Creatinine 1.21, Sodium Level 131L, Potassium Level 4.8, Chloride Level 98, Carbon Dioxide Level 25, Calcium Level 8.3L 11/15/18 11:35: Bedside Glucose (Misc Panel) 140H CBC/BMP Laboratory Tests 11/15/18 09:05 Red Blood Count 5.17, Mean Corpuscular Volume 67.1 L, Mean Corpuscular Hemoglobin 21.3 L, Mean Corpuscular Hemoglobin Concent 31.7 L, Red Cell Distribution Width 16.6 H, Calcium Level 8.3 L Microbiology Microbiology 11/13/18 Blood Culture - Preliminary, Resulted No growth after 24 hours . All specim... 11/13/18 Blood Culture - Preliminary, Resulted No Growth after 48 hours. All Specime... WAN VEGA MD Nov 15, 2018 14:53
[2018-11-15 16:28] VITALS: BP 148/72
[2018-11-15] MEDS: SLF 3 ML SYR IV SCH (21:42)
[2018-11-15 22:00] VITALS: BP 150/79
[2018-11-16] MEDS: MORPHINE 4 MG/ML 1ML VIAL/SYRINGE (J2270) IV PRN ×4 (00:04→21:20)
[2018-11-16] MEDS: SLF 3 ML SYR IV SCH ×3 (05:39→21:46)
[2018-11-16 06:00] VITALS: BP 122/69
[2018-11-16] MEDS: HumaLOG INSULIN (NovoLOG) PER UNIT SC SCH ×4 (07:30→20:49)
[2018-11-16] MEDS: GABAPENTIN 300 MG CAP PO SCH ×4 (08:55→20:49)
[2018-11-16] MEDS: SENOKOT S TAB PO SCH ×2 (08:55→20:48)
[2018-11-16] MEDS: ASPIRIN 81 MG ENTERIC TAB PO SCH (08:55)
[2018-11-16] MEDS: NICOTINE 14 MG/24 HR TRANSDERMAL TD SCH (08:56)
[2018-11-16] MEDS: traMADol 50 MG TAB PO PRN ×2 (08:56→20:49)
[2018-11-16 11:06] LABS: FOLATE 5.7 NG/ML (>5.4)
[2018-11-16] MEDS: LEVEMIR (INSULIN DETEMIR) 1 UNITS/0.01ML SC SCH ×2 (11:11→21:00)
[2018-11-16] MEDS ORDERED: KETOROLAC 30 MG/ML VIAL (J1885) IV ONE (11:15)
--- NOTE | 2018-11-16 13:33 | REP ---
CT of the right hip: Axial images are acquired helical scanning and a reformatted sagittal and coronal projections: Comparison is the CT of the abdomen pelvis dated 03/19/2011. There is no right hip fracture or dislocation. There are no calcifications or foreign bodies. Mineralization is normal. There is mild joint space narrowing. There is a stable bone island in the humeral head and a stable bone island in the right ischium. These are unchanged from the 2011. No right hip effusion is identified. Impression: No fracture or dislocation. Mild joint space narrowing. Stable benign bone islands as described. No right hip effusion is identified. Electronically Signed by Allen Houston MD 11/16/2018 01:25 P
[2018-11-16] MEDS: FOLIC ACID 1 MG TAB PO SCH (13:50)
[2018-11-16] MEDS: FERROUS GLUCONATE 324 MG TAB PO SCH ×2 (13:50→20:48)
[2018-11-16 14:00] VITALS: BP 120/66
[2018-11-16 22:00] VITALS: BP 147/81
--- NOTE | 2018-11-16 23:01 | IPNPDOC ---
Subjective Date Seen The patient was seen on 11/16/18. Subjective Chief Complaint/HPI Uncontrolled sugars and right groin pain Events since last encounter Pateints sugars are fluctuating a lot with episodes of asymptomatic hypoglycemia. Patient is very sensitive to Lispro insulin with large drop in sugars when using the standard scale. Continues to complain of severe right groin pain causing difficulty in walking without pain medications. He says he initially thought that he must have pulled a muscle as it started very suddenly and it is constant at the same place . Does not move. Ct of the hip done did not reveal any gross abnormality of the hip joint except for mild arthritis. Have consulted orthopedics. There is no intraabdominal pathology in the CT abdomen and pelvis, no hernias. Objective Physical Examination General Exam: Positive: Alert, Cooperative, No Acute Distress ENT Exam: Positive: Atraumatic, Mucous membr. moist/pink Neck Exam: Negative: JVD Chest Exam: Positive: Clear to auscultation, Normal air movement Heart Exam: Positive: Rate Normal, Normal S1, Normal S2 Abdomen Exam: Positive: Soft; Negative: Tenderness Extremity Exam: Negative: Tenderness, Swelling Psych Exam: Positive: Oriented x 3 Assessment /Plan Assessment 58-year-old male with past medical history of recurrent pancreatitis in adolescence status post pancreatectomy and splenectomy at the age of 17, history of uncontrolled diabetes due to noncompliance with recurrent visits to the emergency room, tobacco dependence, hypertension, chronic kidney disease II, presented to the emergency room due to elevated blood sugar levels. Patient said he ran out of his insulin approximately 4 days ago and said that he has been eating less on purpose because of his blood sugar being so high. He also has this right lower quadrant pain. A CT scan was done of the abdomen and pelvis which showed no perforation or any type of obstruction. Labs were significant also for hyperkalemia. pateint was admitted for uncontrolled diabetes and electrolyte abnormalities and dehydration. Hyperglycemia 2/2 Non-Adherence to Medications Patient restarted on Levemir, ISS ordered for additional coverage Carb consistent diet ordered Diabetic Education We will cont to monitor the patient's blood sugar levels Right Groin Pain of Unclear Etiology may be related to hip joint and muscle . CT Abd/Pel with no acute findings CT hip joint reviewed mild arthritis, no effusion ortho consulted. Abd Pain likely 2/2 Ileus, resolved CT Scan of the abd/pel noted from admission Notes that this is improved after having multiple BMs and ambulating Bowel care ordered Ambulation encouraged Chronic kidney disease stage II/III Serum Cr at baseline Peripheral neuropathy Continue gabapentin Iron deficiency anemia also low folate started on iron and folic acid. DVT Prophylaxis SCDs/TEDs Disposition--anticipate discharge in 24-48 hours pending clinical improvement. Plan/VTE VTE Prophylaxis Ordered?: Yes VS, I&O, 24H, Fishbone Vital Signs/I&O Vital Signs Date Time Temp Pulse Resp B/P (MAP) Pulse Ox O2 Delivery O2 Flow Rate FiO2 11/16/18 21:30 18 11/16/18 14:00 98.7 76 120/66 (84) 96 11/14/18 00:30 Room Air I&O- Last 24 Hours up to 6 AM 11/16/18 06:00 Intake Total 3000 ml Output Total 960 ml Balance 2040 ml Laboratory Data 24H LABS Laboratory Tests 2 11/16/18 05:39: Bedside Glucose (Misc Panel) 90 11/16/18 09:04: Iron Level 114, Total Iron Binding Capacity 278, Transferrin % Saturation 41.0, Ferritin 25L, Vitamin B12 Level 423, Folate 5.7 11/16/18 12:25: Bedside Glucose (Misc Panel) 291H 11/16/18 17:17: Bedside Glucose (Misc Panel) 54L 11/16/18 18:08: Bedside Glucose (Misc Panel) 72 11/16/18 20:42: Bedside Glucose (Misc Panel) 70 Microbiology Microbiology 11/13/18 Blood Culture - Preliminary, Resulted No Growth after 72 hours. All specime... 11/13/18 Blood Culture - Preliminary, Resulted No Growth after 72 hours. All specime... JOYA VELAZQUEZ MD Nov 16, 2018 23:01
[2018-11-17] MEDS: MORPHINE 4 MG/ML 1ML VIAL/SYRINGE (J2270) IV PRN (03:30)
[2018-11-17] MEDS: SLF 3 ML SYR IV SCH (05:49)
[2018-11-17 06:00] VITALS: BP 143/78
[2018-11-17] MEDS: HumaLOG INSULIN (NovoLOG) PER UNIT SC SCH ×2 (08:18→12:42)
[2018-11-17] MEDS: FERROUS GLUCONATE 324 MG TAB PO SCH (08:19)
[2018-11-17] MEDS: NICOTINE 14 MG/24 HR TRANSDERMAL TD SCH (08:19)
[2018-11-17] MEDS: GABAPENTIN 300 MG CAP PO SCH ×2 (08:19→12:42)
[2018-11-17] MEDS: ASPIRIN 81 MG ENTERIC TAB PO SCH (08:19)
[2018-11-17] MEDS: SENOKOT S TAB PO SCH (08:19)
[2018-11-17] MEDS: FOLIC ACID 1 MG TAB PO SCH (08:19)
--- NOTE | 2018-11-17 08:19 | REP ---
MRI RIGHT HIP WITHOUT CONTRAST: 11/16/2018. Clinical history: Rule out fracture. Comparison: CT hip 11/16/2018, AP pelvis 11/15/2018. Findings: Standard noncontrast MRI hip protocol performed. Whole pelvic images show the marrow of the lower lumbar vertebral levels, sacrum, iliac bones, acetabula, ischia and the hips unremarkable. Symmetric increased T2 signal in the proximal femoral shaft on both sides suggesting marrow reconversion. There is no hip joint effusion. There is mild hip joint space narrowing. On the T2 images, there is increased signal in the region of the gluteus medius muscle nears its insertion on the greater trochanter which suggests strain or partial tear/contusion. There is trace amount of intramuscular fluid. I do not see trochanteric bursitis. There is also muscular edema posterior to the greater trochanter in the gluteus pavithra. There is no fluid collection to suggest abscess. Gluteus minimus, rectus femoris, tensor fascia amarilis muscles were intact. The obturator internus tendon is unremarkable. There is some increased signal also in the obturator externus near its ischial attachment and likewise in the origins of the adductor muscle group. Impression: 1. There is no evidence of bone bruise or fracture, joint effusion or other acute bony finding. Findings suggest some marrow reconversion proximal femoral shafts bilaterally. 2. Edema and injury to the gluteus medius representing muscle strain near its insertion on the greater trochanter along with gluteus pavithra edema posterior to the greater trochanter and both the obturator externus and abductor group insertions on the ischia show similar signal changes. No fluid collection to suggest abscess. No other significant finding. Electronically Signed by Bryce Richardson MD 11/17/2018 06:20 P
[2018-11-17] MEDS ORDERED: LEVEMIR (INSULIN DETEMIR) 1 UNITS/0.01ML SC SCH (09:00)
--- NOTE | 2018-11-17 10:35 | CR ---
DATE OF CONSULTATION: 11/17/2018 HISTORY OF PRESENT ILLNESS: This is a 58-year-old male with multiple medical problems who has been admitted to the hospital with elevated blood sugar levels and type 2 diabetes. Patient states for the last few days he has been having pain in his right groin. He states that the pain is constant. He has the pain whether he is sitting, standing or walking. He denies any falls or other injuries. The pain has been fairly persistent especially since he has been admitted to the hospital. PAST MEDICAL HISTORY: 1. Type 2 diabetes. 2. 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 3. History of prior tobacco abuse. 4. Hypertension. 5. Chronic kidney disease stage 2. PAST SURGICAL HISTORY: 1. Left wrist and foot fracture repair in 2009. 2. Partial pancreatectomy and splenectomy 36 years ago. 3. Cholecystectomy. ALLERGIES: Quinapril. SOCIAL HISTORY: Patient smokes approximately a pack a day for the last 40 years. No alcohol or drug use. HOME MEDICATIONS: Aspirin, fludrocortisone, Lasix, gabapentin, insulin, sodium polystyrene sulfate. REVIEW OF SYSTEMS: Positive for right hip pain and abdominal pain. PHYSICAL EXAMINATION: VITAL SIGNS: Temperature 98.5, pulse 75, respiratory rate 20, blood pressure 143/78, Oxygen 96%. LUNGS: Clear to auscultation. CARDIOVASCULAR: Regular rate and rhythm. ABDOMEN: Tenderness in the right lower quadrant. NEUROLOGIC: Patient alert and oriented times three. MUSCULOSKELETAL: Patient has some mild pain with internal and external rotation of the hip and flexion and extension of the hip. This was all centered in the more medial aspect of his groin. No tenderness along the lateral or posterior aspects of his hip. No swelling. No skin changes. Intact EHL/FHL/TA/GS normal sensation to light touch in the superficial peroneal, deep peroneal, tibial distribution. Foot is warm and well perfused. IMAGING: MRI of the right hip was reviewed. There is no evidence of femoral neck fracture. There is no hip effusion. There is edema and possible injury to the gluteus medius with possible muscle strain along the greater trochanter and also some gluteus pavithra edema posterior to the greater trochanter. No evidence of abscess. CT scan of the hip is also reviewed. It is negative for fracture or effusion. There is mild osteoarthritis. X-ray of the pelvis is also reviewed. Again mild osteoarthritis but no obvious fracture or dislocation or other pathology. IMPRESSION: Right groin pain. PLAN: There is no evidence of fracture or effusion suggestive of septic arthritis in the right hip. There is some edema around the gluteus medius and pavithra however this does not seem to be correlated with the region that the patient has pain or is tender to palpation. It is not clear what the cause of his groin pain is but it does not appear to be coming from his hip. Patients white count is 7.5 and has not been elevated among his stay making it even less concerning for septic arthritis. I would continue with pain control and weightbearing as tolerated for the time being. He can work with the physical therapist as well as this may be helpful. Follow up with a PA at [facility] should his symptoms become more isolated to gluteus pavithra or medius. LUIZ
[2018-11-17] MEDS ORDERED: FOLI1TAB11 PO (11:15)
[2018-11-17] MEDS ORDERED: TRAM50TA2 PO (11:15)
[2018-11-17] MEDS ORDERED: FERR32TA PO (11:15)
--- NOTE | 2018-12-07 23:59 | DS.PDOC ---
Discharge Summary General Date of Admission Nov 13, 2018 at 21:22 Date of Discharge 11/17/18 Attending Physician: JOYA VELAZQUEZ MD Discharge Summary PROCEDURES PERFORMED DURING STAY: [None]. DISCHARGE DIAGNOSES: Diabetes with hyperglycemia because of missing insulin Diabetic neuropathy H/O recurrent pancreatitis in childhood and adolescence s/p pancreatectomy and splenectomy at age 17. Right hip pain due to muscle sprain Hypertension Tobacco dependence CKD stage II Iron deficiency anemia Folate deficiency Abdominal ileus improved with bowel movements. COMPLICATIONS/CHIEF COMPLAINT: Tyler,Hyperglycemia. HISTORY OF PRESENT ILLNESS: See History and physical HOSPITAL COURSE: 58-year-old male with past medical history of recurrent pancreatitis in adolescence status post pancreatectomy and splenectomy at the age of 17, history of uncontrolled diabetes due to noncompliance with recurrent visits to the emergency room, tobacco dependence, hypertension, chronic kidney disease II, presented to the emergency room due to elevated blood sugar levels. Patient said he ran out of his insulin approximately 4 days ago and said that he has been eating less on purpose because of his blood sugar being so high. He also has this right lower quadrant pain. A CT scan was done of the abdomen and pelvis which showed no perforation or any type of obstruction. Labs were significant also for hyperkalemia. pateint was admitted for uncontrolled diabetes and electrolyte abnormalities and dehydration. Hyperglycemia 2/2 Non-Adherence to Medications Patient restarted on Levemir, ISS ordered for additional coverage Carb consistent diet ordered Diabetic Education We will cont to monitor the patient's blood sugar levels Right Groin Pain due to muscle pain. No joint or bone etiology and no intraabdominal etiology There is mild hip arthritis. CT Abd/Pel with no acute findings CT hip joint reviewed mild arthritis, no effusion MRI of pelvis showed multiple Muscle edema suggesting sprain. MRI showed: Edema and injury to the gluteus medius representing muscle strain near its insertion on the greater trochanter along with gluteus pavithra edema posterior to the greater trochanter and both the obturator externus and abductor group insertions on the ischia show similar signal changes. appreciate ortho input. Suggested working with PT. If the pain persists or becomes worse at follow up with a [facility] orthopedic PA at the office. Abd Pain likely 2/2 Ileus, resolved CT Scan of the abd/pel noted from admission Notes that this is improved after having multiple BMs and ambulating Ambulation encouraged Chronic kidney disease stage II/III Serum Cr at baseline Peripheral neuropathy Continue gabapentin Iron deficiency anemia also low folate started on iron and folic acid. DISCHARGE MEDICATIONS: Please see below. ALLERGIES: Please see below. PHYSICAL EXAMINATION ON DISCHARGE: VITAL SIGNS: Please see below. General Exam: Positive: Alert, Cooperative, No Acute Distress ENT Exam: Positive: Atraumatic, Mucous membr. moist/pink Neck Exam: Negative: JVD Chest Exam: Positive: Clear to auscultation, Normal air movement Heart Exam: Positive: Rate Normal, Normal S1, Normal S2 Abdomen Exam: Positive: Soft; Negative: Tenderness Extremity Exam: Negative: Tenderness, Swelling Psych Exam: Positive: Oriented x 3 LABORATORY DATA: Please see below. ACTIVITY: [As tolerated]. DIET: Consistent Carb diet DISPOSITION: Home Health Service. DISCHARGE INSTRUCTIONS: Follow up with PMD in 1 to 2 weeks DISCHARGE CONDITION: [Stable]. TIME SPENT ON DISCHARGE: Greater than 30 minutes. Vital Signs/I&Os Vital Signs Label Value Date Time Patient Temperature 98.5 degrees F 11/17/18 0600 Temperature Source Core 11/17/18 06 Pulse 75 11/17/18 0600 Respiratory Rate 20 bpm 11/17/18 0600 Blood Pressure Assessment 143/78 (99) 11/17/18 06 Bedside Pulse Oximetry 96 % 11/17/18 06 Laboratory Data CBC/BMP Item Value Date Time White Blood Count 7.5 10^3/uL 11/15/18 09 Red Blood Count 5.17 10^6/uL 11/15/18 0905 Hemoglobin 11.0 g/dl L 11/15/18 09 Hematocrit 34.7 % L 11/15/18904 Mean Corpuscular Volume 67.1 fl L 11/15/18 09 Mean Corpuscular Hemoglobin 21.3 pg L 11/15/18 09 Mean Corpuscular Hemoglobin Concent 31.7 g/dl L 11/15/18 09 Red Cell Distribution Width 16.6 % H 11/15/18 09 Platelet Count 221 10^3/uL 11/15/18 0905 Nucleated Red Blood Cells % (auto) 2.4 % H 11/15/18 09 Sodium Level 131 MEQ/L L 11/15/18 09 Potassium Level 4.8 MEQ/L 11/15/18 09 Chloride Level 98 MEQ/L 11/15/18 09 Carbon Dioxide Level 25 MEQ/L 11/15/18904 Anion Gap 8 MEQ/L 11/15/18904 Blood Urea Nitrogen 23 MG/DL H 11/15/18904 Creatinine 1.21 MG/DL 11/15/18904 Glomerular Filtration Rate > 60.0 11/15/18904 Fasting Glucose 327 MG/DL H 11/15/18904 Calcium Level 8.3 MG/DL L 11/15/18904 Iron Level 114 UG/DL 11/16/18903 Total Iron Binding Capacity 278 UG/DL 11/16/18903 Transferrin % Saturation 41.0 % 11/16/18903 Ferritin 25 NG/ML L 11/16/18903 Vitamin B12 Level 423 PG/ML 11/16/18903 Folate 5.7 NG/ML 11/16/18903 Discharge Medications Scheduled Aspirin (Aspirin 81) 81 Mg Tab, 81 MG PO DAILY, (Reported) Ferrous Gluconate (Ferrous Gluconate) 324 Mg Tab, 324 MG PO BID Fludrocortisone Acetate (Fludrocortisone Acetate) 0.1 Mg Tab, 0.1 MG PO DAILY, (Reported) Folic Acid (Folic Acid) 1 Mg Tab, 1 MG PO DAILY Furosemide (Furosemide) 20 Mg Tab, 20 MG PO DAILY, (Reported) Gabapentin (Neurontin) 300 Mg Cap, 300 MG PO QID, (Reported) Insulin Detemir (Levemir Flextouch) 100 Unit/Ml Inj, 12 UNIT SC BID, (Reported) Insulin Human Lispro (Humalog Kwikpen) 100 Unit/Ml Inj, 100 UNITS SC ACHS, (Reported) PER SLIDING SCALE Scheduled PRN Sodium Polystyrene Sulfonate (Sps) 15 Gm/60 Ml Susp, 15 GM PO DAILY PRN for HIGH POTASSIUM, (Reported) Tramadol HCl (Tramadol HCl) 50 Mg Tab, 50 MG PO Q12HP PRN for PAIN Allergies Coded Allergies: MS - Quinapril (Verified Adverse Reaction, Intermediate, PANCREATITIS, 05/10/18) JOYA VELAZQUEZ MD Dec 07, 2018 23:59
== END 2018-11-17 13:00 | disposition home health service (06) | DRG 638 ==
LOC: M ED 12:42 → EDBD 12:42 → M ED INP 21:22 → M ICU 11-14 00:55 → M PCU 11-14 02:28 → M MS5PR 11-15 17:42
PROVIDERS: ADMIT Internal Medicine; ATTEND Internal Medicine Nephrology
DX: E11.65 Type 2 diabetes mellitus with hyperglycemia (principal); K56.7 Ileus, unspecified; N17.9 Acute kidney failure, unspecified; E11.22 Type 2 diabetes mellitus with diabetic chronic kidney disease; N18.3 Chronic kidney disease, stage 3 (moderate); E11.51 Type 2 diabetes mellitus with diabetic peripheral angiopathy without gangrene; F17.200 Nicotine dependence, unspecified, uncomplicated; D50.9 Iron deficiency anemia, unspecified; I12.9 Hypertensive chronic kidney disease with stage 1 through stage 4 chronic kidney disease, or unspecified chronic kidney disease; E53.8 Deficiency of other specified B group vitamins; Z90.81 Acquired absence of spleen; Z90.410 Acquired total absence of pancreas; E87.5 Hyperkalemia; E86.0 Dehydration; Z91.14 Patient's other noncompliance with medication regimen; Z79.4 Long term (current) use of insulin; Z79.899 Other long term (current) drug therapy; Z79.82 Long term (current) use of aspirin; Z88.8 Allergy status to other drugs, medicaments and biological substances